=== PATIENT | male | born 1940 | race Caucasian/White ===

== ENCOUNTER 2024-08-13 15:20 | Inpatient (IN) | payer OTHER, SELFPAY ==
[2024-08-13] VITALS (9 sets, daily range): BP systolic 111–153; BP diastolic 58–104; BMI 20.7
--- NOTE | 2024-08-13 13:11 | ED.GENMED ---
History of Present Illness
General
Chief Complaint: Breathing Problem
Source: patient and ambulance crew
Exam Limitations: none
Time Seen by Provider: 08/13/24 13:04
Nursing documentation reviewed up to this point in time: agreed with
History of Present Illness
History of Present Illness:
Patient is a 84-year-old male with history of stroke, COPD sent from primary care office for difficulty breathing.
Patient is a limited historian but does complain of right-sided chest pain difficulty breathing. He complains of right-sided rib pain. He denies any recent fever or chills. I did speak with his provider who saw him today in the office : Mili
Oumar who reports patient went to the office this morning very short of breath and does have known COPD however was recently off his regimen because he was visiting his in the intermediate. He was given a DuoNeb in the office and placed on
oxygen.
Past History
Past History
ED Past Medical History: COPD, HTN and Other (Iron deficiency anemia, peripheral vascular disease, gout, pneumonia)
Social History
Tobacco: Former smoker
Personal:
Living: with family
Employment: Retired
Phy Exam
General Physical Exam
General Presentation: no apparent distress
General age: appears stated age
General Skin: warm and dry
General Habitus: elderly
General Mental: alert
General Hydration: dry mucous membranes
Cardiovascular Exam
Cardiovascular Exam: regular rate/rhythm, no murmur and normal peripheral pulses
Pulmonary Exam
Pulmonary Exam: other (Wheezing throughout)
Neurological Exam
Neurological Exam: alert and oriented x3
Musculoskeletal Exam
Musculoskeletal Exam: full ROM
Skin Exam
Skin Exam: normal color and warm/dry
Psychiatric Exam
Psychiatric Exam: normal mood/affect
Scores
Heart Failure Risk
Heart Failure Risk Score: Not Applicable
Sepsis
Sepsis Screening
Sepsis Assessment: Sepsis Ruled Out
Sepsis Screen
Sepsis Screen: Sepsis Ruled Out
Date: 08/16/24
Time: 19:31
Course
Orders/Labs/Results
Orders:
Orders
08/13/24 00:00
Dexamethasone Sod Phosphate [Decadron] 4 mg IV Q8
08/13/24 Breakfast
Cholesterol Lowering
At Your Request: Limited Participation
Cholesterol Lowering: Sodium, 2 Gram
08/13/24 13:08
Electrocardiogram (*1) Urgent
Reason for Study: Chest Pain
IV Insert/Care/Rem.- Treatment PRN
08/13/24 13:09
EKG- Treatment ONCE
CR Chest - 2 Views Urgent
Comment:
Reason For Exam: SOB wheezing
08/13/24 13:20
COVID-19 Antigen Urgent
Source: Nasal Swab
08/13/24 13:21
Complete Blood Count/With Diff Urgent
Comprehensive Metabolic Panel Urgent
Manual Differential Urgent
NT-proBNP Urgent
Troponin I Urgent
Influenza A+B Rapid Molecular Urgent
NICCI Source: Nasal Swab
Specimen Description:
08/13/24 13:23
Albuterol Sulfate [Ventolin Nebules] 7.5 mg INH R NOW STA
Ipratropium Nebs [Atrovent Nebules] 1 mg INH R NOW STA
08/13/24 14:08
Electrocardiogram (*1) Stat
Reason for Study: Other
Other Reason for Exam: chest pain
EKG- Treatment ONCE
08/13/24 14:11
Dexamethasone Sod Phosphate [Decadron] 10 mg IV NOW STA
08/13/24 14:16
Acetaminophen [Tylenol] 650 mg PO NOW STA
08/13/24 14:53
Admit/Transfer Patient As Directed
Co-Sign Provider:
Level of Care: Inpatient admission
Assign to:: Telemetry
Physician / Group: [email or web address]
Diagnosis: COPD
Reason for Telemetry: Arrhythmia
Date to Stop Telemetry: 08/16/24
Time to Stop Telemetry: 11:00
Reason for Hospitalization: COPD
Expected length of stay greater than two midnights?: Yes
ELOS- Estimated Length of Stay in days: 3
I certify the patient meets the requirements for IP care: Yes
PRN Pain Medication Management As Directed
May give lesser potent ordered pain med per pt: Yes
preference::
Protocol:: Medication orders for pain may be administered in a
manner that supports deferring to patient preference
when the pt is:
- Requesting an ordered lesser potent pain medication.
Least to most potent pain medications are defined
as: acetaminophen < NSAID < tramadol < opioids
(morphine, oxycodone, hydromorphone).
- Requesting a lesser dose of the same medication IF
ORDERED.
- Requesting a less intrusive route of administration
if both routes are prescribed by the provider (PO <
IV).
08/13/24 14:55
Code Status As Directed
Resuscitation Status: Full Code
08/13/24 15:02
Furosemide [Lasix] 40 mg IV NOW STA
08/13/24 15:06
Echo 2D MMode Color/Doppler Routine
Reason for Study: pulmonary edema
08/13/24 16:00
Ipratropium/Albuterol Sulfate [Duoneb] 3 ml INH R QID
08/13/24 16:37
Acetaminophen [Tylenol] 650 mg PO Q4HPRN PRN
Ipratropium/Albuterol Sulfate [Duoneb] 3 ml INH R Q4HPRN PRN
08/13/24 16:37
CARDIOLOGY CONSULT Routine
Consulting Provider: Alden Cueva
Was physician already notified: Yes
PULMONARY CONSULT Routine
Consulting Provider: De La Cruz,Jon
Was physician already notified: Yes
Activity As Directed
Activity Level: As Tolerated
Intake/ Output As Directed
Frequency: Per unit guidelines
Vital Signs As Directed
Frequency: Per unit guidelines
Weight As Directed
Frequency: Daily
Copd Education [RESP] Routine
DX Deep Vein Thrombosis Video Routine
08/13/24 18:00
Atorvastatin [Lipitor] 40 mg PO QPM
08/13/24 19:48
Potassium Urgent
Troponin I Q6H
08/13/24 20:00
Allopurinol [Zyloprim] 50 mg PO BID
Heparin 5,000 units SC Q12
Ticagrelor [Brilinta] 90 mg PO BID
08/13/24 22:00
Lorazepam [Ativan] 1 mg PO HS
08/14/24 01:50
Troponin I Q6H
08/14/24 06:59
Basic Metabolic Panel IN AM
Complete Blood Count/With Diff IN AM
Troponin I Q6H
08/14/24 08:00
Amlodipine [Norvasc] 10 mg PO DAILY
Aspirin Chewable [Low Strength Aspirin] 81 mg PO DAILY
Atenolol [Tenormin] 50 mg PO DAILY
08/15/24 06:10
Basic Metabolic Panel IN AM
Complete Blood Count/With Diff IN AM
08/16/24 07:14
Basic Metabolic Panel IN AM
Complete Blood Count/With Diff IN AM
08/16/24 11:00
DC Protocol for Telemetry ONCE
08/17/24 06:00
Basic Metabolic Panel IN AM
Complete Blood Count/With Diff IN AM
08/18/24 06:00
Basic Metabolic Panel IN AM
Complete Blood Count/With Diff IN AM
Abnormal Lab Results
08/13/24
13:21
WBC 15.9 H 10^3/uL
(4.8-10.8)
RBC 2.99 L 10^6/uL
(4.70-6.10)
Hgb 9.5 L g/dL
(13.0-18.0)
Hct 29.9 L %
(39.0-52.0)
MCV 100.0 H fL
(80.0-94.0)
MCH 31.8 H pg
(27.0-31.0)
MCHC 31.8 L g/dL
(33.0-37.0)
RDW 15.3 H %
(11.5-14.5)
MPV 11.0 H fL
(7.4-10.4)
Abs Neuts (Manual) 15.1 H 10^3/uL
(1.4-6.5)
Segmented Neutrophils 79 H %
(42-75)
Band Neutrophils 16 H %
(0-3)
Lymphocytes (Manual) 1 L %
(20-51)
Potassium 5.8 H mmol/L
(3.5-5.1)
Chloride 108 H mmol/L
(98-107)
BUN 48 H mg/dl
(9-20)
Creatinine 2.2 H mg/dL
(0.7-1.3)
Glucose 143 H mg/dl
(70-99)
Troponin I 0.139 H* ng/ml
08/13/24 13:21
08/13/24 13:21
Vital Signs
Initial and Last Documented VS:
Initial Vital Signs
Temp Pulse Resp BP Pulse Ox
98.1 F 83 30 143/66 84
08/13/24 12:54 08/13/24 12:54 08/13/24 12:54 08/13/24 12:54 08/13/24 12:54
Last Documented Vital Signs
Temp Pulse Resp BP Pulse Ox
98.1 F 78 27 135/56 95
08/16/24 15:45 08/16/24 19:00 08/16/24 19:00 08/16/24 18:22 08/16/24 19:00
School Photographer consulted with Physician
School Photographer consulted with physician?: Yes
Name of Physician Consulted: Hoda
MDM/Problems Addressed
MDM/Problems Addressed:
Patient presented from primary care office with shortness of breath, wheezing patient received neb while in the office. Patient has a history of COPD. Patient complains of right sided rib /chest pain. He is very short of breath wheezing on exam.
Case discussed with primary care physician trust administrative assistant who saw him in the office. He was given a neb in the office and given an hour-long neb here with IV Decadron. No acute findings on EKG however troponin minimally elevated at 0.139 which is new
for patient is possible this is demand ischemia. He does complain of some right-sided rib discomfort denies any injury unable to get CT PE study due to his renal function. He does have a history of renal disease, and his creatinine is 2.2 which is
baseline for patient. Patient's potassium is minimally elevated at 5.8 no acute EKG changes
Chronic conditions affecting care:
copd /cva o plavix
*Radiology
Radiology exam reviewed: radiology read reviewed
*Pulse Oximetry
Patient hypoxic: yes
*EKG
Interpreted by ED Provider?: Yes
Interpretation: abnormal
Heart Rate: 85
Rate: normal
Rhythm: sinus
Ischemia: no ischemia
*Critical Care Note
Total Time (30-74mins, 75-104mins- exclusive of procedures): Not Applicable
ED Attending Note
-
Portions of this chart may have been created with voice recognition software.� Occasional wrong word or��sound alike� substitutions may have occurred due to the inherent limitations of voice recognition software.
Discharge Plan
Departure
Patient Disposition: Admit
Date of Disposition: 08/13/24
Time of Disposition: 14:26
Admit to: Telemetry
Admit to doctor: hospitalist
Presentation/result/management discussed w/ accepting MD/DO: Hospitalist
Patient with high blood pressure during this ER visit?: No
Condition: Fair
Covid-19: Not Applicable
Discharge Problem:
copd exacerbation , Elevated troponin
Interventions
Interventions:
*Risk Screen - Suicide Last Done: 08/13/24 12:56
*General Assessment Last Done: 08/13/24 13:05
*Neglect/Abuse Screening Last Done: 08/13/24 12:56
ED- Fall Risk Assessment Last Done: 08/13/24 12:56
*ED COVID-19 Vaccine History Last Done: 08/13/24 13:05
*Nursing Disposition Last Done: 08/13/24 16:35
ED- Cardiac Assessment Last Done: 08/13/24 13:33
ED- Pulmonary Assessment Last Done: 08/13/24 13:36
Discharge Date and Time
Discharge Date/Time: 08/13/24 16:36
[2024-08-13 13:47] LABS: ALT (SGPT) 15 U/L (0-50); AST (SGOT) 23 U/L (17-59); Alkaline Phosphatase 104 U/L (38-126); Blood Urea Nitrogen 48 mg/dl (9-20); Calcium 9.9 mg/dl (8.4-10.2); Carbon Dioxide 22 mmol/L (22-30); Chloride 108 mmol/L (98-107); Estimated Creatinine Clearance 21 ml/min; Glucose 143 mg/dl (70-99); Potassium 5.8 mmol/L (3.5-5.1); Sodium 144 mmol/L (135-145); Total Bilirubin 0.7 mg/dl (0.2-1.3); Total Protein 6.9 g/dl (6.3-8.2); eGFR 28.63
[2024-08-13 13:49] LABS: Hematocrit 29.9 % (39.0-52.0); Hemoglobin 9.5 g/dL (13.0-18.0); Mean Corp Hgb Conc. 31.8 g/dL (33.0-37.0); Mean Corpuscular Hgb 31.8 pg (27.0-31.0); Platelet Count 161 10^3/uL (130-400); Red Blood Cell Count 2.99 10^6/uL (4.70-6.10); Red Cell Dist. Width 15.3 % (11.5-14.5); White Blood Cell Count 15.9 10^3/uL (4.8-10.8)
[2024-08-13] MEDS: VENTOLIN NEBULES 7.5 MG INH (13:49)
[2024-08-13 13:50] LABS: COVID-19 Antigen Negative (Negative)
[2024-08-13] MEDS: ATROVENT NEBULES 1 MG INH (13:50)
[2024-08-13 14:01] LABS: NT-proBNP 14700 pg/ml; Troponin I 0.139 ng/ml
[2024-08-13 14:35] LABS: Absolute Neutrophils -Man Diff 15.1 10^3/uL (1.4-6.5); Anisocytosis Slight; Band Neutrophils 16 % (0-3); Lymphocytes 1 % (20-51); Monocytes 4 % (2-9); Normal RBC Morphology No; Platelets Checked Yes; Segmented Neutrophils 79 % (42-75)
[2024-08-13 14:36] LABS: Ovalocytes Slight; Total Cells Counted 100
[2024-08-13] MEDS: TYLENOL 650 MG PO (14:52)
[2024-08-13] MEDS: DECADRON 10 MG IV (14:54)
--- NOTE | 2024-08-13 14:54 | HPS.HSE ---
Addendum entered and electronically signed by Сергей Sweet MD 08/13/24 15:12:
Correction:
Acute mild bronchospasm DDX: Asthmatic bronchitis flare of COPD , possible cardiac asthma
Acute hypoxic RI need low flow O2 support: Not on Home O2
CXR: NOS b/l diffusely increased interstitial opacities likely reflective of chronic lung disease with component of acute interstitial edema not entirely excluded.
- NEG Covid. NEH Flu A & B
- <del>Adequately</del> <del>oxygenating</del> <del>on</del> <del>RA</del>
- empiric IV Decadron 4mg q8
- DuoNebs qid and PRN
- No indication for ABX
- Pul consulted
Original Note:
Family Physician
-
Family Physician: Mili Oseguera
Chief Complaint
-
SoB
History of Present Illness
- associated with wheezing
- s/p an hour long Neb plus IV Decadron
- Rt sided CP
- Mildly elevated trop
- Cannot have CTC PE study due to CKD
Medical History
Past Medical History
Past Medical History: Reports Other
Additional Past Medical History:
Essential hypertension
Chronic obstructive pulmonary disease
Gout
Bladder cancer
Past Surgical History: Reports Other
Additional Past Surgical History:
Bladder cancer surgery
Social History
Tobacco: Non-smoker
Alcohol: None
Drug: None
Personal:
Living: With Family
Family History
Family History: Not pertinent
Allergies / Home Medications
Allergies reflects when Allergies were last updated in [employer].
Home Medications with original date entered in [employer]
Allergy/Medication List:
Nurse tells me that the patient does not know his medications.
I did review some of the medications with him. He is unsure of doses.
The meds he tells me he takes are....
Allopurinol
Cilostazol
Iron
Fish oil
Hydrocortisone
DuoNebs
Lorazepam
Atenolol
Naproxen
If medication reconciliation has not been performed, why?: Medication List N/A
Review of Systems
-
History Source: Patient
A 12 point ROS was completed and negative except as noted: Yes
Constitutional: Reports No Symptoms
EENT: Reports No Symptoms
Respiratory: Reports Trouble Breathing and Other (wheeze)
Cardiac: Reports Chest Pain (Rt sided )
Abdomen/GI: Reports Diarrhea
: Reports No Symptoms
Musculoskeletal: Reports Edema
Skin: Reports No Symptoms
Neurological: Reports Dizzy and Other (Slurred speech)
Endocrine: Reports No Symptoms
Hematologic/Lymphatic: Reports No Symptoms
Psych: Reports No Symptoms
Physical Exam
Vital Signs
Vital Signs
Temp Pulse Resp BP Pulse Ox
98.1 F 80 19 111/71 93
08/13/24 12:57 08/13/24 14:45 08/13/24 14:45 08/13/24 14:00 08/13/24 14:45
Physical Exam
General: Well Developed, Well Nourished and No Apparent Distress (Does appear short of breath)
HEENT: NormoCephalic and Atraumatic; No Oxygen
Respiratory: Wheezes, Rales (diffusely vs upper resp secretions ) and Decreased Breath Sounds
Cardiac: S1/S2 and Regular Rhythm; No Murmur
GI: Soft, Non Tender, Normal Bowel Sounds and Distended
Musculoskeletal: No Clubbing, No Cyanosis and No Edema
Skin: Warm
Neuro: Awake, Alert, No Motor Deficits and Slurred Speech
Psych: Calm
Laboratory Results
-
08/13/24 13:21
08/13/24 13:21
Laboratory Results
Total Bilirubin 0.7 mg/dl (0.2-1.3) 08/13/24 13:21
AST 23 U/L (17-59) 08/13/24 13:21
ALT 15 U/L (0-50) 08/13/24 13:21
Alkaline Phosphatase 104 U/L (38-126) 08/13/24 13:21
Troponin I 0.139 ng/ml H* 08/13/24 13:21
Data Reviewed
-
Diagnostic Radiology: Report Reviewed by me
Medical Tests (Nuc Med, Echo, EKG etc): Report Reviewed by me
Lab Data: Labs Reviewed by me
Old Records: Reviewed
Impression/Plan
-
Data
Laboratory Tests
03/24/23 08/13/24 08/13/24
06:44 13:20 13:21
WBC 15.9 H
Hgb 11.3 L 9.5 L
Potassium 5.8 H
Chloride 108 H
BUN 48 H
Creatinine 2.3 H 2.2 H
eGFR 28.63
Troponin I 0.139 H*
Tuf-S-Ttdxbzfxdwa Pept 39322
SARS-CoV-2 Antigen Negative
NEG Covid
NEG flu A and B
CXR
- Nonspecific diffusely increased interstitial opacities bilaterally, likely reflective of chronic lung disease with component of acute interstitial edema not entirely excluded.
- No pleural effusions.
- No focal airspace disease with chronic pleural thickening within the right apex.
EKG report
- NORMAL SINUS RHYTHM
- RIGHT BUNDLE BRANCH BLOCK
- ABNORMAL ECG WHEN COMPARED WITH ECG OF 21-MAR-2023 17:28,
- PREMATURE ATRIAL COMPLEXES ARE NO LONGER PRESENT
Confirmed by MD SANDRA, ALISSA Monson ([id number]) on 08/13/2024 1:23:07 PM
03/24/23 TTE
Normal left ventricular systolic function.
Left ventricular ejection fraction is 60-65%.
Mild mitral regurgitation.
Thickened aortic valve with mild aortic stenosis as noted.
Compared to the previous echo 11/19/19 there is increased thickeneing of the aortic leaflets paricularly the noncoronary cusp leaflet. and mild aortic stenosis is now suspected.
ASSESSMENT & PLAN
Acute mild bronchospasm DDX: Asthmatic bronchitis flare of COPD , possible cardiac asthma
Acute hypoxic RI need low flow O2 support: Not on Home O2
CXR: NOS b/l diffusely increased interstitial opacities likely reflective of chronic lung disease with component of acute interstitial edema not entirely excluded.
- NEG Covid. NEH Flu A & B
- Adequately oxygenating on RA
- empiric IV Decadron 4mg q8
- DuoNebs qid and PRN
- No indication for ABX
- Pul consulted
R sided CP - atypical for cardiac origin
Elevated TPNI and Elevated proBNP with eGFR of low 20s
CXR : questionable acute interstitial edema
DDX: NIMI
- Empiric IV Lasix 40 x 1 and observe
- c/w DISTANCE LEARNING COORDINATOR ASA , Atenolol
- Trend TPNI
- ECHO
- CBC card consulted
HLD
- cont. Statin
Hyperkalemia with normal HCO3
CKD4 - stable at baseline eGFR2 in low 20
- s/p IV Lasix 40 and repeat K at 7 pm
Insomnia
- c/w Lorazepam HS
Lives alone at Home
DVT Px: SQH
Full code
IP TLM
--- NOTE | 2024-08-13 15:01 | EDRN ---
Dr. Sweet in room w/pt at this time. Micki Law informed that pt had informed me on arrival that he has been unable to do as much getting up and around for last week or so and progressivley less and less able to get around.
--- NOTE | 2024-08-13 15:06 | EDRN ---
Pt continues w/ labored moist breathing w/ audible crackles/bubbling breath sounds noted at this time. Pt using accessory muscles to breathe and orthopnic. Pt is SOB and tacypneic at rest.
--- NOTE | 2024-08-13 15:23 | CON.CAR ---
Addendum entered and electronically signed by Alden Cueva MD 08/13/24 18:38:
84 yo male with PMH of CVA, mild , RBBB, COPD, CKD4 is admitted with acute on chronic SOB and right sided chest pain. Elevated WBC is also noted. Exam with RRR, II/ systolic murmur at RUSB, trace LE edema. +rhonchi on lung exam. Cr 2.2.
Echo 08/13: EF 55-60%, mild .
I suspect etiology of SOB, right sided chest pain is multifactorial with acute HFPEF and COPD exacerbation.
Continue lasix 40mg IV bid with close monitoring of labs and tele. Troponin elevation is likely acute non-ischemic myocardial injury in setting of HF, COPD, CKD4.
Treatment of COPD per hospitalist/pulmonology.
Original Note:
Consultation
Consultation Request
Date/Time Consultation Requested: 08/13/24 1500
Date/Time Consultation Performed: 08/13/24 1530
Requesting Provider: Shanti Machuca
Performing Provider: Hanh CASSIDY for Dr. Cueva
Reason for Consultation: SOB, elevated BNP, elevated troponin
Medical History
-
Chief Complaint: right sided chest pain and SOB
History of Present Illness:
84 y/o male with history of CVA (March 2023), mild , CKD IV, RBBB, and COPD who woke up yesterday and noted right-sided CP and has been having SOB as well. He saw his PCP today, who sent him to the ER for further evaluation. He is not an excellent
historian at this time. To assessment, he is in no acute distress, but does have mildly increased WOB. He is on O2 by MI. He has JVD, mild BLE edema. He has rhonchi throughout lung davis. He has had chills and an elevated WBC, but no fever. He is
being admitted and treated for COPD exacerbation with IV steroids and duonebs. He is also noted to have abnormal troponin in the setting of acute illness. He has constant right-sided CP. EKG is stable with RBBB. Hyperkalemia is noted and he is
getting lasix and repeat potassium is in for later today. He has anemia and denies any blood in urine or stool.
Past Medical History
Past Medical History: COPD, CVA, Valvular Disease and Other (as above)
Social History
Tobacco: Former Smoker
Family History
Family History: Reviewed & Not Pertinent
Allergies / Home Medications
Allergy/AdvReac Type Severity Reaction Status Date / Time
environmental allergies Allergy Unknown Uncoded 08/13/24 12:57
�Medication �Instructions �Recorded �Confirmed �Type
allopurinol 100 mg tablet 50 mg PO BID Gout 10/28/18 08/13/24 History
atenolol 50 mg tablet 50 mg PO BID Blood Pressure 10/28/18 08/13/24 History
ipratropium 0.5 mg-albuterol 3 mg 3 ml inhalation R Q8HPRN PRN sob 10/28/18 08/13/24 History
(2.5 mg base)/3 mL nebulization
soln
acetaminophen 325 mg tablet 650 mg (2 x 325 mg) PO Q4HPRN PRN 10/29/18 08/13/24 Rx
mild pain/CHRISTIANSON/temp> 100.4F
lorazepam 1 mg tablet 1 mg PO HS ##1 10/29/18 08/13/24 Rx
aspirin 81 mg chewable tablet 81 mg PO DAILY #0 tabs 03/24/23 08/13/24 Rx
atorvastatin 20 mg tablet 40 mg (2 x 20 mg) PO QPM #0 tabs 03/24/23 08/13/24 Rx
amlodipine 10 mg tablet 10 mg PO DAILY 08/13/24 08/13/24 History
clemastine 1.34 mg tablet 1.34 mg PO BIDPRN PRN allergy 08/13/24 08/13/24 History
symptoms
omega 8-mgf-gyy-fish oil 1,200 mg 1 cap PO DAILY 08/13/24 08/13/24 History
(144 mg-216 mg) capsule (Fish Oil)
ticagrelor 90 mg tablet (Brilinta) 90 mg PO BID 08/13/24 08/13/24 History
Review of Systems
-
History Source: Patient and Other (and chart)
Constitutional: Chills
Respiratory: Cough (per nursing) and Trouble Breathing
Cardiac: Chest Pain (right sided)
Musculoskeletal: Edema
Physical Exam
Vital Signs
Temp Pulse Resp BP Pulse Ox
98.1 F 80 19 111/71 93
08/13/24 12:57 08/13/24 14:45 08/13/24 14:45 08/13/24 14:00 08/13/24 14:45
Lab Results
08/13/24 13:21
Troponin I 0.139 ng/ml H* 08/13/24 13:21
Bgp-T-Smfonarnovc Pept 27808 pg/ml 08/13/24 13:21
Physical Exam
General: Well Developed, Well Nourished and No Apparent Distress
HEENT: Normocephalic and Anicteric
Respiratory: Rhonchi and Other (on O2 by NC)
Cardiac: Regular Rhythm, Peripheral Edema (mild BLE edema) and JVD
Musculoskeletal: Edema
Skin: Warm and Dry
Neuro: Awake, Alert and Other (lethargic)
Psych: Calm
Impression / Plan
-
Acute, hypoxic respiratory failure:
-on O2 by NC
-likely multifactorial with COPD, acute CHF. Respiratory infection also possibility with WBC, rhonchi, chills- defer to primary team. Pulm consulted.
Acute HFpEF:
-appears volume overloaded to my assessment
-update echo now to ensure still preserved EF, assess aortic valve (previously mild stenosis)
-IV diuresis, which requires intensive monitoring
Abnormal troponin:
-acute non-ischemic myocardial injury in setting of hypoxia
-trend to peak
-check echo
Chest pain, right sided:
-suspect non-cardiac
-monitor with treatment of COPD, CHF, etc.
CKDIV:
-monitor with IV diuresis
HTN:
-monitor with diuresis
-continue meds
RBBB: chronic and stable
Anemia:
-denies blood in urine or stool
-per primary team
Hx CVA:
-patient on ASA and Brilinta- he follows with a neurologist- not clear how long he is supposed to be on DAPT- follow-up with neuro
Data Reviewed
-
EKG: Tracing Personally Visualized and interpreted (SR with RBBB)
Radiology: Report Reviewed by me (CXR;Nonspecific diffusely increased interstitial opacities bilaterally, likely reflective of chronic lung disease with component of acute interstitial edema not entirely excluded. )
Medical Tests (Nuc Med, Echo etc): Report Reviewed by me (echo 03/24/23: Normal left ventricular systolic function. Left ventricular ejection fraction is 60-65%. Mild mitral regurgitation. Thickened aortic valve with mild aortic stenosis as noted.
)
Labs: Labs Reviewed by me
[2024-08-13] MEDS: LASIX 40 MG IV (15:28)
--- NOTE | 2024-08-13 15:30 | EDRN ---
Addendum entered by Nell Ruelas RN 08/13/24 15:30:
(cardiology consult).
Original Note:
Demetris CASSIDY in room w/ pt (cardi
--- NOTE | 2024-08-13 15:34 | EDRN ---
Echocardiogram being done at stretcher side at this time.
[2024-08-13] MEDS: DECADRON IV ×2 (17:00)
[2024-08-13] MEDS: DECADRON 4 MG IV (17:20)
[2024-08-13] MEDS: LIPITOR 40 MG PO (17:20)
--- NOTE | 2024-08-13 17:28 | CON.PUL ---
Consultation
Consultation Request
Date/Time Consultation Requested: 08/13/2024 - 163
Date/Time Consultation Performed: 08/13/2024 - 1704
Requesting Provider: ANGE Van
Performing Provider: Jon De La Cruz MD
Reason for Consultation: SOB
Medical History
-
Chief Complaint: SOB/Wheezing
History of Present Illness:
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 Patient was at his PCP today with BAILEY Fong, due to cough,
shortness of breath and mild congestion. COVID swab + flu swab both negative. He became hypoxic down to 84%. Normally he takes DuoNebs TID but has not been taking it lately. His cough and congestion started about 2 days ago. No known sick
contacts but he [place] [facility] [place] where his is located ([place]). He was placed onto oxygen (2L/min) with sats rising to 90s, and given a DuoNeb treatment x 2 in the office - this improved his Sx. He was thought to
have a COPD exacerbation and then was transferred to [place] [facility] for further care. In the ER he was audibly wheezing and saturating 84% on room air, and saturations improved to 98% on 2 L/min. He was breathing at 24-30 breaths/min with BP
143/66, pulse rate 83 and he was afebrile to 98.1 �F. Labs showed leukocytosis to 15.9, anemia to 9.5, bandemia with 16% bands, creatinine 2.2, potassium 5.8, troponin 0.139, proBNP 14,700 and COVID antigen negative. Flu A/B swab also negative.
CXR shows diffusely increased interstitial opacities with no focal airspace disease. He was given acetaminophen, albuterol, ipratropium + Decadron 10 mg, and admitted to telemetry under the hospitalist. Pulmonary service now consulted for
additional management/recommendations.
When I saw the patient he was resting in bed, on 2 L/min, breathing comfortably. He does have shortness of breath but he says that is close to his baseline. He uses DuoNebs at home TID. He still has chest pain, located at the right rib cage which
is not radiating, described as sharp and hurts all the time no matter what position he is in. He currently denies CHRISTIANSON, abdominal pain, nausea, diarrhea, fevers or chills.
PMHx: CKD, gout, anemia, hypertension, chronic back pain, emphysema, AAA without rupture, history of bladder cancer s/p resection, former tobacco use, anemia, history of alcohol dependence now in remission, KELLEY, insomnia, reported history of COPD,
PVD, sebaceous cyst, hypercholesterolemia, history of CVA due to ICH (2022) with residual right-sided symptoms, history of lung nodule
PSHx: Bladder resection (2008)
Past Medical History
Past Medical History: Other (Above as per HPI)
Past Surgical History: Other (Above as per HPI)
Social History
Tobacco: Former Smoker (Quit 2001, previously smoked 1 PPD x 48 years)
Alcohol: Former
Drug: None
Personal:
Living: With Family
Family History
Family History: CAD (Mother) and Other (Father: Cirrhosis)
Allergies / Home Medications
Allergies
Allergy/AdvReac Type Severity Reaction Status Date / Time
environmental allergies Allergy Unknown Uncoded 08/13/24 12:57
Home Medications
�Medication �Instructions �Recorded �Confirmed �Last Taken �Type
allopurinol 100 mg tablet 50 mg PO BID Gout 10/28/18 08/13/24 08/13/24 History
atenolol 50 mg tablet 50 mg PO BID Blood Pressure 10/28/18 08/13/24 08/13/24 History
ipratropium 0.5 mg-albuterol 3 mg 3 ml inhalation R Q8HPRN PRN sob 10/28/18 08/13/24 08/13/24 History
(2.5 mg base)/3 mL nebulization
soln
acetaminophen 325 mg tablet 650 mg (2 x 325 mg) PO Q4HPRN PRN 10/29/18 08/13/24 Unknown Rx
mild pain/CHRISTIANSON/temp> 100.4F
lorazepam 1 mg tablet 1 mg PO HS ##1 10/29/18 08/13/24 08/12/24 Rx
aspirin 81 mg chewable tablet 81 mg PO DAILY #0 tabs 03/24/23 08/13/24 08/13/24 Rx
atorvastatin 20 mg tablet 40 mg (2 x 20 mg) PO QPM #0 tabs 03/24/23 08/13/24 08/12/24 Rx
amlodipine 10 mg tablet 10 mg PO DAILY Blood Pressure 08/13/24 08/13/24 08/13/24 History
clemastine 1.34 mg tablet 1.34 mg PO BIDPRN PRN allergy 08/13/24 08/13/24 Unknown History
symptoms
omega 7-rcv-[id number]-fish oil 1,200 mg 1 cap PO DAILY Supplement 08/13/24 08/13/24 08/13/24 History
(144 mg-216 mg) capsule (Fish Oil)
ticagrelor 90 mg tablet (Brilinta) 90 mg PO BID Blood Clot 08/13/24 08/13/24 08/13/24 History
Prevention/Tx
Review of Systems
-
History Source: Patient
All other systems: Negative unless noted
Vitals / Labs / Diagnostic Testing
Vital Signs
Temp Pulse Resp BP Pulse Ox
97.7 F 87 16 143/73 2
08/13/24 16:45 08/13/24 16:45 08/13/24 16:45 08/13/24 16:45 08/13/24 16:46
Lab Data
08/13/24 13:21
Microbiology
08/13/24 13:21 Nasal Swab Influenza Types A & B (LOC) - Final
Negative for Influenza A & B, NAAT
Negative results must be combined with clinical observations
and patient history.
Nucleic Acid Amplification test (NAAT)performed on the
[employer] platform.
Diagnostic Testing:
Physical Exam
-
HEENT: Normocephalic and Anicteric
Cardiovascular: S1/S2, Murmur (MONY heard across precodium) and Peripheral Edema (Trace LE edema bilaterally)
Respiratory: Wheeze ([place] upon expiration bilaterally), Rales (Anterior lung davis bilaterally), Rhonchi (negative), Accessory Resp Muscle Use (mild during conversation) and Other (Diminished breath sounds bilaterally)
GI: Soft, Non Distended, Non Tender and Normal Bowel Sounds
Neurology: Awake and Alert
Skin: Warm and Dry
General: Respiratory Distress (negative), Comfortable, Chills (negative) and Sweats (negative)
Assessment
-
Assessment: 84-year-old male former tobacco smoker (quit 2001) with a past medical history of AAA without rupture, bladder cancer s/p resection, chronic lower back pain, hypertension, hypercholesterolemia, KELLEY, insomnia, reported history of COPD,
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 Patient was at his PCP today with BAILEY Fong, due
to cough, shortness of breath and mild congestion. COVID swab + flu swab both negative. He became hypoxic down to 84%. Normally he takes DuoNebs TID but has not been taking it lately. His cough and congestion started about 2 days ago. No known
sick contacts but he [place] where his is located ([place]). He was placed onto oxygen (2L/min) with sats rising to 90s, and given a DuoNeb treatment x 2 in the office - this improved his Sx. He was
thought to have a COPD exacerbation and then was transferred to [place] ER for further care. In the ER he was audibly wheezing and saturating 84% on room air, and saturations improved to 98% on 2 L/min. He was breathing at 24-30 breaths/min
with BP 143/66, pulse rate 83 and he was afebrile to 98.1 �F. Labs showed leukocytosis to 15.9, anemia to 9.5, bandemia with 16% bands, creatinine 2.2, potassium 5.8, troponin 0.139, proBNP 14,700 and COVID antigen negative. Flu A/B swab also
negative. CXR shows diffusely increased interstitial opacities with no focal airspace disease. He was given acetaminophen, albuterol, ipratropium + Decadron 10 mg, and admitted to telemetry under the hospitalist. Pulmonary service now consulted
for additional management/recommendations.
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
Impression:
#Acute respiratory failure with hypoxia likely due to combination of acute bronchospasm/acute COPD exacerbation with acute interstitial edema
#Acute interstitial edema suspicious for acute decompensated heart failure
#Acute HFpEF exacerbation
#Chest pain
#Leukocytosis with bandemia (16%)
#Acute on chronic anemia (baseline Hb: 10.5�12g/dL)
#Elevated proBNP (14,700 on 08/13/2024)
#Elevated troponin
#CKD (baseline creatinine approximately 2.2)
#Chronic lower back pain
#AAA without rupture
#History of bladder cancer s/p resection
#Former tobacco smoker (quit 2001)
Plan:
- Admission CXR does show prominent interstitial markings. Prior CXR from 03/21/2023 showed mildly prominent interstitial markings with hyperinflation at that time
- Diuresis tolerated - currently on lasix 40mg IV BID
- Maintain net negative as tolerated
- Trend BNP, sCr, I/O and OP; keep K>4, Mg>2
- Transthoracic echo shows normal biventricular size and systolic function without regional WMA, with LVEF 55 to 60% and mild ; normal RA size
- Cardiology consulted - recs appreciated
- Continue with systemic steroids and wean as tolerated - currently on Decadron 4 mg IV q8hr
- Maintain SpO2 88-95% with supplemental O2 and titrate down as tolerated
- Maintain euglycemia with goal BG >100 and <180 while on high dose steroids
- Incentive spirometer encouraged (as tolerated)
- Continue DuoNebs QID with prn doses in between for breakthrough symptoms
- Pain control
- If chest pain worsens then check stat EKG and notify primary hospitalist and cardiology
- Recheck potassium level given it was 5.8 on admission
- Continue trending troponin level until peaks
- Monitor H/H and transfuse if needed to keep Hb>7g/dL
- DVT ppx: HSQ --> change to q8hr
Pulmonary service will continue to follow along. Outpatient follow-up will be arranged
Data:
CXR 08/13/2024:
Nonspecific diffusely increased interstitial opacities bilaterally, likely reflective of chronic lung disease with component of acute interstitial edema not entirely excluded. No pleural effusions. No focal airspace disease with chronic pleural
thickening within the right apex.
TTE 08/13/2024:
Normal biventricular size and systolic function without regional wall motion
abnormality. Estimated LVEF 55-60%.
Mild aortic stenosis.
Compared to 03/24/23: no significant change.
Total time spent today was 77 minutes for this encounter. Time includes reviewing laboratory test/imaging results, reviewing pertinent medical records, obtaining and reviewing medical history, performing an appropriate exam, ordering medications,
tests and procedures. Time also includes documentation of this encounter, coordinating patient care and communicating with other healthcare professionals. Total time does not include separately billed tests performed on this date of service.
[2024-08-13] MEDS: DUONEB INH (18:01)
[2024-08-13 18:07] LABS: Glucose - Point of Care 140 mg/dl (70-99)
[2024-08-13] MEDS: DUONEB 3 ML INH (19:38)
--- NOTE | 2024-08-13 20:02 | PTCARENOTE ---
Pt pulling off oxygen and gown multiples times. Pt yelling out 'help!' and was very SOB when this RN went into the room. Pt placed back on 2L. Pt aaox3 and reoriented to room and call darden. Paco placed for safety. Plan of care ongoing.
[2024-08-13] MEDS: ZYLOPRIM 50 MG PO (20:26)
[2024-08-13] MEDS: BRILINTA 90 MG PO (20:28)
[2024-08-13] MEDS: HEPARIN 5000 UNITS SC (20:28)
[2024-08-13 20:37] LABS: Potassium 5.1 mmol/L (3.5-5.1)
[2024-08-13 20:53] LABS: Troponin I 0.227 ng/ml
[2024-08-13 21:13] LABS: Glucose - Point of Care 219 mg/dl (70-99)
[2024-08-13] MEDS: ATIVAN 1 MG PO (21:44)
[2024-08-14] MEDS: DECADRON 4 MG IV ×3 (00:08→20:34)
[2024-08-14 03:00] VITALS: BP 149/58
[2024-08-14 03:06] LABS: Troponin I 0.387 ng/ml
[2024-08-14] MEDS: DUONEB 3 ML INH ×5 (04:58→19:49)
[2024-08-14 06:00] VITALS: BMI 20.3
[2024-08-14 07:00] VITALS: BP 128/61
--- NOTE | 2024-08-14 07:06 | PTCARENOTE ---
at 0313, SHIP'S ENGINEER notified about trop of 0.387. No c/o CP or increased SOB. VSS. Plan of care ongoing.
[2024-08-14 07:31] LABS: Hemoglobin 8.7 g/dL (13.0-18.0); Mean Corp Hgb Conc. 31.1 g/dL (33.0-37.0); Mean Corpuscular Hgb 31.4 pg (27.0-31.0); Mean Corpuscular Volume 101.1 fL (80.0-94.0); Mean Platelet Volume 10.8 fL (7.4-10.4); Platelet Count 151 10^3/uL (130-400); Red Blood Cell Count 2.77 10^6/uL (4.70-6.10)
[2024-08-14 07:38] LABS: Troponin I 0.465 ng/ml
[2024-08-14 07:39] LABS: Blood Urea Nitrogen 55 mg/dl (9-20); Calcium 9.5 mg/dl (8.4-10.2); Carbon Dioxide 21 mmol/L (22-30); Chloride 108 mmol/L (98-107); Estimated Creatinine Clearance 19 ml/min; Glucose 168 mg/dl (70-99); Potassium 4.7 mmol/L (3.5-5.1); Sodium 142 mmol/L (135-145)
[2024-08-14 08:18] LABS: Glucose - Point of Care 168 mg/dl (70-99)
[2024-08-14] MEDS: HEPARIN 5000 UNITS SC ×2 (08:38→17:08)
[2024-08-14] MEDS: LASIX 40 MG IV ×2 (08:38→17:08)
[2024-08-14] MEDS: NORVASC 10 MG PO (08:39)
[2024-08-14] MEDS: ZYLOPRIM 50 MG PO ×2 (08:39→20:34)
[2024-08-14] MEDS: BRILINTA 90 MG PO ×2 (08:39→20:33)
[2024-08-14] MEDS: TENORMIN 50 MG PO (08:39)
[2024-08-14] MEDS: LOW STRENGTH ASPIRIN 81 MG PO (08:39)
[2024-08-14 08:40] LABS: Absolute Neutrophils -Man Diff 11.5 10^3/uL (1.4-6.5); Band Neutrophils 37 % (0-3); Lymphocytes 1 % (20-51); Monocytes 3 % (2-9); Normal RBC Morphology No; Platelets Checked Yes; Segmented Neutrophils 59 % (42-75)
[2024-08-14 08:41] LABS: Anisocytosis 1+; Hypochromasia 1+; Ovalocytes 1+; Polychromasia 1+; Total Cells Counted 100
[2024-08-14 11:00] VITALS: BP 135/62
--- NOTE | 2024-08-14 12:29 | W.PN.CD ---
Today's Communication / Plan
-
EKG in AM
Trop in AM
IV Lasix today and likely move to PO after AM dose 08/15/2024
Impression / Plan
-
84 yo male with prior CVA, mild , RBBB, COPD, CKD4 admitted with acute on chronic SOB and right sided chest pain. Elevated WBC is also noted.
Suspect SOB, right sided chest pain is multifactorial with acute HFPEF and COPD exacerbation.
Acute HFpEF:
-Seems to be responding to pulmonary treatment and diuresis
Abnormal troponin from acute non-ischemic myocardial injury in setting of hypoxia
- Trend to peak
- EKG tomorrow (08/15/2024)
Chest pain, right sided: None today 08/14/2024
COPD exacerbation
- Per pulm and hospitalist
CKD IV
HTN
RBBB
Anemia
Hx CVA: patient on ASA and Brilinta- he follows with a neurologist- not clear how long he is supposed to be on DAPT- follow-up with neuro
Mental status: not fully assessed. Not sure baseline memory/cognition
Subjective:
He feels better. Eager for home
Data:
Echo 08/13/2024: Echo 08/13/2024: EF 55-60%, mild .
Physical Exam
Vital Signs/Labs
Vital Signs
Temp Pulse Resp BP Pulse Ox
97.9 F 77 16 135/62 94
08/14/24 11:00 08/14/24 11:50 08/14/24 11:50 08/14/24 11:00 08/14/24 11:50
08/13/24 08/14/24 08/15/24
06:59 06:59 06:59
Actual Weight 60.464 kg
08/14/24 06:59
08/14/24 06:59
08/13/24
13:21
Qie-V-Heyznaccsib Pept [id number]
LAB Results
08/13/24 08/13/24 08/14/24
13:21 19:48 01:50
Troponin I 0.139 H* 0.227 H* D 0.387 H* D
08/14/24
06:59
Troponin I 0.465 H*
Physical Exam
Constitutional: No acute distress
EENT: Anicteric
Cardiovascular: Rhythm & rate is regular and Pedal edema is absent
Respiratory: Respiratory effort normal, Wheeze Absent and Crackles Absent
GI: Soft and Distention absent
Neuro/Psych: Alert
Data Reviewed
-
Date of Service: August 14, 2024
[2024-08-14 12:31] LABS: Glucose - Point of Care 209 mg/dl (70-99)
--- NOTE | 2024-08-14 14:44 | W.PN.HOSP.TC ---
Today's Communication/Plan
-
Reduce dexamethasone to 4 mg every 12 hours
Continue with diuresis
Wean O2 as tolerated
Assessment / Plan
Assessment / Plan
Physical Exam
General: Well Developed, Well Nourished and No Apparent Distress
HEENT: Normocephalic and Anicteric
Respiratory: CTAB (on O2 by NC)
Cardiac: Regular Rhythm, Peripheral Edema (mild BLE edema) and JVD
Musculoskeletal: Edema
Skin: Warm and Dry
Neuro: Awake, Alert and Other (lethargic)
Psych: Calm
Acute, hypoxic respiratory failure:
-on O2 by NC
-likely multifactorial with COPD, acute CHF.
�Continue IV diuresis, steroids
Acute HFpEF:
-Echo�EF 55 to 60%, mild aortic stenosis
� Continue IV diuresis
� Anticipate transition to p.o. regimen tomorrow
�follow BMP
Acute COPD�patient
� Mostly triggered by acute interstitial edema
� Continue IV Lasix
� Continue systemic steroids�wean dexamethasone 4 mg every 8 hours to every 12 hours
Continue DuoNebs standing and as needed
Abnormal troponin:
-acute non-ischemic myocardial injury in setting of hypoxia
-trend to peak
-No wall motion abnormality on echo
� Troponin in the morning
� No chest pain today
Chest pain, right sided:
-suspect non-cardiac, atypical pain
� Chest tenderness upon right side
None today
-monitor with treatment of COPD, CHF, etc.
Leukocytosis
� Most likely reactive secondary steroid
Monitor fever curve, white count
CKDIV:
-monitor with IV diuresis
HTN:
-monitor with diuresis
-continue meds
RBBB: chronic and stable
Anemia:
-denies blood in urine or stool
-per primary team
Hx CVA:
-patient on ASA and Brilinta- he follows with a neurologist- not clear how long he is supposed to be on DAPT- follow-up with neuro
#DVT prophylaxis
� HSQ
Anticipated Discharge: 24 - 48 hours
Subjective/Interval History
-
Date of Service: August 14, 2024
Feels better
Objective Data
-
Labs:
Laboratory Results
08/14/24
06:59
WBC 12.0 H
Hgb 8.7 L
Hct 28.0 L
Plt Count 151
Sodium 142
Potassium 4.7
Chloride 108 H
Carbon Dioxide 21 L
BUN 55 H
Creatinine 2.4 H
Glucose 168 H
Calcium 9.5
Vital Signs:
Vital Signs
Temp Pulse Resp BP Pulse Ox
97.9 F 77 16 135/62 94
08/14/24 11:00 08/14/24 11:50 08/14/24 11:50 08/14/24 11:00 08/14/24 11:50
I&O
08/13/24 08/14/24 08/15/24
06:59 06:59 06:59
Intake Total 840 / 840
Output Total 1350 / 1350
Balance -510 / -510
Review of Systems
-
History Source: Patient
All other systems: Not reviewed unless documented
Data Reviewed
-
CT Scan: Image personally visualized and interpreted and Report Reviewed by me
Labs: Labs Reviewed by me
[2024-08-14 15:00] VITALS: BP 148/66
[2024-08-14 15:04] VITALS: BMI 20.3
--- NOTE | 2024-08-14 15:40 | CM ---
CM spoke to dgtr as patient is not best historian. Dgtr reports patient lives in subsidized housing, [place] on his own. in LTC Dementia unit at [facility]. Patient home is one level. He uses walker. He has nebulizer, tub seat and tub rails
at home.
He makes own meals. He gets some food from [employer] in [place].
He goes to see his regularly at [facility]. He drives.
Dgtr concerned he may not be taking his medications regularly. SHe tried to get him to use pill box but he preferred his own way.
He was in [place] rehab after a stroke in 2022. He did have home care after d.c from [facility] but she does not remember name.
CM discussed snf versus home care with dgtr. CM to watch for PT eval to see if patient needs SNF rehab.
PCP Dr. Zarco
Pharmacy: [facility]
PLAN : snf vs home with home care.
--- NOTE | 2024-08-14 15:43 | W.PN.PUL3 ---
Today's Communication / Plan
-
Continue nebulizer therapy
Decrease IV corticosteroids-hopefully transition to prednisone in the next 24 hours
Monitor blood sugars
IV diuretics
Wean down FiO2
Increase activity as able
Assessment
-
Assessment: 84-year-old male former tobacco smoker (quit 2001) with a past medical history of AAA without rupture, bladder cancer s/p resection, chronic lower back pain, hypertension, hypercholesterolemia, KELLEY, insomnia, reported history of COPD,
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 Patient was at his PCP today with BAILEY Fong, due
to cough, shortness of breath and mild congestion. COVID swab + flu swab both negative. He became hypoxic down to 84%. Normally he takes DuoNebs TID but has not been taking it lately. His cough and congestion started about 2 days ago. No known
sick contacts but he does visit a senior living frequently where his is located ([place]). He was placed onto oxygen (2L/min) with sats rising to 90s, and given a DuoNeb treatment x 2 in the office - this improved his Sx. He was
thought to have a COPD exacerbation and then was transferred to [place] ER for further care. In the ER he was audibly wheezing and saturating 84% on room air, and saturations improved to 98% on 2 L/min. He was breathing at 24-30 breaths/min
with BP 143/66, pulse rate 83 and he was afebrile to 98.1 �F. Labs showed leukocytosis to 15.9, anemia to 9.5, bandemia with 16% bands, creatinine 2.2, potassium 5.8, troponin 0.139, proBNP 14,700 and COVID antigen negative. Flu A/B swab also
negative. CXR shows diffusely increased interstitial opacities with no focal airspace disease. He was given acetaminophen, albuterol, ipratropium + Decadron 10 mg, and admitted to telemetry under the hospitalist. Pulmonary service now consulted
for additional management/recommendations.
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
Impression:
#Acute respiratory failure with hypoxia likely due to combination of acute bronchospasm/acute COPD exacerbation with acute interstitial edema
#Acute interstitial edema suspicious for acute decompensated heart failure
#Acute HFpEF exacerbation
#Chest pain
#Leukocytosis with bandemia (16%)
#Acute on chronic anemia (baseline Hb: 10.5�12g/dL)
#Elevated proBNP (14,700 on 08/13/2024)
#Elevated troponin
#CKD (baseline creatinine approximately 2.2)
#Chronic lower back pain
#AAA without rupture
#History of bladder cancer s/p resection
#Former tobacco smoker (quit 2001)
Plan:
- Admission CXR does show prominent interstitial markings. Prior CXR from 03/21/2023 showed mildly prominent interstitial markings with hyperinflation at that time
-Continue IV diuresis per cardiology
- Maintain net negative as tolerated
- Transthoracic echo shows normal biventricular size and systolic function without regional WMA, with LVEF 55 to 60% and mild ; normal RA size
- Continue with systemic steroids and wean as tolerated -agree with reducing steroids, transition to prednisone in 24 hours if improved.
- Maintain SpO2 88-95% with supplemental O2 and titrate down as tolerated
- Maintain euglycemia with goal BG >100 and <180 while on high dose steroids
- Incentive spirometer encouraged (as tolerated)
- Continue DuoNebs QID with prn doses in between for breakthrough symptoms(has a nebulizer at home may continue upon discharge)
- DVT ppx: HSQ
Pulmonary service will continue to follow along. Outpatient follow-up will be arranged
Data:
CXR 08/13/2024:
Nonspecific diffusely increased interstitial opacities bilaterally, likely reflective of chronic lung disease with component of acute interstitial edema not entirely excluded. No pleural effusions. No focal airspace disease with chronic pleural
thickening within the right apex.
TTE 08/13/2024:
Normal biventricular size and systolic function without regional wall motion
abnormality. Estimated LVEF 55-60%.
Mild aortic stenosis.
Compared to 03/24/23: no significant change.
Subjective Data
-
Date of Service:
Date of Service: August 14, 2024
Chief Complaint: Pulmonary Follow Up (Acute COPD exacerbation)
Subjective:
Clinically improved
Denies significant phlegm production or hemoptysis
Less short of breath
Review of Systems
General: Fever (n)
Cardiopulmonary: Dyspnea (improved)
GI: Abdominal Pain (n) and Nausea (n)
Neuro: Headache (n)
Objective Data
Data Reviewed
Vital Signs / I&O / Oxygen:
Vital Signs
Temp Pulse Resp BP Pulse Ox
97.9 F 77 16 135/62 91
08/14/24 11:00 08/14/24 15:39 08/14/24 15:39 08/14/24 11:00 08/14/24 15:39
Intake and Output
08/13/24 08/14/24 08/15/24
06:59 06:59 06:59
Intake Total 840 / 840
Output Total 1350 / 1350
Balance -510 / -510
SaO2 91
Nasal Cannula flow liters per 2
minute
Physical Exam
General: Comfortable
HEENT: Normocephalic
Cardiovascular: S1-S2
Respiratory: Wheeze (Improved)
GI: Soft and Non Distended
Neurology: Awake, Alert and No Motor Deficits
Skin: Warm
Labs/Micro/Reports
Lab Data
08/14/24 06:59
08/14/24 06:59
Microbiology
08/13/24 13:21 Nasal Swab Influenza Types A & B (LOC) - Final
Negative for Influenza A & B, NAAT
Negative results must be combined with clinical observations
and patient history.
Nucleic Acid Amplification test (NAAT)performed on the
[employer] platform.
[2024-08-14 16:59] LABS: Glucose - Point of Care 179 mg/dl (70-99)
[2024-08-14] MEDS: LIPITOR 40 MG PO (17:08)
[2024-08-14 19:00] VITALS: BP 143/69
[2024-08-14 21:30] LABS: Glucose - Point of Care 176 mg/dl (70-99)
[2024-08-14] MEDS: ATIVAN 1 MG PO (21:42)
[2024-08-14 23:00] VITALS: BP 151/64
[2024-08-15] VITALS (8 sets, daily range): BP systolic 117–150; BP diastolic 48–73; PULSE 77–79; O2SAT 95; BMI 19.7
[2024-08-15] MEDS: HEPARIN SC ×3 (00:50→23:49)
[2024-08-15 06:35] LABS: Hematocrit 30.5 % (39.0-52.0); Hemoglobin 9.8 g/dL (13.0-18.0); Mean Corp Hgb Conc. 32.1 g/dL (33.0-37.0); Mean Corpuscular Hgb 32.2 pg (27.0-31.0); Mean Corpuscular Volume 100.3 fL (80.0-94.0); Mean Platelet Volume 11.2 fL (7.4-10.4); Platelet Count 181 10^3/uL (130-400); Red Blood Cell Count 3.04 10^6/uL (4.70-6.10); Red Cell Dist. Width 14.9 % (11.5-14.5)
[2024-08-15 06:52] LABS: Troponin I 0.338 ng/ml
[2024-08-15 07:06] LABS: Calcium 9.7 mg/dl (8.4-10.2); Glucose 136 mg/dl (70-99); Potassium 4.7 mmol/L (3.5-5.1)
[2024-08-15 07:16] LABS: Blood Urea Nitrogen 68 mg/dl (9-20); Carbon Dioxide 27 mmol/L (22-30); Chloride 101 mmol/L (98-107); Estimated Creatinine Clearance 17 ml/min; Sodium 143 mmol/L (135-145)
[2024-08-15] MEDS: DUONEB 3 ML INH ×4 (07:30→17:56)
[2024-08-15 07:49] LABS: Absolute Neutrophils -Man Diff 11.2 10^3/uL (1.4-6.5); Band Neutrophils 23 % (0-3); Lymphocytes 4 % (20-51); Metamyelocytes 1 % (-); Monocytes 1 % (2-9); Segmented Neutrophils 71 % (42-75)
[2024-08-15 07:50] LABS: Anisocytosis 1+; Hypochromasia 1+; Normal RBC Morphology No; Platelets Checked Yes; Polychromasia 1+
[2024-08-15 07:51] LABS: Ovalocytes 1+; Total Cells Counted 100
[2024-08-15 08:00] LABS: Glucose - Point of Care 134 mg/dl (70-99)
[2024-08-15] MEDS: LOW STRENGTH ASPIRIN 81 MG PO (08:02)
[2024-08-15] MEDS: ZYLOPRIM 50 MG PO ×2 (08:02→21:06)
[2024-08-15] MEDS: BRILINTA 90 MG PO ×2 (08:03→21:06)
[2024-08-15] MEDS: HEPARIN 5000 UNITS SC (08:03)
[2024-08-15] MEDS: TENORMIN 50 MG PO (08:04)
[2024-08-15] MEDS: NORVASC 10 MG PO (08:04)
[2024-08-15] MEDS: DECADRON 4 MG IV (08:04)
[2024-08-15] MEDS: LASIX 40 MG IV (08:05)
--- NOTE | 2024-08-15 12:34 | W.PN.HOSP.TC ---
Today's Communication/Plan
-
wean o2
cont steroids
switch to po lasix - monitor Scr
Assessment / Plan
Assessment / Plan
Physical Exam
General: Well Developed, Well Nourished and No Apparent Distress
HEENT: Normocephalic and Anicteric
Respiratory: CTAB (on O2 by NC)
Cardiac: Regular Rhythm, Peripheral Edema (mild BLE edema) and JVD
Musculoskeletal: Edema
Skin: Warm and Dry
Neuro: Awake, Alert and Other (lethargic)
Psych: Calm
Acute, hypoxic respiratory failure:
-on O2 by NC
-likely multifactorial with COPD, acute CHF.
�Continue diuresis, steroids
Acute HFpEF:
-Echo�EF 55 to 60%, mild aortic stenosis
� Switch to p.o. Lasix 40mg daily and monitor Scr
� Anticipate transition to p.o. regimen tomorrow
�follow BMP
Acute COPD�patient
� Mostly triggered by acute interstitial edema
� Switch to p.o. Lasix
� Continue systemic steroids�dexamethasone 4 mg every 12 hours
Continue DuoNebs standing and as needed
Abnormal troponin:
-acute non-ischemic myocardial injury in setting of hypoxia
-trend to peak
-No wall motion abnormality on echo
� Troponin in the morning
� No chest pain today
Chest pain, right sided:
-suspect non-cardiac, atypical pain
� Chest tenderness upon right side
None today
-monitor with treatment of COPD, CHF, etc.
Leukocytosis
� Most likely reactive secondary steroid
Monitor fever curve, white count
CKDIV:
-monitor with diuresis
-started on po lasix starting jeanmarie
HTN:
-monitor with diuresis
-continue meds
RBBB: chronic and stable
Anemia:
-denies blood in urine or stool
-per primary team
Hx CVA:
-patient on ASA and Brilinta- he follows with a neurologist- not clear how long he is supposed to be on DAPT- follow-up with neuro
#DVT prophylaxis
� HSQ
Anticipated Discharge: 24 - 48 hours
Subjective/Interval History
-
Date of Service: August 15, 2024
Wheezing worse, requiring higher level of oxygen overnight
Objective Data
-
Labs:
Laboratory Results
08/15/24
06:10
WBC 12.0 H
Hgb 9.8 L
Hct 30.5 L
Plt Count 181
Sodium 143
Potassium 4.7
Chloride 101
Carbon Dioxide 27
BUN 68 H
Creatinine 2.7 H
Glucose 136 H
Calcium 9.7
Vital Signs:
Vital Signs
Temp Pulse Resp BP Pulse Ox
97.6 F 76 18 146/65 98
08/15/24 11:25 08/15/24 11:25 08/15/24 11:25 08/15/24 11:25 08/15/24 11:25
I&O
08/14/24 08/15/24 08/16/24
06:59 06:59 06:59
Intake Total 840 / 840 480 / 480 120 / 120
Output Total 1350 / 1350 550 / 550 1400 / 1400
Balance -510 / -510 -70 / -70 -1280 / -1280
Review of Systems
-
History Source: Patient
All other systems: Not reviewed unless documented
Data Reviewed
-
CT Scan: Image personally visualized and interpreted and Report Reviewed by me
Labs: Labs Reviewed by me
[2024-08-15 12:58] LABS: Glucose - Point of Care 105 mg/dl (70-99)
--- NOTE | 2024-08-15 15:13 | W.PN.PUL3 ---
Today's Communication / Plan
-
Transition to prednisone 08/15/2024
Continue nebulizer therapy
Continue diuretics
Hopefully discharge planning soon
Assessment
-
Assessment: 84-year-old male former tobacco smoker (quit 2001) with a past medical history of AAA without rupture, bladder cancer s/p resection, chronic lower back pain, hypertension, hypercholesterolemia, KELLEY, insomnia, reported history of COPD,
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 Patient was at his PCP today with BAILEY Fong, due
to cough, shortness of breath and mild congestion. COVID swab + flu swab both negative. He became hypoxic down to 84%. Normally he takes DuoNebs TID but has not been taking it lately. His cough and congestion started about 2 days ago. No known
sick contacts but he does visit a [facility] frequently where his is located ([place]). He was placed onto oxygen (2L/min) with sats rising to 90s, and given a DuoNeb treatment x 2 in the office - this improved his Sx. He was
thought to have a COPD exacerbation and then was transferred to [place] ER for further care. In the ER he was audibly wheezing and saturating 84% on room air, and saturations improved to 98% on 2 L/min. He was breathing at 24-30 breaths/min
with BP 143/66, pulse rate 83 and he was afebrile to 98.1 �F. Labs showed leukocytosis to 15.9, anemia to 9.5, bandemia with 16% bands, creatinine 2.2, potassium 5.8, troponin 0.139, proBNP 14,700 and COVID antigen negative. Flu A/B swab also
negative. CXR shows diffusely increased interstitial opacities with no focal airspace disease. He was given acetaminophen, albuterol, ipratropium + Decadron 10 mg, and admitted to telemetry under the hospitalist. Pulmonary service now consulted
for additional management/recommendations.
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
Impression:
#Acute respiratory failure with hypoxia likely due to combination of acute bronchospasm/acute COPD exacerbation with acute interstitial edema
#Acute interstitial edema suspicious for acute decompensated heart failure
#Acute HFpEF exacerbation
#Chest pain
#Leukocytosis with bandemia (16%)
#Acute on chronic anemia (baseline Hb: 10.5�12g/dL)
#Elevated proBNP (14,700 on 08/13/2024)
#Elevated troponin
#CKD (baseline creatinine approximately 2.2)
#Chronic lower back pain
#AAA without rupture
#History of bladder cancer s/p resection
#Former tobacco smoker (quit 2001)
Plan:
- Admission CXR does show prominent interstitial markings. Prior CXR from 03/21/2023 showed mildly prominent interstitial markings with hyperinflation at that time
-Continue IV diuresis per cardiology
- Maintain net negative as tolerated
- Transthoracic echo shows normal biventricular size and systolic function without regional WMA, with LVEF 55 to 60% and mild ; normal RA size
Bronchospasm improved 08/15/2024.
- Continue with systemic steroids transition to oral prednisone 08/15/2024 and reduce by 10 mg every 48 hours to off.
- Maintain SpO2 88-95% with supplemental O2 and titrate down as tolerated
- Maintain euglycemia with goal BG >100 and <180 while on high dose steroids
- Incentive spirometer encouraged (as tolerated)
- Continue DuoNebs QID with prn doses in between for breakthrough symptoms(has a nebulizer at home may continue upon discharge)
- DVT ppx: HSQ
Pulmonary service will continue to follow along. Outpatient follow-up will be arranged
Data:
CXR 08/13/2024:
Nonspecific diffusely increased interstitial opacities bilaterally, likely reflective of chronic lung disease with component of acute interstitial edema not entirely excluded. No pleural effusions. No focal airspace disease with chronic pleural
thickening within the right apex.
TTE 08/13/2024:
Normal biventricular size and systolic function without regional wall motion
abnormality. Estimated LVEF 55-60%.
Mild aortic stenosis.
Compared to 03/24/23: no significant change.
Subjective Data
-
Date of Service:
Date of Service: August 15, 2024
Chief Complaint: Pulmonary Follow Up (Acute COPD exacerbation)
Subjective:
Patient reports he feels better
Less short of breath
Denies significant purulent sputum production
Review of Systems
Cardiopulmonary: Dyspnea (improved)
GI: Abdominal Pain (n) and Nausea (n)
Neuro: Headache (n)
Objective Data
Data Reviewed
Vital Signs / I&O / Oxygen:
Vital Signs
Temp Pulse Resp BP Pulse Ox
97.6 F 76 18 146/65 98
08/15/24 11:25 08/15/24 11:25 08/15/24 11:25 08/15/24 11:25 08/15/24 11:25
Intake and Output
08/14/24 08/15/24 08/16/24
06:59 06:59 06:59
Intake Total 840 / 840 480 / 480 120 / 120
Output Total 1350 / 1350 550 / 550 1400 / 1400
Balance -510 / -510 -70 / -70 -1280 / -1280
SaO2 98
Nasal Cannula flow liters per 4
minute
Physical Exam
General: Comfortable
HEENT: Normocephalic
Cardiovascular: S1-S2
Respiratory: Wheeze (Improved)
GI: Soft and Non Distended
Neurology: Awake, Alert and No Motor Deficits
Skin: Warm
Labs/Micro/Reports
Lab Data
08/15/24 06:10
08/15/24 06:10
Microbiology
08/13/24 13:21 Nasal Swab Influenza Types A & B (LOC) - Final
Negative for Influenza A & B, NAAT
Negative results must be combined with clinical observations
and patient history.
Nucleic Acid Amplification test (NAAT)performed on the
[employer] ID NOW platform.
[2024-08-15] MEDS: SEROQUEL 25 MG PO (15:41)
[2024-08-15 16:58] LABS: Glucose - Point of Care 110 mg/dl (70-99)
[2024-08-15] MEDS: LIPITOR 40 MG PO (17:04)
--- NOTE | 2024-08-15 20:22 | W.PN.CD ---
Today's Communication / Plan
-
Agree with moving to PO Lasix
Will need to see if decreasing Lasix to daily holds weight or if he will need BID (or bigger PO dose)
Impression / Plan
-
84 yo male with prior CVA, mild , RBBB, COPD, CKD4 admitted with acute on chronic SOB and right sided chest pain. Elevated WBC is also noted.
Suspect SOB, right sided chest pain is multifactorial with acute HFpEF and COPD exacerbation.
Acute HFpEF:
- Seems to be responding to pulmonary treatment and diuresis
- Admit weight 61.8 kg and now 58.8 kg
- As outpt can consider SGLT2-I. but adding MRA challenging with his CKD4
Abnormal troponin from acute non-ischemic myocardial injury in setting of hypoxia
- Peak 0.465
- EKG no significant evolutionary changes
Chest pain, right sided: None last 2 days 08/14/2024 and 08/15/2024
COPD exacerbation
- Per pulm and hospitalist
- Steroids decreased
CKD IV
- Cr a bit worse with diuresis
HTN
RBBB
Anemia
Hx CVA: patient on ASA and Brilinta- he follows with a neurologist- not clear how long he is supposed to be on DAPT- follow-up with neuro
Mental status: not fully assessed. Not sure baseline memory/cognition
Subjective:
No cp or dyspnea
Data:
Echo 08/13/2024: Echo 08/13/2024: EF 55-60%, mild .
Physical Exam
Vital Signs/Labs
Vital Signs
Temp Pulse Resp BP Pulse Ox
97 F 72 18 135/65 97
08/15/24 15:00 08/15/24 17:58 08/15/24 17:58 08/15/24 15:00 08/15/24 17:58
08/14/24 08/15/24 08/16/24
06:59 06:59 06:59
Actual Weight 60.464 kg 58.831 kg
08/15/24 06:10
08/15/24 06:10
08/13/24
13:21
[id number] Pept [id number]
LAB Results
08/13/24 08/13/24 08/14/24
13:21 19:48 01:50
Troponin I 0.139 H* 0.227 H* D 0.387 H* D
08/14/24 08/15/24
06:59 06:10
Troponin I 0.465 H* 0.338 H*
Physical Exam
Constitutional: No acute distress
EENT: Anicteric
Cardiovascular: Rhythm & rate is regular, Systolic murmur absent and S1S2 is normal
Respiratory: Respiratory effort normal and Lungs clear to auscul.
GI: Soft and Distention absent
Neuro/Psych: Alert
Data Reviewed
-
Date of Service: August 15, 2024
[2024-08-15] MEDS: ATIVAN 1 MG PO (21:06)
[2024-08-15 21:49] LABS: Glucose - Point of Care 100 mg/dl (70-99)
[2024-08-16] VITALS (15 sets, daily range): BP systolic 97–158; BP diastolic 52–112; PULSE 3–87; BMI 18.7; BMI 18.8
[2024-08-16] MEDS: HALDOL 1 MG IV (00:39)
--- NOTE | 2024-08-16 01:00 | PTCARENOTE ---
Patient continually removing nasal cannula, patient becomes significantly tachypneic and labored without O2. Patient continues to try and get OOB, becomes agitated and combative with staff. Patient given scheduled PO Ativan and PRN Haldol IV with no
effect. ANGE Villanueva notified, order entered to place B/L soft wrist restraints. Will continue to monitor.
--- NOTE | 2024-08-16 01:03 | W.PN.UPDATE ---
Update Note
Progress Note Update
Nursing reports patient pulling off oxygen and climbing oob. He has already received dose of Ativan and Haldol with no relief. Will add bilateral wrist restraints and 4 rails for safety. Am concerned more medication would over sedate him.
[2024-08-16 07:23] LABS: Glucose - Point of Care 113 mg/dl (70-99)
[2024-08-16 07:48] LABS: Hematocrit 31.1 % (39.0-52.0); Hemoglobin 9.7 g/dL (13.0-18.0); Mean Corp Hgb Conc. 31.2 g/dL (33.0-37.0); Mean Corpuscular Hgb 31.3 pg (27.0-31.0); Mean Corpuscular Volume 100.3 fL (80.0-94.0); Mean Platelet Volume 11.2 fL (7.4-10.4); Platelet Count 196 10^3/uL (130-400); Red Cell Dist. Width 14.4 % (11.5-14.5); White Blood Cell Count 12.8 10^3/uL (4.8-10.8)
[2024-08-16] MEDS: DUONEB 3 ML INH ×4 (08:15→19:51)
[2024-08-16 08:21] LABS: Absolute Neutrophils -Man Diff 11.1 10^3/uL (1.4-6.5); Band Neutrophils 16 % (0-3); Lymphocytes 4 % (20-51); Metamyelocytes 2 % (-); Monocytes 3 % (2-9); Myelocytes 4 % (-); Platelets Checked Yes; Segmented Neutrophils 71 % (42-75)
[2024-08-16 08:22] LABS: Normal RBC Morphology Yes; Total Cells Counted 100; Vacuolated Segs 1+
[2024-08-16 08:27] LABS: Blood Urea Nitrogen 93 mg/dl (9-20); Calcium 9.4 mg/dl (8.4-10.2); Carbon Dioxide 26 mmol/L (22-30); Chloride 99 mmol/L (98-107); Estimated Creatinine Clearance 14 ml/min; Glucose 111 mg/dl (70-99); Potassium 4.9 mmol/L (3.5-5.1); Sodium 142 mmol/L (135-145); eGFR 19.74
[2024-08-16] MEDS: ZYLOPRIM PO ×3 (09:04→19:41)
[2024-08-16] MEDS: NORVASC PO ×2 (09:04→12:12)
[2024-08-16] MEDS: BRILINTA PO ×3 (09:04→19:40)
[2024-08-16] MEDS: HEPARIN 5000 UNITS SC ×3 (09:06→23:30)
[2024-08-16] MEDS: LOW STRENGTH ASPIRIN PO ×2 (09:06→12:12)
[2024-08-16] MEDS: TENORMIN PO ×2 (09:06→12:12)
--- NOTE | 2024-08-16 09:09 | CM ---
Chart reviewed.
PT rec SNF
spoke with daughter Rina - discussed options
Patient resides at [facility] dementia unit & prefers [facility] - referral sent [facility].
Discussed patient needs to be off restraints 24hr prior to SNF
PLAN: SNF, pending bed availability, CM will need to obtain insurance auth
--- NOTE | 2024-08-16 09:13 | W.PN.PUL.V3 ---
Today's Communication / Plan
-
Check ABG
Consider chest x-ray
BiPAP if needed
Nebulizers
Oxygen
Prednisone
Assessment
-
Assessment: 84-year-old male former tobacco smoker (quit 2001) with a past medical history of AAA without rupture, bladder cancer s/p resection, chronic lower back pain, hypertension, hypercholesterolemia, KELLEY, insomnia, reported history of COPD,
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 Patient was at his PCP today with BAILEY Fong, due
to cough, shortness of breath and mild congestion. COVID swab + flu swab both negative. He became hypoxic down to 84%. Normally he takes DuoNebs TID but has not been taking it lately. His cough and congestion started about 2 days ago. No known
sick contacts but he does visit a long term frequently where his is located ([place]). He was placed onto oxygen (2L/min) with sats rising to 90s, and given a DuoNeb treatment x 2 in the office - this improved his Sx. He was
thought to have a COPD exacerbation and then was transferred to [place] ER for further care. In the ER he was audibly wheezing and saturating 84% on room air, and saturations improved to 98% on 2 L/min. He was breathing at 24-30 breaths/min
with BP 143/66, pulse rate 83 and he was afebrile to 98.1 �F. Labs showed leukocytosis to 15.9, anemia to 9.5, bandemia with 16% bands, creatinine 2.2, potassium 5.8, troponin 0.139, proBNP 14,700 and COVID antigen negative. Flu A/B swab also
negative. CXR shows diffusely increased interstitial opacities with no focal airspace disease. He was given acetaminophen, albuterol, ipratropium + Decadron 10 mg, and admitted to telemetry under the hospitalist. Pulmonary service now consulted
for additional management/recommendations.
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
Impression:
#Acute respiratory failure with hypoxia likely due to combination of acute bronchospasm/acute COPD exacerbation with acute interstitial edema
#Acute interstitial edema suspicious for acute decompensated heart failure
Toxic metabolic encephalopathy
#Acute HFpEF exacerbation
#Chest pain
#Leukocytosis with bandemia (16%)
#Acute on chronic anemia (baseline Hb: 10.5�12g/dL)
#Elevated proBNP (14,700 on 08/13/2024)
#Elevated troponin
#CKD (baseline creatinine approximately 2.2)
#Chronic lower back pain
#AAA without rupture
#History of bladder cancer s/p resection
#Former tobacco smoker (quit 2001)
Plan:
Mental status significantly declined-agitated, some mild respiratory distress
Supplemental oxygen
Aspiration precaution
Nebulizers
Steroids-on prednisone 40 mg daily
Check ABG
BiPAP if needed
Consider chest x-ray
Diuresis per primary service and cardiology
Transition to oral Lasix
Monitor blood sugar
Insulin supplementation as needed
DVT prophylaxis-on heparin
Nutrition with aspiration precautions
Early mobilization
Outpatient follow-up will be arranged
Data:
CXR 08/13/2024:
Nonspecific diffusely increased interstitial opacities bilaterally, likely reflective of chronic lung disease with component of acute interstitial edema not entirely excluded. No pleural effusions. No focal airspace disease with chronic pleural
thickening within the right apex.
TTE 08/13/2024:
Normal biventricular size and systolic function without regional wall motion
abnormality. Estimated LVEF 55-60%.
Mild aortic stenosis.
Compared to 03/24/23: no significant change.
Subjective Data
-
Date of Service:
Date of Service: August 16, 2024
Chief Complaint: Pulmonary Follow Up (Acute COPD exacerbation) and Dyspnea Follow Up
Subjective:
Agitated, confused, unable to obtain review of systems, mild respiratory distress
Review of Systems
General: Other (Per HPI)
Objective Data
Data Reviewed
Vital Signs / I&O:
Vital Signs
Temp Pulse Resp BP Pulse Ox
97.8 F 87 22 142/63 96
08/16/24 07:13 08/16/24 08:19 08/16/24 08:19 08/16/24 07:13 08/16/24 08:19
Intake and Output
08/15/24 08/16/24 08/17/24
06:59 06:59 06:59
Intake Total 480 / 480 1080 / 1080
Output Total 550 / 550 2100 / 2100
Balance -70 / -70 -1020 / -1020
SaO2: 96
Nasal Cannula flow liters per minute: 3
Physical Exam
General: Respiratory Distress (n) and Comfortable
HEENT: Normocephalic and Anicteric
Cardiovascular: Regular Rhythm
Respiratory: Wheeze (Improved), Crackles, Rhonchi and Accessory Resp Muscle Use (Mild)
GI: Soft and Non Distended
Neurology: Lethargic
Skin: Warm, Good Color, Cyanosis (n), Jaundice (n) and Rash
Labs/Micro/Reports
Lab Data
08/16/24 07:14
08/16/24 07:14
Microbiology
08/13/24 13:21 Nasal Swab Influenza Types A & B (LOC) - Final
Negative for Influenza A & B, NAAT
Negative results must be combined with clinical observations
and patient history.
Nucleic Acid Amplification test (NAAT)performed on the
[employer] ID NOW platform.
[2024-08-16 10:44] LABS: B.E. 0.2 mmol/L; HCO3 27.4 mmol/L (21-28); O2 Saturation % 96.4 % (94-98); PCO2 57 mmHg (35-48); PO2 72 mmHg (83-108); pH 7.29 (7.35-7.45)
--- NOTE | 2024-08-16 10:58 | RESPNOTE ---
Addendum entered by Sabina Tomlin, RT 08/16/24 11:41:
pt placed on bipap 16/02 with 3L, pt pulling at mask. pt to be transferred to IMU.
Original Note:
pt in resp distress, RR 22-25, belly breathing, ABG done on 3L, pt NT suction for small amount of thick yellow secretions.
--- NOTE | 2024-08-16 11:21 | W.PN.HOSP.TC ---
Today's Communication/Plan
-
Chest x-ray
BiPAP
Transferred to IMU
Assessment / Plan
Assessment / Plan
84-year-old man admitted with acute hypoxic respiratory failure. Patient has been confused and pulling off oxygen climbing out of bed. Received a dose of Ativan and Haldol at nighttime. Restraints added by overnight practitioner.
Patient was drowsy not arousable wakes up briefly but goes back to sleep
Cardiovascular system no stenosis appreciated
Chest bilateral wheezing noted
Bone soft nontender
No pedal edema
# Acute hypoxic and hypercarbic respiratory failure
Multifactorial CHF and COPD
ABG noted. CO2 retention
BiPAP initiated
Transfer patient to stepdown
Since patient did not get any p.o. steroids give a dose of IV steroids now.
Follow clinical response
Use restraints as needed
Continue diuresis and steroids
Hold HS Ativan
# TME-likely multifactorial including CO2, hypoxia, steroids
# Acute HFpEF
Weight on admission was 61.8 kg no 55.65 kg
Lasix has been changed to p.o. daily-May need IV if patient cannot take p.o.
Follow BMP
# COPD exacerbation
Steroids changed to p.o. 1 dose of IV given today
DuoNebs
# Elevated troponin-acute nonischemic myocardial injury in the setting of hypoxia
# Right-sided chest pain-atypical with tenderness on the right side
# Leukocytosis likely secondary to steroids
# CKD stage IV-watch with diuresis
# Hypertension-continue amlodipine, atenolol
# History of CVA-on aspirin and Brilinta. Outpatient neurology evaluation to see if he still needs both
# Hyperlipidemia-continue statin
# Chronic RBBB
# Anemia-check iron studies
# History of gout-continue allopurinol
# Ex-smoker
# DVT prophylaxis-subcutaneous heparin
# Full code
Discussed with nursing at bedside
Discussed with case management
Discussed with patient's daughter on the phone and updated. Patient's is at [facility] now.
Daughter is aware of patient's condition and transfer. I also discussed about CODE STATUS and to see if patient would want to be a full code. She will address this.
Total time spent today over 55 minutes.
Anticipated Discharge: > 48 hours
Subjective/Interval History
-
Date of Service: August 16, 2024
Objective Data
-
Labs:
Laboratory Results
08/16/24 08/16/24
07:14 10:34
WBC 12.8 H
Hgb 9.7 L
Hct 31.1 L
Plt Count 196
HCO3 27.4
Sodium 142
Potassium 4.9
Chloride 99
Carbon Dioxide 26
BUN 93 H
Creatinine 3.0 H
Glucose 111 H
Calcium 9.4
Vital Signs:
Vital Signs
Temp Pulse Resp BP Pulse Ox
97.7 F 72 18 158/74 94
08/16/24 10:56 08/16/24 10:56 08/16/24 10:56 08/16/24 10:56 08/16/24 10:56
I&O
08/15/24 08/16/24 08/17/24
06:59 06:59 06:59
Intake Total 480 / 480 1080 / 1080
Output Total 550 / 550 2100 / 2100
Balance -70 / -70 -1020 / -1020
[2024-08-16 11:25] LABS: Glucose - Point of Care 114 mg/dl (70-99)
[2024-08-16] MEDS: DUONEB INH (11:28)
--- NOTE | 2024-08-16 12:01 | PTCARENOTE ---
pt received as transfer from [facility]. pt on bipap, drowsy, arouses to voice. able to follow some commands. unable to answer questions. generalized weakness throughout. bipap 14/5 with 3L oxygen, 96%. tachypnic, RR low 30s. intermittently grabbing at
bipap, pt able to be redirected. lung sounds coarse, diminished throughout. weak moist nonproductive cough. SR on telemetry heart rate 70s, pulses palpable no edema. hypoactive bowel sounds, unable to tolerate PO at this time. incontinent of urine.
see worklist for full nursing assessment and interventions.
[2024-08-16] MEDS: DECADRON 2 MG IV (12:31)
--- NOTE | 2024-08-16 14:50 | CM ---
CM consult completed.
Advance directives - spoke with daughter Rina - MELISSA to leave her information in room
--- NOTE | 2024-08-16 16:07 | PTCARENOTE ---
Pt with increased agitation, attempting to take off bipap and hit staff with mitts, provider notified, order received for bilateral wrist restraints, one to one at bedside with patient
[2024-08-16] MEDS: LIPITOR PO (17:30)
[2024-08-16 17:41] LABS: Glucose - Point of Care 80 mg/dl (70-99)
--- NOTE | 2024-08-16 17:44 | W.PN.CD ---
Today's Communication / Plan
-
Pt seen on telemetry floor prior to transfer to [facility]/IMU
Agree with moving to IMU, may need ICU
Given the good diuresis I suspect his decline is primarily of pulmonary etiology
Impression / Plan
-
84 yo male with prior CVA, mild , RBBB, COPD, CKD4 admitted with acute on chronic SOB and right sided chest pain. Elevated WBC is also noted.
Suspect SOB, right sided chest pain is multifactorial with acute HFpEF and COPD exacerbation.
Acute respiratory decline
- Pulm invovled.
Acute HFpEF:
- Seems to be responding to pulmonary treatment and diuresis
- Admit weight 61.8 kg => 56.2kg. Suspect volume overload portion of respiratory status has been well treated
- As outpt can consider SGLT2-I. but adding MRA challenging with his CKD4
Abnormal troponin from acute non-ischemic myocardial injury in setting of hypoxia
- Peak 0.465
- EKG no significant evolutionary changes
Chest pain, right sided: None last 2 days 08/14/2024 and 08/15/2024
COPD exacerbation
- Per pulm and hospitalist
- Steroids decreased
CKD IV
- Cr a bit worse with diuresis
HTN
RBBB
Anemia
Hx CVA: patient on ASA and Brilinta- he follows with a neurologist- not clear how long he is supposed to be on DAPT- follow-up with neuro
Mental status: not fully assessed. Not sure baseline memory/cognition
Subjective:
Uncomfortable appearing.
Data:
Echo 08/13/2024: Echo 08/13/2024: EF 55-60%, mild .
Physical Exam
Vital Signs/Labs
Vital Signs
Temp Pulse Resp BP Pulse Ox
98.1 F 74 25 135/55 96
08/16/24 15:45 08/16/24 17:00 08/16/24 17:00 08/16/24 16:00 08/16/24 17:00
08/15/24 08/16/24 08/17/24
06:59 06:59 06:59
Actual Weight 58.831 kg 55.656 kg 56.2 kg
08/16/24 07:14
08/16/24 07:14
08/13/24
13:21
[id number] Pept [id number]
LAB Results
08/13/24 08/14/24 08/14/24
19:48 01:50 06:59
Troponin I 0.227 H* D 0.387 H* D 0.465 H*
08/15/24
06:10
Troponin I 0.338 H*
Physical Exam
Constitutional: Distress
Cardiovascular: Rhythm & rate is regular and Pedal edema is absent
Respiratory: Respiratory effort normal, Crackles Absent and Labored respirations
GI: Soft and Distention absent
Data Reviewed
-
Date of Service: August 16, 2024
[2024-08-17] VITALS (20 sets, daily range): BP systolic 132–153; BP diastolic 49–82; PULSE 3–92; O2SAT 90–92; BMI 18.1
[2024-08-17 00:06] LABS: Glucose - Point of Care 114 mg/dl (70-99)
[2024-08-17 04:54] LABS: Blood Urea Nitrogen 112 mg/dl (9-20); Calcium 9.4 mg/dl (8.4-10.2); Carbon Dioxide 25 mmol/L (22-30); Chloride 103 mmol/L (98-107); Estimated Creatinine Clearance 14 ml/min; Glucose 122 mg/dl (70-99); Sodium 148 mmol/L (135-145); eGFR 19.74
[2024-08-17 05:03] LABS: % Basophils 0.9 % (0-2); % Eosinophils 0.2 % (0-6); % Immature Granulocytes 1.4 % (0-0.5); % Lymphocytes 2.5 % (20.5-51.1); Absolute Basophils 0.2 10^3/uL (0-0.2); Absolute Immature Granulocytes 0.2 10^3/uL (0-0.05); Absolute Lymphocytes 0.4 10^3/uL (1.2-3.4); Absolute Neutrophils 14.8 10^3/uL (1.4-6.5); Hematocrit 30.1 % (39.0-52.0); Hemoglobin 9.9 g/dL (13.0-18.0); Mean Corp Hgb Conc. 32.9 g/dL (33.0-37.0); Mean Corpuscular Hgb 31.6 pg (27.0-31.0); Mean Corpuscular Volume 96.2 fL (80.0-94.0); Mean Platelet Volume 11.2 fL (7.4-10.4); Nucleated Red Blood Cells % 0.1 % (-); Platelet Count 204 10^3/uL (130-400); Red Blood Cell Count 3.13 10^6/uL (4.70-6.10); Red Cell Dist. Width 14.4 % (11.5-14.5); White Blood Cell Count 16.6 10^3/uL (4.8-10.8)
--- NOTE | 2024-08-17 05:59 | PTCARENOTE ---
Patient on continuous BIPAP. Remains a 1:[address] Lethargic and agitated and times.
[2024-08-17] MEDS: DUONEB 3 ML INH ×4 (07:03→20:02)
[2024-08-17 08:22] LABS: B.E. 0.2 mmol/L; HCO3 26.9 mmol/L (21-28); O2 Saturation % 94.3 % (94-98); PCO2 51 mmHg (35-48); PO2 68 mmHg (83-108); pH 7.33 (7.35-7.45)
[2024-08-17 08:25] LABS: O2 Therapy bipap
[2024-08-17] MEDS: BRILINTA PO (08:39)
[2024-08-17] MEDS: NORVASC PO (08:41)
[2024-08-17] MEDS: LOW STRENGTH ASPIRIN PO (08:41)
[2024-08-17] MEDS: ZYLOPRIM PO (08:42)
[2024-08-17] MEDS: TENORMIN PO (08:42)
--- NOTE | 2024-08-17 08:48 | RESPNOTE ---
Respiratory: attempted to give patient a break from bilevel. Slight desaturation on 87% on 4 LPM nasal cannula with accessory muscle use. Returned patient back to bilevel 14/5 cmH2O and 4 LPM.
--- NOTE | 2024-08-17 09:22 | PTOTSP ---
ST Attempt/Hold
Chart reviewed. Pt currently requiring BiPAP support. RT attempted to wean pt to nasal cannula about an hour ago but pt desaturated to 87% and was thus placed back on BiPAP. Pt with known hx of mild oropharyngeal dysphagia (VFSS completed 03/2023).
Would recommend STRICT NPO (including meds) with utmost aspiration precautions at this time (HOB upright as often as possible; oral care QID with suctioning PRN) until respiratory status improves. Will try to f/u again later today to see if pt has
been successfully weaned from BiPAP.
--- NOTE | 2024-08-17 09:30 | W.PN.PUL.V3 ---
Today's Communication / Plan
-
Diuresis as tolerated
Begin to liberate from BiPAP-adjust settings
Follow ABG
Slow prednisone taper
Antibiotics
Assessment
-
Assessment: 84-year-old male former tobacco smoker (quit 2001) with a past medical history of AAA without rupture, bladder cancer s/p resection, chronic lower back pain, hypertension, hypercholesterolemia, KELLEY, insomnia, reported history of COPD,
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 Patient was at his PCP today with BAILEY Fong, due
to cough, shortness of breath and mild congestion. COVID swab + flu swab both negative. He became hypoxic down to 84%. Normally he takes DuoNebs TID but has not been taking it lately. His cough and congestion started about 2 days ago. No known
sick contacts but he does visit a mcc frequently where his is located ([place]). He was placed onto oxygen (2L/min) with sats rising to 90s, and given a DuoNeb treatment x 2 in the office - this improved his Sx. He was
thought to have a COPD exacerbation and then was transferred to [place] ER for further care. In the ER he was audibly wheezing and saturating 84% on room air, and saturations improved to 98% on 2 L/min. He was breathing at 24-30 breaths/min
with BP 143/66, pulse rate 83 and he was afebrile to 98.1 �F. Labs showed leukocytosis to 15.9, anemia to 9.5, bandemia with 16% bands, creatinine 2.2, potassium 5.8, troponin 0.139, proBNP 14,700 and COVID antigen negative. Flu A/B swab also
negative. CXR shows diffusely increased interstitial opacities with no focal airspace disease. He was given acetaminophen, albuterol, ipratropium + Decadron 10 mg, and admitted to telemetry under the hospitalist. Pulmonary service now consulted
for additional management/recommendations.
Chronic conditions ORIENTOR: CKD, gout, anemia, hypertension, chronic back pain, emphysema, AAA without rupture, history of bladder cancer s/p resection, former tobacco use, anemia, history of alcohol dependence now in remission, KELLEY, insomnia, reported
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
Impression:
#Acute respiratory failure with hypoxia likely due to combination of acute bronchospasm/acute COPD exacerbation with acute interstitial edema
#Acute interstitial edema suspicious for acute decompensated heart failure
Toxic metabolic encephalopathy
#Acute HFpEF exacerbation
#Chest pain
#Leukocytosis with bandemia (16%)
#Acute on chronic anemia (baseline Hb: 10.5�12g/dL)
#Elevated proBNP (14,700 on 08/13/2024)
#Elevated troponin
#CKD (baseline creatinine approximately 2.2)
#Chronic lower back pain
#AAA without rupture
#History of bladder cancer s/p resection
#Former tobacco smoker (quit 2001)
Plan:
Persistent agitation-now in restraints to prevent self-harm
Supplemental oxygen-attempt to wean
Aspiration precaution per protocol
Nebulizers
Steroids-on prednisone 40 mg daily
ABG 08/17/2024--51/68/7.33-pCO2 the day prior 57
BiPAP continues as needed-attempt to liberate-will increase BiPAP and minimally EPAP
Chest x-ray 08/16/2024-prominent interstitial markings, no significant change
Diuresis per primary service and cardiology
Transition to oral Lasix
Monitor leukocytosis-increased
Monitor hemoglobin
Transfuse as needed
Increase free water
Follow serum sodium
Monitor blood sugar
Insulin supplementation as needed
DVT prophylaxis-on heparin
Nutrition with aspiration precautions
Early mobilization
Outpatient follow-up will be arranged
Data:
CXR 08/13/2024:
Nonspecific diffusely increased interstitial opacities bilaterally, likely reflective of chronic lung disease with component of acute interstitial edema not entirely excluded. No pleural effusions. No focal airspace disease with chronic pleural
thickening within the right apex.
TTE 08/13/2024:
Normal biventricular size and systolic function without regional wall motion
abnormality. Estimated LVEF 55-60%.
Mild aortic stenosis.
Compared to 03/24/23: no significant change.
Subjective Data
-
Date of Service:
Date of Service: August 17, 2024
Chief Complaint: Pulmonary Follow Up (Acute COPD exacerbation) and Dyspnea Follow Up
Subjective:
Alert, restrained, no shortness of breath, on BiPAP,
Review of Systems
General: Other ( per HPI)
Objective Data
Data Reviewed
Vital Signs / I&O:
Vital Signs
Temp Pulse Resp BP Pulse Ox
98.9 F 92 34 142/58 92
08/17/24 07:24 08/17/24 07:04 08/17/24 07:04 08/17/24 06:00 08/17/24 07:04
Intake and Output
08/16/24 08/17/24 08/18/24
06:59 06:59 06:59
Intake Total 1080 / 1080
Output Total 2100 / 2100 225 / 225
Balance -1020 / -1020 -225 / -225
SaO2: 92
Nasal Cannula flow liters per minute: 3
Physical Exam
General: Respiratory Distress (n) and Comfortable
HEENT: Normocephalic and Anicteric
Cardiovascular: Regular Rhythm
Respiratory: Wheeze (Improved), Crackles, Rhonchi and Accessory Resp Muscle Use (Mild)
GI: Soft and Non Distended
Neurology: Lethargic
Skin: Warm, Good Color, Cyanosis (n), Jaundice (n) and Rash
Labs/Micro/Reports
Lab Data
08/17/24 04:01
08/17/24 04:01
Laboratory Results
08/16/24 08/17/24
10:34 07:54
pH 7.29 L 7.33 L
pCO2 57 H 51 H
pO2 72 L 68 L
HCO3 27.4 26.9
O2 Delivery Level bipap
--- NOTE | 2024-08-17 10:43 | PTCARENOTE ---
Assumed care for patient during the day, received report via dayshift RN. Pt remains on BiPAP, RT bedside to trial without BiPAP see notes. Pt unable to tolerate at this time. 94% O2 on BiPAP. Repeat ABG drawn to evaluate need for continuous BiPAP.
Remains 1:1 due to continued use of BiPAP, pt is currently calm but sleeping. Pt lethargic but arousable to verbal. Speech therapy consulted. Pt remains NPO. Oral medications due in AM, unable to give due to strict NPO status, Dr. Jane notified
via TT.
--- NOTE | 2024-08-17 10:45 | PN.CDI ---
Addendum entered and electronically signed by Nadja Jane MD 08/17/24 17:44:
Documentation is complete at this time.
Original Note:
CDI
- -
CDI:
Physician Documentation Request
Admit Date: 08/13/24 15:20
Dear Doctor Lucinda,
Patient admitted for COPD and CHF.
Please review the following and provide your response in the progress notes.
Clinical Indicators:
Height: 5' 8'
Weight: 119 lbs
BMI: 18.1
If possible, please provide an associated diagnosis related to the abnormal BMI, such as:
Cachectic
Underweight
BMI is not significant
Other
BMI < or = to 19.9
Underweight
Weight Loss
Cachectic
Anorexia
Use of terms such as suspected, likely, concern for, or probable (associated with a specific diagnosis that is being evaluated, monitored, or treated as if it exists) are acceptable and can be coded in the inpatient setting, when documented at the
time of discharge.
Thank you,
Denisa Grady RN, BSN
CDI Specialist
Available via [place] text
Please use your independent medical judgment in providing your response.
[2024-08-17] MEDS: HEPARIN 5000 UNITS SC ×3 (11:04→23:07)
[2024-08-17] MEDS: UNASYN IV (11:04)
--- NOTE | 2024-08-17 11:05 | W.PN.HOSP.TC ---
Addendum entered and electronically signed by Nadja Jane MD 08/17/24 11:33:
Spoke to daughter and updated . All questions answered.
Original Note:
Today's Communication/Plan
-
Hold Lasix as BUN and creatinine are trending up.
Patient is wheezing therefore I have changed his p.o. steroids to IV since he cannot take p.o.
All p.o. meds held today because patient's n.p.o. status.
BiPAP breaks to see if he can tolerate.
Follow ABG
Assessment / Plan
Assessment / Plan
84-year-old man admitted with acute hypoxic respiratory failure. Patient has been confused and pulling off oxygen climbing out of bed. Received a dose of Ativan and Haldol at nighttime. Restraints added by overnight practitioner.
Patient was arousable , but confused.
Cardiovascular system no stenosis appreciated
Chest bilateral wheezing noted
Bone soft nontender
No pedal edema
# Acute hypoxic and hypercarbic respiratory failure
Multifactorial CHF and COPD
ABG noted. CO2 retention and PH better, continue BIPAP with small breaks .
Since patient did not get any p.o. steroids give a dose of IV steroids now.
Follow clinical response
Use restraints as needed
Hold lasix as creat and BUN trending up
Hold HS Ativan
# TME-likely multifactorial including CO2, hypoxia, steroids
# Acute HFpEF
Weight on admission was 61.8 kg no 54.1 kg
Lasix has been changed to p.o. daily-Hold
Follow BMP
# COPD exacerbation
Steroids as above
DuoNebs
# Elevated troponin-acute nonischemic myocardial injury in the setting of hypoxia
# Right-sided chest pain-atypical with tenderness on the right side
# Leukocytosis likely secondary to steroids
# CKD stage IV-JOSE ANGEL noted from diuresis
# Hypertension-Hold amlodipine, atenolol
# History of CVA-on aspirin and Brilinta. Outpatient neurology evaluation to see if he still needs both( Brilinta on hold as NPO)
# Hyperlipidemia-Hold statin as NPO
# Chronic RBBB
# Anemia-check iron studies
# History of gout-Hold allopurinol
# Ex-smoker
# DVT prophylaxis-subcutaneous heparin
# Per D/W Daughter CODE status changed to DNR
Discussed with nursing at bedside
Called daughter and left message
Total time spent today over 52 minutes.
Anticipated Discharge: > 48 hours
Subjective/Interval History
-
Date of Service: August 17, 2024
Objective Data
-
Labs:
Laboratory Results
08/17/24 08/17/24
04:01 07:54
WBC 16.6 H
Hgb 9.9 L
Hct 30.1 L
Plt Count 204
HCO3 26.9
Sodium 148 H
Potassium 5.0
Chloride 103
Carbon Dioxide 25
BUN 112 H*
Creatinine 3.0 H
Glucose 122 H
Calcium 9.4
Vital Signs:
Vital Signs
Temp Pulse Resp BP Pulse Ox
98.9 F 92 34 142/58 92
08/17/24 07:24 08/17/24 07:04 08/17/24 07:04 08/17/24 06:00 08/17/24 09:30
I&O
08/16/24 08/17/24 08/18/24
06:59 06:59 06:59
Intake Total 1080 / 1080
Output Total 2099 225 / 225
Balance -1020 / -1020 -225 / -225
--- NOTE | 2024-08-17 11:34 | W.PN.CD ---
Today's Communication / Plan
-
Consider hydration
Impression / Plan
-
84 yo male with prior CVA, mild , RBBB, COPD, CKD4 admitted with acute on chronic SOB and right sided chest pain. Elevated WBC is also noted.
Admitted for SOB, right sided chest pain that was felt to be multifactorial with acute HFpEF and COPD exacerbation.
Acute respiratory decline on 08/16/2024 felt by me to be predominantly Pulm in etiology and not heart failure related
- Pt on BIPAP and moved to IMU on 08/16/2024
- Pulm invovled.
Acute HFpEF:
- Seems to be responding to pulmonary treatment and diuresis
- Suspect volume overload portion of respiratory status has been well treated.
- Admit weight 61.8 kg => 56.2kg. Today (new scale) 54.1 kg
- LASIX on hold
- As outpt can consider SGLT2-I but adding MRA challenging with his CKD4
Abnormal troponin from acute non-ischemic myocardial injury in setting of hypoxia
- Peak 0.465
- EKG no significant evolutionary changes
Chest pain, right sided: None last 2 days 08/14/2024 and 08/15/2024
COPD exacerbation
- Per pulm and hospitalist
- Steroids decreased
CKD IV
- Cr a bit worse with diuresis
HTN
RBBB
Anemia
Hx CVA: patient on ASA and Brilinta- he follows with a neurologist- not clear how long he is supposed to be on DAPT- follow-up with neuro
Mental status: not fully assessed. Not sure baseline memory/cognition
Subjective:
comfortable appearing on Bipap
Data:
Echo 08/13/2024: Echo 08/13/2024: EF 55-60%, mild .
Physical Exam
Vital Signs/Labs
Vital Signs
Temp Pulse Resp BP Pulse Ox
98.9 F 74 26 142/58 93
08/17/24 07:24 08/17/24 11:27 08/17/24 11:27 08/17/24 06:00 08/17/24 11:27
08/16/24 08/17/24 08/18/24
06:59 06:59 06:59
Actual Weight 55.656 kg 54.1 kg
08/17/24 04:01
08/17/24 04:01
08/13/24
13:21
Qah-D-Jzyfuoxboyj Pept [id number]
LAB Results
08/15/24
06:10
Troponin I 0.338 H*
Physical Exam
Cardiovascular: Rhythm & rate is regular and Pedal edema is absent
Respiratory: Crackles Absent
GI: Soft
Data Reviewed
-
Date of Service: August 17, 2024
[2024-08-17 12:13] LABS: Iron 26 ug/dl (49-181)
[2024-08-17 12:28] LABS: Percent Saturation 15 % (20-50); Total Iron Binding Capacity 170 ug/dl (261-462)
[2024-08-17] MEDS: ASPIRIN 300 MG RECTAL (12:38)
[2024-08-17] MEDS: DECADRON 2 MG IV ×2 (12:38→23:06)
[2024-08-17 12:54] LABS: Glucose - Point of Care 117 mg/dl (70-99)
--- NOTE | 2024-08-17 13:37 | PTOTSP ---
ST Acute Care Evaluation
Pt currently presents with clinical signs of suspected moderately-severe oropharyngeal dysphagia characterized by reduced oral awareness, reduced oral manipulation, delayed swallow initiations, inadequate airway protection with PO intake, and weak
reflexive cough.
Recommendations:
- STRICT NPO, including meds; no ARHP - not appropriate at this time.
- Aspiration precautions: HOB upright as often as possible; oral care QID with suctioning as needed.
- Consider deep suctioning, if pt will tolerate.
- AUTOMOTIVE [employer]IVABILITY TECHNICIAN to f/u to re-assess pt's candidacy for PO diet initiation.
[2024-08-17 15:20] LABS: Vitamin B12 887 pg/ml (239-931)
--- NOTE | 2024-08-17 17:15 | CM ---
O2 3L, BiPAP. ST Eval today - NPO. Receiving IV Abx, IV Decadron. Per nursing; confused, drowsy, 1:1 observation, soft limb restraints. PT/OT; assist of 2 recommend skilled rehab.
CM continuing to follow; O2/BiPAP needs, diet orders, mentation/behavior, participation with PT/OT.
Plan contact [facility] when less medically acute.
[2024-08-17] MEDS: D5W 1000 IV (18:40)
[2024-08-17 18:50] LABS: Glucose - Point of Care 139 mg/dl (70-99)
[2024-08-17 20:43] LABS: Glucose - Point of Care 163 mg/dl (70-99)
[2024-08-18] VITALS (13 sets, daily range): BP systolic 133–154; BP diastolic 43–64; PULSE 3–69; BMI 18.7
[2024-08-18 04:03] LABS: Hematocrit 30.3 % (39.0-52.0); Hemoglobin 9.9 g/dL (13.0-18.0); Mean Corp Hgb Conc. 32.7 g/dL (33.0-37.0); Mean Corpuscular Hgb 31.6 pg (27.0-31.0); Mean Corpuscular Volume 96.8 fL (80.0-94.0); Mean Platelet Volume 10.9 fL (7.4-10.4); Platelet Count 178 10^3/uL (130-400); Red Blood Cell Count 3.13 10^6/uL (4.70-6.10); Red Cell Dist. Width 14.3 % (11.5-14.5); White Blood Cell Count 17.5 10^3/uL (4.8-10.8)
[2024-08-18 04:11] LABS: Calcium 9.1 mg/dl (8.4-10.2); Carbon Dioxide 27 mmol/L (22-30); Chloride 108 mmol/L (98-107); Estimated Creatinine Clearance 13 ml/min; Glucose 203 mg/dl (70-99); Potassium 4.6 mmol/L (3.5-5.1); Sodium 150 mmol/L (135-145); eGFR 18.97
[2024-08-18 04:25] LABS: Blood Urea Nitrogen 125 mg/dl (9-20)
--- NOTE | 2024-08-18 06:28 | PTCARENOTE ---
Patient remained on the BIPAP overnight. 1:[address] and b/l wrist restraints. Patient confused with agitation. Patient attempted to hit staff when restraint was removed during repositioning.
[2024-08-18] MEDS: DUONEB 3 ML INH ×4 (07:23→19:55)
--- NOTE | 2024-08-18 08:33 | W.PN.HOSP.TC ---
Today's Communication/Plan
-
IV Steroids
Hold Lasix
D5W
Renal consult
Assessment / Plan
Assessment / Plan
84-year-old man admitted with acute hypoxic respiratory failure. Patient has been confused and pulling off oxygen climbing out of bed. Received a dose of Ativan and Haldol at nighttime. Restraints added by overnight practitioner.
# Acute hypoxic and hypercarbic respiratory failure
Though multifactorial 2/2 CHF and COPD
s/p BiPAP with improvement in ABG, now on NC
Lasix held for JOSE ANGEL
Hold HS Ativan
# TME-likely multifactorial including CO2, hypoxia, steroids
# Acute HFpEF
Weight on admission was 61.8 kg now 54.1 kg
Lasix held with rising BUN/Creatinine
JOSE ANGEL
Hypernatremia
patient on D5W - will need to adjust rate
consult Nephrology
Lasix on hold
# COPD exacerbation
Steroids as above
DuoNebs
# Elevated troponin-acute nonischemic myocardial injury in the setting of hypoxia
# Right-sided chest pain-atypical with tenderness on the right side
# Leukocytosis likely secondary to steroids
# CKD stage IV-JOSE ANGEL noted from diuresis
# Hypertension-Hold amlodipine, atenolol
# History of CVA-on aspirin and Brilinta. Outpatient neurology evaluation to see if he still needs both( Brilinta on hold as NPO)
# Hyperlipidemia-Hold statin as NPO
# Chronic RBBB
# Anemia-check iron studies
# History of gout-Hold allopurinol
# Ex-smoker
# DVT prophylaxis-subcutaneous heparin
# Per D/W Daughter CODE status changed to DNR
Discussed with nursing at bedside
Total time spent today over 52 minutes.
Anticipated Discharge: > 48 hours
Subjective/Interval History
-
Date of Service: August 18, 2024
states he is thirsty
Objective Data
-
Labs:
Laboratory Results
08/18/24
03:32
WBC 17.5 H
Hgb 9.9 L
Hct 30.3 L
Plt Count 178
Sodium 150 H
Potassium 4.6
Chloride 108 H
Carbon Dioxide 27
BUN 125 H*
Creatinine 3.1 H
Glucose 203 H
Calcium 9.1
Vital Signs:
Vital Signs
Temp Pulse Resp BP Pulse Ox
98.0 F 74 20 147/51 100
08/18/24 07:54 08/18/24 07:23 08/18/24 07:23 08/18/24 06:00 08/18/24 07:23
I&O
08/17/24 08/18/24 08/19/24
06:59 06:59 06:59
Intake Total 100 / 100
Output Total 225 / 225 650 / 650
Balance -225 / -225 -550 / -550
Review of Systems
-
History Source: Patient
All other systems: Reviewed and negative
Physical Exam
-
General: Appears Chronically Ill and Other (disheveled appearing)
HEENT: PERRLA
Respiratory: Negative Wheezes
Cardiac: Regular Rhythm and S1/S2
GI: Soft and Nontender
Musculoskeletal: No Edema
Skin: Warm and Dry; Negative Rash
Neuro: Awake and Alert
Psych: Apparent Dementia
Data Reviewed
-
Diagnostic Radiology: Report Reviewed by me
Labs: Labs Reviewed by me
--- NOTE | 2024-08-18 08:56 | W.CON.NEPH ---
Consultation
-
Date/Time Consultation Requested: 08/18/2024 8:45 AM
Date/Time Consultation Performed: 08/18/2024 9:00 AM
Requesting Provider: Dr. Gómez
Performing Provider: Dr. Llamas
Reason for Consultation: Acute kidney injury/hypernatremia
Medical History
-
Chief Complaint: JOSE ANGEL/CKD 4/Hypernatremia
History of Present Illness:
84-year-old male former tobacco smoker (quit 2001) with a past medical history of AAA without rupture, bladder cancer s/p resection, chronic lower back pain, hypertension (maintained on amlodipine and atenolol), hypercholesterolemia, KELLEY, insomnia,
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
Patient was at his PCP due to cough, shortness of breath and mild congestion. COVID swab + flu swab both negative. He became hypoxic down to 84%. Normally he takes DuoNebs TID but has not been taking it lately. His cough and congestion started
about 2 days ago. No known sick contacts but he does visit a m[facility] frequently where his is located ([place]). He was placed onto oxygen (2L/min) with sats rising to 90s, and given a DuoNeb treatment x 2 in the office - this
improved his Sx. He was thought to have a COPD exacerbation and then was transferred to [place] ER for further care. In the ER he was audibly wheezing and saturating 84% on room air, and saturations improved to 98% on 2 L/min. He was breathing
at 24-30 breaths/min with BP 143/66, pulse rate 83 and he was afebrile to 98.1 �F. Labs showed leukocytosis to 15.9, anemia to 9.5, bandemia with 16% bands, creatinine 2.2, potassium 5.8, troponin 0.139, proBNP 14,700 and COVID antigen negative.
Flu A/B swab also negative. CXR shows diffusely increased interstitial opacities with no focal airspace disease. He was given acetaminophen, albuterol, ipratropium + Decadron 10 mg, and admitted to telemetry under the hospitalist. Over the course
of his admission he was given IV diuresis for suspected acute congestive heart failure. He was diuresed for approximately 4 kg weight loss. On presentation to the hospital on 08/13/2024 his sodium was 144 with a BUN of 48 and creatinine of 2.2
which was well within his baseline in the setting of his chronic kidney disease. As of today his serum sodium level has escalated to 150 with a BUN of 125 and a creatinine of 3.1 and nephrology was asked to see the patient for acute on chronic
renal failure and hypernatremia.
Past Medical History
CKD 3b (2.2), gout, anemia, hypertension, chronic back pain, emphysema, AAA without rupture, history of bladder cancer s/p resection, former tobacco use, anemia, history of alcohol dependence now in remission, KELLEY, insomnia, reported history of
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
Social History
Tobacco: Former Smoker
Alcohol: Chronic Alcoholic
Family History
no CKD
Allergies / Home Medications
Allergy/AdvReac Type Severity Reaction Status Date / Time
environmental allergies Allergy Unknown Uncoded 08/13/24 12:57
�Medication �Instructions �Recorded �Confirmed �Type
allopurinol 100 mg tablet 50 mg PO BID Gout 10/28/18 08/13/24 History
atenolol 50 mg tablet 50 mg PO BID Blood Pressure 10/28/18 08/13/24 History
ipratropium 0.5 mg-albuterol 3 mg 3 ml inhalation R Q8HPRN PRN sob 10/28/18 08/13/24 History
(2.5 mg base)/3 mL nebulization
soln
acetaminophen 325 mg tablet 650 mg (2 x 325 mg) PO Q4HPRN PRN 10/29/18 08/13/24 Rx
mild pain/CHRISTIANSON/temp> 100.4F
lorazepam 1 mg tablet 1 mg PO HS ##1 10/29/18 08/13/24 Rx
aspirin 81 mg chewable tablet 81 mg PO DAILY #0 tabs 03/24/23 08/13/24 Rx
atorvastatin 20 mg tablet 40 mg (2 x 20 mg) PO QPM #0 tabs 03/24/23 08/13/24 Rx
amlodipine 10 mg tablet 10 mg PO DAILY Blood Pressure 08/13/24 08/13/24 History
clemastine 1.34 mg tablet 1.34 mg PO BIDPRN PRN allergy 08/13/24 08/13/24 History
symptoms
omega 5-ana-lti-fish oil 1,200 mg 1 cap PO DAILY Supplement 08/13/24 08/13/24 History
(144 mg-216 mg) capsule (Fish Oil)
ticagrelor 90 mg tablet (Brilinta) 90 mg PO BID Blood Clot 08/13/24 08/13/24 History
Prevention/Tx
Review of Systems
-
Unable to obtain full review of systems at this time due to: Acuity
History Source: Patient
All other systems: Negative unless noted
Constitutional: Other (N.p.o.)
EENT: No Symptoms
Respiratory: Trouble Breathing
Cardiac: No Symptoms
Abdomen/GI: No Symptoms
: Other (Condom catheter subjectively nonoliguric)
Neurological: Other (Withdrawn and altered)
Physical Exam
Vital Signs
Vital Signs
Temp Pulse Resp BP Pulse Ox
98.0 F 74 20 147/51 100
08/18/24 07:54 08/18/24 07:23 08/18/24 07:23 08/18/24 06:00 08/18/24 07:23
Lab Results
08/18/24 03:32
08/18/24 03:32
WBC 17.5 10^3/uL (4.8-10.8) H 08/18/24 03:32
RBC 3.13 10^6/uL (4.70-6.10) L 08/18/24 03:32
Hgb 9.9 g/dL (13.0-18.0) L 08/18/24 03:32
Hct 30.3 % (39.0-52.0) L 08/18/24 03:32
Plt Count 178 10^3/uL (130-400) 08/18/24 03:32
Sodium 150 mmol/L (135-145) H 08/18/24 03:32
Potassium 4.6 mmol/L (3.5-5.1) 08/18/24 03:32
Chloride 108 mmol/L (98-107) H 08/18/24 03:32
Carbon Dioxide 27 mmol/L (22-30) 08/18/24 03:32
BUN 125 mg/dl (9-20) H* 08/18/24 03:32
Creatinine 3.1 mg/dL (0.7-1.3) H 08/18/24 03:32
eGFR 18.97 08/18/24 03:32
Glucose 203 mg/dl (70-99) H 08/18/24 03:32
Calcium 9.1 mg/dl (8.4-10.2) 08/18/24 03:32
Tyf-E-Sqamlvwblak Pept 85330 pg/ml 08/13/24 13:21
Albumin 4.0 g/dl (3.5-5.0) 08/13/24 13:21
Physical Exam
General: Awake but lethargic attempts to weakly answer questions, oriented to place and self ,cachectic
HEENT: PERRL, EOMI, Anicteric, Conjunctivae Clear, Ear/Nose Intact, Hearing Normal, Oropharynx Clear/dry, Dentition Intact, Facial Symmetry, Neck Supple, Neck: Trachea Midline, No JVD and No Thyromegaly, no Bruits
Respiratory: Coarse to auscultation bilaterally with normal lung excursion
Cardiac: S1/S2 and Regular Rate/Rhythm
Breast: Deferred by me
Abdomen: Soft, Nontender, Nondistended, decreased bowel Sounds and No Hepatosplenomegaly
Rectal: Deferred by Provider
Genito-urinary: No Costovertebral Tenderness, condom catheter
Extremities: No Clubbing, No Cyanosis and No Edema
Skin: No Rash or open lesions
Neuro: Difficult to ascertain given TMA appears to move all 4 limbs independently
Hematologic/Lymphatic: No Cervical Lymphadenopathy, No Submandibular Lymphadenopathy and No Supraclavicular Lymphadenopathy
Psych: Mood/afflect flat, Insight/judgement poor
Vascular: plus 2 pedal and radial pulses
Data Reviewed
-
Radiology: Image Personally Visualized and interpreted (Chest x-ray reviewed from the admission personally: Hyperinflated lung field with chronic interstitial findings)
Labs: Labs Reviewed by me (BMP CBC )
Old Records: Reviewed (Lab work reviewed from 03/24/2023 BUN 41 creatinine 2.3)
Assessment/Plan
-
Impression:
JOSE ANGEL
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
Azotemia
Hypernatremia
Acute congestive heart failure
COPD exacerbation
TME
Right-sided chest pain/elevated troponin acute nonischemic myocardial injury
History of CVA
Anemia
History of gout
Plan:
JOSE ANGEL/Hypernatremia:
-Mental status worsening likely a function of possible uremia, hypercapnia, steroid psychosis
-holding diuretics, patient has also been with decrease po intake for several days, now NPO
-Azotemia likely precipitated by IV Decadron and diuresis
-diuretics held
-Volume status:appears dry
-check UA,kidney and bladder u/s
-Free water deficit calculated to 2 liters
-Adjust D5W to 80 cc/hr
[2024-08-18] MEDS: ASPIRIN 300 MG RECTAL (09:12)
[2024-08-18] MEDS: HEPARIN 5000 UNITS SC ×2 (09:12→17:52)
--- NOTE | 2024-08-18 09:20 | W.PN.PUL.V3 ---
Today's Communication / Plan
-
Nephrology evaluation
Increase free water
Antibiotics
Prednisone without change
BiPAP as tolerated
Assessment
-
Assessment: 84-year-old male former tobacco smoker (quit 2001) with a past medical history of AAA without rupture, bladder cancer s/p resection, chronic lower back pain, hypertension, hypercholesterolemia, KELLEY, insomnia, reported history of COPD,
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 Patient was at his PCP today with BAILEY Fong, due
to cough, shortness of breath and mild congestion. COVID swab + flu swab both negative. He became hypoxic down to 84%. Normally he takes DuoNebs TID but has not been taking it lately. His cough and congestion started about 2 days ago. No known
sick contacts but he does visit a fdc frequently where his is located ([place]). He was placed onto oxygen (2L/min) with sats rising to 90s, and given a DuoNeb treatment x 2 in the office - this improved his Sx. He was
thought to have a COPD exacerbation and then was transferred to [place] [facility] for further care. In the ER he was audibly wheezing and saturating 84% on room air, and saturations improved to 98% on 2 L/min. He was breathing at 24-30 breaths/min
with BP 143/66, pulse rate 83 and he was afebrile to 98.1 �F. Labs showed leukocytosis to 15.9, anemia to 9.5, bandemia with 16% bands, creatinine 2.2, potassium 5.8, troponin 0.139, proBNP 14,700 and COVID antigen negative. Flu A/B swab also
negative. CXR shows diffusely increased interstitial opacities with no focal airspace disease. He was given acetaminophen, albuterol, ipratropium + Decadron 10 mg, and admitted to telemetry under the hospitalist. Pulmonary service now consulted
for additional management/recommendations.
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
Impression:
#Acute respiratory failure with hypoxia likely due to combination of acute bronchospasm/acute COPD exacerbation with acute interstitial edema
#Acute interstitial edema suspicious for acute decompensated heart failure
Toxic metabolic encephalopathy
#Acute HFpEF exacerbation
#Chest pain
#Leukocytosis with bandemia (16%)
#Acute on chronic anemia (baseline Hb: 10.5�12g/dL)
#Elevated proBNP (14,700 on 08/13/2024)
#Elevated troponin
#CKD (baseline creatinine approximately 2.2)
#Chronic lower back pain
#AAA without rupture
#History of bladder cancer s/p resection
#Former tobacco smoker (quit 2001)
Hyponatremia
JOSE ANGEL
DNR
Plan:
Respiratory status still somewhat tenuous-persistent wheezing-saturating well however
Supplemental oxygen-attempt to wean
Aspiration precaution per protocol
Nebulizers continue
Prednisone 40 mg-eventual slow taper
ABG 08/17/2024--51/68/7.33-pCO2 the day prior 57
BiPAP continues as needed-attempt to liberate-will increase BiPAP and minimally EPAP
Chest x-ray 08/16/2024-prominent interstitial markings, no significant change
Diuresis per primary service and cardiology
Transition to oral Lasix
Monitor renal function, electrolytes, intake/output, lower extremity edema and weight
Replace electrolytes as needed
Nephrology evaluation pending
Monitor tkocwxgnbadu-ulxyhuwbk-max have steroid effect
Monitor hemoglobin
Transfuse as needed
Increase free water
Follow serum sodium
Monitor blood sugar
Insulin supplementation as needed
DVT prophylaxis-on heparin
Nutrition with aspiration precautions
Early mobilization
Reviewed with nursing
Outpatient follow-up will be arranged
Data:
CXR 08/13/2024:
Nonspecific diffusely increased interstitial opacities bilaterally, likely reflective of chronic lung disease with component of acute interstitial edema not entirely excluded. No pleural effusions. No focal airspace disease with chronic pleural
thickening within the right apex.
TTE 08/13/2024:
Normal biventricular size and systolic function without regional wall motion
abnormality. Estimated LVEF 55-60%.
Mild aortic stenosis.
Compared to 03/24/23: no significant change.
Subjective Data
-
Date of Service:
Date of Service: August 18, 2024
Chief Complaint: Pulmonary Follow Up (Acute COPD exacerbation) and Dyspnea Follow Up
Subjective:
More alert, knows that he is endorsed, however does not know the year or the date, continues with some wheezing, no complaints of chest pain or abdominal pain, still agitated and restrained to prevent self-harm
Review of Systems
General: Other (Per HPI)
Objective Data
Data Reviewed
Vital Signs / I&O:
Vital Signs
Temp Pulse Resp BP Pulse Ox
98.0 F 62 17 140/43 100
08/18/24 07:54 08/18/24 08:00 08/18/24 08:00 08/18/24 08:00 08/18/24 08:00
Intake and Output
08/17/24 08/18/24 08/19/24
06:59 06:59 06:59
Intake Total 100 / 100
Output Total 225 / 225 650 / 650
Balance -225 / -225 -550 / -550
SaO2: 100
Nasal Cannula flow liters per minute: 5
Physical Exam
General: Respiratory Distress (n) and Comfortable
HEENT: Normocephalic and Anicteric
Cardiovascular: Regular Rhythm
Respiratory: Wheeze (Improved), Crackles, Rhonchi and Accessory Resp Muscle Use (Mild)
GI: Soft and Non Distended
Neurology: Lethargic
Skin: Warm, Good Color, Cyanosis (n), Jaundice (n) and Rash
Labs/Micro/Reports
Lab Data
08/18/24 03:32
08/18/24 03:32
[2024-08-18 09:24] LABS: % Basophils 0.5 % (0-2); % Eosinophils 0.1 % (0-6); % Immature Granulocytes 2.9 % (0-0.5); % Lymphocytes 2.3 % (20.5-51.1); % Monocytes 3.7 % (1.7-9.3); % Neutrophils 90.5 % (42.2-75.2); Absolute Basophils 0.1 10^3/uL (0-0.2); Absolute Immature Granulocytes 0.5 10^3/uL (0-0.05); Absolute Lymphocytes 0.4 10^3/uL (1.2-3.4); Absolute Monocytes 0.7 10^3/uL (0.1-0.6); Absolute Neutrophils 15.9 10^3/uL (1.4-6.5); Nucleated Red Blood Cells % 0 % (-)
--- NOTE | 2024-08-18 09:40 | PTOTSP ---
Speech Language Pathology
Pt seen for dysphagia tx. Awake in bed upon arrival. Confused conversation noted with pt stating he was 'Tarik' and at his house. When stated his name on armband, pt stated 'no.' Xerostomia noted with dried secretions on teeth/tongue and
significant dried bloody secretions on posterior hard palate and soft palate. Aggressive oral care completed with large amount removed. Notified team that pt will continue to require aggressive oral care.
P.O. trials of ice chips provided. Oral manipulation noted. With first ice chip, absent swallow noted. Swallow initiated with subsequent 2 ice chips. Attempted liquid via straw, but no attempts made to take sip from straw. Provided 2ccs of thin
water via pipetted straw with absent swallow. Further P.O. trials deferred.
Recommend:
(1) NPO
(2) Oral care 4x/day with suctioning as needed
(3) Allow ice chips sparingly post oral care given supervision per Aspiration Risk Hydration Protocol --only when ALERT
(4) Non-oral meds
(5) WATER COMMISSIONER to continue to follow
[2024-08-18] MEDS: UNASYN IV (11:15)
[2024-08-18] MEDS: THIAMINE INJECTION 200 MG IV (11:18)
[2024-08-18] MEDS: DECADRON 2 MG IV (11:18)
[2024-08-18 12:05] LABS: Glucose - Point of Care 201 mg/dl (70-99)
--- NOTE | 2024-08-18 13:13 | PTCARENOTE ---
Pt presents as assessed. Aox2, not time. Continues to be agitated with care at times. B/L soft wrist restraints remain in place. Tolerating 3L NC O2 with sats in the high 90's. Condom cath draining yellow urine. Daughter updated via phone. Mouth
care provided. Safe environment maintained.
[2024-08-18] MEDS: NOVOLOG FLEXPEN-LOW RESISTANCE 2 UNITS SC ×2 (13:26→17:53)
[2024-08-18 14:31] LABS: Glycohemoglobin (HgbA1c) 5.6 % (4.0-5.6)
[2024-08-18] MEDS: D5W 1000 IV (15:33)
--- NOTE | 2024-08-18 16:53 | CM ---
O2 3L, BiPAP. ST for dysphagia - Remains NPO. Receiving IV Abx, IV Decadron. Per nursing; A/O x2, agitated at times, B/L soft wrist restraints. PT/OT; requires assist of 2 recommend skilled rehab.
Message from Diane Zamora inquiring about patient's status; left return message patient remains confused/in restraints and not ready for SNF to review for acceptance. Will reach out when patient's mentation/behavior is hopefully
improved.
CM continuing to follow; O2/BiPAP needs, diet orders, mentation/behavior, participation with PT/OT.
Plan contact [facility] once diet/feeding is established and mentation/behaviors are improved.
[2024-08-18 17:39] LABS: Glucose - Point of Care 248 mg/dl (70-99)
[2024-08-18 18:18] LABS: Urine Albumin Trace (Neg - Trace); Urine Bilirubin Negative (Negative); Urine Character Clear (Clear); Urine Color Yellow; Urine Glucose Negative (Negative); Urine Ketone Negative (Negative); Urine Leukocyte Negative (Negative); Urine Nitrite Negative (Negative); Urine Occult Blood Negative (Negative); Urine Specific Gravity 1.015 (<1.030); Urine Urobilinogen Negative (Neg - 1+)
[2024-08-18 18:19] LABS: Urine Sodium 28 mmol/L (30-90)
[2024-08-19] VITALS (15 sets, daily range): BP systolic 111–160; BP diastolic 46–107; PULSE 68–70; O2SAT 97–100; BMI 18.7
[2024-08-19 00:01] LABS: Glucose - Point of Care 190 mg/dl (70-99)
[2024-08-19] MEDS: NOVOLOG FLEXPEN-LOW RESISTANCE 1 UNITS SC ×5 (00:13→23:54)
[2024-08-19] MEDS: HEPARIN 5000 UNITS SC ×4 (00:14→23:54)
[2024-08-19] MEDS: DECADRON 2 MG IV (00:16)
--- NOTE | 2024-08-19 01:00 | PTCARENOTE ---
Pt received from previous RN. Pt confused, can be agitated at times, aggressive with staff at time using offensive slurs. Pt can state name but confused to place and time. Aspiration precautions and NPO maintained. pt getting d5w @80/hr. B/L soft
wrist restraints maintained. Pt on 2L 02, sat 97%. Pt using CC for urinary incontinence. Assessment as documented.
[2024-08-19] MEDS: D5W 1000 IV ×2 (04:16→16:15)
[2024-08-19 05:44] LABS: Calcium 9.2 mg/dl (8.4-10.2); Carbon Dioxide 28 mmol/L (22-30); Chloride 107 mmol/L (98-107); Estimated Creatinine Clearance 16 ml/min; Glucose 183 mg/dl (70-99); Potassium 4.3 mmol/L (3.5-5.1); Sodium 148 mmol/L (135-145)
[2024-08-19 05:57] LABS: Blood Urea Nitrogen 126 mg/dl (9-20)
[2024-08-19 06:25] LABS: Glucose - Point of Care 171 mg/dl (70-99)
[2024-08-19] MEDS: DUONEB 3 ML INH ×3 (07:20→19:20)
--- NOTE | 2024-08-19 07:44 | W.PN.HOSP.TC ---
Addendum entered and electronically signed by Sheryl Gómez MD 08/19/24 08:16:
will stop steroids, hopefully helps confusion - discussed with Pulm
Original Note:
Today's Communication/Plan
-
hydration
discussing with Pulm stopping steroids
daily ST, hopefully can pass speech soon
evening haldol PRN
PT/OT
Assessment / Plan
Assessment / Plan
Mr. 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 He was sent from PCP office with low O2. Hospital course
complicated by delirium evening of 08/16 s/p ativan and Haldol. He was noted to have CO2 retention and was placed on BiPAP following morning.
HEAD CT 08/17/24
IMPRESSION:
1. No CT evidence for acute intracranial hemorrhage or transcortical infarct.
2. 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
3. SMALL CHRONIC LACUNAR INFARCTS in the right putamen, anterior limb of the right internal capsule, periventricular white matter of the left frontal lobe, and right thalamus.
4. Severe intracranial calcific atherosclerotic disease.
5. Mild diffuse cerebral and cerebellar volume loss.
# Acute hypoxic and hypercarbic respiratory failure
Though multifactorial 2/2 CHF and COPD
s/p BiPAP with improvement in ABG, now on NC
Lasix held for JOSE ANGEL
# TME-likely multifactorial including CO2, hypoxia, steroids
# Acute HFpEF
Weight on admission was 61.8 kg now 54.1 kg
Lasix held with rising BUN/Creatinine
JOSE ANGEL
Hypernatremia
-appreciate renal consult
-continue D5W @ 80
-some improvement this AM
# COPD exacerbation
Steroids as above
DuoNebs
# Elevated troponin-acute nonischemic myocardial injury in the setting of hypoxia
# Right-sided chest pain-atypical with tenderness on the right side
# Leukocytosis likely secondary to steroids
# CKD stage IV-JOSE ANGEL noted from diuresis
-IVF as above
# Hypertension-Hold amlodipine, atenolol
# History of CVA-on aspirin and Brilinta. Outpatient neurology evaluation to see if he still needs both( Brilinta on hold as NPO) - will stop at discharge
# Hyperlipidemia-Hold statin as NPO
# Chronic RBBB
# Anemia-check iron studies
# History of gout-Hold allopurinol
# Ex-smoker
# DVT prophylaxis-subcutaneous heparin
# Per D/W Daughter CODE status changed to DNR
Discussed with nursing at bedside
Total time spent today over 52 minutes.
Anticipated Discharge: > 48 hours
Subjective/Interval History
-
Date of Service: August 19, 2024
was resting earlier
no complaints
feels thirsty
Objective Data
-
Labs:
Laboratory Results
08/19/24
04:51
Sodium 148 H
Potassium 4.3
Chloride 107
Carbon Dioxide 28
BUN 126 H*
Creatinine 2.7 H
Glucose 183 H
Calcium 9.2
Vital Signs:
Vital Signs
Temp Pulse Resp BP Pulse Ox
97.8 F 63 18 150/52 97
08/19/24 07:34 08/19/24 07:23 08/19/24 07:23 08/19/24 06:00 08/19/24 07:23
I&O
08/18/24 08/19/24 08/20/24
06:59 06:59 06:59
Intake Total 100 / 100
Output Total 650 / 650 300 / 300
Balance -550 / -550 -300 / -300
Review of Systems
-
History Source: Patient
All other systems: Reviewed and negative
Physical Exam
-
General: Appears Chronically Ill and Other (disheveled appearing)
HEENT: PERRLA
Respiratory: Negative Wheezes
Cardiac: Regular Rhythm and S1/S2
GI: Soft and Nontender
Musculoskeletal: No Edema
Skin: Warm and Dry; Negative Rash
Neuro: Awake and Alert
Psych: Apparent Dementia
Data Reviewed
-
Diagnostic Radiology: Report Reviewed by me
Labs: Labs Reviewed by me
--- NOTE | 2024-08-19 07:57 | W.PN.CD ---
Today's Communication / Plan
-
continue gentle IV hydration
Impression / Plan
-
84 yo male with prior CVA, mild , RBBB, COPD, CKD4 admitted with acute on chronic SOB and right sided chest pain. Elevated WBC is also noted.
Admitted for SOB, right sided chest pain that was felt to be multifactorial with acute HFpEF and COPD exacerbation. LVEF normal and pattern of mild trop elevation NOT suggestive of acute ischemic event
Acute respiratory decline on 08/16/2024 felt by me to be predominantly Pulm in etiology and not heart failure related
- Pt on BIPAP and moved to IMU on 08/16/2024
Acute HFpEF:
- prior notes suggested a component of acute HFpEF but it appears at this port overload portion of respiratory status has been well treated.
- He looks like Mike Wei in that [place] with [place] ball that becomes his best friend- BONE DRY
- DIURETICS on hold and now getting gentle IV hydration. BUN is now 123
- Wt was 136 on admit, now 123
- SGLT2-I but adding MRA challenging with his CKD4
Abnormal troponin from acute non-ischemic myocardial injury in setting of hypoxia
- Peak 0.465
- EKG no significant evolutionary changes
Chest pain, right sided:
-Resolved
COPD exacerbation
- Per pulm and hospitalist
- Steroids decreased
CKD IV
- Cr 2.1 and BUM >120
- Elevated sodium being treated with IVF
-nephrology called
HTN
RBBB
Anemia
Hx CVA: patient on ASA and Brilinta 90 bid. Unless he had a coronary stent in past 6 mo (which is not the case) there is no indication for brilinta. We are playing with fire with DAPT in this pt with very high bleeding risk. Will stop brilinta
Mental status:Able to respond appropriately when asked ' how are you feeling?' Answer 'thirsty'. BUN 123 could be contributing to his confusion
Subjective:
Getting IV hydration
Data:
Echo 08/13/2024: Echo 08/13/2024: EF 55-60%, mild .
Physical Exam
Vital Signs/Labs
Vital Signs
Temp Pulse Resp BP Pulse Ox
97.8 F 63 18 150/52 97
08/19/24 07:34 08/19/24 07:23 08/19/24 07:23 08/19/24 06:00 08/19/24 07:23
08/18/24 08/19/24 08/20/24
06:59 06:59 06:59
Actual Weight 123 lb 3 oz
08/18/24 03:32
08/19/24 04:51
08/13/24
13:21
Pnn-Z-Tmidizpoxvg Pept [id number]
Physical Exam
Constitutional: Other (BONE DRY)
EENT: Anicteric
Cardiovascular: Rhythm & rate is regular, Systolic murmur present (1-2/6 aortic stenosis murmur not heard in neck) and S1S2 is normal
Respiratory: Wheeze Present (mild expiratory wheezes heard)
GI: Non tender
Neuro/Psych: AO x 3
Data Reviewed
-
Date of Service: August 19, 2024
--- NOTE | 2024-08-19 08:50 | PTOTSP ---
Speech Language Pathology
Pt seen for dysphagia tx. More appropriate this date. P.O. trials of puree, ice chips, and thin liquids provided. Prolonged weak coughing episode with 1/3 trials of thin liquids. Question aspiration vs loosening of secretions, as after coughing
episode, large amount of secretions coughed up and suctioned from oral cavity.
Recommend:
(1) NPO
(2) VSE
(3) Oral care 4x/day with suctioning as needed
(4) Non-oral meds
(5) Continue ice chips post oral care given supervision per Aspiration Risk Hydration Protocol (ARHP)
(6) SALESMAN/OWNER to continue to follow
--- NOTE | 2024-08-19 09:10 | W.PN.NEPH.PH ---
Today's Communication / Plan
-
Increase D5-2 90 cc per
Follow BMP
Steroids titrating down
Diuretics held
Assessment/Plan
-
Impression:
JOSE ANGEL
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
Azotemia
Hypernatremia
Acute congestive heart failure
COPD exacerbation
TME
Right-sided chest pain/elevated troponin acute nonischemic myocardial injury
History of CVA
Anemia
History of gout
Plan:
JOSE ANGEL/Hypernatremia:
-Mental status worsening likely a function of possible uremia, hypercapnia, steroid psychosis
-Primary team titrating back steroids
-Creatinine improving to 2.7 but BUN up to 126
-holding diuretics, patient has also been with decrease po intake for several days, now NPO
-Azotemia likely precipitated by IV Decadron and diuresis
-Serum sodium down to 140
-Volume status:appears dry
-checked UA,kidney and bladder u/s: UA trace albumin, renal u/s: No hydronephrosis nonobstructing bilateral nephrolithiasis no other abnormalities left kidney 8.6 cm right kidney 10.1 cm
-Free water deficit was calculated to 2 liters
-Adjust D5W to 90 cc/hr
-
-
Date of Service: August 19, 2024
CC / HPI / ROS
-
Chief Complaint:
Acute kidney injury
Hypernatremia
History of Present Illness:
Creatinine down to 2.7 but BUN at 126
Hemodynamically stable
Serum sodium down to 148 with D5W
Review of Systems:
Weight stable
Urine output 300
No fevers
Labs
-
Labs:
WBC 17.5 10^3/uL (4.8-10.8) H 08/18/24 03:32
RBC 3.13 10^6/uL (4.70-6.10) L 08/18/24 03:32
Hgb 9.9 g/dL (13.0-18.0) L 08/18/24 03:32
Hct 30.3 % (39.0-52.0) L 08/18/24 03:32
Plt Count 178 10^3/uL (130-400) 08/18/24 03:32
Sodium 148 mmol/L (135-145) H 08/19/24 04:51
Potassium 4.3 mmol/L (3.5-5.1) 08/19/24 04:51
Chloride 107 mmol/L (98-107) 08/19/24 04:51
Carbon Dioxide 28 mmol/L (22-30) 08/19/24 04:51
BUN 126 mg/dl (9-20) H* 08/19/24 04:51
Creatinine 2.7 mg/dL (0.7-1.3) H 08/19/24 04:51
eGFR 22.40 08/19/24 04:51
Glucose 183 mg/dl (70-99) H 08/19/24 04:51
Calcium 9.2 mg/dl (8.4-10.2) 08/19/24 04:51
Glv-T-Umkcqrerskz Pept 71415 pg/ml 08/13/24 13:21
Albumin 4.0 g/dl (3.5-5.0) 08/13/24 13:21
Physical Exam
-
Vital Signs:
Vital Signs
Temp Pulse Resp BP Pulse Ox
97.8 F 79 23 138/54 97
08/19/24 07:34 08/19/24 08:00 08/19/24 08:00 08/19/24 08:00 08/19/24 07:23
Cardiovascular:: Regular rate and rhythm
Respiratory:: Bilateral: Coarse
Lung Excursion:: Normal
Abdomen:: Nontender and Soft
Bowel Sounds:: Normal
Extremity Edema:: None: Bilateral:
Montes Catheter: No
[2024-08-19] MEDS: ASPIRIN 300 MG RECTAL (09:23)
[2024-08-19] MEDS: THIAMINE INJECTION 200 MG IV (09:23)
[2024-08-19] MEDS: UNASYN IV (10:02)
--- NOTE | 2024-08-19 10:43 | W.PN.PUL.V3 ---
Today's Communication / Plan
-
Wean oxygen
Continue BiPAP as needed
Discontinue steroids
Add budesonide nebulizers
Hold diuresis
Monitor renal function
Assessment
-
Assessment: 84-year-old male former tobacco smoker (quit 2001) with a past medical history of AAA without rupture, bladder cancer s/p resection, chronic lower back pain, hypertension, hypercholesterolemia, KELLEY, insomnia, reported history of COPD,
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 Patient was at his PCP today with BAILEY Fong, due
to cough, shortness of breath and mild congestion. COVID swab + flu swab both negative. He became hypoxic down to 84%. Normally he takes DuoNebs TID but has not been taking it lately. His cough and congestion started about 2 days ago. No known
sick contacts but he does visit a correction frequently where his is located ([place]). He was placed onto oxygen (2L/min) with sats rising to 90s, and given a DuoNeb treatment x 2 in the office - this improved his Sx. He was
thought to have a COPD exacerbation and then was transferred to [place] [facility] for further care. In the ER he was audibly wheezing and saturating 84% on room air, and saturations improved to 98% on 2 L/min. He was breathing at 24-30 breaths/min
with BP 143/66, pulse rate 83 and he was afebrile to 98.1 �F. Labs showed leukocytosis to 15.9, anemia to 9.5, bandemia with 16% bands, creatinine 2.2, potassium 5.8, troponin 0.139, proBNP 14,700 and COVID antigen negative. Flu A/B swab also
negative. CXR shows diffusely increased interstitial opacities with no focal airspace disease. He was given acetaminophen, albuterol, ipratropium + Decadron 10 mg, and admitted to telemetry under the hospitalist. Pulmonary service now consulted
for additional management/recommendations.
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
Impression:
#Acute respiratory failure with hypoxia likely due to combination of acute bronchospasm/acute COPD exacerbation with acute interstitial edema
#Acute interstitial edema suspicious for acute decompensated heart failure
Toxic metabolic encephalopathy
#Acute HFpEF exacerbation
#Chest pain
#Leukocytosis with bandemia (16%)
#Acute on chronic anemia (baseline Hb: 10.5�12g/dL)
#Elevated proBNP (14,700 on 08/13/2024)
#Elevated troponin
#CKD (baseline creatinine approximately 2.2)
#Chronic lower back pain
#AAA without rupture
#History of bladder cancer s/p resection
#Former tobacco smoker (quit 2001)
Hyponatremia
JOSE ANGEL
DNR
Plan:
Respiratory status still somewhat tenuous-persistent wheezing-saturating adequate however
Supplemental oxygen-attempt to wean
Aspiration precaution per protocol
Nebulizers continue
Prednisone 40 mg--discontinue with ongoing delirium
Budesonide nebulizers added 08/19/2024
ABG 08/17/2024--51/68/7.33-pCO2 the day prior 57
BiPAP continues as needed-attempt to liberate-will increase BiPAP and minimally EPAP
Chest x-ray 08/16/2024-prominent interstitial markings, no significant change
Diuresis per primary service and cardiology-on hold-gentle hydration
Transitioned to oral Lasix
Monitor renal function, electrolytes, intake/output, lower extremity edema and weight
Replace electrolytes as needed
Nephrology evaluation ongoing-correspondence reviewed-diuresis held
Monitor seqvquneltdt-shfyaujod-lyx have steroid effect
Monitor hemoglobin
Transfuse as needed
Increase free water
Follow serum sodium
Monitor blood sugar
Insulin supplementation as needed
DVT prophylaxis-on heparin
Nutrition with aspiration precautions
Early mobilization
Reviewed with nursing
Outpatient follow-up will be arranged
Data:
CXR 08/13/2024:
Nonspecific diffusely increased interstitial opacities bilaterally, likely reflective of chronic lung disease with component of acute interstitial edema not entirely excluded. No pleural effusions. No focal airspace disease with chronic pleural
thickening within the right apex.
TTE 08/13/2024:
Normal biventricular size and systolic function without regional wall motion
abnormality. Estimated LVEF 55-60%.
Mild aortic stenosis.
Compared to 03/24/23: no significant change.
Subjective Data
-
Date of Service:
Date of Service: August 19, 2024
Chief Complaint: Pulmonary Follow Up (Acute COPD exacerbation) and Dyspnea Follow Up
Subjective:
Still somewhat confused, complains of wheezing, some shortness of breath, nonproductive cough, no abdominal pain
Review of Systems
General: Other (Per HPI)
Objective Data
Data Reviewed
Vital Signs / I&O:
Vital Signs
Temp Pulse Resp BP Pulse Ox
97.8 F 67 18 148/55 95
08/19/24 07:34 08/19/24 10:00 08/19/24 10:00 08/19/24 10:00 08/19/24 10:00
Intake and Output
08/18/24 08/19/24 08/20/24
06:59 06:59 06:59
Intake Total 100 / 100
Output Total 650 / 650 300 / 300
Balance -550 / -550 -300 / -300
SaO2: 95
Nasal Cannula flow liters per minute: 2
Physical Exam
General: Respiratory Distress (n) and Comfortable
HEENT: Normocephalic and Anicteric
Cardiovascular: Regular Rhythm
Respiratory: Wheeze (Bilateral wheezing), Crackles, Rhonchi and Accessory Resp Muscle Use (Mild)
GI: Soft and Non Distended
Neurology: Lethargic
Skin: Warm, Good Color, Cyanosis (n), Jaundice (n) and Rash
Labs/Micro/Reports
Lab Data
08/18/24 03:32
08/19/24 04:51
[2024-08-19] MEDS: DUONEB INH (11:14)
--- NOTE | 2024-08-19 11:15 | PTOTSP ---
Speech Language Pathology
VIDEOFLUOROSCOPIC SWALLOWING EXAMINATION (VSE) completed. Overall, silent aspiration noted at times prior to swallow initiation. Otherwise, intermittent penetration, at times to level of the vocal folds. Significant pharyngeal residue noted.
Worsened swallow function noted compared to VSE completed in March 2023. Question if swallow function has slowly worsened since that time or if acute illness currently exacerbated mild dysphagia noted in 2022.
Recommend:
(1) NPO
(2) Oral care 4x/day with suctioning as needed
(3) Allow unlimited ice chips post oral care per Aspiration Risk Hydration Protocol (ARHP)--only when alert
(4) Meds crushed in puree as needed
(5) RESIDENT IN DIAGNOSTIC RADIOLOGY to continue to follow
--- NOTE | 2024-08-19 12:24 | PTCARENOTE ---
Received report from night RN. Pt oriented to only self, aggressive at times. 95% on 2L, dyspnea when sitting forward. Expiratory wheeze auscultated. Occasional productive cough. Pt down for a video swallow study, pt remains NPO. d5w increased to
@90ml/hr. Steroids on hold for now. B/L soft wrist restraints maintained. Skin intact. CC #[id number] remains. VSS assessment documented. Pt has call darden within reach.
[2024-08-19 12:37] LABS: Glucose - Point of Care 171 mg/dl (70-99)
[2024-08-19] MEDS: HYDROPHOR 1 APPLIC TOPICAL ×2 (14:09→21:01)
--- NOTE | 2024-08-19 16:41 | CM ---
O2 4L, BiPAP. VSE today - NPO/IVF. Receiving IV Abx. PT/OT; requires assist of 2 recommend skilled rehab. Per nursing; agitated last night at times.
Spoke with nurse Rondon; B/L soft wrist restraints maintained, Medsitter in place for safety.
CM continuing to follow; O2/BiPAP needs, diet orders, mentation/behavior, participation with PT/OT.
Plan contact [place] once diet/feeding is established and mentation/behaviors are improved.
[2024-08-19 18:13] LABS: Glucose - Point of Care 158 mg/dl (70-99)
[2024-08-19] MEDS: PULMICORT 0.5 MG INH (19:21)
--- NOTE | 2024-08-19 20:50 | PTCARENOTE ---
Pt received from previous RN. Pt oriented to self. Calm at this time. Did state 'eagles', this RN put the game on and the Pt said 'thank you'. Minimal conversation besides that thus far. Pt no longer in restraints, tolerating being out of them,
medsitter now in use. Pt npo. Pt getting d5w @ 90ml/hr. Assessment as documented. Call light in reach.
[2024-08-19] MEDS: ATIVAN 1 MG PO (21:01)
[2024-08-19 23:40] LABS: Glucose - Point of Care 163 mg/dl (70-99)
[2024-08-20] VITALS (13 sets, daily range): BP systolic 137–164; BP diastolic 47–90; BMI 18.2
[2024-08-20] MEDS: D5W 1000 IV ×3 (03:58→21:27)
[2024-08-20 05:13] LABS: Hematocrit 32.8 % (39.0-52.0); Hemoglobin 10.5 g/dL (13.0-18.0); Mean Corpuscular Hgb 31.9 pg (27.0-31.0); Mean Corpuscular Volume 99.7 fL (80.0-94.0); Mean Platelet Volume 11.6 fL (7.4-10.4); Platelet Count 161 10^3/uL (130-400); Red Blood Cell Count 3.29 10^6/uL (4.70-6.10); White Blood Cell Count 24.7 10^3/uL (4.8-10.8)
[2024-08-20 05:34] LABS: Blood Urea Nitrogen 102 mg/dl (9-20); Calcium 8.9 mg/dl (8.4-10.2); Carbon Dioxide 28 mmol/L (22-30); Chloride 105 mmol/L (98-107); Estimated Creatinine Clearance 17 ml/min; Glucose 139 mg/dl (70-99); Potassium 4.9 mmol/L (3.5-5.1); Sodium 144 mmol/L (135-145)
[2024-08-20 06:06] LABS: Glucose - Point of Care 107 mg/dl (70-99)
[2024-08-20] MEDS: PULMICORT 0.5 MG INH ×2 (07:18→19:43)
[2024-08-20] MEDS: DUONEB 3 ML INH ×4 (07:18→19:43)
[2024-08-20] MEDS: NOVOLOG FLEXPEN-LOW RESISTANCE SC ×3 (07:22→17:24)
--- NOTE | 2024-08-20 07:57 | W.PN.CD ---
Today's Communication / Plan
-
cont. gentle IV hydration and monitor for renal improvement
cardiology will sign off; please call with further questions.
Impression / Plan
-
84 yo male with prior CVA, mild , RBBB, COPD, CKD4 admitted with acute on chronic SOB and right sided chest pain. Elevated WBC is also noted.
Admitted for SOB, right sided chest pain that was felt to be multifactorial with acute HFpEF and COPD exacerbation. LVEF normal and pattern of mild trop elevation NOT suggestive of acute ischemic event
Acute respiratory decline on 08/16/2024 felt by me to be predominantly Pulm in etiology and not heart failure related
- Pt on BIPAP and moved to IMU on 08/16/2024
Acute HFpEF:
- prior notes suggested a component of acute HFpEF but it appears at this point overload portion of respiratory status has been well treated.
- dry on exam
- DIURETICS on hold and now getting gentle IV hydration. BUN/Cr now improving
- Wt was 136 on admit, now 123
- SGLT2-I but adding MRA challenging with his CKD4
Abnormal troponin from acute non-ischemic myocardial injury in setting of hypoxia
- Peak 0.465
- EKG no significant evolutionary changes
Chest pain, right sided:
-Resolved
COPD exacerbation
- Per pulm and hospitalist
- Steroids decreased
CKD IV
- Cr 2.1 and BUM >120
- Elevated sodium being treated with IVF
- nephrology called
HTN
RBBB
Anemia
Hx CVA: patient on ASA and Brilinta 90 bid. Unless he had a coronary stent in past 6 mo (which is not the case) there is no indication for brilinta. We are playing with fire with DAPT in this pt with very high bleeding risk. Will stop brilinta
Mental status: Somnolent but able to respond appropriately to questions
Subjective:
No complaints
Data:
Echo 08/13/2024: Echo 08/13/2024: EF 55-60%, mild .
Physical Exam
Vital Signs/Labs
Vital Signs
Temp Pulse Resp BP Pulse Ox
36.4 C 78 24 155/55 99
08/20/24 07:30 08/20/24 07:00 08/20/24 07:00 08/20/24 04:56 08/20/24 07:00
08/19/24 08/20/24 08/21/24
06:59 06:59 06:59
Actual Weight 55.8 kg 54.3 kg
08/20/24 04:52
08/20/24 04:52
08/13/24
13:21
Gfe-Q-Vtfqdwwxhcl Pept [id number]
Physical Exam
Constitutional: No acute distress
Cardiovascular: Rhythm & rate is regular, Pedal edema is absent, JVD pressure is normal, Systolic murmur absent and Diastolic murmur absent
Respiratory: Respiratory effort normal
Data Reviewed
-
Date of Service: August 20, 2024
Medical Decision Making: Reviewed Test Results
Labs: Labs Reviewed by me
--- NOTE | 2024-08-20 08:08 | W.PN.HOSP.TC ---
Today's Communication/Plan
-
covid, flu and CXR
continue to hold steroids
hold lasix, continue D5W
appreciate consultants
will consult psychiatry to help with persistent TME/Delirium
Daughter updated daily
Assessment / Plan
Assessment / Plan
Mr. 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 He was sent from PCP office with low O2. Hospital course
complicated by delirium evening of 08/16 s/p ativan and Haldol. He was noted to have CO2 retention and was placed on BiPAP following morning.
HEAD CT 08/17/24
IMPRESSION:
1. No CT evidence for acute intracranial hemorrhage or transcortical infarct.
2. 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
3. SMALL CHRONIC LACUNAR INFARCTS in the right putamen, anterior limb of the right internal capsule, periventricular white matter of the left frontal lobe, and right thalamus.
4. Severe intracranial calcific atherosclerotic disease.
5. Mild diffuse cerebral and cerebellar volume loss.
TTE 08/13/24
CONCLUSIONS
Normal biventricular size and systolic function without regional wall motion
abnormality. Estimated LVEF 55-60%.
Mild aortic stenosis.
Compared to 03/24/23: no significant change.
# Acute hypoxic and hypercarbic respiratory failure
-Though multifactorial 2/2 CHF and COPD
-s/p BiPAP with improvement in ABG, now on NC
-Lasix held for JOSE ANGEL
-steroids now off 2/2 TME
-with elevated WBC and cough this morning - will obtain covid swab and repeat CXR
# TME-likely multifactorial including CO2, hypoxia, steroids
-remains agitated, confused
-steroids have been stopped on 08/19
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
-IV Haldol PRN
-will consult Psychiatry
# Acute HFpEF
Weight on admission was 61.8 kg now 54.1 kg
Lasix held with rising BUN/Creatinine
he was not on Lasix prior to admission
JOSE ANGEL
Hypernatremia
-appreciate renal consult
-continue D5W
-improving
# COPD exacerbation
steroids stopped 2/2 confusion
DuoNebs
# Elevated troponin-acute nonischemic myocardial injury in the setting of hypoxia
# Right-sided chest pain-atypical with tenderness on the right side
# Leukocytosis likely secondary to steroids
# CKD stage IV-JOSE ANGEL noted from diuresis
-IVF as above
# Hypertension-Hold amlodipine, atenolol
# History of CVA-on aspirin and Brilinta. will stop Brillinta at discharge
# Hyperlipidemia- hold statin
# Chronic RBBB
# Anemia-check iron studies
# History of gout-Hold allopurinol
# Ex-smoker
# DVT prophylaxis-subcutaneous heparin
# Per D/W Daughter CODE status changed to DNR
Discussed with nursing at bedside
Total time spent today over 52 minutes.
Anticipated Discharge: > 48 hours
Subjective/Interval History
-
Date of Service: August 20, 2024
agitated with nursing this morning
Objective Data
-
Labs:
Laboratory Results
08/20/24
04:52
WBC 24.7 H
Hgb 10.5 L
Hct 32.8 L
Plt Count 161
Sodium 144
Potassium 4.9
Chloride 105
Carbon Dioxide 28
BUN 102 H*
Creatinine 2.4 H
Glucose 139 H
Calcium 8.9
Vital Signs:
Vital Signs
Temp Pulse Resp BP Pulse Ox
97.6 F 78 24 155/55 99
08/20/24 07:30 08/20/24 07:00 08/20/24 07:00 08/20/24 04:56 08/20/24 07:00
I&O
08/19/24 08/20/24 08/21/24
06:59 06:59 06:59
Intake Total 1040 / 1040
Output Total 300 / 300 900 / 900
Balance -300 / -300 140 / 140
Review of Systems
-
Unable to obtain full review of systems at this time due to: Dementia
History Source: Patient
Physical Exam
-
General: Appears Chronically Ill and Other (disheveled appearing)
HEENT: PERRLA
Respiratory: Negative Wheezes
Cardiac: Regular Rhythm and S1/S2
GI: Soft and Nontender
Musculoskeletal: No Edema
Skin: Warm and Dry; Negative Rash
Neuro: Awake and Alert
Psych: Agitated and Apparent Dementia
Data Reviewed
-
Diagnostic Radiology: Report Reviewed by me
--- NOTE | 2024-08-20 08:30 | PTCARENOTE ---
Patient received from shift supervisor. Patient resting comfortably in bed. No complaints of pain at this time. Patient did get a little restless and combative around 0600 this AM. Currently on 4L N/C due to a little desaturation after patient took
off O2, will wean as tolerated. COVID and FLU swabs ordered to R/O with relation to trending elevated WBC. Chest xray ordered as well. Continue antibiotics. Remains off restraints despite the AM aggression. Medsitter in place. Call darden in
reach.
--- NOTE | 2024-08-20 08:59 | W.PN.NEPH.PH ---
Today's Communication / Plan
-
IVF
Assessment/Plan
-
Impression:
JOSE ANGEL
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
Azotemia
Hypernatremia
Acute congestive heart failure
COPD exacerbation
TME
Right-sided chest pain/elevated troponin acute nonischemic myocardial injury
History of CVA
Anemia
History of gout
Plan:
follow BMP
continue D5W today, reduce rate
daily swallow assessment
no diuretics for now
-
-
Date of Service: August 20, 2024
CC / HPI / ROS
-
Chief Complaint:
Acute kidney injury
Hypernatremia
History of Present Illness:
Creatinine down to 2.4
Na down to 144
failed swallow study
Hemodynamically stable
Review of Systems:
Weight stable
nonoliguric
No fevers
Labs
-
Labs:
WBC 24.7 10^3/uL (4.8-10.8) H 08/20/24 04:52
RBC 3.29 10^6/uL (4.70-6.10) L 08/20/24 04:52
Hgb 10.5 g/dL (13.0-18.0) L 08/20/24 04:52
Hct 32.8 % (39.0-52.0) L 08/20/24 04:52
Plt Count 161 10^3/uL (130-400) 08/20/24 04:52
Sodium 144 mmol/L (135-145) 08/20/24 04:52
Potassium 4.9 mmol/L (3.5-5.1) 08/20/24 04:52
Chloride 105 mmol/L (98-107) 08/20/24 04:52
Carbon Dioxide 28 mmol/L (22-30) 08/20/24 04:52
BUN 102 mg/dl (9-20) H* 08/20/24 04:52
Creatinine 2.4 mg/dL (0.7-1.3) H 08/20/24 04:52
eGFR 25.80 08/20/24 04:52
Glucose 139 mg/dl (70-99) H 08/20/24 04:52
Calcium 8.9 mg/dl (8.4-10.2) 08/20/24 04:52
For-G-Ebkeqmheecm Pept 37979 pg/ml 08/13/24 13:21
Albumin 4.0 g/dl (3.5-5.0) 08/13/24 13:21
Physical Exam
-
Vital Signs:
Vital Signs
Temp Pulse Resp BP Pulse Ox
97.6 F 70 28 155/55 98
08/20/24 07:30 08/20/24 08:12 08/20/24 08:12 08/20/24 04:56 08/20/24 08:12
Cardiovascular:: Regular rate and rhythm
Respiratory:: Bilateral: Coarse
Lung Excursion:: Normal
Abdomen:: Nontender and Soft
Bowel Sounds:: Normal
Extremity Edema:: None: Bilateral:
[2024-08-20] MEDS: ASPIRIN 300 MG RECTAL (09:02)
[2024-08-20] MEDS: HEPARIN 5000 UNITS SC ×2 (09:02→17:25)
[2024-08-20] MEDS: UNASYN IV (09:03)
[2024-08-20] MEDS: HYDROPHOR 1 APPLIC TOPICAL ×2 (09:03→21:28)
[2024-08-20] MEDS: THIAMINE INJECTION 200 MG IV (09:03)
[2024-08-20 09:34] LABS: COVID-19 Antigen Negative (Negative)
--- NOTE | 2024-08-20 10:10 | W.PN.PUL.V3 ---
Today's Communication / Plan
-
Antibiotics
Monitor leukocytosis
Now off prednisone
BiPAP as needed
Psychiatry evaluation pending
Assessment
-
Assessment: 84-year-old male former tobacco smoker (quit 2001) with a past medical history of AAA without rupture, bladder cancer s/p resection, chronic lower back pain, hypertension, hypercholesterolemia, KELLEY, insomnia, reported history of COPD,
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 Patient was at his PCP today with BAILEY Fong, due
to cough, shortness of breath and mild congestion. COVID swab + flu swab both negative. He became hypoxic down to 84%. Normally he takes DuoNebs TID but has not been taking it lately. His cough and congestion started about 2 days ago. No known
sick contacts but he does visit a correction frequently where his is located ([place]). He was placed onto oxygen (2L/min) with sats rising to 90s, and given a DuoNeb treatment x 2 in the office - this improved his Sx. He was
thought to have a COPD exacerbation and then was transferred to [place] ER for further care. In the ER he was audibly wheezing and saturating 84% on room air, and saturations improved to 98% on 2 L/min. He was breathing at 24-30 breaths/min
with BP 143/66, pulse rate 83 and he was afebrile to 98.1 �F. Labs showed leukocytosis to 15.9, anemia to 9.5, bandemia with 16% bands, creatinine 2.2, potassium 5.8, troponin 0.139, proBNP 14,700 and COVID antigen negative. Flu A/B swab also
negative. CXR shows diffusely increased interstitial opacities with no focal airspace disease. He was given acetaminophen, albuterol, ipratropium + Decadron 10 mg, and admitted to telemetry under the hospitalist. Pulmonary service now consulted
for additional management/recommendations.
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
Impression:
#Acute respiratory failure with hypoxia likely due to combination of acute bronchospasm/acute COPD exacerbation with acute interstitial edema
#Acute interstitial edema suspicious for acute decompensated heart failure
Toxic metabolic encephalopathy
#Acute HFpEF exacerbation
#Chest pain
#Leukocytosis with bandemia (16%)
#Acute on chronic anemia (baseline Hb: 10.5�12g/dL)
#Elevated proBNP (14,700 on 08/13/2024)
#Elevated troponin
#CKD (baseline creatinine approximately 2.2)
#Chronic lower back pain
#AAA without rupture
#History of bladder cancer s/p resection
#Former tobacco smoker (quit 2001)
Hyponatremia
JOSE ANGEL
DNR
Plan:
Respiratory status still somewhat tenuous-persistent wheezing-saturating adequate however
Supplemental oxygen-attempt to wean
Aspiration precaution per protocol
Nebulizers continue
Prednisone 40 mg--discontinued 08/19/2024 with ongoing delirium
Budesonide nebulizers added 08/19/2024
ABG 08/17/2024--51/68/7.33-pCO2 the day prior 57
BiPAP continues as needed-attempt to liberate-will increase BiPAP and minimally EPAP
Chest x-ray 08/16/2024-prominent interstitial markings, no significant change
Chest x-ray 08/20/2024-pending
Diuresis per primary service and cardiology-on hold-gentle hydration
Transitioned to oral Lasix
Monitor renal function, electrolytes, intake/output, lower extremity edema and weight
Replace electrolytes as needed
Nephrology evaluation ongoing-correspondence reviewed-diuresis held
Cardiology following-correspondence reviewed-hold Lasix, gentle hydration-signed off 08/20/2024
Monitor dyvmyupkcmev-dmtdwqdpe-sbg have steroid effect
Cultures reviewed
Repeat COVID test 08/20/2024 pending
Influenza serology-pending
Continue antibiotics-ampicillin/sulbactam
Monitor encephalopathy
Psychiatry consultation pending
Steroids discontinued
Monitor hemoglobin
Transfuse as needed
Increase free water
Follow serum sodium
Monitor blood sugar
Insulin supplementation as needed
DVT prophylaxis-on heparin
Nutrition with aspiration precautions
Early mobilization
Reviewed with nursing
Outpatient follow-up will be arranged
Data:
CXR 08/13/2024:
Nonspecific diffusely increased interstitial opacities bilaterally, likely reflective of chronic lung disease with component of acute interstitial edema not entirely excluded. No pleural effusions. No focal airspace disease with chronic pleural
thickening within the right apex.
TTE 08/13/2024:
Normal biventricular size and systolic function without regional wall motion
abnormality. Estimated LVEF 55-60%.
Mild aortic stenosis.
Compared to 03/24/23: no significant change.
Subjective Data
-
Date of Service:
Date of Service: August 20, 2024
Chief Complaint: Pulmonary Follow Up (Acute COPD exacerbation) and Dyspnea Follow Up
Subjective:
Occasionally agitated, more alert, no complaints of shortness of breath, persistent wheezing, not using BiPAP
Review of Systems
General: Other (Per HPI)
Objective Data
Data Reviewed
Vital Signs / I&O:
Vital Signs
Temp Pulse Resp BP Pulse Ox
97.6 F 70 28 155/55 98
08/20/24 07:30 08/20/24 08:12 08/20/24 08:12 08/20/24 04:56 08/20/24 08:12
Intake and Output
08/19/24 08/20/24 08/21/24
06:59 06:59 06:59
Intake Total 1040 / 1040
Output Total 300 / 300 900 / 900
Balance -300 / -300 140 / 140
SaO2: 98
Nasal Cannula flow liters per minute: 4
Physical Exam
General: Respiratory Distress (n) and Comfortable
HEENT: Normocephalic and Anicteric
Cardiovascular: Regular Rhythm
Respiratory: Wheeze (Bilateral wheezing), Crackles, Rhonchi and Accessory Resp Muscle Use (Mild)
GI: Soft and Non Distended
Neurology: Lethargic
Skin: Warm, Good Color, Cyanosis (n), Jaundice (n) and Rash
Labs/Micro/Reports
Lab Data
08/20/24 04:52
08/20/24 04:52
Microbiology
08/20/24 09:12 Nasal Swab Influenza Types A & B (LOC) - Final
Negative for Influenza A & B, NAAT
Negative results must be combined with clinical observations
and patient history.
Nucleic Acid Amplification test (NAAT)performed on the
[employer] platform.
[2024-08-20 12:02] LABS: Glucose - Point of Care 90 mg/dl (70-99)
[2024-08-20 17:39] LABS: Glucose - Point of Care 90 mg/dl (70-99)
--- NOTE | 2024-08-20 19:24 | CON.MD ---
Consultation - Medical
-
84 yr old M w/ PMH of CVA due to ICH (2022) with residual right-sided symptoms, COPD, bladder CA s/p resection, chronic RBBB, HLD, CKD IV who presented with acute on chronic shortness of breath, found to have acute hypoxic and hypercarbic
respiratory failure & acute HFpEF. Found to have elevated troponin & acute nonischemic myocardial injury in the setting of hypoxia. CT head on 08/17/24 showed the following:
IMPRESSION:
1. No CT evidence for acute intracranial hemorrhage or transcortical infarct.
2. 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
3. SMALL CHRONIC LACUNAR INFARCTS in the right putamen, anterior limb of the right internal capsule, periventricular white matter of the left frontal lobe, and right thalamus.
4. Severe intracranial calcific atherosclerotic disease.
5. Mild diffuse cerebral and cerebellar volume loss.
Psychiatry consulted due to agitation in context of delirium/TME. Pt seen at bedside, was sleeping and not disrupted as he would benefit much more from rest than my questions re:orientation, as he has been consistently confused and is very unlikely
to suddenly become lucid. Has been intermittently agitated, difficult to redirect and can impede care. Per chart review is confused and likely disoriented.
Delirium w/ intermitent agitation
MSE: male, in hospital bed, sleeping, disheveled. Unable to assess mood, thought process/content, memory, orientation however as per chart review & staff pt can become quite confused & agitated. Insight/judgement likely poor given circumstances.
1. Started risperidone 0.5mg dissolvable TIDPRN acute agitation, pt has been here for some time and prolonged hospitalization can contribute to delirium in this population, on top of acute medical issues.
2. Decreased ativan to 0.5mg HS, will likely discontinue tomorrow - benzodiazepenes in this population can disinhibit and worsen delirium & has not had HS ativan since 08/11 so would not need to taper off more gradually at this point
2. Psychiatry will follow and reassess
[2024-08-20] MEDS: ATIVAN 0.5 MG PO (21:28)
[2024-08-21] VITALS (12 sets, daily range): BP systolic 130–162; BP diastolic 47–80
[2024-08-21] MEDS: NOVOLOG FLEXPEN-LOW RESISTANCE SC ×3 (00:37→12:51)
[2024-08-21] MEDS: HEPARIN 5000 UNITS SC ×4 (00:37→23:22)
[2024-08-21 00:47] LABS: Glucose - Point of Care 124 mg/dl (70-99)
--- NOTE | 2024-08-21 02:57 | PTCARENOTE ---
Pt continues to remove 02, satting 86% without it, punches at staff and using derogatory language when staff attempts to replace 02. CANE SPLICER made aware. order received for B/L soft wrist restraints. intervention implemented.
[2024-08-21] MEDS: DEXTROSE 50% SYRINGE 12.5 GRAMS IV ×2 (05:57→12:07)
[2024-08-21 06:01] LABS: Glucose - Point of Care 50 mg/dl (70-99)
[2024-08-21 06:26] LABS: Blood Urea Nitrogen 83 mg/dl (9-20); Calcium 9.2 mg/dl (8.4-10.2); Carbon Dioxide 28 mmol/L (22-30); Chloride 104 mmol/L (98-107); Estimated Creatinine Clearance 19 ml/min; Glucose 98 mg/dl (70-99); Potassium 4.3 mmol/L (3.5-5.1); Sodium 145 mmol/L (135-145); eGFR 28.63
[2024-08-21 06:30] LABS: Absolute Neutrophils -Man Diff 22.5 10^3/uL (1.4-6.5); Band Neutrophils 4 % (0-3); Eosinophils 1 % (0-6); Hematocrit 35.1 % (39.0-52.0); Hemoglobin 11.1 g/dL (13.0-18.0); Mean Corp Hgb Conc. 31.6 g/dL (33.0-37.0); Mean Corpuscular Hgb 31.3 pg (27.0-31.0); Mean Corpuscular Volume 98.9 fL (80.0-94.0); Mean Platelet Volume 11.6 fL (7.4-10.4); Metamyelocytes 3 % (-); Monocytes 1 % (2-9); Platelet Count 160 10^3/uL (130-400); Red Blood Cell Count 3.55 10^6/uL (4.70-6.10); Segmented Neutrophils 91 % (42-75); White Blood Cell Count 23.7 10^3/uL (4.8-10.8)
[2024-08-21 06:30] LABS: Glucose - Point of Care 17 mg/dl (70-99)
[2024-08-21 06:31] LABS: Anisocytosis 1+; Hypochromasia 2+; Macrocytosis 2+; Platelets Checked Yes
[2024-08-21 06:32] LABS: Normal RBC Morphology No; Total Cells Counted 100
[2024-08-21] MEDS: PULMICORT 0.5 MG INH ×2 (07:26→19:30)
[2024-08-21] MEDS: DUONEB 3 ML INH ×4 (07:26→19:30)
[2024-08-21 07:50] LABS: Glucose - Point of Care 90 mg/dl (70-99)
--- NOTE | 2024-08-21 07:57 | PTCARENOTE ---
Am POC glucose reading 50. Pt getting d5w@70/hr, Iv site presenting to be leaking and IV pump not infusing. Pt arousable to verbal stimuli and agitated. Pt given IV push 12.5 g of dextros 50% per hypoglycemia protocol. Pt with new IV site and
reconnected to D5W @70/ml/hr. 15 min recheck coming up as 17. immediately rechecking the glucose the glucometer indicated a glucose of 95. upon checking the Cycle this reading of 95 did not save and only the reading of 17 saved. PCT rechecked
the glucose, reading 90. Pt remains arousable and at baseline LOC. hypoglycemia protocol followed.
--- NOTE | 2024-08-21 08:29 | W.PN.HOSP.TC ---
Today's Communication/Plan
-
GOC discussions had with daughter. Given difficulty in volume status in setting of CKD IV and heart failure; as well as prolonged delirium hospital stay without PO intake (patient would not tolerate TF, daughter agrees) - daughter would like to
hear more about hospice and consult is placed. Continuing medical treatment until decision made.
Assessment / Plan
Assessment / Plan
Mr. 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 He was sent from PCP office with low O2. Hospital course
complicated by delirium evening of 08/16 s/p ativan and Haldol. He was noted to have CO2 retention and was placed on BiPAP following morning.
HEAD CT 08/17/24
IMPRESSION:
1. No CT evidence for acute intracranial hemorrhage or transcortical infarct.
2. 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
3. SMALL CHRONIC LACUNAR INFARCTS in the right putamen, anterior limb of the right internal capsule, periventricular white matter of the left frontal lobe, and right thalamus.
4. Severe intracranial calcific atherosclerotic disease.
5. Mild diffuse cerebral and cerebellar volume loss.
TTE 08/13/24
CONCLUSIONS
Normal biventricular size and systolic function without regional wall motion
abnormality. Estimated LVEF 55-60%.
Mild aortic stenosis.
Compared to 03/24/23: no significant change.
# Acute hypoxic and hypercarbic respiratory failure
-Though multifactorial 2/2 CHF and COPD
-s/p BiPAP with improvement in ABG, now on NC
-steroids now off 2/2 TME
-covid and flu negative
-Lasix held for JOSE ANGEL- although now repeat CXR shows progression CHF --> GOC discussions had with daughter. Given difficulty in volume status in setting of CKD IV and heart failure; as well as prolonged delirium hospital stay without PO intake
(patient would not tolerate TF, daughter agrees) - daughter would like to hear more about hospice and consult is placed. Continuing medical treatment until decision made.
# TME-likely multifactorial including CO2, hypoxia, steroids
-remains agitated, confused
-steroids have been stopped on 08/19
-RIB SAWYER Ativan resumed without helping agitation overnight --> dose lowered per psychiatry
-Risperidol PRN
-appreciate Psychiatry consulty
# Acute HFpEF
Weight on admission was 61.8 kg now 54.1 kg
Lasix held with rising BUN/Creatinine
he was not on Lasix prior to admission
-repeat CXR 08/20 with e/o mild fluid overload
JOSE ANGEL
Hypernatremia
-appreciate renal consult
-continue D5W
-improving but now some concern for volume overload
# COPD exacerbation
steroids stopped 2/2 confusion
DuoNebs
# Elevated troponin-acute nonischemic myocardial injury in the setting of hypoxia
# Right-sided chest pain-atypical with tenderness on the right side
# Leukocytosis likely secondary to steroids
# CKD stage IV-JOSE ANGEL noted from diuresis
-IVF as above
# Hypertension-Hold amlodipine, atenolol
# History of CVA-on aspirin and Brilinta. Brillinta stopped
# Hyperlipidemia- hold statin
# Chronic RBBB
# Anemia-check iron studies
# History of gout-Hold allopurinol
# Ex-smoker
# DVT prophylaxis-subcutaneous heparin
# Per D/W Daughter CODE status changed to DNR
Discussed with nursing at bedside
Total time spent today over 52 minutes.
Anticipated Discharge: > 48 hours
Subjective/Interval History
-
Date of Service: August 21, 2024
patient confused, per notes he was combative overnight
Objective Data
-
Labs:
Laboratory Results
08/21/24
05:34
WBC 23.7 H
Hgb 11.1 L
Hct 35.1 L
Plt Count 160
Sodium 145
Potassium 4.3
Chloride 104
Carbon Dioxide 28
BUN 83 H
Creatinine 2.2 H
Glucose 98
Calcium 9.2
Vital Signs:
Vital Signs
Temp Pulse Resp BP Pulse Ox
97.9 F 84 25 161/70 93
08/21/24 03:09 08/21/24 08:00 08/21/24 08:00 08/21/24 08:00 08/21/24 08:00
I&O
08/20/24 08/21/24 08/22/24
06:59 06:59 06:59
Intake Total 1040 / 1040
Output Total 900 / 900
Balance 140 / 140
Review of Systems
-
Unable to obtain full review of systems at this time due to: Dementia
History Source: Patient
Physical Exam
-
General: Appears Chronically Ill and Other (disheveled appearing)
HEENT: PERRLA
Respiratory: Negative Wheezes
Cardiac: Regular Rhythm and S1/S2
GI: Soft and Nontender
Musculoskeletal: No Edema
Skin: Warm and Dry; Negative Rash
Neuro: Awake and Alert
Psych: Agitated and Apparent Dementia
Data Reviewed
-
Diagnostic Radiology: Report Reviewed by me
Labs: Labs Reviewed by me
--- NOTE | 2024-08-21 09:28 | W.PN.PUL3 ---
Today's Communication / Plan
-
Antibiotics
Monitor leukocytosis
Now off prednisone
BiPAP as needed
Psychiatry recs appreciated
Family discussing hospice
Assessment
-
Assessment: 84-year-old male former tobacco smoker (quit 2001) with a past medical history of AAA without rupture, bladder cancer s/p resection, chronic lower back pain, hypertension, hypercholesterolemia, KELLEY, insomnia, reported history of COPD,
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 Patient was at his PCP today with BAILEY Fong, due
to cough, shortness of breath and mild congestion. COVID swab + flu swab both negative. He became hypoxic down to 84%. Normally he takes DuoNebs TID but has not been taking it lately. His cough and congestion started about 2 days ago. No known
sick contacts but he does visit a [place] [facility] facility frequently where his is located ([place]). He was placed onto oxygen (2L/min) with sats rising to 90s, and given a DuoNeb treatment x 2 in the office - this improved his Sx. He was
thought to have a COPD exacerbation and then was transferred to [place] [facility] for further care. In the ER he was audibly wheezing and saturating 84% on room air, and saturations improved to 98% on 2 L/min. He was breathing at 24-30 breaths/min
with BP 143/66, pulse rate 83 and he was afebrile to 98.1 �F. Labs showed leukocytosis to 15.9, anemia to 9.5, bandemia with 16% bands, creatinine 2.2, potassium 5.8, troponin 0.139, proBNP 14,700 and COVID antigen negative. Flu A/B swab also
negative. CXR shows diffusely increased interstitial opacities with no focal airspace disease. He was given acetaminophen, albuterol, ipratropium + Decadron 10 mg, and admitted to telemetry under the hospitalist. Pulmonary service now consulted
for additional management/recommendations.
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
Impression:
#Acute respiratory failure with hypoxia likely due to combination of acute bronchospasm/acute COPD exacerbation with acute interstitial edema
#Acute interstitial edema suspicious for acute decompensated heart failure
#Toxic metabolic encephalopathy
#Acute HFpEF exacerbation
#Chest pain
#Leukocytosis with bandemia (16%)
#Acute on chronic anemia (baseline Hb: 10.5�12g/dL)
#Elevated proBNP (14,700 on 08/13/2024)
#Elevated troponin
#CKD (baseline creatinine approximately 2.2)
#Chronic lower back pain
#AAA without rupture
#History of bladder cancer s/p resection
#Former tobacco smoker (quit 2001)
#Hyponatremia - resolved
#JOSE ANGEL - improving
DNR
Plan:
Respiratory status still somewhat tenuous- wheezing resolved
Supplemental oxygen-attempt to wean while keeping SpO2 >90-94%
Aspiration precaution per protocol
Nebulizers continue
Prednisone 40 mg--discontinued 08/19/2024 with ongoing delirium
Budesonide nebulizers added 08/19/2024
Last use BiPAP on 08/17/2024; given his lethargic state, hold off on placing back onto BiPAP for now
Chest x-ray 08/16/2024-prominent interstitial markings, no significant change
Diuresis per primary service and cardiology-on hold-gentle hydration, currently on D5W
Monitor renal function, electrolytes, intake/output, lower extremity edema and weight
Replace electrolytes as needed
Nephrology evaluation ongoing-correspondence reviewed-diuresis held
Cardiology following-correspondence reviewed-hold Lasix, gentle hydration-signed off 08/20/2024
Monitor whekrwunfejw-nnbtetrxk-ico have steroid effect
Repeat COVID test 08/20/2024 negative
Influenza swab 08/13/2024 + 08/20/2024 - both negative
Continue antibiotics-ampicillin/sulbactam
Monitor encephalopathy
Psychiatry consulted - recs appreciated
Steroids discontinued
Monitor hemoglobin
Transfuse as needed to keep >7
Trend sNa --> it is now normal; can DC D5W --> defer to nephrology
Monitor blood sugar with goal >100 and <180mg/dL
Insulin supplementation as needed
DVT prophylaxis-on heparin
Nutrition with aspiration precautions
Early mobilization
Reviewed with nursing
Outpatient follow-up will be arranged; there is discussion about the patient being transitioned to hospice. If he is transition then obviously no outpatient follow-up will be arranged.
Pulmonary service will continue to follow along while goals of care are further discussed.
Data:
CXR 08/13/2024:
Nonspecific diffusely increased interstitial opacities bilaterally, likely reflective of chronic lung disease with component of acute interstitial edema not entirely excluded. No pleural effusions. No focal airspace disease with chronic pleural
thickening within the right apex.
TTE 08/13/2024:
Normal biventricular size and systolic function without regional wall motion
abnormality. Estimated LVEF 55-60%.
Mild aortic stenosis.
Compared to 03/24/23: no significant change.
Total time spent today was 38 minutes for this encounter. Time includes reviewing laboratory test/imaging results, reviewing pertinent medical records, obtaining and reviewing medical history, performing an appropriate exam, ordering medications,
tests and procedures. Time also includes documentation of this encounter, coordinating patient care and communicating with other healthcare professionals. Total time does not include separately billed tests performed on this date of service.
Subjective Data
-
Date of Service:
Date of Service: August 21, 2024
Chief Complaint: Pulmonary Follow Up (Acute COPD exacerbation) and Dyspnea Follow Up
Subjective:
Patient seen and evaluated today at bedside. Resting in bed in no acute distress. Heart rate 81, saturating 96% on 1.5 L/min, and BP 141/71.
Review of Systems
General: Other (Unable to obtain as patient is lethargic)
Objective Data
Data Reviewed
Vital Signs / I&O / Oxygen:
Vital Signs
Temp Pulse Resp BP Pulse Ox
97.9 F 72 18 161/70 97
08/21/24 11:04 08/21/24 15:16 08/21/24 15:16 08/21/24 08:00 08/21/24 15:16
Intake and Output
08/20/24 08/21/24 08/22/24
06:59 06:59 06:59
Intake Total 1040 / 1040
Output Total 900 / 900 1200 / 1200
Balance 140 / 140 -1200 / -1200
SaO2 97
Nasal Cannula flow liters per 2
minute
Physical Exam
General: Respiratory Distress (n) and Comfortable
HEENT: Normocephalic and Anicteric
Cardiovascular: S1-S2 and Peripheral Edema (negative)
Respiratory: Wheeze (negative), Crackles (bibasilar), Rhonchi (negative) and Non-Labored Respirations
GI: Soft, Non Distended, Non Tender and Normal Bowel Sounds
Neurology: Lethargic
Skin: Warm, Dry, Cyanosis (n) and Jaundice (n)
Labs/Micro/Reports
Lab Data
08/21/24 05:34
08/21/24 05:34
Microbiology
08/20/24 09:12 Nasal Swab Influenza Types A & B (LOC) - Final
Negative for Influenza A & B, NAAT
Negative results must be combined with clinical observations
and patient history.
Nucleic Acid Amplification test (NAAT)performed on the
[employer] platform.
[2024-08-21] MEDS: LOW STRENGTH ASPIRIN PO (10:05)
[2024-08-21] MEDS: ASPIRIN RECTAL (10:05)
[2024-08-21] MEDS: HYDROPHOR 1 APPLIC TOPICAL ×2 (10:35→19:40)
[2024-08-21] MEDS: UNASYN IV (10:35)
[2024-08-21] MEDS: THIAMINE INJECTION 200 MG IV (10:35)
[2024-08-21 10:51] LABS: Glucose - Point of Care 116 mg/dl (70-99)
--- NOTE | 2024-08-21 11:01 | W.PN.NEPH.PH ---
Today's Communication / Plan
-
D5W
Assessment/Plan
-
Impression:
JOSE ANGEL
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
Azotemia
Hypernatremia
Acute congestive heart failure
COPD exacerbation
TME
Right-sided chest pain/elevated troponin acute nonischemic myocardial injury
History of CVA
Anemia
History of gout
Plan:
follow BMP
continue D5W
daily swallow assessment
no diuretics for now
hospice is appropriate
-
-
Date of Service: August 21, 2024
CC / HPI / ROS
-
Chief Complaint:
Acute kidney injury
Hypernatremia
History of Present Illness:
Creatinine down to 2.2
Na stable 145
failed swallow study
WBC still elevated
Hemodynamically stable
Review of Systems:
Weight stable
nonoliguric
No fevers
Labs
-
Labs:
WBC 23.7 10^3/uL (4.8-10.8) H 08/21/24 05:34
RBC 3.55 10^6/uL (4.70-6.10) L 08/21/24 05:34
Hgb 11.1 g/dL (13.0-18.0) L 08/21/24 05:34
Hct 35.1 % (39.0-52.0) L 08/21/24 05:34
Plt Count 160 10^3/uL (130-400) 08/21/24 05:34
Sodium 145 mmol/L (135-145) 08/21/24 05:34
Potassium 4.3 mmol/L (3.5-5.1) 08/21/24 05:34
Chloride 104 mmol/L (98-107) 08/21/24 05:34
Carbon Dioxide 28 mmol/L (22-30) 08/21/24 05:34
BUN 83 mg/dl (9-20) H 08/21/24 05:34
Creatinine 2.2 mg/dL (0.7-1.3) H 08/21/24 05:34
eGFR 28.63 08/21/24 05:34
Glucose 98 mg/dl (70-99) 08/21/24 05:34
Calcium 9.2 mg/dl (8.4-10.2) 08/21/24 05:34
Nnh-N-Gmnjamlrxzv Pept 26577 pg/ml 08/13/24 13:21
Albumin 4.0 g/dl (3.5-5.0) 08/13/24 13:21
Physical Exam
-
Vital Signs:
Vital Signs
Temp Pulse Resp BP Pulse Ox
97.4 F 84 25 161/70 93
08/21/24 07:06 08/21/24 08:00 08/21/24 08:00 08/21/24 08:00 08/21/24 08:00
Cardiovascular:: Regular rate and rhythm
Respiratory:: Bilateral: Coarse
Lung Excursion:: Normal
Abdomen:: Nontender and Soft
Bowel Sounds:: Normal
Extremity Edema:: None: Bilateral:
--- NOTE | 2024-08-21 11:28 | CM ---
Addendum entered by Fatou Chandler 08/21/24 12:37:
Meeting with [facility] today with family between 2:30-3pm.
Original Note:
manager coding reviewed patient's chart and spoke with nursing, case planner received an order for hospice evaluation, case planner spoke with patient's daughter and she has selected [facility], referral sent to [facility].
Plan; Referral sent to [facility]
[2024-08-21 12:11] LABS: Glucose - Point of Care 44 mg/dl (70-99)
--- NOTE | 2024-08-21 12:31 | PTCARENOTE ---
Pt presents as assessed. Aox1, self only. Drowsy. Combative at times, agitated with care. Restraints remain in place, see intervention. NSR on tele monitor. Sating mid 90s on 2L NC. #[address] draining yellow urine. IVF infusing as ordered. Pt
hypoglycemic on 1200 accucheck, D50 administered per protocol, recheck with result of 130. Medsitter remains in place for safety.
[2024-08-21 12:38] LABS: Glucose - Point of Care 130 mg/dl (70-99)
[2024-08-21 14:55] LABS: Glucose - Point of Care 88 mg/dl (70-99)
[2024-08-21] MEDS: D5W 1000 IV (14:55)
--- NOTE | 2024-08-21 15:38 | HOSPNOTE ---
Meet with daughter Rina to discuss hospice and its benefits.Patient is confused as is his that were both present but not included in discussion. is in the dementia unit at [facility]. Daughter is in contact with [facility]
and wishes to get her father there. Explained our services that we would provide at [facility] and what medicare covers. Discussed the challenges with his swallowing difficulties and she wants to respect her dads wishes and not place feeding tube etc to
prolong life. Rina asked what care would look like at [facility] without hospice. Explained our role of comfort care and not returning to the hospital etc.
Patient sister is coming tomorrow and Rina wants to think about hospice. She is aware that patient needs to be restraint free for 24 hours before coming to [facility]. Also explained if she chooses comfort care he could move out of ICU and have comfort
care on a hospital floor while a bed is secured at [facility].
She has hospice contact information and will reach out to us when a final decision is made or has any other questions
--- NOTE | 2024-08-21 16:13 | PTCARENOTE ---
Pt calm and cooperative at this time. Family at bedside. Restraints removed.
[2024-08-21 18:47] LABS: Glucose - Point of Care 128 mg/dl (70-99)
[2024-08-21] MEDS: RISPERDAL M-TAB (ORALLY DISINTEGRATING) 0.25 MG PO (21:30)
[2024-08-21 23:35] LABS: Glucose - Point of Care 105 mg/dl (70-99)
[2024-08-22] VITALS (12 sets, daily range): BP systolic 117–164; BP diastolic 45–111; BMI 18.2
[2024-08-22 03:30] LABS: Glucose - Point of Care 95 mg/dl (70-99)
[2024-08-22] MEDS: D5W 1000 IV (04:50)
[2024-08-22 04:52] LABS: Hematocrit 30.8 % (39.0-52.0); Hemoglobin 9.9 g/dL (13.0-18.0); Mean Corp Hgb Conc. 32.1 g/dL (33.0-37.0); Mean Corpuscular Hgb 31.3 pg (27.0-31.0); Mean Corpuscular Volume 97.5 fL (80.0-94.0); Mean Platelet Volume 12.1 fL (7.4-10.4); Platelet Count 129 10^3/uL (130-400); Red Blood Cell Count 3.16 10^6/uL (4.70-6.10); Red Cell Dist. Width 13.9 % (11.5-14.5); White Blood Cell Count 17.3 10^3/uL (4.8-10.8)
--- NOTE | 2024-08-22 05:08 | PTCARENOTE ---
Assume care from AM RN. AAOx1 confused, forgetful and anxious at times. pt hasnt been combative at all. Cooperative. Flat affect. NSR w/ BBB. Wk pulses. Lung sounds are coarse with a moist nonproductive cough. SaO2 92% 2L. shallow breathing. # [address] Abd round. NPO. Q2 turn. Call darden within reach and will continue w/ tx plan.
[2024-08-22 05:19] LABS: Blood Urea Nitrogen 67 mg/dl (9-20); Calcium 8.1 mg/dl (8.4-10.2); Carbon Dioxide 27 mmol/L (22-30); Chloride 104 mmol/L (98-107); Estimated Creatinine Clearance 21 ml/min; Glucose 116 mg/dl (70-99); Potassium 4.1 mmol/L (3.5-5.1); Sodium 140 mmol/L (135-145)
[2024-08-22 07:18] LABS: Glucose - Point of Care 88 mg/dl (70-99)
[2024-08-22] MEDS: PULMICORT 0.5 MG INH ×2 (07:32→19:32)
[2024-08-22] MEDS: DUONEB 3 ML INH (07:32)
--- NOTE | 2024-08-22 08:03 | W.PN.HOSP.TC ---
Addendum entered and electronically signed by Sheryl Gómez MD 08/22/24 15:29:
Updated daughter. Per daughter, patient is more clear headed today and doing better. She is agreeable to hospice. I will repeat VSE tomorrow to hopefully start a diet safely. If able to take PO intake would still clarify for hospice given CKD IV
and heart failure diagnoses with inability do safely diurese.
Original Note:
Today's Communication/Plan
-
GOC discussions on-going
Assessment / Plan
Assessment / Plan
Mr. 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 He was sent from PCP office with low O2. Hospital course
complicated by delirium evening of 08/16 s/p ativan and Haldol. He was noted to have CO2 retention and was placed on BiPAP following morning.
HEAD CT 08/17/24
IMPRESSION:
1. No CT evidence for acute intracranial hemorrhage or transcortical infarct.
2. 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
3. SMALL CHRONIC LACUNAR INFARCTS in the right putamen, anterior limb of the right internal capsule, periventricular white matter of the left frontal lobe, and right thalamus.
4. Severe intracranial calcific atherosclerotic disease.
5. Mild diffuse cerebral and cerebellar volume loss.
TTE 08/13/24
CONCLUSIONS
Normal biventricular size and systolic function without regional wall motion
abnormality. Estimated LVEF 55-60%.
Mild aortic stenosis.
Compared to 03/24/23: no significant change.
# Acute hypoxic and hypercarbic respiratory failure
-Though multifactorial 2/2 CHF and COPD
-s/p BiPAP with improvement in ABG, now on NC
-steroids now off 2/2 TME
-covid and flu negative
-Lasix held for JOSE ANGEL- although now repeat CXR shows progression CHF --> GOC discussions had with daughter. Given difficulty in volume status in setting of CKD IV and heart failure; as well as prolonged delirium hospital stay without PO intake
(patient would not tolerate TF, daughter agrees) - daughter would like to hear more about hospice and consult is placed. Continuing medical treatment until decision made.
# TME-likely multifactorial including CO2, hypoxia, steroids
-remains agitated, confused
-steroids have been stopped on 08/19
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
-Risperidol PRN
-appreciate Psychiatry consult
# Acute HFpEF
Weight on admission was 61.8 kg now 54.1 kg
Lasix held with rising BUN/Creatinine
he was not on Lasix prior to admission
-repeat CXR 08/20 with e/o mild fluid overload - difficult balance between heart and kidneys as above
JOSE ANGEL
Hypernatremia
-appreciate renal consult
-continue D5W
-improving but now some concern for volume overload
# COPD exacerbation
steroids stopped 2/2 confusion
DuoNebs
# Elevated troponin-acute nonischemic myocardial injury in the setting of hypoxia
# Right-sided chest pain-atypical with tenderness on the right side
# Leukocytosis likely secondary to steroids
# CKD stage IV-JOSE ANGEL noted from diuresis
-IVF as above
# Hypertension-Hold amlodipine, atenolol
# History of CVA-on aspirin and Brilinta. Brillinta stopped
# Hyperlipidemia- hold statin
# Chronic RBBB
# Anemia-check iron studies
# History of gout-Hold allopurinol
# Ex-smoker
# DVT prophylaxis-subcutaneous heparin
# Per D/W Daughter CODE status changed to DNR
Discussed with nursing at bedside
Total time spent today over 52 minutes.
Anticipated Discharge: 24 - 48 hours
Subjective/Interval History
-
Date of Service: August 22, 2024
more calm this morning
states he doesn't remember discussions from yesterday
denies pain
Objective Data
-
Labs:
Laboratory Results
08/22/24
04:20
WBC 17.3 H
Hgb 9.9 L
Hct 30.8 L
Plt Count 129 L
Sodium 140
Potassium 4.1
Chloride 104
Carbon Dioxide 27
BUN 67 H
Creatinine 2.0 H
Glucose 116 H
Calcium 8.1 L
Vital Signs:
Vital Signs
Temp Pulse Resp BP Pulse Ox
97.8 F 65 18 140/111 97
08/22/24 03:22 08/22/24 07:35 08/22/24 07:35 08/22/24 04:04 08/22/24 07:35
I&O
08/21/24 08/22/24 08/23/24
06:59 06:59 06:59
Intake Total 840 / 840
Output Total 1850 / 1850
Balance -1010 / -1010
Review of Systems
-
History Source: Patient
All other systems: Reviewed and negative
Physical Exam
-
General: Appears Chronically Ill and Other (disheveled appearing)
HEENT: PERRLA
Respiratory: Negative Wheezes
Cardiac: Regular Rhythm and S1/S2
GI: Soft and Nontender
Musculoskeletal: No Edema
Skin: Warm and Dry; Negative Rash
Neuro: Awake and Alert
Psych: Agitated and Apparent Dementia
Data Reviewed
-
Diagnostic Radiology: Report Reviewed by me
Labs: Labs Reviewed by me
[2024-08-22] MEDS: HEPARIN 5000 UNITS SC ×2 (08:14→16:00)
[2024-08-22] MEDS: LOW STRENGTH ASPIRIN PO (08:14)
[2024-08-22] MEDS: THIAMINE INJECTION 200 MG IV (08:14)
[2024-08-22] MEDS: HYDROPHOR 1 APPLIC TOPICAL ×2 (08:24→21:10)
--- NOTE | 2024-08-22 09:52 | W.PN.PUL3 ---
Today's Communication / Plan
-
Antibiotics
Monitor leukocytosis
Now off prednisone
BiPAP as needed
DC duonebs and continue prn
Psychiatry recs appreciated
Family discussing hospice
Assessment
-
Assessment: 84-year-old male former tobacco smoker (quit 2001) with a past medical history of AAA without rupture, bladder cancer s/p resection, chronic lower back pain, hypertension, hypercholesterolemia, KELLEY, insomnia, reported history of COPD,
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 Patient was at his PCP today with BAILEY Fong, due
to cough, shortness of breath and mild congestion. COVID swab + flu swab both negative. He became hypoxic down to 84%. Normally he takes DuoNebs TID but has not been taking it lately. His cough and congestion started about 2 days ago. No known
sick contacts but he does visit a halfway frequently where his is located ([place]). He was placed onto oxygen (2L/min) with sats rising to 90s, and given a DuoNeb treatment x 2 in the office - this improved his Sx. He was
thought to have a COPD exacerbation and then was transferred to [place] [facility] for further care. In the ER he was audibly wheezing and saturating 84% on room air, and saturations improved to 98% on 2 L/min. He was breathing at 24-30 breaths/min
with BP 143/66, pulse rate 83 and he was afebrile to 98.1 �F. Labs showed leukocytosis to 15.9, anemia to 9.5, bandemia with 16% bands, creatinine 2.2, potassium 5.8, troponin 0.139, proBNP 14,700 and COVID antigen negative. Flu A/B swab also
negative. CXR shows diffusely increased interstitial opacities with no focal airspace disease. He was given acetaminophen, albuterol, ipratropium + Decadron 10 mg, and admitted to telemetry under the hospitalist. Pulmonary service now consulted
for additional management/recommendations.
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
Impression:
#Acute respiratory failure with hypoxia likely due to combination of acute bronchospasm/acute COPD exacerbation with acute interstitial edema
#Acute interstitial edema suspicious for acute decompensated heart failure
#Toxic metabolic encephalopathy
#Acute HFpEF exacerbation
#Chest pain
#Leukocytosis with bandemia (16%)
#Acute on chronic anemia (baseline Hb: 10.5�12g/dL)
#Elevated proBNP (14,700 on 08/13/2024)
#Elevated troponin (peaked at 0.465 on 08/14/2024)
#CKD (baseline creatinine approximately 2.2)
#Chronic lower back pain
#AAA without rupture
#History of bladder cancer s/p resection
#Former tobacco smoker (quit 2001)
#Hyponatremia - resolved
#JOSE ANGEL - improving
DNR
Plan:
Respiratory status improved- wheezing resolved
Supplemental oxygen-attempt to wean while keeping SpO2 >90-94%
Aspiration precaution per protocol
Prednisone 40 mg--discontinued 08/19/2024 with ongoing delirium
He does not seem to be benefiting from scheduled DuoNebs - discontinue scheduled DuoNebs and keep prn
Budesonide nebulizers added 08/19/2024
Last use BiPAP on 08/17/2024; given his lethargic state, hold off on placing back onto BiPAP for now
Chest x-ray 08/16/2024-prominent interstitial markings, no significant change
Diuresis per primary service and cardiology-on hold-gentle hydration, currently on D5W
Monitor renal function, electrolytes, intake/output, lower extremity edema and weight
Replace electrolytes as needed
Nephrology evaluation ongoing-correspondence reviewed-diuresis held
Cardiology following-correspondence reviewed-hold Lasix, gentle hydration-signed off 08/20/2024
Monitor leukocytosis
Repeat COVID test 08/20/2024 negative
Influenza swab 08/13/2024 + 08/20/2024 - both negative
Continue antibiotics-ampicillin/sulbactam
Monitor encephalopathy
Psychiatry consulted - recs appreciated
Steroids discontinued
Monitor hemoglobin
Transfuse as needed to keep >7
Trend sNa --> it is now normal; can DC D5W --> defer to nephrology
Monitor blood sugar with goal >100 and <180mg/dL
Insulin supplementation as needed
DVT prophylaxis-on heparin
Nutrition with aspiration precautions
Early mobilization
Reviewed with nursing
Outpatient follow-up will be arranged; there is discussion about the patient being transitioned to hospice. If he is transitioned then obviously no outpatient follow-up will be arranged.
Pulmonary service will continue to follow along while goals of care are further discussed.
Data:
CXR 08/13/2024:
Nonspecific diffusely increased interstitial opacities bilaterally, likely reflective of chronic lung disease with component of acute interstitial edema not entirely excluded. No pleural effusions. No focal airspace disease with chronic pleural
thickening within the right apex.
TTE 08/13/2024:
Normal biventricular size and systolic function without regional wall motion
abnormality. Estimated LVEF 55-60%.
Mild aortic stenosis.
Compared to 03/24/23: no significant change.
Total time spent today was 36 minutes for this encounter. Time includes reviewing laboratory test/imaging results, reviewing pertinent medical records, obtaining and reviewing medical history, performing an appropriate exam, ordering medications,
tests and procedures. Time also includes documentation of this encounter, coordinating patient care and communicating with other healthcare professionals. Total time does not include separately billed tests performed on this date of service.
Subjective Data
-
Date of Service:
Date of Service: August 22, 2024
Chief Complaint: Pulmonary Follow Up (Acute COPD exacerbation) and Dyspnea Follow Up
Subjective:
Patient seen and evaluated today at bedside. He is resting in bed in no acute distress. He has no particular complaints. Heart rate 74, saturating 93% on 1 L/min and BP 150/45. He denies chest pain, CHRISTIANSON, fevers or chills.
Review of Systems
General: Other (Negative unless mentioned above)
Objective Data
Data Reviewed
Vital Signs / I&O / Oxygen:
Vital Signs
Temp Pulse Resp BP Pulse Ox
97.6 F 65 18 140/111 97
08/22/24 07:15 08/22/24 07:35 08/22/24 07:35 08/22/24 04:04 08/22/24 07:35
Intake and Output
08/21/24 08/22/24 08/23/24
06:59 06:59 06:59
Intake Total 840 / 840
Output Total 1850 / 1850
Balance -1010 / -1010
SaO2 97
Nasal Cannula flow liters per 1
minute
Physical Exam
General: Respiratory Distress (n) and Comfortable
HEENT: Normocephalic and Anicteric
Cardiovascular: S1-S2 and Peripheral Edema (negative)
Respiratory: Wheeze (negative), Crackles (Bibasilar (L >R)), Rhonchi (negative) and Non-Labored Respirations
GI: Soft, Non Distended, Non Tender and Normal Bowel Sounds
Neurology: Awake and Alert
Skin: Warm, Dry, Cyanosis (n) and Jaundice (n)
Labs/Micro/Reports
Lab Data
08/22/24 04:20
08/22/24 04:20
Microbiology
08/20/24 09:12 Nasal Swab Influenza Types A & B (LOC) - Final
Negative for Influenza A & B, NAAT
Negative results must be combined with clinical observations
and patient history.
Nucleic Acid Amplification test (NAAT)performed on the
[employer] platform.
--- NOTE | 2024-08-22 10:40 | W.PN.NEPH.PH ---
Today's Communication / Plan
-
cap IV fluids after bag completes
Assessment/Plan
-
Impression:
JOSE ANGEL
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
Azotemia
Hypernatremia
Acute congestive heart failure
COPD exacerbation
TME
Right-sided chest pain/elevated troponin acute nonischemic myocardial injury
History of CVA
Anemia
History of gout
Plan:
follow BMP
continue D5W until bag completes today then will cap
daily swallow assessment
no diuretics for now
hospice is appropriate
-
-
Date of Service: August 22, 2024
CC / HPI / ROS
-
Chief Complaint:
Acute kidney injury
Hypernatremia
History of Present Illness:
Creatinine down to 2.0
Na stable 140
failed swallow study
WBC still elevated but improving, 17,000
Hemodynamically stable
Review of Systems:
Weight stable
nonoliguric
No fevers
Labs
-
Labs:
WBC 17.3 10^3/uL (4.8-10.8) H 08/22/24 04:20
RBC 3.16 10^6/uL (4.70-6.10) L 08/22/24 04:20
Hgb 9.9 g/dL (13.0-18.0) L 08/22/24 04:20
Hct 30.8 % (39.0-52.0) L 08/22/24 04:20
Plt Count 129 10^3/uL (130-400) L 08/22/24 04:20
Sodium 140 mmol/L (135-145) 08/22/24 04:20
Potassium 4.1 mmol/L (3.5-5.1) 08/22/24 04:20
Chloride 104 mmol/L (98-107) 08/22/24 04:20
Carbon Dioxide 27 mmol/L (22-30) 08/22/24 04:20
BUN 67 mg/dl (9-20) H 08/22/24 04:20
Creatinine 2.0 mg/dL (0.7-1.3) H 08/22/24 04:20
eGFR 32.10 08/22/24 04:20
Glucose 116 mg/dl (70-99) H 08/22/24 04:20
Calcium 8.1 mg/dl (8.4-10.2) L 08/22/24 04:20
Lxe-C-Qppiohywyvv Pept 86456 pg/ml 08/13/24 13:21
Albumin 4.0 g/dl (3.5-5.0) 08/13/24 13:21
Physical Exam
-
Vital Signs:
Vital Signs
Temp Pulse Resp BP Pulse Ox
97.6 F 65 18 140/111 97
08/22/24 07:15 08/22/24 07:35 08/22/24 07:35 08/22/24 04:04 08/22/24 07:35
Cardiovascular:: Regular rate and rhythm
Respiratory:: Bilateral: Coarse
Lung Excursion:: Normal
Abdomen:: Nontender and Soft
Bowel Sounds:: Normal
Extremity Edema:: None: Bilateral:
[2024-08-22] MEDS: UNASYN IV (11:02)
[2024-08-22] MEDS: DUONEB INH (11:21)
[2024-08-22 13:34] LABS: Glucose - Point of Care 75 mg/dl (70-99)
[2024-08-22 18:33] LABS: Glucose - Point of Care 76 mg/dl (70-99)
[2024-08-22] MEDS: RISPERDAL M-TAB (ORALLY DISINTEGRATING) 0.25 MG PO (21:10)
[2024-08-22 23:55] LABS: Glucose - Point of Care 72 mg/dl (70-99)
[2024-08-23] VITALS (13 sets, daily range): BP systolic 94–168; BP diastolic 45–81; BMI 18.0
[2024-08-23] MEDS: HEPARIN 5000 UNITS SC ×4 (00:38→23:06)
[2024-08-23] MEDS: D5W 1000 IV ×2 (00:39→22:39)
--- NOTE | 2024-08-23 01:16 | PTCARENOTE ---
Pt presenting to be in a pleasant mood. Pt continues to be NPO, mouth care done aspiration risk hydration protocol followed per order. Pt IVF d/c scheduled AccuCheck resulting at 72. Nigh CERTIFIED NURSING ASSISTANT INSTRUCTOR made aware, new order for D5W started (see MAR).
[2024-08-23 05:38] LABS: Glucose - Point of Care 84 mg/dl (70-99)
[2024-08-23 05:45] LABS: Hematocrit 30.5 % (39.0-52.0); Hemoglobin 9.7 g/dL (13.0-18.0); Mean Corp Hgb Conc. 31.8 g/dL (33.0-37.0); Mean Corpuscular Hgb 31.5 pg (27.0-31.0); Mean Platelet Volume 12.1 fL (7.4-10.4); Platelet Count 149 10^3/uL (130-400); Red Blood Cell Count 3.08 10^6/uL (4.70-6.10); Red Cell Dist. Width 14.1 % (11.5-14.5); White Blood Cell Count 12.1 10^3/uL (4.8-10.8)
[2024-08-23 06:27] LABS: Blood Urea Nitrogen 55 mg/dl (9-20); Calcium 8.1 mg/dl (8.4-10.2); Carbon Dioxide 28 mmol/L (22-30); Chloride 102 mmol/L (98-107); Estimated Creatinine Clearance 21 ml/min; Glucose 99 mg/dl (70-99); Potassium 4.8 mmol/L (3.5-5.1); Sodium 138 mmol/L (135-145)
[2024-08-23] MEDS: PULMICORT 0.5 MG INH ×2 (07:23→20:20)
[2024-08-23] MEDS: LOW STRENGTH ASPIRIN PO (08:32)
--- NOTE | 2024-08-23 09:15 | W.PN.PUL3 ---
Today's Communication / Plan
-
No new events, remains on supportive care
MS seems improved
GOC discussions reviewed,patient is enrolling into hospice
VSE planning for PO access
Discharge planning per team post eval
We will sign off at this time, please call with questions
Assessment
-
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 Patient was at his PCP today with Mili Oseguera PA�C, due to cough,
shortness of breath and mild congestion. COVID swab + flu swab both negative. He became hypoxic down to 84%. Normally he takes DuoNebs TID but has not been taking it lately. His cough and congestion started about 2 days ago. No known sick
contacts but he does visit a residential frequently where his is located ([place]). He was placed onto oxygen (2L/min) with sats rising to 90s, and given a DuoNeb treatment x 2 in the office - this improved his Sx. He was thought to
have a COPD exacerbation and then was transferred to [place] ER for further care. In the ER he was audibly wheezing and saturating 84% on room air, and saturations improved to 98% on 2 L/min. He was breathing at 24-30 breaths/min with BP
143/66, pulse rate 83 and he was afebrile to 98.1 �F. Labs showed leukocytosis to 15.9, anemia to 9.5, bandemia with 16% bands, creatinine 2.2, potassium 5.8, troponin 0.139, proBNP 14,700 and COVID antigen negative. Flu A/B swab also negative.
CXR shows diffusely increased interstitial opacities with no focal airspace disease. He was given acetaminophen, albuterol, ipratropium + Decadron 10 mg, and admitted to telemetry under the hospitalist. Pulmonary service now consulted for
additional management/recommendations.
Chronic conditions [employer]: CKD, gout, anemia, hypertension, chronic back pain, emphysema, AAA without rupture, history of bladder cancer s/p resection, former tobacco use, anemia, history of alcohol dependence now in remission, KELLEY, insomnia, reported
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
Impression:
#Acute respiratory failure with hypoxia likely due to combination of acute bronchospasm/acute COPD exacerbation with acute interstitial edema
#Acute interstitial edema suspicious for acute decompensated heart failure
#Toxic metabolic encephalopathy
#Acute HFpEF exacerbation
#Chest pain
#Leukocytosis with bandemia (16%)
#Acute on chronic anemia (baseline Hb: 10.5�12g/dL)
#Elevated proBNP (14,700 on 08/13/2024)
#Elevated troponin (peaked at 0.465 on 08/14/2024)
#CKD (baseline creatinine approximately 2.2)
#Chronic lower back pain
#AAA without rupture
#History of bladder cancer s/p resection
#Former tobacco smoker (quit 2001)
#Hyponatremia - resolved
#JOSE ANGEL - improving
DNR
Plan:
Respiratory status improved- wheezing resolved
Supplemental oxygen-attempt to wean while keeping SpO2 >90-94%
Aspiration precaution per protocol
VSE planning today for PO access
Prednisone 40 mg--discontinued 08/19/2024 with ongoing delirium
He does not seem to be benefiting from scheduled DuoNebs - discontinue scheduled DuoNebs and keep prn
Budesonide nebulizers added 08/19/2024
Last use BiPAP on 08/17/2024; given his lethargic state, hold off on placing back onto BiPAP for now
Chest x-ray 08/16/2024-prominent interstitial markings, no significant change
Diuresis per primary service and cardiology-on hold-gentle hydration, currently on D5W
Monitor renal function, electrolytes, intake/output, lower extremity edema and weight
Replace electrolytes as needed
Nephrology evaluation ongoing-correspondence reviewed-diuresis held
Cardiology following-correspondence reviewed-hold Lasix, gentle hydration-signed off 08/20/2024
Monitor leukocytosis
Repeat COVID test 08/20/2024 negative
Influenza swab 08/13/2024 + 08/20/2024 - both negative
Continue antibiotics-ampicillin/sulbactam
Monitor encephalopathy
Psychiatry consulted - recs appreciated
Steroids discontinued
Monitor hemoglobin
Transfuse as needed to keep >7
Trend Na --> it is now normal; can DC D5W
Defer to nephrology
Monitor blood sugar with goal >100 and <180mg/dL
Insulin supplementation as needed
DVT prophylaxis-on heparin
Nutrition with aspiration precautions
Early mobilization
Reviewed with nursing
GOC discussion reviewed, CM following
Family and patient will be entering into Hospice
Discharge planning following speech evaluation
Data
CXR 08/13/2024: Nonspecific diffusely increased interstitial opacities bilaterally, likely reflective of chronic lung disease with component of acute interstitial edema not entirely excluded. No pleural effusions. No focal airspace disease with
chronic pleural thickening within the right apex.
TTE 08/13/2024: Normal biventricular size and systolic function without regional wall motion abnormality. Estimated LVEF 55-60%. Mild aortic stenosis. Compared to 03/24/23: no significant change.
-----
Total time spent today was 45 minutes for this encounter. Time includes reviewing laboratory test/imaging results, reviewing pertinent medical records, obtaining and reviewing medical history, performing an appropriate exam, ordering medications,
tests and procedures. Time also includes documentation of this encounter, coordinating patient care and communicating with other healthcare professionals. Total time does not include separately billed tests performed on this date of service.
Subjective Data
-
Date of Service:
Date of Service: August 23, 2024
Chief Complaint: Pulmonary Follow Up (Acute COPD exacerbation) and Dyspnea Follow Up
Subjective:
No acute events ON, remains on supplemental o2
VSE today
Feels 'terrible'
Objective Data
Data Reviewed
Vital Signs / I&O / Oxygen:
Vital Signs
Temp Pulse Resp BP Pulse Ox
98.1 F 71 22 157/54 100
08/23/24 07:48 08/23/24 07:23 08/23/24 07:23 08/23/24 00:00 08/23/24 07:23
Intake and Output
08/22/24 08/23/24 08/24/24
06:59 06:59 06:59
Intake Total 840 / 840
Output Total 1850 / 1850 1075 / 1075
Balance -1010 / -1010 -1075 / -1075
SaO2 100
Nasal Cannula flow liters per 1
minute
Physical Exam
General: Respiratory Distress (n) and Comfortable
HEENT: Normocephalic and Anicteric
Cardiovascular: S1-S2 and Peripheral Edema (trace, discoloration of LEs)
Respiratory: Wheeze (negative), Crackles (Bibasilar (L >R)), Rhonchi (negative) and Non-Labored Respirations
GI: Soft, Non Distended, Non Tender and Normal Bowel Sounds
Neurology: Awake, Alert, Oriented, No Motor Deficits and Lethargic
Skin: Warm, Dry, Cyanosis (n) and Jaundice (n)
Labs/Micro/Reports
Lab Data
08/23/24 05:31
08/23/24 05:31
Microbiology
08/20/24 09:12 Nasal Swab Influenza Types A & B (LOC) - Final
Negative for Influenza A & B, NAAT
Negative results must be combined with clinical observations
and patient history.
Nucleic Acid Amplification test (NAAT)performed on the
[employer] platform.
--- NOTE | 2024-08-23 09:35 | HOSPNOTE ---
Spoke with daughter about hospice and the philosophy. The daughter is in agreement with hospice. The plan is to try to find a bed at [facility] since the patient's spouse is there. CM updated with plan. Once a bed is found patient will be admitted onto
hospice services. [facility] DNR will be needed on chart for transport. Will continue to follow.
[2024-08-23] MEDS: UNASYN IV (10:14)
[2024-08-23] MEDS: HYDROPHOR 1 APPLIC TOPICAL ×2 (10:14→20:37)
[2024-08-23] MEDS: THIAMINE INJECTION 200 MG IV (10:14)
--- NOTE | 2024-08-23 11:43 | W.PN.NEPH.PH ---
Today's Communication / Plan
-
d/c IVF once BG stabilizes after starting diet
Assessment/Plan
-
Impression:
JOSE ANGEL
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
Azotemia
Hypernatremia
Acute congestive heart failure
COPD exacerbation
TME
Right-sided chest pain/elevated troponin acute nonischemic myocardial injury
History of CVA
Anemia
History of gout
Plan:
cr seem at baseline
sodium improving to 138
remains on D5w for BGs, d/c when BG stabilizes after eating today
no diuretics for now
considering hospice
d/w nursing
-
-
Date of Service: August 23, 2024
CC / HPI / ROS
-
Chief Complaint:
Acute kidney injury
Hypernatremia
History of Present Illness:
Creatinine stable at 2.0
Na better at 138
started dysphagia diet
WBC still elevated but improving, 12,000
Hemodynamically stable
Review of Systems:
Weight decreasing
nonoliguric
No fevers
Labs
-
Labs:
WBC 12.1 10^3/uL (4.8-10.8) H 08/23/24 05:31
RBC 3.08 10^6/uL (4.70-6.10) L 08/23/24 05:31
Hgb 9.7 g/dL (13.0-18.0) L 08/23/24 05:31
Hct 30.5 % (39.0-52.0) L 08/23/24 05:31
Plt Count 149 10^3/uL (130-400) 08/23/24 05:31
Sodium 138 mmol/L (135-145) 08/23/24 05:31
Potassium 4.8 mmol/L (3.5-5.1) 08/23/24 05:31
Chloride 102 mmol/L (98-107) 08/23/24 05:31
Carbon Dioxide 28 mmol/L (22-30) 08/23/24 05:31
BUN 55 mg/dl (9-20) H 08/23/24 05:31
Creatinine 2.0 mg/dL (0.7-1.3) H 08/23/24 05:31
eGFR 32.10 08/23/24 05:31
Glucose 99 mg/dl (70-99) 08/23/24 05:31
Calcium 8.1 mg/dl (8.4-10.2) L 08/23/24 05:31
Yih-L-Whrgsbneoxq Pept 75818 pg/ml 08/13/24 13:21
Albumin 4.0 g/dl (3.5-5.0) 08/13/24 13:21
Physical Exam
-
Vital Signs:
Vital Signs
Temp Pulse Resp BP Pulse Ox
98.1 F 71 22 157/54 100
08/23/24 07:48 08/23/24 07:23 08/23/24 07:23 08/23/24 00:00 08/23/24 07:23
Cardiovascular:: Regular rate and rhythm
Respiratory:: Bilateral: CTA (anteriorly)
Lung Excursion:: Normal
Abdomen:: Nontender
Extremity Edema:: None: Bilateral:
Montes Catheter: No
--- NOTE | 2024-08-23 11:53 | PTOTSP ---
Speech Therapy VSE:
Pt with mild oropharyngeal dysphagia as characterized by decreased oral containment with premature posterior spillage of thin liquids into the vallecula and trace-mild vallecular and base of tongue residue with all consistencies, however more
prominent with thin liquids. A cued dry swallow was helpful at clearing thin liquid residue. No penetration or aspiration occurred during the study. No volitional compensatory strategies utilized, however pt's neck was in natural chin tuck position
throughout the study.
Recommend:
1. Initiate IDDSI Level 6 (soft and bite sized) solids and thin liquids
2. Medications crushed versus whole in puree
3. Aspiration precautions: close supervision with meals, small bites/sips, slow rate, ensure SpO2 >90%, remain upright 30 minutes following meals
4. Continued ST at acute care level
[2024-08-23 12:26] LABS: Glucose - Point of Care 52 mg/dl (70-99)
--- NOTE | 2024-08-23 12:50 | PTCARENOTE ---
Patient's blood sugar low at lunch. Blood sugar of 31 was an error. Repeat blood sugar was 102 but did not transfer from accucheck machine.
--- NOTE | 2024-08-23 12:58 | PTCARENOTE ---
Assumed care of patient this morning. He is oriented x2. Pt able to communicate he was incontinent of bowel. Pt given bed bath. Pt asking for food as soon as he came back from VSE. Pt does have a cough with intake. Pt put on aspiration precautions.
Pt's blood sugar low at lunch but improved with juice, see flowsheet. Assessment, care and VS as charted.
[2024-08-23 13:04] LABS: Glucose - Point of Care 31 mg/dl (70-99)
[2024-08-23] MEDS: DUONEB 3 ML INH (13:19)
--- NOTE | 2024-08-23 13:20 | W.PN.HOSP.TC ---
Addendum entered and electronically signed by Fernando Ledesma MD 08/23/24 15:06:
update daughter over the phone in details. explained the poor prognosis with CKD/Heart failure/mentation/dysphagia/
Original Note:
Today's Communication/Plan
-
Awaiting placement [facility] on hospice.
Assessment / Plan
Assessment / Plan
Mr. 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 He was sent from PCP office with low O2. Hospital course
complicated by delirium evening of 08/16 s/p ativan and Haldol. He was noted to have CO2 retention and was placed on BiPAP following morning.
HEAD CT 08/17/24
IMPRESSION:
1. No CT evidence for acute intracranial hemorrhage or transcortical infarct.
2. 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
3. SMALL CHRONIC LACUNAR INFARCTS in the right putamen, anterior limb of the right internal capsule, periventricular white matter of the left frontal lobe, and right thalamus.
4. Severe intracranial calcific atherosclerotic disease.
5. Mild diffuse cerebral and cerebellar volume loss.
TTE 08/13/24
CONCLUSIONS
Normal biventricular size and systolic function without regional wall motion
abnormality. Estimated LVEF 55-60%.
Mild aortic stenosis.
Compared to 03/24/23: no significant change.
# Acute hypoxic and hypercarbic respiratory failure
-Though multifactorial 2/2 CHF and COPD
-s/p BiPAP with improvement in ABG, now on NC
-steroids now off 2/2 TME
-covid and flu negative
-Lasix held for JOSE ANGEL- although now repeat CXR shows progression CHF -->Dr Gómez had GOC discussions had with daughter. Given difficulty in volume status in setting of CKD IV and heart failure; as well as prolonged delirium hospital stay without PO
intake (patient would not tolerate TF, daughter agrees) - daughter would like to hear more about hospice and consult is placed. Continuing medical treatment until decision made.
-Hospice discussion with family noted. Daughter agreed for hospice. Awaiting for transfer to [facility].
# TME-likely multifactorial including CO2, hypoxia, steroids
-remains confused
-steroids have been stopped on 08/19
-ADMIN PROG COORD Ativan resumed without helping agitation overnight --> dose lowered per psychiatry and will be weaned to off
-Risperidol PRN
-appreciate Psychiatry consult
Dysphagia
Hypoglycemia likely secondary to decreased p.o. intake
Status post VSE
Started on modified diet
Can DC fluids once POC stabilizes
# Acute HFpEF
Weight on admission was 61.8 kg now 53.8
Lasix held with rising BUN/Creatinine
he was not on Lasix prior to admission
-repeat CXR 08/20 with e/o mild fluid overload - difficult balance between heart and kidneys as above
#JOSE ANGEL
#Hypernatremia
-appreciate renal consult
-continue D5W
-improving
# COPD exacerbation
steroids stopped 2/2 confusion
DuoNebs
# Elevated troponin-acute nonischemic myocardial injury in the setting of hypoxia
# Right-sided chest pain-atypical with tenderness on the right side
# Leukocytosis likely secondary to steroids
# CKD stage IV-JOSE ANGEL noted from diuresis
-IVF as above
# Hypertension-Hold amlodipine, atenolol
# History of CVA-on aspirin and Brilinta. Brillinta stopped
# Hyperlipidemia- hold statin
# Chronic RBBB
# Anemia-check iron studies
# History of gout-Hold allopurinol
# Ex-smoker
# DVT prophylaxis-subcutaneous heparin
# CODE status changed to DNR
Can transfer out of IMU once POC stabilizes.
Discussed with case management. Awaiting placement [facility] to hospice.
Anticipated Discharge: Within 24 hours
Subjective/Interval History
-
Date of Service: August 23, 2024
Underwent VSE earlier today
passed for modified diet
had a bm earlier
Objective Data
-
Labs:
Laboratory Results
08/23/24
05:31
WBC 12.1 H
Hgb 9.7 L
Hct 30.5 L
Plt Count 149
Sodium 138
Potassium 4.8
Chloride 102
Carbon Dioxide 28
BUN 55 H
Creatinine 2.0 H
Glucose 99
Calcium 8.1 L
Vital Signs:
Vital Signs
Temp Pulse Resp BP Pulse Ox
98.2 F 75 23 113/69 93
08/23/24 11:40 08/23/24 12:30 08/23/24 12:30 08/23/24 12:30 08/23/24 12:58
I&O
08/22/24 08/23/24 08/24/24
06:59 06:59 06:59
Intake Total 840 / 840
Output Total 1850 / 1850 1075 / 1075
Balance -1010 / -1010 -1075 / -1075
Physical Exam
-
General: Appears Chronically Ill and Other (disheveled appearing)
HEENT: Normocephalic, Atraumatic and Nose Appears Normal
Respiratory: Clear to Auscultation (anteriorly ); Negative Wheezes
Cardiac: Regular Rhythm and S1/S2
GI: Soft, Nontender and Nondistended
Musculoskeletal: No Edema
Skin: Warm and Dry; Negative Rash
Neuro: Awake
Psych: Apparent Dementia
Data Reviewed
-
Total Time Spent with Patient (in minutes): 55
--- NOTE | 2024-08-23 14:52 | PTCARENOTE ---
I spoke with patient's daughter, Rina, on the phone and updated her per RN ability.
--- NOTE | 2024-08-23 14:57 | CM ---
O2 1L. Receiving IVF. Dysphagia diet. Seen by Hospice.
Spoke with Jess, [facility]; they have no available male beds this week.
Spoke with patient's daughter Rina;
she spoke with Jess at [facility] who advised her that they have no available beds this week.
Extensive conversation with daughter, relaying support that she was hoping to get her father into [facility] where her mother is already there for LTC.
Discussed local SNFs between [facility], [place] & [place] and provided [facility] ratings.
Daughter chose several facilities.
She would like her father to go to SNF with hospice utilizing Medicaid for daily bed cost.
SNF referrals placed.
Plan follow up SNF referrals tomorrow and speak with daughter.
Plan SNF with hospice.
[2024-08-23 17:45] LABS: Glucose - Point of Care 157 mg/dl (70-99)
[2024-08-23 21:24] LABS: Glucose - Point of Care 95 mg/dl (70-99)
[2024-08-23] MEDS: RISPERDAL M-TAB (ORALLY DISINTEGRATING) 0.25 MG PO (22:39)
[2024-08-24] VITALS (14 sets, daily range): BP systolic 118–163; BP diastolic 51–93; BMI 18.6; BMI 18.3
--- NOTE | 2024-08-24 01:19 | PTCARENOTE ---
Assumed care of Pt this evening. Pt appearing to be in good spirits, family at bedside. Pt has no complaints at this time. Pt allowing most of Q2 turns. Pt remains on RA SPO2 94%. Bed alarm on. Call darden within reach. Assessment care and vitals as
charted.
[2024-08-24] MEDS: DUONEB 3 ML INH ×3 (04:02→19:25)
[2024-08-24] MEDS: PULMICORT 0.5 MG INH ×2 (07:23→19:25)
[2024-08-24 08:09] LABS: Glucose - Point of Care 107 mg/dl (70-99)
[2024-08-24] MEDS: THIAMINE INJECTION 200 MG IV (08:32)
[2024-08-24] MEDS: LOW STRENGTH ASPIRIN 81 MG PO (08:32)
[2024-08-24] MEDS: HEPARIN 5000 UNITS SC ×2 (08:32→17:42)
[2024-08-24] MEDS: HYDROPHOR 1 APPLIC TOPICAL ×2 (08:32→22:11)
[2024-08-24 09:02] LABS: Glucose - Point of Care 104 mg/dl (70-99)
--- NOTE | 2024-08-24 11:20 | PTOTSP ---
Speech Language Pathology
Pt seen for dysphagia tx. Per RN, tolerating diet well. Pt denied any difficulty chewing or swallowing. Reviewed results/recommendations from VSE completed 08/23. Seen with regular solids and thin liquids. While chewing first bite of solid,
cough noted, but do not suspect this was related to P.O. intake. Adequate mastication, bolus formation, and A-P transit noted. No overt signs of aspiration. No increased WOB noted with P.O. this date as was noted during VSE 08/23, and was one of
the reasons for starting with modified solids. Plan is for discharge to facility on hospice.
Recommend:
(1) Upgrade to regular solids/thin liquids
(2) General aspiration precautions
(3) Meds as tolerated
(4) PAVING BLOCK CUTTER to sign off as pt now on regular solids/thin liquids and plan is for discharge on hospice. Please reconsult as indicated
--- NOTE | 2024-08-24 12:18 | W.PN.NEPH.PH ---
Today's Communication / Plan
-
hospice
Assessment/Plan
-
Impression:
JOSE ANGEL
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
Azotemia
Hypernatremia
Acute congestive heart failure
COPD exacerbation
TME
Right-sided chest pain/elevated troponin acute nonischemic myocardial injury
History of CVA
Anemia
History of gout
Plan:
cr seem at baseline
sodium improving to 138, no labs today
remains on D5w for BGs
no diuretics for now
for d/c on hospice today
will s/o, call with ?s
d/w nursing
-
-
Date of Service: August 24, 2024
CC / HPI / ROS
-
Chief Complaint:
Acute kidney injury
Hypernatremia
History of Present Illness:
Creatinine stable at 2.0, no labs today
Na better at 138
started dysphagia diet
WBC still elevated but improving, 12,000
Hemodynamically stable, no fever
Review of Systems:
Weight stable
nonoliguric
no complaints, eating dysphagia diet
Labs
-
Labs:
WBC 12.1 10^3/uL (4.8-10.8) H 08/23/24 05:31
RBC 3.08 10^6/uL (4.70-6.10) L 08/23/24 05:31
Hgb 9.7 g/dL (13.0-18.0) L 08/23/24 05:31
Hct 30.5 % (39.0-52.0) L 08/23/24 05:31
Plt Count 149 10^3/uL (130-400) 08/23/24 05:31
Sodium Cancelled 08/24/24 08:05
Potassium Cancelled 08/24/24 08:05
Chloride Cancelled 08/24/24 08:05
Carbon Dioxide Cancelled 08/24/24 08:05
BUN Cancelled 08/24/24 08:05
Creatinine Cancelled 08/24/24 08:05
eGFR Cancelled 08/24/24 08:05
Glucose Cancelled 08/24/24 08:05
Calcium Cancelled 08/24/24 08:05
Fev-O-Yhlmyqdzpdv Pept 16237 pg/ml 08/13/24 13:21
Albumin 4.0 g/dl (3.5-5.0) 08/13/24 13:21
Physical Exam
-
Vital Signs:
Vital Signs
Temp Pulse Resp BP Pulse Ox
97.7 F 85 20 134/54 94
08/24/24 07:40 08/24/24 10:00 08/24/24 10:00 08/24/24 10:00 08/24/24 11:54
Cardiovascular:: Regular rate and rhythm
Respiratory:: Bilateral: CTA (decreased)
Lung Excursion:: Normal
Abdomen:: Nontender and Soft
Extremity Edema:: None: Bilateral:
Montes Catheter: No
--- NOTE | 2024-08-24 12:29 | W.PN.HOSP.TC ---
Today's Communication/Plan
-
Awaiting placement to SNF on hospice
Assessment / Plan
Assessment / Plan
Mr. 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 He was sent from PCP office with low O2. Hospital course
complicated by delirium evening of 08/16 s/p ativan and Haldol. He was noted to have CO2 retention and was placed on BiPAP following morning.
HEAD CT 08/17/24
IMPRESSION:
1. No CT evidence for acute intracranial hemorrhage or transcortical infarct.
2. 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
3. SMALL CHRONIC LACUNAR INFARCTS in the right putamen, anterior limb of the right internal capsule, periventricular white matter of the left frontal lobe, and right thalamus.
4. Severe intracranial calcific atherosclerotic disease.
5. Mild diffuse cerebral and cerebellar volume loss.
TTE 08/13/24
CONCLUSIONS
Normal biventricular size and systolic function without regional wall motion
abnormality. Estimated LVEF 55-60%.
Mild aortic stenosis.
Compared to 03/24/23: no significant change.
# Acute hypoxic and hypercarbic respiratory failure
-Though multifactorial 2/2 CHF and COPD
-s/p BiPAP with improvement in ABG, now on NC
-steroids now off 2/2 TME
-covid and flu negative
-Lasix held for JOSE ANGEL- although now repeat CXR shows progression CHF -->Dr Gómez had GOC discussions had with daughter. Given difficulty in volume status in setting of CKD IV and heart failure; as well as prolonged delirium hospital stay without PO
intake (patient would not tolerate TF, daughter agrees) - daughter would like to hear more about hospice and consult is placed. Continuing medical treatment until decision made.
-Hospice discussion with family noted. Daughter agreed for hospice. Awaiting for transfer to SNF.
# TME-likely multifactorial including CO2, hypoxia, steroids
-remains confused
-steroids have been stopped on 08/19
-REPLACER Ativan resumed without helping agitation overnight --> dose lowered per psychiatry and will be weaned to off
-Risperidol PRN
-appreciate Psychiatry consult
Dysphagia
Hypoglycemia likely secondary to decreased p.o. intake
Status post VSE
IV fluid discontinued
Diet advanced to regular food consistency.
# Acute HFpEF
Weight on admission was 61.8 kg now 53.8
Lasix held with rising BUN/Creatinine
he was not on Lasix prior to admission
-repeat CXR 08/20 with e/o mild fluid overload - difficult balance between heart and kidneys as above
#JOSE ANGEL
#Hypernatremia
-appreciate renal consult
- IV fluids stopped. This patient will be transition to hospice will DC further blood work and nephrology agreed
# COPD exacerbation
steroids stopped 2/ confusion
DuoNebs
# Elevated troponin-acute nonischemic myocardial injury in the setting of hypoxia
# Right-sided chest pain-atypical with tenderness on the right side
# Leukocytosis likely secondary to steroids
# CKD stage IV-JOSE ANGLE noted from diuresis
-IVF as above
# Hypertension-Hold amlodipine, atenolol
# History of CVA-on aspirin and Brilinta. Brillinta stopped
# Hyperlipidemia- hold statin
# Chronic RBBB
# Anemia-check iron studies
# History of gout-Hold allopurinol
# Ex-smoker
# DVT prophylaxis-subcutaneous heparin
# CODE status changed to DNR
Also discussed with patient about his prognosis. Congestive heart failure and CKD. Patient understand that he will be transition to hospice.
d/w wtih daughter on 08/23 in details.
Awaiting placement to SNF on hospice
Anticipated Discharge: Today
Subjective/Interval History
-
Date of Service: August 24, 2024
Tx to M/S
IVF stopped
watching tv
denies cp or sob
Objective Data
-
Labs:
Laboratory Results
08/24/24
08:05
Sodium Cancelled
Potassium Cancelled
Chloride Cancelled
Carbon Dioxide Cancelled
BUN Cancelled
Creatinine Cancelled
Glucose Cancelled
Calcium Cancelled
Vital Signs:
Vital Signs
Temp Pulse Resp BP Pulse Ox
97.7 F 85 20 134/54 94
08/24/24 07:40 08/24/24 10:00 08/24/24 10:00 08/24/24 10:00 08/24/24 11:54
I&O
08/23/24 08/24/24 08/25/24
06:59 06:59 06:59
Intake Total 1690 / 1690
Output Total 1075 / 1075 900 / 900
Balance -1075 / -1075 790 / 790
[2024-08-24 12:48] LABS: Glucose - Point of Care 80 mg/dl (70-99)
--- NOTE | 2024-08-24 15:22 | CM ---
CM reviewed chart and pt medically ready for dc pending SNF bed with hospice
Multiples calls throughout day with dtr/Rina
She remains hopeful for [facility]- call with admissions, still no LTC beds available
She next choice is [facility] and then [facility]
Call with [facility]/admissions- no LTC beds available at either facility
No other accepting beds at this time- many other SNF referrals remain pending
Dtr now question plan for hospice as noting she thinks pt will improvements- will consider GOC overnight
Discharge Disposition- SNF with hospice, will need [place] bed
[2024-08-24 18:35] LABS: Glucose - Point of Care 134 mg/dl (70-99)
[2024-08-24 21:39] LABS: Glucose - Point of Care 113 mg/dl (70-99)
--- NOTE | 2024-08-24 22:00 | PTCARENOTE ---
Pt received from previous RN. Pt alert AA0x2, engaging in conversation with staff, confused at times. Calm and agreeable to care. VSS. RA 93%. CC321 in place. Voiding light yellow urine. HS BG 113. Assessment as documented. Call light in reach.
[2024-08-24] MEDS: RISPERDAL M-TAB (ORALLY DISINTEGRATING) 0.25 MG PO (22:11)
[2024-08-25] VITALS (7 sets, daily range): BP systolic 136–161; BP diastolic 45–68; BMI 18.2
[2024-08-25] MEDS: HEPARIN 5000 UNITS SC ×4 (00:13→23:10)
[2024-08-25] MEDS: PULMICORT 0.5 MG INH ×2 (07:25→19:24)
[2024-08-25] MEDS: DUONEB 3 ML INH ×3 (07:25→19:24)
[2024-08-25 08:08] LABS: Glucose - Point of Care 56 mg/dl (70-99)
[2024-08-25] MEDS: THIAMINE INJECTION 200 MG IV (08:19)
[2024-08-25] MEDS: LOW STRENGTH ASPIRIN 81 MG PO (08:20)
[2024-08-25] MEDS: HYDROPHOR 1 APPLIC TOPICAL ×2 (08:20→21:43)
[2024-08-25 08:28] LABS: Glucose - Point of Care 112 mg/dl (70-99)
--- NOTE | 2024-08-25 10:28 | PTCARENOTE ---
OT at bedside to work with pt. Alerted this RN to small skin tear noted on pt's elbow. OT reports she went to take BP and noticed some blood on elbow. Very small tear noted on pt's R elbow. Wound cleaned and foam dressing placed.
[2024-08-25 10:31] LABS: Glucose - Point of Care 102 mg/dl (70-99)
--- NOTE | 2024-08-25 10:40 | W.PN.HOSP.TC ---
Today's Communication/Plan
-
PT/OT re-eval for SNF placement
Speech re-eval-d/w with speech already
CM to d/w with family for SNF.
Check labs
Assessment / Plan
Assessment / Plan
Mr. 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 He was sent from PCP office with low O2. Hospital course
complicated by delirium evening of 08/16 s/p ativan and Haldol. He was noted to have CO2 retention and was placed on BiPAP following morning.
HEAD CT 08/17/24
IMPRESSION:
1. No CT evidence for acute intracranial hemorrhage or transcortical infarct.
2. 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
3. SMALL CHRONIC LACUNAR INFARCTS in the right putamen, anterior limb of the right internal capsule, periventricular white matter of the left frontal lobe, and right thalamus.
4. Severe intracranial calcific atherosclerotic disease.
5. Mild diffuse cerebral and cerebellar volume loss.
TTE 08/13/24
CONCLUSIONS
Normal biventricular size and systolic function without regional wall motion
abnormality. Estimated LVEF 55-60%.
Mild aortic stenosis.
Compared to 03/24/23: no significant change.
# Acute hypoxic and hypercarbic respiratory failure
-Though multifactorial 2/2 CHF and COPD
-s/p BiPAP with improvement in ABG, now on NC
-steroids now off 2/2 TME
-covid and flu negative
-Lasix held for JOSE ANGEL- although now repeat CXR shows progression CHF -->Dr Gómez had GOC discussions had with daughter. Given difficulty in volume status in setting of CKD IV and heart failure; as well as prolonged delirium hospital stay without PO
intake (patient would not tolerate TF, daughter agrees) - daughter would like to hear more about hospice and consult is placed. Continuing medical treatment until decision made.
-Hospice discussion with family noted. Daughter agreed for hospice but now on 08/25/2024 daughter does not want hospice.
# TME-likely multifactorial including CO2, hypoxia, steroids
-remains confused
-steroids have been stopped on 08/19
-LINER ROLL CHANGER Ativan resumed without helping agitation overnight --> dose lowered per psychiatry and will be weaned to off
-Risperidol PRN
-appreciate Psychiatry consult
Dysphagia
Hypoglycemia likely secondary to decreased p.o. intake
Status post VSE
IV fluid discontinued
Diet switched to NPO as with cough/aspiration episode.
# Acute HFpEF
Weight on admission was 61.8 kg now 53.8
Lasix held with rising BUN/Creatinine
he was not on Lasix prior to admission
-repeat CXR 08/20 with e/o mild fluid overload - difficult balance between heart and kidneys as above
Per cards, pt is extremely dry. No need for diuretics
#JOSE ANGEL
#Hypernatremia
-appreciate renal consult
- IV fluids stopped. Check labs as not going to hospice.
# COPD exacerbation
steroids stopped 2/2 confusion
DuoNebs
# Elevated troponin-acute nonischemic myocardial injury in the setting of hypoxia
# Right-sided chest pain-atypical with tenderness on the right side
# Leukocytosis likely secondary to steroids
# CKD stage IV-JOSE ANGEL noted from diuresis
-Cr improved.
# Hypertension-May need to restart if BP remains perpsistently elevated.
# History of CVA-on aspirin and Brilinta. Brillinta stopped
# Hyperlipidemia- hold statin
# Chronic RBBB
# Anemia-check iron studies
# History of gout-can restart based on CrCl dose
# Ex-smoker
# DVT prophylaxis-subcutaneous heparin
# CODE status changed to DNR\\
Discussed with daughter over the phone in detail. Daughter does not want patient to go on hospice.
Anticipated Discharge: Within 24 hours
Subjective/Interval History
-
Date of Service: August 25, 2024
Pt with episode of choking on regular food
talking in complete sentences
having nausea/vomiting
no drooling
no stridor
Objective Data
-
Labs:
Laboratory Results
08/25/24
06:00
Sodium Cancelled
Potassium Cancelled
Chloride Cancelled
Carbon Dioxide Cancelled
BUN Cancelled
Creatinine Cancelled
Glucose Cancelled
Calcium Cancelled
Vital Signs:
Vital Signs
Temp Pulse Resp BP Pulse Ox
98.4 F 83 18 154/64 95
08/25/24 07:00 08/25/24 07:28 08/25/24 07:28 08/24/24 23:43 08/25/24 08:26
I&O
08/24/24 08/25/24 08/26/24
06:59 06:59 06:59
Intake Total 1690 / 1690
Output Total 900 / 900 1050 / 1050
Balance 790 / 790 -1050 / -1050
Data Reviewed
-
Total Time Spent with Patient (in minutes): 55
--- NOTE | 2024-08-25 10:46 | PTCARENOTE ---
Pt coughing when eating breakfast. This RN to bedside. Pt c/o being unable to swallow/clear throat. Gagging and spitting up. Dr. Ledesma notified and to bedside. Advised to make pt NPO until seen by speech. Tray removed. Sats stable on RA. Speech at
bedside, report they will try again later as pt is still uncomfortable.
[2024-08-25 13:08] LABS: Glucose - Point of Care 104 mg/dl (70-99)
--- NOTE | 2024-08-25 16:28 | PTOTSP ---
Dysphagia Therapy
Reinitiate dysphagia diet with use of swallowing strategies below. Full supervision warranted. Monitor for worsened signs/symptoms of dysphagia/aspiration and D/C oral diet if noted. Consider GI consult to r/o esophageal dysphagia.
Recommend:
1. IDDSI Level 6 Soft and Bite Sized, Thin Liquids
2. Full supervision, assist as needed
3. Strategies: upright to 90 degrees, chew well, small single sips/bites, slow rate, double swallows, remain upright for 30 minutes after PO intake as a reflux precaution
4. Consider GI consult
5. Oral care 2-3x daily
6. Dysphagia therapy follow up at the acute level
--- NOTE | 2024-08-25 16:40 | PTCARENOTE ---
Pt reupgraded to tele. Placed back on tele monitor. For transfer to . Report called to receiving RN. Belongings collected from room. Transferred to 2133 via stretcher. Family at bedside.
--- NOTE | 2024-08-25 16:43 | CM ---
Patient with Hx residual symptoms related to CVA. Room air. PT/OT Re-evals ordered today. PT 08/19 recommends skilled rehab. OT 08/[address] re-eval today; minced/moist diet.
Met with patient, daughter Rina and his sister Meli, here visiting from [place];
patient A/O and participated in the conversation and initially saying he wants to go home alone at d/c.
Explained to patient the need for safe d/c plans and that he would benefit from short term SNF for rehab.
His sister was very helpful talking to him about going to rehab before going home, and he agreed.
Informed patient and family that [facility] can offer a bed tomorrow once insurance approves and they agreed. [facility] rating provided.
Plan SNF auth tomorrow once updated PT notes are available.
Plan [facility] SNF tomorrow once insurance auth is obtained.
[2024-08-25 16:44] LABS: Glucose - Point of Care 141 mg/dl (70-99)
[2024-08-25] MEDS: TYLENOL 650 MG PO (21:43)
[2024-08-25] MEDS: RISPERDAL M-TAB (ORALLY DISINTEGRATING) 0.25 MG PO (21:44)
[2024-08-25 21:55] LABS: Glucose - Point of Care 165 mg/dl (70-99)
[2024-08-26 03:13] VITALS: BP 141/60
[2024-08-26 06:00] VITALS: BMI 18.6
[2024-08-26 07:40] VITALS: BP 149/58
[2024-08-26] MEDS: DUONEB 3 ML INH ×2 (07:46→11:15)
[2024-08-26] MEDS: PULMICORT 0.5 MG INH (07:47)
[2024-08-26 07:52] LABS: Blood Urea Nitrogen 42 mg/dl (9-20); Calcium 8.1 mg/dl (8.4-10.2); Carbon Dioxide 28 mmol/L (22-30); Chloride 102 mmol/L (98-107); Estimated Creatinine Clearance 19 ml/min; Glucose 87 mg/dl (70-99); Potassium 5.2 mmol/L (3.5-5.1); Sodium 137 mmol/L (135-145); eGFR 28.63
[2024-08-26 08:04] LABS: Glucose - Point of Care 82 mg/dl (70-99)
[2024-08-26] MEDS: HEPARIN 5000 UNITS SC (08:54)
[2024-08-26] MEDS: THIAMINE INJECTION 200 MG IV (08:54)
[2024-08-26] MEDS: LOKELMA 10 GRAM PO (08:56)
[2024-08-26] MEDS: HYDROPHOR 1 APPLIC TOPICAL (09:00)
[2024-08-26] MEDS: LOW STRENGTH ASPIRIN 81 MG PO (10:45)
[2024-08-26] MEDS: NORVASC 5 MG PO (10:45)
[2024-08-26] MEDS: TYLENOL 650 MG PO ×2 (10:45→14:46)
[2024-08-26 11:00] VITALS: BP 149/53
--- NOTE | 2024-08-26 11:16 | W.PN.HOSP.TC ---
Today's Communication/Plan
-
PT/OT
pain control
oob
check labs
restart bp and statin
Assessment / Plan
Assessment / Plan
Mr. 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 He was sent from PCP office with low O2. Hospital course
complicated by delirium evening of 08/16 s/p ativan and Haldol. He was noted to have CO2 retention and was placed on BiPAP following morning.
HEAD CT 08/17/24
IMPRESSION:
1. No CT evidence for acute intracranial hemorrhage or transcortical infarct.
2. 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
3. SMALL CHRONIC LACUNAR INFARCTS in the right putamen, anterior limb of the right internal capsule, periventricular white matter of the left frontal lobe, and right thalamus.
4. Severe intracranial calcific atherosclerotic disease.
5. Mild diffuse cerebral and cerebellar volume loss.
TTE 08/13/24
CONCLUSIONS
Normal biventricular size and systolic function without regional wall motion
abnormality. Estimated LVEF 55-60%.
Mild aortic stenosis.
Compared to 03/24/23: no significant change.
# Acute hypoxic and hypercarbic respiratory failure
-Though multifactorial 2/2 CHF and COPD
-s/p BiPAP with improvement in ABG, now on NC and stable on darlene eder
-steroids now off 2/2 TME
-covid and flu negative
-Lasix held for JOSE ANGEL- although now repeat CXR shows progression CHF -->Dr Gómez had C discussions had with daughter. Given difficulty in volume status in setting of CKD IV and heart failure; as well as prolonged delirium hospital stay without PO
intake (patient would not tolerate TF, daughter agrees) - daughter would like to hear more about hospice and consult is placed. Continuing medical treatment until decision made.
-Hospice discussion with family noted. Daughter agreed for hospice but now on 08/25/2024 daughter does not want hospice.
-no wheezing and can hold off on further steroids. Cont with Duoneb prn and budenoside
# TME-likely multifactorial including CO2, hypoxia, steroids
-remains confused
-steroids have been stopped on 08/19
-KITCHEN ASSISTANT Ativan resumed without helping agitation overnight --> dose lowered per psychiatry and will be weaned to off
-Risperidol PRN
-appreciate Psychiatry consult
Dysphagia
Hypoglycemia likely secondary to decreased p.o. intake
Status post VSE
IV fluid discontinued
cont wtih IDDS5 and seems to be toleratoing it
# Acute HFpEF
Weight on admission was 61.8 kg now 53.8
Lasix held with rising BUN/Creatinine
he was not on Lasix prior to admission
-repeat CXR 08/20 with e/o mild fluid overload - difficult balance between heart and kidneys as above
Per cards, pt is extremely dry. No need for diuretics
#JOSE ANGEL on CKD 3b
#Hypernatremia
-appreciate renal consult-signed off
- IV fluids stopped. Cr at 2.2
#Hyperkalemia
-lokelma
# COPD exacerbation
steroids stopped 2/2 confusion
DuoNebs prn and budenoside
# Elevated troponin-acute nonischemic myocardial injury in the setting of hypoxia
# Right-sided chest pain-atypical with tenderness on the right side
# Leukocytosis likely secondary to steroids
# CKD stage IV-JOSE ANGEL noted from diuresis
-Cr improved.
# Hypertension-May need to restart if BP remains perpsistently elevated. Restarted on norvasc 5mg
# History of CVA-on aspirin and Brilinta. Brillinta stopped
# Hyperlipidemia- restart statin
# Chronic RBBB
# Anemia-cbc in am
# History of gout-can restart based on CrCl dose
# Ex-smoker
# DVT prophylaxis-subcutaneous heparin
# CODE status changed to DNR\\
Discussed with daughter over the phone in detail on 08/25. Daughter does not want patient to go on hospice.
PT/OT-SNF. Await placement
Anticipated Discharge: Today
Subjective/Interval History
-
Date of Service: August 26, 2024
states he wants to go play basketball
on room air
denies chest pain or sob
Objective Data
-
Labs:
Laboratory Results
08/26/24
06:38
Sodium 137
Potassium 5.2 H
Chloride 102
Carbon Dioxide 28
BUN 42 H
Creatinine 2.2 H
Glucose 87
Calcium 8.1 L
Vital Signs:
Vital Signs
Temp Pulse Resp BP Pulse Ox
98.7 F 79 16 149/58 96
08/26/24 07:40 08/26/24 10:45 08/26/24 07:49 08/26/24 10:45 08/26/24 07:49
I&O
08/25/24 08/26/24 08/27/24
06:59 06:59 06:59
Intake Total 480 / 480
Output Total 1050 / 1050 350 / 350
Balance -1050 / -1050 130 / 130
Data Reviewed
-
Total Time Spent with Patient (in minutes): 52
[2024-08-26] MEDS: ULTRAM 25 MG PO (11:32)
--- NOTE | 2024-08-26 12:41 | CM ---
Addendum entered by Marzena Rivers RN 08/26/24 13:14:
Auth received for [facility]; 5 days (08/26-08/31); NRD 08/30 (call: [phone]); Auth # [id number]
Plan: Discharge to [facility]
Call report to: [phone]
Fax report to: [phone]
Medical and transport forms on chart.
Original Note:
Reviewed the chart notes and spoke with the patient at the bedside and daughter via telephone. IMM reviewed, signed and placed on chart.
[2024-08-26 12:52] LABS: Glucose - Point of Care 79 mg/dl (70-99)
--- NOTE | 2024-08-26 14:40 | W.DCSUMMARY ---
Discharge Summary
Discharge Data
Date of Admission: 08/13/24
Date of Discharge: 08/26/24
-
Pending Results: No
Hospital Course
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 Patient was found to be in acute hypoxic and
hypercarbic respiratory failure. Patient initially with concern for acute heart failure and was started on IV diuretics. Patient with bump in creatinine. Patient was found to be hypovolemic and IV Lasix were discontinued. Patient with
hypernatremia which resolved with D5 water. Patient was also started on steroids. Patient was eval by cardiology, pulmonary, nephrology and psychiatry. Patient was also found to have a severe toxic metabolic encephalopathy which was deemed
multifactorial. Steroids were discontinued as it was deemed that it was affecting patient mental status. Patient creatinine and BUN up trended. Diuretics were discontinued. After discontinuation of diuretics and steroids patient BUN and
creatinine down trended. Patient was started on Risperdal per psych. Patient daughter did not want patient to go on hospice. Patient with slow improvement in mental status and seemed to back to baseline. Patient was able to pass speech and
swallow evaluation. Due to poor dentition after discussion with speech was recommended to continue with soft and minced diet. Patient was eval by physical and Occupational Therapy and plan will be for discharge to SNF. Patient with CKD stage IIIb
and with congestive heart failure and long-term prognosis guarded.
Discharge Plan
-
Patient Disposition: [facility]NF
Discharge Diagnosis/Procedures: Acute hypoxic and hypercarbic respiratory failure secondary to acute HFpEF and COPD exacerbation
Toxic metabolic encephalopathy
Dysphagia
Acute kidney injury
Hypernatremia
Nonischemic myocardial injury
Leukocytosis
Condition: Fair
Diet: Other diet
Additional Diets: Recommend:
1. Initiate IDDSI Level 5 minced and moist solids and thin liquids
2. Medications crushed versus whole in puree
3. Aspiration precautions: close supervision with meals, small bites/sips, slow rate, ensure SpO2 >90%, remain upright 30 minutes following meals
Activity: As tolerated
Driving Restrictions: No driving
Blood Work: BMP in 2-3 days via primary doctor.
Referrals:
Rafi Llamas DO [Active] - in three to four weeks (Call to make appointment for chronic kidney disease. )
Jon De La Cruz MD [Active] - in three to four weeks (full PFTs on day of office visit)
Mili Oseguera PA-C [Family Provider] - in less than 1 week
Prescriptions:
New
amlodipine 5 mg Tablet
5 mg PO DAILY 30 Days Qty: 30 0RF
budesonide 0.5 mg/2 mL Suspension For Nebulization
0.5 mg inhalation R BID 30 Days Qty: 120 0RF
risperidone 0.5 mg Tablet,Disintegrating
0.25 mg PO HS 30 Days Qty: 15 0RF
Continued
ipratropium-albuterol 3 ML solution for nebulization
3 ml inhalation R Q8HPRN PRN (Reason: sob)
acetaminophen 325 MG tablet
650 mg PO Q4HPRN PRN (Reason: mild pain/CHRISTIANSON/temp> 100.4F) 0RF
atorvastatin 20 mg Tablet
40 mg PO QPM Qty: 0 0RF
aspirin 81 mg Tablet,Chewable
81 mg PO DAILY Qty: 0 0RF
omega [id number]-fish oil [Fish Oil] 1,200 (144-216) mg Capsule
1 cap PO DAILY
Changed
allopurinol 100 MG tablet
50 mg PO Q48H Qty: 0 0RF
Discontinued
atenolol 50 MG tablet
50 mg PO BID
lorazepam 1 MG tablet
1 mg PO HS Qty: 1 0RF
Antihistamine 12hr 1.34 mg Tablet
1.34 mg PO BIDPRN PRN (Reason: allergy symptoms)
amlodipine 10 mg Tablet
10 mg PO DAILY
Brilinta 90 mg Tablet
90 mg PO BID
Discharge Orders:
Discharge Patient (As Directed); Ordered 08/26/24
Ordered By: Fernando Ledesma
Discharge Date and Time
Print Language: SERBIAN
[2024-08-26 15:22] LABS: Glucose - Point of Care 130 mg/dl (70-99)
[2024-08-26 15:25] VITALS: BP 103/61
--- NOTE | 2024-08-26 16:21 | PTCARENOTE ---
Addendum entered by Leonor Sullivan RN 08/26/24 16:34:
Patient refusing ordered flu vaccine; states he is unsure if he already got it this year.
Original Note:
Patient discharged to [facility], transported by [facility]. IV removed by this RN, tele pack and condom catheter removed by [facility] RN, brief placed on patient. Belongings in room gathered by [facility] RN. Vitals and blood sugar taken prior to
transport, patient ate meal prior to discharge. Report given to Iris at facility by this RN. Family in room updated on plan of care, daughter Rina notified by this RN of transport time.
== END 2024-08-26 16:39 | DRG 291 ==
LOC: 2 NORTH 15:20
PROVIDERS: Hospitalist; Internal Medicine Cardiovascular Disease; Internal Medicine Critical Care Medicine; Nurse Practitioner; Registered Nurse; Specialist; Student in an Organized Health Care Education/Training Program; ADMITTING PHYSICIAN Internal Medicine; ATTENDING PHYSICIAN Hospitalist; CONSULT PHYSICIAN Internal Medicine; CONSULT PHYSICIAN Internal Medicine Critical Care Medicine; CONSULT PHYSICIAN Psychiatry & Neurology Psychiatry; CONSULT PHYSICIAN Specialist; EMERGENCY PHYSICIAN Student in an Organized Health Care Education/Training Program; FAMILY PHYSICIAN Physician Assistant Medical
PROC: 5A09357 Assistance with Respiratory Ventilation, Less than 24 Consecutive Hours, Continuous Positive Airway Pressure (ICD-10-PCS; 2024-08-16)
DX: I13.0 Hypertensive heart and chronic kidney disease with heart failure and stage 1 through stage 4 chronic kidney disease, or unspecified chronic kidney disease (principal); G92.8 Other toxic encephalopathy; I50.33 Acute on chronic diastolic (congestive) heart failure; J96.01 Acute respiratory failure with hypoxia; J96.02 Acute respiratory failure with hypercapnia; J44.1 Chronic obstructive pulmonary disease with (acute) exacerbation; N18.4 Chronic kidney disease, stage 4 (severe); J44.0 Chronic obstructive pulmonary disease with (acute) lower respiratory infection; E87.0 Hyperosmolality and hypernatremia; N17.9 Acute kidney failure, unspecified; F05 Delirium due to known physiological condition; I5A Non-ischemic myocardial injury (non-traumatic); D50.8 Other iron deficiency anemias; I08.0 Rheumatic disorders of both mitral and aortic valves; I73.9 Peripheral vascular disease, unspecified; M10.9 Gout, unspecified; E78.5 Hyperlipidemia, unspecified; E87.5 Hyperkalemia; G47.00 Insomnia, unspecified; R91.1 Solitary pulmonary nodule; D72.829 Elevated white blood cell count, unspecified; M54.50 Low back pain, unspecified; G89.29 Other chronic pain; F10.21 Alcohol dependence, in remission; R13.10 Dysphagia, unspecified; E16.1 Other hypoglycemia; F41.1 Generalized anxiety disorder; I45.10 Unspecified right bundle-branch block; Z60.2 Problems related to living alone; Z66 Do not resuscitate; Z79.82 Long term (current) use of aspirin; Z86.73 Personal history of transient ischemic attack (TIA), and cerebral infarction without residual deficits; Z87.891 Personal history of nicotine dependence; Z85.51 Personal history of malignant neoplasm of bladder; Z86.79 Personal history of other diseases of the circulatory system; Z82.49 Family history of ischemic heart disease and other diseases of the circulatory system; Z11.52 Encounter for screening for COVID-19
CPT/HCPCS: 36600; 70450; 71045; 71046; 74230; 76770; 80048; 80053; 81003; 82570; 82607; 82728; 82805; 82962; 83036; 83540; 83550; 83880; 84132; 84300; 84484; 85025; 85027; 87502; 87811; 90662; 92526; 92610; 92611; 93005; 93306; 94640; 94644; 94660; 96374; 96376; 97116; 97163; 97166; 97530; 97535; 99285; G0008

== ENCOUNTER 2025-01-04 21:05 | Inpatient (IN) | payer OTHER, SELFPAY ==
[2025-01-04 16:49] VITALS: BP 180/90
--- NOTE | 2025-01-04 18:21 | ED.GENMED ---
History of Present Illness
General
Chief Complaint: Musculo-Skeletal Complaint
Source: patient and family
Exam Limitations: none
Time Seen by Provider: 01/04/25 18:14
Nursing documentation reviewed up to this point in time: agreed with
History of Present Illness
History of Present Illness:
Patient is an 84-year-old male who complains of right hip pain. Patient reports he fell at least 5 days ago and since then has had pain in his right hip. He is having difficulty getting around. He did hit his head and have a headache. He has not
blood thinners. No other injuries. Patient does live by himself.
Past History
Past History
ED Past Medical History: COPD, HTN and Other (Iron deficiency anemia, peripheral vascular disease, gout, pneumonia)
Social History
Tobacco: Former smoker
Personal:
Living: with family
Employment: Retired
Review of Systems
Review of Systems
Allergies reviewed?: Yes
Other source history: family
All Other Systems: ROS reviewed and negative except as documented in HPI and ROS
Constitutional: Reports no symptoms
Respiratory: Reports no symptoms
Cardiac: Reports no symptoms
ABD/GI: Reports no symptoms
Musculoskeletal: Reports other (Right hip pain)
Skin: Reports no symptoms
Neurological: Reports headache (had mild headache after fall )
Psychiatric: Reports no symptoms
Phy Exam
General Physical Exam
General Presentation: no apparent distress
General age: appears stated age
General Skin: warm and dry
General Habitus: normal
General Mental: alert
General Hydration: appears well hydrated
Cardiovascular Exam
Cardiovascular Exam: regular rate/rhythm, no murmur and normal peripheral pulses
Pulmonary Exam
Pulmonary Exam: lungs clear and no respiratory distress
Neurological Exam
Neurological Exam: alert and oriented x3
Musculoskeletal Exam
Musculoskeletal Exam: other (Very small hematoma to posterior occiput. Strong pulse to bilateral extremities mild swelling to bilateral extremities, pain with any range of motion to right leg)
Skin Exam
Skin Exam: normal color and warm/dry
Psychiatric Exam
Psychiatric Exam: normal mood/affect
Course
Orders/Labs/Results
Orders:
Orders
01/04/25 16:56
Hip, Right 2-3 Views [CR Hip - RT w/wo Pel 2-3 Vw*] Urgent
Comment:
Reason For Exam: fall
Include a pelvis x-ray?: Yes
01/04/25 18:21
CT Head W/o Iv Contrast Urgent
Comment:
Reason For Exam: trauma
01/04/25 18:22
Electrocardiogram (*1) Stat
Reason for Study: Abdominal Pain
CT Cervical Spine W/o Iv Contr Urgent
Comment:
Reason For Exam: trauma
EKG- Treatment ONCE
IV Insert/Care/Rem.- Treatment PRN
Morphine Sulfate 4 mg IV NOW STA
01/04/25 18:28
Complete Blood Count/With Diff Urgent
Comprehensive Metabolic Panel Urgent
Ferritin Urgent
Comment: ADD ON
Folate Urgent
Comment: ADD ON
Iron Urgent
Total Iron Binding Urgent
Vitamin B12 Urgent
Comment: ADD ON
01/04/25 19:34
Morphine Sulfate 4 mg IV NOW STA
01/04/25 19:35
Morphine Sulfate 4 mg .ROUTE .STK-MED ONE
01/04/25 19:46
Add On- LAB Routine
Tests Added?: iron, ferritin, tibc, folate, vit b12
01/04/25 20:07
HYDROmorphone [Dilaudid] 0.25 mg IV NOW STA
01/04/25 20:31
Admit/Transfer Patient As Directed
Co-Sign Provider:
Level of Care: Inpatient admission
Assign to:: Medical/Surgical
Physician / Group: Adebamiro
Diagnosis: Hip Fracture
Reason for Hospitalization: Hip Fracture
Expected length of stay greater than two midnights?: Yes
ELOS- Estimated Length of Stay in days: 3
I certify the patient meets the requirements for IP care: Yes
PRN Pain Medication Management As Directed
May give lesser potent ordered pain med per pt: Yes
preference::
Protocol:: Medication orders for pain may be administered in a
manner that supports deferring to patient preference
when the pt is:
- Requesting an ordered lesser potent pain medication.
Least to most potent pain medications are defined
as: acetaminophen < NSAID < tramadol < opioids
(morphine, oxycodone, hydromorphone).
- Requesting a lesser dose of the same medication IF
ORDERED.
- Requesting a less intrusive route of administration
if both routes are prescribed by the provider (PO <
IV).
01/04/25 20:32
Code Status As Directed
Resuscitation Status: Do not resuscitate
Reached after discussion with pt or family/Healthcare POA: Yes
DNR Bracelet Application ONCE
01/04/25 22:05
Acetaminophen [Tylenol] 650 mg PO Q4HPRN PRN
HYDROmorphone [Dilaudid] 0.25 mg IV Q3HPRN PRN
Trazodone [Desyrel] 50 mg PO HS
01/04/25 22:05
ORTHOPEDIC CONSULT Routine
Consulting Provider: Yaya Lopez
Was physician already notified: Yes
Bladder Scan As Directed
Follow Bladder Retention/Intermittent Cath Algorithm?: Yes
PRN if no void in __ hours: 6
Frequency: Per Retention Algorithm
If Bladder Scan Result >: 400
then:: Straight cath
Pneumatic Compression Sleeves As Directed
Type: Knee high
Straight Cath As Directed
Frequency: Per Retention Algorithm
Additional Instructions: straight cath as needed per acute urinary retention algorithm for 24 hrs
Additional Instructions: for bladder scan greater than 400 mL
Vital Signs As Directed
Frequency: Per unit guidelines
Weight As Directed
Frequency: Daily
DX Deep Vein Thrombosis Video Routine
01/04/25 22:15
Melatonin 10 mg PO HS
01/05/25 Breakfast
NPO
Allow oral meds: Yes
Allow clear liquids: 4hrs prior to procedure
NPO with Ice Chips: Yes
Comment: may have unrestricted clear liquid up to 4 hrs prior to scheduled procedure
Basic Metabolic Panel IN AM
Complete Blood Count/No Diff IN AM
01/05/25 08:00
Amlodipine [Norvasc] 5 mg PO DAILY
Docusate W/Senna [Senokot-S] 1 tablet PO BID
Ipratropium/Albuterol Sulfate [Duoneb] 3 ml INH R TID
01/06/25 08:00
Aspirin Chewable [Low Strength Aspirin] 81 mg PO DAILY
Ot Eval And Treat Routine
Pt Eval And Treat Routine
Activity Level: Out of Bed-Early Mobility
Abnormal Lab Results
01/04/25
18:28
RBC 2.89 L 10^6/uL
(4.70-6.10)
Hgb 8.1 L g/dL
(13.0-18.0)
Hct 25.0 L %
(39.0-52.0)
MCHC 32.4 L g/dL
(33.0-37.0)
Absolute Neuts (auto) 6.6 H 10^3/uL
(1.4-6.5)
Lymphocytes % 16.0 L %
(20.5-51.1)
BUN 60 H mg/dl
(9-20)
Creatinine 2.2 H mg/dL
(0.7-1.3)
Glucose 107 H mg/dl
(70-99)
Iron 30 L ug/dl
(49-181)
TIBC 228 L ug/dl
(261-462)
% Saturation 13 L %
(20-50)
Folate > 20.0 H ng/ml
(2.76-20)
01/04/25 18:28
01/04/25 18:28
Vital Signs
Initial and Last Documented VS:
Initial Vital Signs
Temp Pulse Resp BP Pulse Ox
97.8 F 88 22 180/90 99
01/04/25 16:49 01/04/25 16:49 01/04/25 16:49 01/04/25 16:49 01/04/25 16:49
Last Documented Vital Signs
Temp Pulse Resp BP Pulse Ox
97.8 F 78 16 148/79 95
01/04/25 16:49 01/04/25 20:00 01/04/25 20:00 01/04/25 20:00 01/04/25 20:00
MDM/Problems Addressed
Differential Diagnosis Includes:
Not limited to hip fracture
MDM/Problems Addressed:
Patient is an 84-year-old male who presented for right hip pain after fall several days ago. Patient has a minimally displaced fracture of the femoral neck of the right hip. Case discussed with orthopedics will admit to the hospital service. Labs
reviewed take patient does have chronic anemia and his hemoglobin is 8.1 which is lower than previous lab; nml wbc ; CKD bun 60 creat is 2.2 (creatinine baseline)
*Radiology
Radiology exam reviewed: radiology read reviewed
*Pulse Oximetry
Patient hypoxic: no
*Critical Care Note
Total Time (30-74mins, 75-104mins- exclusive of procedures): Not Applicable
Patient Management
Discussion with other providers: Lithographer Apprentice (ortho :Dr Lopez )
ED Attending Note
-
Portions of this chart may have been created with voice recognition software.� Occasional wrong word or��sound alike� substitutions may have occurred due to the inherent limitations of voice recognition software.
Discharge Plan
Departure
Patient Disposition: Admit
Date of Disposition: 01/04/25
Time of Disposition: 19:40
Admit to: Med/Surg
Admit to doctor: hospitalist
Presentation/result/management discussed w/ accepting MD/DO: Hospitalist
Patient with high blood pressure during this ER visit?: Yes
Condition: Fair
Covid-19: Not Applicable
Discharge Problem:
right femoral neck fracture
Interventions
Interventions:
*Risk Screen - Suicide Last Done: 01/04/25 16:49
*General Assessment Last Done: 01/04/25 19:05
*Neglect/Abuse Screening Last Done: 01/04/25 19:05
*ED- Fall Risk Assessment Last Done: 01/04/25 19:05
*ED COVID-19 Vaccine History Last Done: 01/04/25 19:05
*Nursing Disposition Last Done: 01/04/25 21:44
ED-Musculoskeletal Assessment Last Done: 01/04/25 19:05
Discharge Date and Time
Discharge Date/Time: 01/04/25 21:44
[2025-01-04] MEDS: MORPHINE SULFATE 4 MG IV (18:41)
[2025-01-04 18:54] LABS: % Basophils 0.7 % (0-2); % Eosinophils 2.7 % (0-6); % Immature Granulocytes 0.4 % (0-0.5); % Monocytes 6.7 % (1.7-9.3); % Neutrophils 73.5 % (42.2-75.2); Absolute Basophils 0.1 10^3/uL (0-0.2); Absolute Eosinophils 0.2 10^3/uL (0-0.7); Absolute Lymphocytes 1.4 10^3/uL (1.2-3.4); Absolute Monocytes 0.6 10^3/uL (0.1-0.6); Absolute Neutrophils 6.6 10^3/uL (1.4-6.5); Hemoglobin 8.1 g/dL (13.0-18.0); Mean Corp Hgb Conc. 32.4 g/dL (33.0-37.0); Mean Corpuscular Volume 86.5 fL (80.0-94.0); Mean Platelet Volume 9.4 fL (7.4-10.4); Nucleated Red Blood Cells % 0 % (-); Platelet Count 262 10^3/uL (130-400); Red Blood Cell Count 2.89 10^6/uL (4.70-6.10); Red Cell Dist. Width 14.4 % (11.5-14.5)
[2025-01-04 19:04] LABS: ALT (SGPT) 15 U/L (0-50); AST (SGOT) 18 U/L (17-59); Albumin 3.5 g/dl (3.5-5.0); Alkaline Phosphatase 121 U/L (38-126); Blood Urea Nitrogen 60 mg/dl (9-20); Carbon Dioxide 30 mmol/L (22-30); Chloride 101 mmol/L (98-107); Glucose 107 mg/dl (70-99); Potassium 4.2 mmol/L (3.5-5.1); Sodium 139 mmol/L (135-145); Total Bilirubin 0.5 mg/dl (0.2-1.3); Total Protein 6.5 g/dl (6.3-8.2); eGFR 28.63
--- NOTE | 2025-01-04 19:48 | HPS.HSE ---
Family Physician
-
Family Physician: Mili Oseguera
Chief Complaint
-
Right Hip Pain
History of Present Illness
Patient is an 84 y/o male past medical history of prior CVA, hypertension, hyperlipidemia, CKD IV, chronic anemia and insomnia who presents with right hip pain. Patient reports he fell in the bathroom several days ago. Patient reports he did hit
his head during the event, but denies any headaches at the present time. Patient reports he was able to ambulate with the walker after the event but his right hip pain has continued to worsen prompting him to come to the emergency department for
evaluation.
Medical History
Past Medical History
Past Medical History: Reports Other
Additional Past Medical History:
CVA with Residual Right-Sided Symptoms
Chronic HFpEF
Essential Hypertension
Hyperlipidemia
CKD Stage IV
Anemia of Chronic Disease
COPD
Insomnia
Gout
Bladder Cancer
Past Surgical History: Reports Other
Additional Past Surgical History:
Cholecystectomy
TURBT
Social History
Tobacco: Non-smoker
Living: Alone
Family History
Family History: Not pertinent
Allergies / Home Medications
Allergies reflects when Allergies were last updated in [employer].
Home Medications with original date entered in [employer]
Allergy/Medication List:
Allergies
Allergy/AdvReac Type Severity Reaction Status Date / Time
environmental allergies Allergy Unknown Uncoded 01/04/25 16:49
Home Medications
ipratropium 0.5 mg-albuterol 3 mg (2.5 mg base)/3 mL nebulization soln 3 ml inhalation R Q8HPRN PRN sob 10/28/18
aspirin 81 mg chewable tablet 81 mg PO DAILY #0 tabs 03/24/23
amlodipine 5 mg tablet 5 mg PO DAILY 30 days #30 tabs 08/26/24
furosemide 40 mg tablet 40 mg PO BID 01/04/25
melatonin 10 mg tablet 10 mg PO HS 01/04/25
trazodone 50 mg tablet 50 mg PO HS 01/04/25
Review of Systems
-
A 12 point ROS was completed and negative except as noted: Yes
Constitutional: Denies Fever or Chills
Respiratory: Denies Cough or Trouble Breathing
Cardiac: Denies Chest Pain or Palpitations
Abdomen/GI: Reports Constipated
Musculoskeletal: Reports See HPI
Physical Exam
Vital Signs
Vital Signs
Temp Pulse Resp BP Pulse Ox
97.8 F 88 22 180/90 99
01/04/25 16:49 01/04/25 16:49 01/04/25 16:49 01/04/25 16:49 01/04/25 16:49
Physical Exam
General: Comfortable and Conversant
HEENT: Moist mucous membranes
Respiratory: Clear and Non Labored Respirations
Cardiac: S1/S2 and Regular Rhythm
GI: Soft and Non Tender
Musculoskeletal: No Clubbing, No Cyanosis and Other (Trace lower extremity edema)
Skin: Warm and Dry
Neuro: Awake, Alert and Nonfocal/grossly intact
Psych: Calm
Laboratory Results
-
01/04/25 18:28
01/04/25 18:28
Laboratory Results
Total Bilirubin 0.5 mg/dl (0.2-1.3) 01/04/25 18:28
AST 18 U/L (17-59) 01/04/25 18:28
ALT 15 U/L (0-50) 01/04/25 18:28
Alkaline Phosphatase 121 U/L (38-126) 01/04/25 18:28
Hip X-Ray:
Minimally displaced transcervical femoral neck fracture.
Data Reviewed
-
Diagnostic Radiology: Report Reviewed by me
CT Scan: Report Reviewed by me
Lab Data: Labs Reviewed by me
Impression/Plan
-
Right Hip Fracture
-Consult Orthopedics
-NPO after midnight for possible OR tomorrow
-Continue Dilaudid prn pain control
Chronic HFpEF
-Hold Lasix pre-op
-Monitor Daily Weights
Essential Hypertension
-Continue amlodipine with hold parameters
CKD Stage IV
-Creatinine at baseline
Chronic Anemia
-Hgb slightly lower than baseline
-Check iron studies, vitamin b12 and folate
COPD. no acute exacerbation
-Continue DuoNeb TID
Insomnia
-Continue melatonin and trazodone
Hx CVA with Residual Right-Sided Symptoms
-Continue aspirin
Hx Bladder Cancer s/p TURBT
DVT proph: SCDs
COde Status: DNR
[2025-01-04 20:00] VITALS: BP 148/79
--- NOTE | 2025-01-04 20:02 | W.PN.UPDATE ---
Update Note
Progress Note Update
Patient seen in conjunction with LINE ASSIGNER. I agree with the plan physical. I concur with assessment and plan unless stated otherwise.
Briefly, this is a 84-year-old with past medical history significant for CVA due to intracranial hemorrhage 2022, COPD, CKD, hyperlipidemia gout and a history of bladder cancer status post resection who presents to the emergency department few days
after suffering a mechanical fall at home with right-sided hip pain. Initially was able to ambulate but the pain was slowly getting worse over the last few days and decided come to the emergency department today. He did strike his head and had a
moderate headache. Is not on any blood thinners. Denies any loss of consciousness.
The emergency department he was hypertensive to 180/90 with a pulse of 88 satting 99% on room air. ECG shows a sinus tachycardia at 101. He had a hip x-ray which shows a minimally displaced femoral neck fracture. CBC is slightly different from
prior with hemoglobin of 8.1, his BUN is 60 and creatinine 2.2. Creatinine is unchanged from prior.
ED spoke with orthopedic and patient is a candidate for surgical treatment which will be done in the AM.
Assessment and plan
84-year-old with multiple medical comorbidities was here following for minimally displaced femoral neck fracture on the right is found pending surgery in the a.m.
� Admit to MedSurg
� N.p.o. after midnight
� hold diuretics
� Pain control
� DVT prophylaxis
� Continue aspirin�statin
� Continue his BP medications
� Continue DuoNebs
� orthopedic consult
- pt consult and case management
Code status - DNR
[2025-01-04 20:20] LABS: Iron 30 ug/dl (49-181)
[2025-01-04 20:29] LABS: Percent Saturation 13 % (20-50); Total Iron Binding Capacity 228 ug/dl (261-462)
[2025-01-04] MEDS: DILAUDID 0.25 MG IV (20:55)
[2025-01-04 21:36] LABS: Folate > 20.0 ng/ml (2.76-20); Vitamin B12 328 pg/ml (239-931)
[2025-01-04 22:10] VITALS: BP 160/84; BMI 19.8
[2025-01-04] MEDS: MELATONIN 10 MG PO (22:36)
[2025-01-04] MEDS: DESYREL 50 MG PO (22:36)
--- NOTE | 2025-01-04 23:49 | PTCARENOTE ---
Pt transferred to [facility]. Pt pulled over from stretcher to bed. AAOx3 VSS no c/o at time of admission. Pt able to make needs known, call darden within reach.
[2025-01-04 23:51] VITALS: BP 131/71
[2025-01-05] VITALS (16 sets, daily range): BP systolic 110–144; BP diastolic 47–113
[2025-01-05] MEDS: DILAUDID 0.25 MG IV ×7 (01:34→14:09)
[2025-01-05] MEDS: DUONEB 3 ML INH ×2 (07:22→14:14)
[2025-01-05 07:28] LABS: Hematocrit 23.5 % (39.0-52.0); Mean Corpuscular Hgb 29.3 pg (27.0-31.0); Mean Corpuscular Volume 86.1 fL (80.0-94.0); Mean Platelet Volume 9.8 fL (7.4-10.4); Platelet Count 257 10^3/uL (130-400); Red Blood Cell Count 2.73 10^6/uL (4.70-6.10); Red Cell Dist. Width 14.3 % (11.5-14.5); White Blood Cell Count 7.4 10^3/uL (4.8-10.8)
[2025-01-05 07:47] LABS: Blood Urea Nitrogen 56 mg/dl (9-20); Calcium 9.1 mg/dl (8.4-10.2); Carbon Dioxide 27 mmol/L (22-30); Chloride 103 mmol/L (98-107); Estimated Creatinine Clearance 23 ml/min; Glucose 97 mg/dl (70-99); Sodium 141 mmol/L (135-145)
[2025-01-05] MEDS: NORVASC 5 MG PO (08:22)
[2025-01-05] MEDS: SENOKOT-S 1 TABLET PO ×2 (08:22→22:17)
--- NOTE | 2025-01-05 08:24 | W.PN.UPDATE ---
Update Note
Progress Note Update
Full orthopedic consult dictated:
Patient sustained displaced right femoral neck fracture and will require right hip hemiarthroplasty later today. Surgery consent signed and surgical location marked. Continue n.p.o. for now and antibiotics licensed nuclear control room operator to operating room.
--- NOTE | 2025-01-05 13:21 | W.PN.HOSP.TC ---
Today's Communication/Plan
-
N.p.o. and nonweightbearing for OR today
As needed analgesics
Trend CBC
Assessment / Plan
Assessment / Plan
#Right Hip Fracture
-Orthopedics on board
-NPO for OR today, NWB for now
-Continue Dilaudid prn pain control, increased dose to 0.5 mg PRN
-Trend CBC
#Chronic HFpEF
-Hold Lasix pre-op
-Monitor Daily Weights
-Trend BMP
#Essential Hypertension
-Continue amlodipine with hold parameters
#CKD Stage IV
-Creatinine at baseline, appears euvolemic
-Trend daily BMP
-avoid nephrotoxins
#Chronic Anemia
-Hgb slightly lower than baseline
-Iron studies consistent with chronic disease, likely from CKD
-Trend CBC here
#COPD
-no acute exacerbation
-Continue DuoNeb TID
#Insomnia
-Continue melatonin and trazodone
#Hx CVA with Residual Right-Sided Symptoms
-Continue aspirin; not on statin
#Hx Bladder Cancer s/p TURBT
DVT proph: SCDs
Diet: N.p.o. pending OR
Code Status: DNR
Anticipated Discharge: > 48 hours
Subjective/Interval History
-
Date of Service: January 05, 2025
Seen and examined at the bedside. No acute events reported overnight. AFVSS this morning
Patient scheduled for the OR later today for hip hemiarthroplasty. Pain well-controlled
Denies new complaints
Objective Data
-
Labs:
Laboratory Results
01/05/25
06:48
WBC 7.4
Hgb 8.0 L
Hct 23.5 L
Plt Count 257
Sodium 141
Potassium 4.0
Chloride 103
Carbon Dioxide 27
BUN 56 H
Creatinine 2.0 H
Glucose 97
Calcium 9.1
Vital Signs:
Vital Signs
Temp Pulse Resp BP Pulse Ox
97.8 F 96 13 129/59 99
01/05/25 10:28 01/05/25 13:00 01/05/25 13:00 01/05/25 13:00 01/05/25 13:00
I&O
01/04/25 01/05/25 01/06/25
06:59 06:59 06:59
Intake Total 480 / 480
Output Total 400 / 400
Balance 80 / 80
Review of Systems
-
History Source: Patient
All other systems: Reviewed and negative
Physical Exam
-
General: Well Developed, No Apparent Distress and Other (Thin and frail)
HEENT: Normocephalic, Atraumatic and Moist Mucous Membranes
Respiratory: Clear to Auscultation and Non Labored Respirations
Cardiac: Regular Rhythm and S1/S2; Negative Murmur, Rub or Gallop
GI: Soft, Nontender, Nondistended and Normal Bowel Sounds
Musculoskeletal: No Clubbing, No Cyanosis, No Edema and Other (Tenderness to right hip)
Skin: Warm, Dry and Normal Turgor; Negative Rash
Neuro: AO x 3 and Nonfocal/Grossly Intact
Data Reviewed
-
Labs: Labs Reviewed by me
[2025-01-05] MEDS: MORPHINE SULFATE 1 MG IV ×2 (13:31→13:43)
[2025-01-05] MEDS: TYLENOL 650 MG PO ×2 (14:40→22:17)
--- NOTE | 2025-01-05 15:09 | PTCARENOTE ---
Telephone report received from SENIOR DATA WAREHOUSE ARCHITECT Jess; patient arrived in bed @15:09 on 2L O2, primaseal dressing on (R) hip with small amount of old drainage; VSS.
[2025-01-05] MEDS: ANCEF 5 IV (16:26)
[2025-01-05] MEDS: ASPIRIN 325 MG PO (16:26)
[2025-01-05] MEDS: DILAUDID 0.5 MG IV ×2 (17:10→20:42)
[2025-01-05] MEDS: DUONEB INH (19:48)
[2025-01-05] MEDS: TORADOL 15 MG IV (19:55)
[2025-01-05] MEDS: ROXICODONE 10 MG PO (22:16)
[2025-01-05] MEDS: MELATONIN 10 MG PO (22:17)
[2025-01-05] MEDS: DESYREL 50 MG PO (22:17)
[2025-01-06] VITALS (7 sets, daily range): BP systolic 105–137; BP diastolic 52–76; PULSE 109–112; O2SAT 90–94; BMI 20.7
[2025-01-06] MEDS: ANCEF 5 IV
[2025-01-06] MEDS: TYLENOL 650 MG PO ×3 (03:03→21:51)
[2025-01-06] MEDS: ROXICODONE 10 MG PO (03:03)
[2025-01-06] MEDS: DILAUDID 0.5 MG IV ×4 (03:48→21:44)
--- NOTE | 2025-01-06 05:34 | PTCARENOTE ---
Dr. Lopez contacted around 1939 on 01/05/25 regarding pt's severe R hip pain s/p an earlier hemiarthroplasty. Pt. continues to c/o significant R hip pain throughout night despite consistent pain medication administration and intermittent ice usage.
Pt. consistently describes pain as an intermittent burning sensation in R lateral hip pointing where surgical dressing is adhered that can range from 3 to an '11'. Surgical dressing has small amounts of sanguinous shadowing unchanged from initial
assessment around 1929 on 01/05/25, good sensation to RLE, pedal pulses easily palpable, and capillary refill <3 seconds to R toes. Poor range of motion limited by pain and pt. frequently refusing assistance with position changed stating 'that would
make it worse.' Education provided regarding early movement/ambulation post op but pt. unwilling to attempt getting OOB and most major position changes. Dr. Lopez made aware of overnight events via TT.
[2025-01-06 07:24] LABS: % Basophils 0.1 % (0-2); % Immature Granulocytes 0.5 % (0-0.5); % Lymphocytes 5.8 % (20.5-51.1); % Monocytes 6.2 % (1.7-9.3); % Neutrophils 87.4 % (42.2-75.2); Absolute Immature Granulocytes 0.1 10^3/uL (0-0.05); Absolute Lymphocytes 0.8 10^3/uL (1.2-3.4); Absolute Monocytes 0.9 10^3/uL (0.1-0.6); Absolute Neutrophils 12.1 10^3/uL (1.4-6.5); Hematocrit 24.4 % (39.0-52.0); Hemoglobin 8.2 g/dL (13.0-18.0); Mean Corp Hgb Conc. 33.6 g/dL (33.0-37.0); Mean Corpuscular Hgb 29.1 pg (27.0-31.0); Mean Corpuscular Volume 86.5 fL (80.0-94.0); Mean Platelet Volume 9.6 fL (7.4-10.4); Nucleated Red Blood Cells % 0 % (-); Platelet Count 242 10^3/uL (130-400); Red Blood Cell Count 2.82 10^6/uL (4.70-6.10); Red Cell Dist. Width 14.4 % (11.5-14.5); White Blood Cell Count 13.8 10^3/uL (4.8-10.8)
[2025-01-06] MEDS: DUONEB INH ×2 (07:28→13:58)
--- NOTE | 2025-01-06 07:41 | W.PN.UPDATE ---
Update Note
Progress Note Update
Assessed patient at request of nurse for severe pain. Reports pain is in both legs, with feet being particularly bad. On exam leg lengths are equal and both feet appear perfused. On palpation of the forefoot bilaterally he screams in pain. On
addl history he reports being on 'albuterol tablets' for two weeks for the foot pain. I asked him if he possibly means allopurinol and he says 'yea that's right'
I think he might be in the midst of a gout attack which would explain the pain. His nurse will check w. medicine recs for treatment due to CRI level 4.
[2025-01-06 07:45] LABS: Blood Urea Nitrogen 62 mg/dl (9-20); Calcium 9.2 mg/dl (8.4-10.2); Carbon Dioxide 27 mmol/L (22-30); Chloride 100 mmol/L (98-107); Estimated Creatinine Clearance 21 ml/min; Glucose 124 mg/dl (70-99); Potassium 4.7 mmol/L (3.5-5.1); Sodium 140 mmol/L (135-145); eGFR 27.15
--- NOTE | 2025-01-06 08:14 | W.PN.ORTHO ---
Today's Communication / Plan
-
PT/OT
Weightbearing as tolerated
Hip precautions
Aspirin for DVT prophylactics
[facility] once [facility]
Follow-up with orthopedics 2 weeks postop
Assessment
.
Distal Motor Intact: Yes
Dressing:
Clean, dry and intact.
Plan
.
Surgery / Date: R hip nikhil 01/05 [facility]
DVT Prophylaxis: Aspirin
Activity:
Out of bed.
PT/OT
Discharge Plan: SNF
Subjective
.
.:
Patient resting comfortably.
Vital Signs and Labs
.
Vital Signs and Labs:
Lab Results
01/06/25 06:30
01/06/25 06:29
Temp Pulse Resp BP Pulse Ox
97.8 F 94 18 109/71 93
01/06/25 03:07 01/06/25 03:07 01/06/25 03:07 01/06/25 03:07 01/06/25 03:07
[2025-01-06] MEDS: NORVASC 5 MG PO (08:37)
[2025-01-06] MEDS: ASPIRIN 325 MG PO (08:37)
[2025-01-06] MEDS: SENOKOT-S 1 TABLET PO ×2 (08:37→21:44)
--- NOTE | 2025-01-06 10:13 | CON.CAR ---
Consultation
Consultation Request
Date/Time Consultation Requested: 01/06/2025
Date/Time Consultation Performed: 01/06/2025
Performing Provider: Dr. Eng
Reason for Consultation: History of aortic stenosis edema and hypertension.
Medical History
-
History of Present Illness:
I normally see patient as an outpatient. And was contacted by family after patient's admission.
84-year-old male with history of CVA 2022, hypertension, hypercholesterolemia, edema of extremities mild aortic stenosis CKD. Patient is known to me from outpatient visits. His grandson Donn works in our office. As an outpatient he has had issues
with lower extremity edema. He is also followed by his oil dipper at 1 point management was challenging because if there was some confusion regarding administration of medication. Patient has not had any complaints of increased shortness of
breath or increased lower extremity edema. He tripped on a rug at home and fell sustaining hip fracture. Denies syncope or LOC. On 01/05/2025 patient underwent right hip hemiarthroplasty by Dr. Lopez. Patient with no complaints of chest pain or
shortness of breath. Main complaint is ankle and foot pain. He stated he had some of this pain preceding his hospitalization. Patient was evaluated by Dr. Lopez this morning concern for gout was raised. Evaluation in process
Past medical history
CVA 2022
COPD
hfPef
Mild aortic stenosis
CKD
Lower extremity edema
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
Echocardiogram 08/2024 normal left ventricular function, mild aortic stenosis mean gradient 8 mmHg
Past Medical History
Past Medical History: Other (Above)
Allergies / Home Medications
Allergy/AdvReac Type Severity Reaction Status Date / Time
environmental allergies Allergy Unknown Uncoded 01/04/25 16:49
�Medication �Instructions �Recorded �Confirmed �Type
ipratropium 0.5 mg-albuterol 3 mg 3 ml inhalation R TID 10/28/18 01/04/25 History
(2.5 mg base)/3 mL nebulization Lung/Breathing Issues
soln
aspirin 81 mg chewable tablet 81 mg PO DAILY #0 tabs 03/24/23 01/04/25 Rx
amlodipine 5 mg tablet 5 mg PO DAILY 30 days #30 tabs 08/26/24 01/04/25 Rx
furosemide 40 mg tablet 40 mg PO BID Fluid 01/04/25 01/04/25 History
Retention/Swelling
melatonin 10 mg tablet 10 mg PO HS Supplement 01/04/25 01/04/25 History
trazodone 50 mg tablet 50 mg PO HS Sleep 01/04/25 01/04/25 History
Review of Systems
-
All other systems: Negative unless noted
Physical Exam
Vital Signs
Temp Pulse Resp BP Pulse Ox
97.6 F 107 16 135/76 91
01/06/25 07:25 01/06/25 07:25 01/06/25 07:25 01/06/25 08:37 01/06/25 07:25
Lab Results
01/06/25 06:30
01/06/25 06:29
Physical Exam
General: Well Developed, Well Nourished and No Apparent Distress
HEENT: Normocephalic and Moist Mucous Membranes
Respiratory: Other (No wheezes rales or rhonchi)
Cardiac: Regular Rhythm
GI: Distended and Other (Nontender no mass)
Musculoskeletal: Other (No edema. Postop hip hemiarthroplasty. Patient has complaints of right foot pain deferred examination due to recent examination by Ortho and patient with significant pain)
Neuro: Awake and Alert
Impression / Plan
-
History of heart failure with preserved ejection fraction
-Most recent echo with normal left ventricular function and mild aortic stenosis with a mean gradient of 8 mmHg.
-Patient has significant CKD and creatinine is 2.6.
-Respiratory status stable and euvolemic.
-Continue to monitor volume status.
-Appears outpatient diuretic currently being held. Continue to assess timing of restart. If labs are stable, blood pressure stable and adequate oral intake could consider restarting tomorrow.
.
hip fracture/postop hemiarthroplasty
-Management per Ortho
.
Right ankle and foot pain
-Possible gout
-Management being directed by Ortho CREDIT ANALYSIS MANAGER primary team. Treatment options may be limited due to CKD
.
CKD. Creatinine 2.0-2.3 continue to monitor
.
Postoperative anemia. Appears patient has some chronic anemia and has further reduction postoperatively hemoglobin 8.2 continue to monitor closely
Data Reviewed
-
EKG: Report Reviewed by me
Radiology: Report Reviewed by me
Medical Tests (Nuc Med, Echo etc): Report Reviewed by me
Labs: Labs Reviewed by me
[2025-01-06] MEDS: LIDOCAINE 4% PATCH 1 PATCH TOPICAL (11:26)
--- NOTE | 2025-01-06 11:58 | W.PN.HOSP.TC ---
Today's Communication/Plan
-
Resume Lasix on 01/07
Weightbearing as tolerated
Full dose aspirin for DVT prophylaxis
Trend CBC and BMP
Topical lidocaine for venous ulcer pain
PT/OT/placement
Assessment / Plan
Assessment / Plan
#Right Hip Fracture
-Orthopedics on board
-Status post right hip hemiarthroplasty on 01/05
-Currently weightbearing as tolerated, started on aspirin DVT prophylaxis
-Continue Dilaudid prn pain control, increased dose to 0.5 mg PRN
-Will need outpatient follow-up with orthopedist in 2 weeks
-Trend CBC
#Chronic HFpEF
-Hold Lasix pre-op, will resume AM 01/07
-Monitor Daily Weights
-Trend BMP
#Venous insufficiency ulcers
-Has ulcers on lower extremities related to chronic edema from HFpEF and CVI
-Has significant pain in ulcers to LLE, no signs of superimposed infection
-Will resume Lasix 40 mg twice daily on 01/07
-Ordered topical lidocaine
#Essential Hypertension
-Continue amlodipine with hold parameters
#CKD Stage IV
-Creatinine at baseline, appears euvolemic
-Trend daily BMP
-avoid nephrotoxins
#Chronic Anemia
-Hgb slightly lower than baseline, stable near 8.0 here
-Iron studies consistent with chronic disease, likely from CKD
-Trend CBC here
#COPD
-no acute exacerbation
-Continue DuoNeb TID
#Insomnia
-Continue melatonin and trazodone
#Hx CVA with Residual Right-Sided Symptoms
-Continue aspirin; not on statin
#Hx Bladder Cancer s/p TURBT
DVT proph: SCDs, full dose aspirin
Diet: Regular
Code Status: DNR
Anticipated Discharge: 24 - 48 hours
Subjective/Interval History
-
Date of Service: January 06, 2025
Seen and examined at the bedside. No acute events reported overnight. AFVSS this morning
Hemoglobin stable at 8.0-8.2 after his procedure, WBC 13.8 but no fevers. Creatinine 2.3 stable and baseline
Patient states his right hip pain is improved, does have significant pain at venous insufficiency ulcers, worse in the left lower extremity
Objective Data
-
Labs:
Laboratory Results
01/06/25 01/06/25
06:29 06:30
WBC 13.8 H
Hgb 8.2 L
Hct 24.4 L
Plt Count 242
Sodium 140
Potassium 4.7
Chloride 100
Carbon Dioxide 27
BUN 62 H
Creatinine 2.3 H
Glucose 124 H
Calcium 9.2
Vital Signs:
Vital Signs
Temp Pulse Resp BP Pulse Ox
97.8 F 107 16 105/52 90
01/06/25 11:30 01/06/25 11:30 01/06/25 11:30 01/06/25 11:30 01/06/25 11:30
I&O
01/05/25 01/06/25 01/07/25
06:59 06:59 06:59
Intake Total 480 / 480 680 / 680
Output Total 400 / 400 1000 / 1000
Balance 80 / 80 -320 / -320
Review of Systems
-
History Source: Patient
All other systems: Reviewed and negative
Physical Exam
-
General: Well Developed, Well Nourished, Pain and Other (Frail-appearing)
HEENT: Normocephalic, Atraumatic, Moist Mucous Membranes and Anicteric
Respiratory: Clear to Auscultation and Non Labored Respirations
Cardiac: Regular Rhythm, S1/S2 and Murmur; Negative Rub, JVD or Gallop
GI: Soft, Nontender, Nondistended and Normal Bowel Sounds
Musculoskeletal: No Clubbing, No Cyanosis and No Edema
Skin: Warm, Dry, Ulcers (LLE, serosanguineous drainage, no purulence or erythema) and Normal Turgor; Negative Rash
Neuro: AO x 3 and Nonfocal/Grossly Intact
Psych: Calm
Data Reviewed
-
Labs: Labs Reviewed by me and Discussed with Patient
[2025-01-06] MEDS: LMX 4 1 APPLIC TOPICAL (13:00)
--- NOTE | 2025-01-06 13:48 | CM ---
CM met with patient in room. Patient confirmed demographics. Patient lives independently alone in a first floor apartment. Patient has had a history of VN with [facility]. Patient reports being at [facility] and [facility]. Patient does not want to go
back to [facility]. Patient has a PCP with [facility]. Patient uses [facility] for medication services.
CM was updated by PT patient will need SNF placement.
--- NOTE | 2025-01-06 15:56 | CM ---
Spoke with pts daughter Rina regarding SNF at d/c
Requesting referrals to [facility] - [address] [place] [address], [facility] [place], Thuan Robertson
Referrals sent in Care port
Plan - SNF when medically ready; will need auth
[2025-01-06] MEDS: DUONEB 3 ML INH (19:55)
[2025-01-06] MEDS: BENADRYL 6.25 MG IV (20:50)
[2025-01-06] MEDS: DESYREL 50 MG PO (21:44)
[2025-01-06] MEDS: MELATONIN 10 MG PO (21:44)
[2025-01-07 00:57] VITALS: BP 132/71
[2025-01-07] MEDS: ROXICODONE 10 MG PO ×4 (01:01→21:01)
[2025-01-07 04:20] VITALS: BMI 20.3
[2025-01-07] MEDS: DILAUDID 0.5 MG IV (04:25)
[2025-01-07] MEDS: TYLENOL 650 MG PO (04:26)
[2025-01-07] MEDS: DUONEB 3 ML INH (07:08)
[2025-01-07 07:18] LABS: % Basophils 0.2 % (0-2); % Eosinophils 0.2 % (0-6); % Immature Granulocytes 0.6 % (0-0.5); % Lymphocytes 7.3 % (20.5-51.1); % Monocytes 4.4 % (1.7-9.3); % Neutrophils 87.3 % (42.2-75.2); Absolute Immature Granulocytes 0.1 10^3/uL (0-0.05); Absolute Lymphocytes 0.9 10^3/uL (1.2-3.4); Absolute Monocytes 0.5 10^3/uL (0.1-0.6); Absolute Neutrophils 10.6 10^3/uL (1.4-6.5); Hematocrit 22.4 % (39.0-52.0); Hemoglobin 7.3 g/dL (13.0-18.0); Mean Corp Hgb Conc. 32.6 g/dL (33.0-37.0); Mean Corpuscular Hgb 28.5 pg (27.0-31.0); Mean Corpuscular Volume 87.5 fL (80.0-94.0); Nucleated Red Blood Cells % 0 % (-); Platelet Count 236 10^3/uL (130-400); Red Blood Cell Count 2.56 10^6/uL (4.70-6.10); Red Cell Dist. Width 14.6 % (11.5-14.5); White Blood Cell Count 12.1 10^3/uL (4.8-10.8)
--- NOTE | 2025-01-07 07:20 | W.PN.ORTHO ---
Today's Communication / Plan
-
PT/OT
Weightbearing as tolerated
posterior Hip precautions x6 weeks
Aspirin for DVT prophylactics
assisted facility once medically stable
Follow-up with orthopedics 2 weeks postop
Ortho will follow peripherally; please reengage with questions/concerns.
Assessment
.
Distal Motor Intact: Yes
Dressing:
Clean, dry and intact.
Plan
.
Surgery / Date: R hip nikhil 01/05 [facility]
Activity:
Out of bed.
PT/OT
Subjective
.
.:
Patient resting comfortably.
Vital Signs and Labs
.
Vital Signs and Labs:
Lab Results
01/07/25 06:07
Temp Pulse Resp BP Pulse Ox
98.6 F 104 102 132/71 95
01/06/25 23:05 01/06/25 23:05 01/07/25 07:09 01/06/25 23:05 01/06/25 23:05
[2025-01-07 07:25] VITALS: BP 135/78
[2025-01-07 07:43] LABS: Blood Urea Nitrogen 80 mg/dl (9-20); Calcium 8.7 mg/dl (8.4-10.2); Carbon Dioxide 24 mmol/L (22-30); Chloride 99 mmol/L (98-107); Estimated Creatinine Clearance 16 ml/min; Glucose 114 mg/dl (70-99); Potassium 4.7 mmol/L (3.5-5.1); Sodium 136 mmol/L (135-145); eGFR 20.55
[2025-01-07] MEDS: ASPIRIN 325 MG PO (08:44)
[2025-01-07] MEDS: SENOKOT-S 1 TABLET PO ×2 (08:44→21:01)
[2025-01-07] MEDS: LASIX 40 MG PO ×2 (08:44→16:26)
[2025-01-07] MEDS: NORVASC 5 MG PO (08:44)
[2025-01-07] MEDS: LIDOCAINE 4% PATCH 1 PATCH TOPICAL (08:45)
--- NOTE | 2025-01-07 09:25 | W.PN.CD ---
Today's Communication / Plan
-
-
Cardiology will sign off.
F/u in our office with Dr. Eng routinely.
Agree with daily Lasix, continue
-
Impression / Plan
-
Chronic HFpEF, no decompensation
- Back on daily Lasix
- Dr. Eng will consider advancing GDMT as an outpatient heart failure with preserved ejection fraction
S/p surgery for R hip fracture => hemiarthroplasty ([facility] on 01/05/2025)
CKD4, stable
Acute on chronic anemia, likely some related to CKD, some procedureal blood loss
- Baseline looks like 11 or so
Chronic RBBB
Mild aortic stenosis (echo 08/2024)
Subjective:
No CP or dyspnea. Some diffuse leg pain
Physical Exam
Vital Signs/Labs
Vital Signs
Temp Pulse Resp BP Pulse Ox
98.3 F 111 18 135/78 91
01/07/25 07:25 01/07/25 07:25 01/07/25 07:25 01/07/25 08:44 01/07/25 07:25
01/06/25 01/07/25 01/08/25
06:59 06:59 06:59
Actual Weight 61.779 kg 60.555 kg
01/07/25 06:07
01/07/25 06:07
Physical Exam
Constitutional: No acute distress
EENT: Anicteric
Cardiovascular: Rhythm & rate is regular and Systolic murmur present
Respiratory: Respiratory effort normal and Lungs clear to auscul.
GI: Soft
Neuro/Psych: AO x 3 and Motor deficits absent
Data Reviewed
-
Date of Service: January 07, 2025
[2025-01-07 09:39] LABS: Iron 29 ug/dl (49-181)
[2025-01-07 09:50] LABS: Percent Saturation 14 % (20-50); Total Iron Binding Capacity 196 ug/dl (261-462)
[2025-01-07 10:49] LABS: Vitamin B12 310 pg/ml (239-931)
[2025-01-07 12:14] LABS: Folate 15.9 ng/ml (2.76-20)
--- NOTE | 2025-01-07 12:35 | W.PN.HOSP.TC ---
Today's Communication/Plan
-
Resume home Lasix
CXR and AXR
Clear liquids for now
Escalate bowel regimen
Wean oxygen as able
Assessment / Plan
Assessment / Plan
#Acute hypoxemic respiratory failure
#Chronic HFpEF
-Following procedure has required up to 5 L oxygen; was on IV fluids and Lasix was held
-Question if he may be volume overloaded at this point; Home Lasix resumed morning of 01/07
-We will order chest x-ray to assess for pulmonary edema and decompensated CHF
-Wean oxygen for SpO2 goal >90%
-Monitor Daily Weights, I's and O's
-Trend BMP
#Abdominal distention
-Exam with significant distention today, patient also had some nausea but no vomiting
-Question if he is developing a postoperative ileus; states he has not had bowel movement recently
-Will order abdomen x-ray, start bisacodyl suppository and senna for bowel regimen
-If evidence of ileus on abdomen x-ray, will involve general surgery, consider NGT
-May consider CT abdomen, if x-ray unremarkable, to rule out mechanical obstruction
-Transition from regular diet to clear liquid diet for now, NPO if he develops worsening N/V
#Right Hip Fracture
-Orthopedics on board
-Status post right hip hemiarthroplasty on 01/05
-Currently weightbearing as tolerated, started on aspirin DVT prophylaxis
-Continue Dilaudid prn pain control, increased dose to 0.5 mg PRN
-Will need outpatient follow-up with orthopedist in 2 weeks
-Trend CBC
#Venous insufficiency ulcers
-Has ulcers on lower extremities related to chronic edema from HFpEF and CVI
-Has significant pain in ulcers to LLE, no signs of superimposed infection
-Will resume Lasix 40 mg twice daily on 01/07
-Ordered topical lidocaine
#Essential Hypertension
-Continue amlodipine with hold parameters
#CKD Stage IV
-Creatinine at baseline, appears euvolemic
-Trend daily BMP
-avoid nephrotoxins
#Chronic Anemia
-Hgb slightly lower than baseline, stable near 8.0 here
-Iron studies consistent with chronic disease, likely from CKD
-Trend CBC here
#COPD
-no acute exacerbation
-Continue DuoNeb TID
#Insomnia
-Continue melatonin and trazodone
#Hx CVA with Residual Right-Sided Symptoms
-Continue aspirin; not on statin
#Hx Bladder Cancer s/p TURBT
DVT proph: SCDs, full dose aspirin
Diet: Regular
Code Status: DNR
Anticipated Discharge: > 48 hours
Subjective/Interval History
-
Date of Service: January 07, 2025
Seen and examined at the bedside. No acute events overnight. Tachycardic this morning, on 5 L O2 with SpO2 mid 90s
Hemoglobin down to 7.3 today, creatinine at 2.9.
States he had some nausea this morning but no vomiting.
Objective Data
-
Labs:
Laboratory Results
01/07/25
06:07
WBC 12.1 H
Hgb 7.3 L
Hct 22.4 L
Plt Count 236
Sodium 136
Potassium 4.7
Chloride 99
Carbon Dioxide 24
BUN 80 H
Creatinine 2.9 H
Glucose 114 H
Calcium 8.7
Vital Signs:
Vital Signs
Temp Pulse Resp BP Pulse Ox
98.3 F 111 18 135/78 91
01/07/25 07:25 01/07/25 07:25 01/07/25 07:25 01/07/25 08:44 01/07/25 08:43
I&O
01/06/25 01/07/25 01/08/25
06:59 06:59 06:59
Intake Total 680 / 680 720 / 720
Output Total 1000 / 1000 500 / 500
Balance -320 / -320 220 / 220
Review of Systems
-
History Source: Patient
All other systems: Reviewed and negative
Physical Exam
-
General: Well Developed, No Apparent Distress and Other (Thin and frail)
HEENT: Normocephalic, Atraumatic and Moist Mucous Membranes
Respiratory: Rales and Non Labored Respirations; Negative Wheezes, Rhonchi or Accessory Resp Muscle Use
Cardiac: Regular Rhythm, S1/S2 and Tachycardic; Negative Murmur, Rub or Gallop
GI: Nontender, Distended and Other (Hypoactive bowel sounds, slightly firm due to distention)
Musculoskeletal: No Clubbing, No Cyanosis and No Edema
Skin: Warm, Dry and Normal Turgor; Negative Rash
Neuro: AO x 3 and Nonfocal/Grossly Intact
Psych: Calm
Data Reviewed
-
Labs: Labs Reviewed by me and Discussed with Patient
[2025-01-07] MEDS: DUONEB INH ×2 (13:30→20:13)
[2025-01-07] MEDS: SENNA SYRUP 8.8 MG PO (14:20)
[2025-01-07] MEDS: DULCOLAX 10 MG RECTAL (14:20)
--- NOTE | 2025-01-07 14:21 | CM ---
Chart reviewed
Spoke with Jess at [facility] - can accept on Friday
Will need auth
LM on VM of daughter Rina
Plan - [facility] when auth obtained and medically ready
[2025-01-07 15:15] VITALS: BP 121/68
[2025-01-07] MEDS: MELATONIN 10 MG PO (21:00)
[2025-01-07] MEDS: DESYREL 50 MG PO (21:01)
--- NOTE | 2025-01-07 21:42 | PTCARENOTE ---
Pt reports he has hx of gout and has been on allopurinol in the past but was taken off his home medication list. He is reporting the severe pain in his joints is due to gout onset and would like the MD to review with him if he can have a medication
for the pain he has in his joints. He reports he has told staff this for the past 5 days and that it has not been addressed.
[2025-01-07 23:00] VITALS: BP 108/77
[2025-01-08] MEDS: DILAUDID 0.25 MG IV (02:41)
[2025-01-08 06:00] VITALS: BMI 20.8
--- NOTE | 2025-01-08 06:43 | PTCARENOTE ---
Pt pain still not controlled reports 'joint pain' r/t to his gout. continues to screams out in pain with any touch of his extremities.
[2025-01-08 07:00] VITALS: BP 105/45
[2025-01-08] MEDS: DUONEB INH (07:37)
[2025-01-08 07:41] LABS: % Basophils 0.2 % (0-2); % Eosinophils 1.1 % (0-6); % Immature Granulocytes 0.5 % (0-0.5); % Lymphocytes 7.3 % (20.5-51.1); % Monocytes 4.6 % (1.7-9.3); % Neutrophils 86.3 % (42.2-75.2); Absolute Eosinophils 0.1 10^3/uL (0-0.7); Absolute Immature Granulocytes 0.1 10^3/uL (0-0.05); Absolute Lymphocytes 0.7 10^3/uL (1.2-3.4); Absolute Monocytes 0.5 10^3/uL (0.1-0.6); Absolute Neutrophils 8.5 10^3/uL (1.4-6.5); Hematocrit 22.3 % (39.0-52.0); Hemoglobin 7.3 g/dL (13.0-18.0); Mean Corp Hgb Conc. 32.7 g/dL (33.0-37.0); Mean Corpuscular Hgb 28.1 pg (27.0-31.0); Mean Corpuscular Volume 85.8 fL (80.0-94.0); Mean Platelet Volume 10.2 fL (7.4-10.4); Nucleated Red Blood Cells % 0 % (-); Platelet Count 230 10^3/uL (130-400); Red Cell Dist. Width 14.5 % (11.5-14.5); White Blood Cell Count 9.8 10^3/uL (4.8-10.8)
[2025-01-08 07:57] LABS: Blood Urea Nitrogen 89 mg/dl (9-20); Calcium 8.7 mg/dl (8.4-10.2); Carbon Dioxide 27 mmol/L (22-30); Chloride 100 mmol/L (98-107); Estimated Creatinine Clearance 14 ml/min; Glucose 91 mg/dl (70-99); Potassium 4.8 mmol/L (3.5-5.1); Sodium 137 mmol/L (135-145); eGFR 16.98
[2025-01-08] MEDS: NORVASC PO (08:49)
[2025-01-08] MEDS: SENOKOT-S 1 TABLET PO ×2 (08:49→21:05)
[2025-01-08] MEDS: LASIX 40 MG PO (08:49)
[2025-01-08] MEDS: ASPIRIN 325 MG PO (08:49)
[2025-01-08] MEDS: LIDOCAINE 4% PATCH 1 PATCH TOPICAL (08:50)
[2025-01-08] MEDS: DELTASONE 20 MG PO (10:20)
[2025-01-08] MEDS: ZYLOPRIM 100 MG PO (10:20)
[2025-01-08] MEDS: DILAUDID 0.5 MG IV (10:21)
[2025-01-08 11:09] LABS: Urine Sodium 28 mmol/L (30-90)
[2025-01-08 11:40] VITALS: BP 121/77; BP 128/66; PULSE 111; O2SAT 93
--- NOTE | 2025-01-08 12:28 | W.PN.HOSP.TC ---
Today's Communication/Plan
-
Renal bladder ultrasound
Continue with Lasix for now
Prednisone for gout flare
As needed Dilaudid
Trend BMP and urine output
Wean oxygen
Assessment / Plan
Assessment / Plan
#JOSE ANGEL on CKD stage IV
-Question prerenal state versus obstructive uropathy postsurgically
-Creatinine baseline near 2.2; creatinine up to 3.4 today; remains with good UOP though elevated PVR
-Currently on diuresis, attempted to order labs for FE urea however send out labs, no utility for now
-Will continue with home Lasix regimen and order renal ultrasound to assess for hydronephrosis
-Trend daily BMP + UOP, avoid nephrotoxins such as NSAIDs and IV iodinated contrast
-Nephrology consult
#Acute hypoxemic respiratory failure
#Chronic HFpEF
-Following procedure has required up to 5 L oxygen; was on IV fluids and Lasix was held
-Question if he may be volume overloaded at this point; Home Lasix resumed morning of 01/07
-Chest x-ray on 01/07 with signs of interstitial fibrosis but no edema or effusions
-Oxygen status is improving, down to 2 L as of
-Wean oxygen for SpO2 goal >90%
-Monitor Daily Weights, I's and O's
-Trend BMP
#Gout flare
-Presumed diagnosis with right great toe pain consistent with previous flares
-Due to his renal function cannot use NSAIDs or colchicine
-Started on prednisone 20 mg daily, continue with as needed Tylenol
-Monitor clinically, plan for 5-days of steroid for now
#Abdominal distention
-Exam with significant distention today, patient also had some nausea but no vomiting
-Question if he is developing a postoperative ileus; states he has not had bowel movement recently
-Abdomen x-ray with gaseous distention of the colon, some fecal matter present
-Has improved with suppository and stool softener
#Right Hip Fracture
-Orthopedics on board
-Status post right hip hemiarthroplasty on 01/05
-Currently weightbearing as tolerated, started on aspirin DVT prophylaxis
-Continue Dilaudid prn pain control, increased dose to 0.5 mg PRN
-Will need outpatient follow-up with orthopedist in 2 weeks
-Trend CBC
#Venous insufficiency ulcers
-Has ulcers on lower extremities related to chronic edema from HFpEF and CVI
-Has significant pain in ulcers to LLE, no signs of superimposed infection
-Will resume Lasix 40 mg twice daily on 01/07
-Ordered topical lidocaine
#Essential Hypertension
-Continue amlodipine with hold parameters
#Chronic Anemia
-Hgb slightly lower than baseline, stable near 8.0 here
-Iron studies consistent with chronic disease, likely from CKD
-Trend CBC here
#COPD
-no acute exacerbation
-Continue DuoNeb TID
#Insomnia
-Continue melatonin and trazodone
#Hx CVA with Residual Right-Sided Symptoms
-Continue aspirin; not on statin
#Hx Bladder Cancer s/p TURBT
DVT proph: SCDs, full dose aspirin
Diet: Regular
Code Status: DNR
Anticipated Discharge: > 48 hours
Subjective/Interval History
-
Date of Service: January 08, 2025
Seen and examined at the bedside. No acute events reported overnight. AFVSS on 2 L O2 today
Renal function continues to worsen, creatinine up to 3.4. Bladder scans with borderline PVR near 400.
Patient complains of severe right great toe pain consistent with previous gout flares
Objective Data
-
Labs:
Laboratory Results
01/08/25
06:58
WBC 9.8
Hgb 7.3 L
Hct 22.3 L
Plt Count 230
Sodium 137
Potassium 4.8
Chloride 100
Carbon Dioxide 27
BUN 89 H
Creatinine 3.4 H
Glucose 91
Calcium 8.7
Vital Signs:
Vital Signs
Temp Pulse Resp BP Pulse Ox
98.5 F 105 18 105/45 96
01/08/25 07:00 01/08/25 08:49 01/08/25 07:00 01/08/25 08:49 01/08/25 07:00
I&O
01/07/25 01/08/25 01/09/25
06:59 06:59 06:59
Intake Total 720 / 720 120 / 120
Output Total 500 / 500 250 / 250 100 / 100
Balance 220 / 220 -130 / -130 -100 / -100
Review of Systems
-
History Source: Patient
All other systems: Reviewed and negative
Physical Exam
-
General: Well Developed, Pain, Appears Chronically Ill and Other (Thin and frail)
HEENT: Normocephalic, Atraumatic, Moist Mucous Membranes and Anicteric
Respiratory: Clear to Auscultation and Non Labored Respirations
Cardiac: Regular Rhythm and S1/S2; Negative Murmur, Rub, JVD or Gallop
GI: Soft, Nontender, Nondistended and Normal Bowel Sounds
Musculoskeletal: No Clubbing, No Cyanosis, No Edema and Other (Mild redness and warmth to great toe of right foot; significant pain to light palpation)
Skin: Warm, Dry and Normal Turgor; Negative Rash
Neuro: AO x 3, Central Nerve's Intact and Other (Chronic right-sided deficits)
Psych: Other (In pain)
Data Reviewed
-
Labs: Labs Reviewed by me, Discussed with Physician (Nephrology) and Discussed with Patient
--- NOTE | 2025-01-08 13:32 | W.CON.NEPH ---
Consultation
-
Date/Time Consultation Requested: January 08, 2025 at 8 AM
Date/Time Consultation Performed: January 08, 2025 at 1 PM
Requesting Provider: Dr. Pardo
Performing Provider: Dr. Beltran
Reason for Consultation: Acute on chronic kidney disease
Medical History
-
Chief Complaint: Acute on chronic kidney disease
History of Present Illness:
84 y/o male past medical history of prior CVA, hypertension, hyperlipidemia, CKD IV, chronic anemia and insomnia who presents with right hip pain. Found to have a hip fracture status post repair on 01/05.
Baseline creatinine around 2. Renal consult was creatinine was up to 3.4. He follows with Dr. German in nephrology in [place].
He was given Lasix for increased oxygen requirements. He does have a history of emphysema.
Past Medical History
Medical history of prior CVA, hypertension, hyperlipidemia, CKD IV, chronic anemia and insomnia COPD
Social History
Tobacco: Former Smoker
Alcohol: None
Family History
Family History: Not Pertinent
Allergies / Home Medications
Allergy/AdvReac Type Severity Reaction Status Date / Time
environmental allergies Allergy Unknown Uncoded 01/04/25 16:49
�Medication �Instructions �Recorded �Confirmed �Type
ipratropium 0.5 mg-albuterol 3 mg 3 ml inhalation R TID 10/28/18 01/04/25 History
(2.5 mg base)/3 mL nebulization Lung/Breathing Issues
soln
aspirin 81 mg chewable tablet 81 mg PO DAILY #0 tabs 03/24/23 01/04/25 Rx
amlodipine 5 mg tablet 5 mg PO DAILY 30 days #30 tabs 08/26/24 01/04/25 Rx
furosemide 40 mg tablet 40 mg PO BID Fluid 01/04/25 01/04/25 History
Retention/Swelling
melatonin 10 mg tablet 10 mg PO HS Supplement 01/04/25 01/04/25 History
trazodone 50 mg tablet 50 mg PO HS Sleep 01/04/25 01/04/25 History
Review of Systems
-
Mild shortness of breath with wheezing no difficulty urinating
All other systems: Negative unless noted
Physical Exam
Vital Signs
Vital Signs
Temp Pulse Resp BP Pulse Ox
98.5 F 105 18 105/45 93
01/08/25 07:00 01/08/25 08:49 01/08/25 07:00 01/08/25 08:49 01/08/25 09:00
Lab Results
WBC 9.8 10^3/uL (4.8-10.8) 01/08/25 06:58
RBC 2.60 10^6/uL (4.70-6.10) L 01/08/25 06:58
Hgb 7.3 g/dL (13.0-18.0) L 01/08/25 06:58
Hct 22.3 % (39.0-52.0) L 01/08/25 06:58
Plt Count 230 10^3/uL (130-400) 01/08/25 06:58
Sodium 137 mmol/L (135-145) 01/08/25 06:58
Potassium 4.8 mmol/L (3.5-5.1) 01/08/25 06:58
Chloride 100 mmol/L (98-107) 01/08/25 06:58
Carbon Dioxide 27 mmol/L (22-30) 01/08/25 06:58
BUN 89 mg/dl (9-20) H 01/08/25 06:58
Creatinine 3.4 mg/dL (0.7-1.3) H 01/08/25 06:58
eGFR 16.98 01/08/25 06:58
Glucose 91 mg/dl (70-99) 01/08/25 06:58
Calcium 8.7 mg/dl (8.4-10.2) 01/08/25 06:58
Albumin 3.5 g/dl (3.5-5.0) 01/04/25 18:28
Physical Exam
General no acute distress
HEENT no cephalic atraumatic extraocular muscle intact no scleral icterus no JVD neck supple
lungs bilateral rhonchi and wheezes with crackles
heart regular S1-S2 positive
abdomen soft nontender positive bowel sounds
extremities no edema pulses present bilateral
Neurologically nonfocal alert and oriented x 3
Skin no lesions no abrasions no petechiae
Psych normal affect no bizarre behavior
Data Reviewed
-
Radiology: Image Personally Visualized and interpreted
Labs: Labs Reviewed by me, Discussed with Physician and Discussed with Patient
Assessment/Plan
-
84 y/o male past medical history of prior CVA, hypertension, hyperlipidemia, CKD IV, chronic anemia and insomnia who presents with right hip pain. Found to have a hip fracture
Impression:
JOSE ANGEL
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
Hip fracture s/p repair 01/05
Chronic congestive heart failure
COPD
History of CVA
Anemia
History of gout
Plan:
Creatinine has gone up to 3.4 from baseline around 2.3. No obvious source. No drop in blood pressure or significant blood loss or anemia.
Certainly could be from the diuretics.
He is on a nasal cannula. Exam sounds more like a COPD with wheezing.
Check BNP
I would hold diuretics for now
[2025-01-08] MEDS: DUONEB 3 ML INH ×2 (14:17→20:31)
[2025-01-08 15:00] VITALS: BP 118/51
[2025-01-08] MEDS: ROXICODONE 5 MG PO ×2 (16:20→21:04)
[2025-01-08] MEDS: MELATONIN 10 MG PO (21:04)
[2025-01-08] MEDS: DESYREL 50 MG PO (21:04)
[2025-01-08] MEDS: MIRALAX 17 GRAMS PO (21:05)
[2025-01-08 23:22] VITALS: BP 125/72
[2025-01-09] MEDS: DILAUDID 0.5 MG IV (00:50)
[2025-01-09 05:46] VITALS: BMI 19.8
[2025-01-09 07:03] VITALS: BP 110/63
[2025-01-09 07:47] LABS: % Basophils 0.1 % (0-2); % Eosinophils 0.1 % (0-6); % Immature Granulocytes 0.5 % (0-0.5); % Lymphocytes 8.3 % (20.5-51.1); Absolute Lymphocytes 0.7 10^3/uL (1.2-3.4); Absolute Monocytes 0.5 10^3/uL (0.1-0.6); Hematocrit 21.3 % (39.0-52.0); Hemoglobin 6.9 g/dL (13.0-18.0); Mean Corp Hgb Conc. 32.4 g/dL (33.0-37.0); Mean Corpuscular Hgb 28.4 pg (27.0-31.0); Mean Corpuscular Volume 87.7 fL (80.0-94.0); Mean Platelet Volume 9.9 fL (7.4-10.4); Nucleated Red Blood Cells % 0 % (-); Platelet Count 233 10^3/uL (130-400); Red Blood Cell Count 2.43 10^6/uL (4.70-6.10); Red Cell Dist. Width 14.4 % (11.5-14.5); White Blood Cell Count 8.2 10^3/uL (4.8-10.8)
[2025-01-09 07:53] LABS: Blood Urea Nitrogen 99 mg/dl (9-20); Calcium 8.9 mg/dl (8.4-10.2); Carbon Dioxide 26 mmol/L (22-30); Chloride 101 mmol/L (98-107); Estimated Creatinine Clearance 13 ml/min; Glucose 116 mg/dl (70-99); Potassium 4.4 mmol/L (3.5-5.1); Sodium 139 mmol/L (135-145); eGFR 16.98
[2025-01-09] MEDS: DUONEB INH (08:26)
[2025-01-09] MEDS: ZYLOPRIM 100 MG PO (09:03)
[2025-01-09] MEDS: ASPIRIN 325 MG PO (09:03)
[2025-01-09] MEDS: SENOKOT-S 1 TABLET PO ×2 (09:04→20:51)
[2025-01-09] MEDS: DELTASONE 20 MG PO (09:04)
[2025-01-09] MEDS: LIDOCAINE 4% PATCH 1 PATCH TOPICAL (09:04)
--- NOTE | 2025-01-09 11:34 | W.PN.HOSP.TC ---
Today's Communication/Plan
-
Transfuse 1 unit PRBC
Hold diuretics
Wean oxygen
5-day prednisone course for gout flare
Assessment / Plan
Assessment / Plan
#Acute on chronic Anemia
#Postoperative blood loss anemia
-Hemoglobin baseline in the range of 9-10 per previous labs; iron studies consistent with AOCD
-Following procedure hemoglobin down trended to 7.3 where it stabilized
-As of this morning hemoglobin 6.9; 1 unit PRBC ordered for transfusion
-Do not suspect he has any significant ongoing bleeding at this time
-Continue with full dose aspirin for now, consider stopping if blood counts continue to drop
-Monitor stools for signs of GI bleeding, monitor for other sources of bleeding
-Continue to trend CBC, hemoglobin goal >7
#JOSE ANGEL on CKD stage IV
-Question prerenal state versus obstructive uropathy postsurgically
-Creatinine baseline near 2.2; creatinine up to 3.4 today; remains with good UOP though elevated PVR
-Currently on diuresis, attempted to order labs for FE urea however send out labs, no utility for now
-Nephrology consulted on 01/08; held patient's Lasix as they believed he was intravascularly depleted
-Trend daily BMP + UOP, avoid nephrotoxins such as NSAIDs and IV iodinated contrast
-Give 1 unit PRBC as above which should help renal function as well
#Acute hypoxemic respiratory failure
#Chronic HFpEF
-Suspect his hypoxemia here is mostly related to deconditioning
-Following procedure has required up to 5 L oxygen; was on IV fluids and Lasix was held
-Has since been titrated down to 2 L of supplemental oxygen where he has been stable, SpO2 low to mid 90
-Chest x-ray on 01/07 with signs of interstitial fibrosis but no edema or effusions
-Wean oxygen for SpO2 goal >90%
-Monitor Daily Weights, I's and O's
-Trend BMP
#Gout flare
-Presumed diagnosis with right great toe pain consistent with previous flares
-Due to his renal function cannot use NSAIDs or colchicine
-Started on prednisone 20 mg daily, continue with as needed Tylenol
-Monitor clinically, plan for 5-days of steroid for now (last day 01/12)
#Abdominal distention
-Exam with significant distention today, patient also had some nausea but no vomiting
-Question if he is developing a postoperative ileus; states he has not had bowel movement recently
-Abdomen x-ray with gaseous distention of the colon, some fecal matter present
-Has improved with suppository and stool softener
#Right Hip Fracture
-Orthopedics on board
-Status post right hip hemiarthroplasty on 01/05
-Currently weightbearing as tolerated, started on aspirin DVT prophylaxis
-Continue Dilaudid prn pain control, increased dose to 0.5 mg PRN
-Will need outpatient follow-up with orthopedist in 2 weeks
-Trend CBC
#Venous insufficiency ulcers
-Has ulcers on lower extremities related to chronic edema from HFpEF and CVI
-Has significant pain in ulcers to LLE, no signs of superimposed infection
-Will resume Lasix 40 mg twice daily on 01/07
-Ordered topical lidocaine
#Essential Hypertension
-Continue amlodipine with hold parameters
#COPD
-no acute exacerbation
-Continue DuoNeb TID
#Insomnia
-Continue melatonin and trazodone
#Hx CVA with Residual Right-Sided Symptoms
-Continue aspirin; not on statin
#Hx Bladder Cancer s/p TURBT
DVT proph: SCDs, full dose aspirin
Diet: Regular
Code Status: DNR
Anticipated Discharge: 24 - 48 hours
Subjective/Interval History
-
Date of Service: January 09, 2025
Seen and examined at the bedside. No acute events reported overnight. AFVSS on 2 L oxygen
Hemoglobin slowly downtrending, at 6.9 this morning. 1 unit PRBC ordered
Patient states he feels better, gout pain is improved as of this morning. Denies shortness of breath or chest pain. Denies other new complaints
Objective Data
-
Labs:
Laboratory Results
01/09/25
06:17
WBC 8.2
Hgb 6.9 L*
Hct 21.3 L
Plt Count 233
Sodium 139
Potassium 4.4
Chloride 101
Carbon Dioxide 26
BUN 99 H
Creatinine 3.4 H
Glucose 116 H
Calcium 8.9
Vital Signs:
Vital Signs
Temp Pulse Resp BP Pulse Ox
97.9 F 98 17 110/63 92
01/09/25 07:03 01/09/25 07:03 01/09/25 07:03 01/09/25 07:03 01/09/25 09:00
I&O
01/08/25 01/09/25 01/10/25
06:59 06:59 06:59
Intake Total 120 / 120 500 / 500
Output Total 250 / 250 200 / 200
Balance -130 / -130 300 / 300
Review of Systems
-
History Source: Patient
All other systems: Reviewed and negative
Physical Exam
-
General: Well Developed, No Apparent Distress, Comfortable and Other (Frail)
HEENT: Normocephalic, Atraumatic, Moist Mucous Membranes, Anicteric and Oxygen
Respiratory: Crackles and Non Labored Respirations; Negative Accessory Resp Muscle Use
Cardiac: Regular Rhythm and S1/S2; Negative Murmur, Rub, JVD or Gallop
GI: Soft, Nontender, Nondistended and Normal Bowel Sounds
Musculoskeletal: No Clubbing, No Cyanosis and No Edema
Skin: Warm, Dry and Normal Turgor; Negative Rash
Neuro: AO x 3 and Nonfocal/Grossly Intact; Negative Tremors
Psych: Calm
Data Reviewed
-
Labs: Labs Reviewed by me and Discussed with Patient
--- NOTE | 2025-01-09 11:56 | W.PN.NEPH.PH ---
Today's Communication / Plan
-
Continue to hold diuretics
Assessment/Plan
-
84 y/o male past medical history of prior CVA, hypertension, hyperlipidemia, CKD IV, chronic anemia and insomnia who presents with right hip pain. Found to have a hip fracture
Impression:
JOSE ANGEL
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
Hip fracture s/p repair 01/05
Chronic congestive heart failure
COPD
History of CVA
Anemia
History of gout
Plan:
Creatinine has gone up to 3.4 from baseline around 2.3. No obvious source. No drop in blood pressure or significant blood loss or anemia.
Suspect prerenal from diuretics
He is on a nasal cannula. Exam sounds more like a COPD with wheezing.
Creatinine has plateaued remains at 3.4.
His weights are stable. Up about 2 pounds since admission status post hip repair
A.m. labs
He is oliguric only 250 recorded over 24 hours. Uncertain to the accuracy but we will continue to monitor will eventually need to restart the diuretics
-
-
Date of Service: January 09, 2025
CC / HPI / ROS
-
Chief Complaint:
Hip fracture
History of Present Illness:
Acute on chronic kidney disease with a creatinine baseline of 2.3 up to 3.4 postoperatively.
Review of Systems:.
No chest pain. Remains on nasal cannula. Oliguric. Weight stable over the last 48 hours
Labs
-
Labs:
WBC 8.2 10^3/uL (4.8-10.8) 01/09/25 06:17
RBC 2.43 10^6/uL (4.70-6.10) L 01/09/25 06:17
Hgb 6.9 g/dL (13.0-18.0) L* 01/09/25 06:17
Hct 21.3 % (39.0-52.0) L 01/09/25 06:17
Plt Count 233 10^3/uL (130-400) 01/09/25 06:17
Sodium 139 mmol/L (135-145) 01/09/25 06:17
Potassium 4.4 mmol/L (3.5-5.1) 01/09/25 06:17
Chloride 101 mmol/L (98-107) 01/09/25 06:17
Carbon Dioxide 26 mmol/L (22-30) 01/09/25 06:17
BUN 99 mg/dl (9-20) H 01/09/25 06:17
Creatinine 3.4 mg/dL (0.7-1.3) H 01/09/25 06:17
eGFR 16.98 01/09/25 06:17
Glucose 116 mg/dl (70-99) H 01/09/25 06:17
Calcium 8.9 mg/dl (8.4-10.2) 01/09/25 06:17
Albumin 3.5 g/dl (3.5-5.0) 01/04/25 18:28
Physical Exam
-
Vital Signs:
Vital Signs
Temp Pulse Resp BP Pulse Ox
97.9 F 98 17 110/63 92
01/09/25 07:03 01/09/25 07:03 01/09/25 07:03 01/09/25 07:03 01/09/25 09:00
Cardiovascular:: Regular rate and rhythm
Respiratory:: Bilateral: CTA (decreased)
Lung Excursion:: Normal
Abdomen:: Nontender and Soft
Extremity Edema:: None: Bilateral:
Montes Catheter: No
[2025-01-09 13:47] VITALS: BP 146/75
[2025-01-09] MEDS: DUONEB 3 ML INH ×2 (13:51→19:21)
[2025-01-09 13:53] VITALS: BP 146/75
[2025-01-09 14:15] VITALS: BP 136/66
[2025-01-09 16:39] VITALS: BP 147/77
[2025-01-09] MEDS: MELATONIN 10 MG PO (20:51)
[2025-01-09] MEDS: DESYREL 50 MG PO (20:51)
[2025-01-09] MEDS: TYLENOL 650 MG PO (20:51)
[2025-01-09 22:50] VITALS: BP 145/70
[2025-01-10 05:22] VITALS: BMI 20.1
[2025-01-10] MEDS: TYLENOL 650 MG PO (06:13)
[2025-01-10] MEDS: ZYLOPRIM 100 MG PO (06:28)
[2025-01-10 07:00] VITALS: BP 146/82
[2025-01-10] MEDS: DUONEB 3 ML INH ×3 (07:56→19:58)
[2025-01-10] MEDS: ASPIRIN 325 MG PO (08:03)
[2025-01-10] MEDS: LIDOCAINE 4% PATCH 1 PATCH TOPICAL (08:03)
[2025-01-10] MEDS: DELTASONE 20 MG PO ×2 (08:03→14:09)
[2025-01-10] MEDS: ROXICODONE 10 MG PO (08:03)
[2025-01-10] MEDS: SENOKOT-S 1 TABLET PO ×2 (08:04→22:30)
[2025-01-10 08:47] LABS: % Basophils 0.2 % (0-2); % Eosinophils 0.4 % (0-6); % Immature Granulocytes 0.4 % (0-0.5); % Lymphocytes 8.6 % (20.5-51.1); % Monocytes 5.8 % (1.7-9.3); % Neutrophils 84.6 % (42.2-75.2); Absolute Lymphocytes 0.7 10^3/uL (1.2-3.4); Absolute Monocytes 0.5 10^3/uL (0.1-0.6); Hematocrit 25.3 % (39.0-52.0); Hemoglobin 8.7 g/dL (13.0-18.0); Mean Corp Hgb Conc. 34.4 g/dL (33.0-37.0); Mean Corpuscular Hgb 29.4 pg (27.0-31.0); Mean Corpuscular Volume 85.5 fL (80.0-94.0); Mean Platelet Volume 10.3 fL (7.4-10.4); Nucleated Red Blood Cells % 0 % (-); Platelet Count 254 10^3/uL (130-400); Red Blood Cell Count 2.96 10^6/uL (4.70-6.10); Red Cell Dist. Width 14.4 % (11.5-14.5); White Blood Cell Count 8.3 10^3/uL (4.8-10.8)
[2025-01-10 08:54] LABS: Blood Urea Nitrogen 108 mg/dl (9-20); Calcium 9.3 mg/dl (8.4-10.2); Carbon Dioxide 26 mmol/L (22-30); Chloride 99 mmol/L (98-107); Estimated Creatinine Clearance 15 ml/min; Glucose 100 mg/dl (70-99); Potassium 4.6 mmol/L (3.5-5.1); Sodium 139 mmol/L (135-145); eGFR 18.97
[2025-01-10 09:49] LABS: Hematocrit 26.8 % (39.0-52.0); Hemoglobin 8.8 g/dL (13.0-18.0); Mean Corp Hgb Conc. 32.8 g/dL (33.0-37.0); Mean Corpuscular Hgb 28.9 pg (27.0-31.0); Mean Corpuscular Volume 87.9 fL (80.0-94.0); Mean Platelet Volume 9.9 fL (7.4-10.4); Platelet Count 268 10^3/uL (130-400); Red Blood Cell Count 3.05 10^6/uL (4.70-6.10); Red Cell Dist. Width 14.5 % (11.5-14.5)
[2025-01-10 09:50] VITALS: BP 138/70; PULSE 96; O2SAT 100
[2025-01-10 10:31] VITALS: BP 138/70; PULSE 96; O2SAT 100
--- NOTE | 2025-01-10 11:14 | WOUNDNOTE ---
[facility] RN NOTE: Reviewed chart and met with patient. Patient sitting in chair with air cushion. Consult received for stage 1 from behind ears from oxygen tubing. Oxygen has since been discontinued and patient now on room air. The proximal ears
bilaterally are slightly red, no open areas noted. Patient denies discomfort. Vaseline applied. Sacrum and heel intact. Patient transfers to [facility] with walker and is on a [employer] Accumax. He is on a clear liquid diet. He has what appears to be
an open blister to his left leg. Minimal drainage noted. A new silicone foam applied. RN Farideh given update. Will sign off.
--- NOTE | 2025-01-10 11:45 | W.PN.NEPH.PH ---
Today's Communication / Plan
-
follow BMP
Assessment/Plan
-
84 y/o male past medical history of prior CVA, hypertension, hyperlipidemia, CKD IV, chronic anemia and insomnia who presents with right hip pain. Found to have a hip fracture
Impression:
JOSE ANGEL
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
Hip fracture s/p repair 4/2
Chronic congestive heart failure
COPD
History of CVA
Anemia
History of gout
Plan:
follow BMP
hold lasix still
pain management
-
-
Date of Service: January 10, 2025
CC / HPI / ROS
-
Chief Complaint:
Hip fracture
History of Present Illness:
Acute on chronic kidney disease
Hgb 8.8
JOSE ANGEL/Cr stable 3.1
BUN rising
BP stable
Review of Systems:.
No chest pain. Remains on nasal cannula. Oliguric. Weight stable over the last 48 hours
Labs
-
Labs:
WBC 10.0 10^3/uL (4.8-10.8) 01/10/25 09:25
RBC 3.05 10^6/uL (4.70-6.10) L 01/10/25 09:25
Hgb 8.8 g/dL (13.0-18.0) L 01/10/25 09:25
Hct 26.8 % (39.0-52.0) L 01/10/25 09:25
Plt Count 268 10^3/uL (130-400) 01/10/25 09:25
Sodium 139 mmol/L (135-145) 01/10/25 06:30
Potassium 4.6 mmol/L (3.5-5.1) 01/10/25 06:30
Chloride 99 mmol/L (98-107) 01/10/25 06:30
Carbon Dioxide 26 mmol/L (22-30) 01/10/25 06:30
BUN 108 mg/dl (9-20) H* 01/10/25 06:30
Creatinine 3.1 mg/dL (0.7-1.3) H 01/10/25 06:30
eGFR 18.97 01/10/25 06:30
Glucose 100 mg/dl (70-99) H 01/10/25 06:30
Calcium 9.3 mg/dl (8.4-10.2) 01/10/25 06:30
Albumin 3.5 g/dl (3.5-5.0) 01/04/25 18:28
Physical Exam
-
Vital Signs:
Vital Signs
Temp Pulse Resp BP Pulse Ox
97.6 F 90 18 146/82 92
01/10/25 07:00 01/10/25 07:52 01/10/25 07:52 01/10/25 07:00 01/10/25 08:00
Cardiovascular:: Regular rate and rhythm
Respiratory:: Bilateral: Coarse
Lung Excursion:: Normal
Abdomen:: Nontender and Soft
Bowel Sounds:: Normal
Extremity Edema:: None: Bilateral:
--- NOTE | 2025-01-10 13:48 | W.PN.HOSP.TC ---
Today's Communication/Plan
-
hold lasix
miralax, kub
prednisone increase
monitor cbc
Assessment / Plan
Assessment / Plan
#Acute on chronic Anemia
#Postoperative blood loss anemia
-Received 1u withrobust response - suspect stabilization
-As of this morning hemoglobin 6.9; 1 unit PRBC ordered for transfusion
-Do not suspect he has any significant ongoing bleeding at this time
-Continue with full dose aspirin for now, consider stopping if blood counts continue to drop
-Monitor stools for signs of GI bleeding, monitor for other sources of bleeding
-Continue to trend CBC, hemoglobin goal >7
#JOSE ANGEL on CKD stage IV
-Question prerenal state versus obstructive uropathy postsurgically
-Creatinine baseline near 2.2;
-hold diuretics
-Monitor Scr
-avoid nephrotoxins such as NSAIDs and IV iodinated contrast
#Acute hypoxemic respiratory failure
#Chronic HFpEF
-Suspect his hypoxemia here is mostly related to deconditioning
-Following procedure has required up to 5 L oxygen; was on IV fluids and Lasix was held
-weaned off RA
-F/u possible chronic interstitial disease outpt
-Monitor Daily Weights, I's and O's
-Trend BMP
#Gout flare
-Presumed diagnosis with right great toe pain consistent with previous flares
-Due to his renal function cannot use NSAIDs or colchicine
-Started on prednisone 20 mg daily, continue with as needed Tylenol
-Monitor clinically, plan for 5-days of steroid for now (last day 01/12)
#Abdominal distention
-probable ileus
-suppository
-Miralax
-F/u Obstructive series
#Right Hip Fracture
-Orthopedics on board
-Status post right hip hemiarthroplasty on 01/05
-Currently weightbearing as tolerated, started on aspirin DVT prophylaxis
-Continue Dilaudid prn pain control, increased dose to 0.5 mg PRN
-Will need outpatient follow-up with orthopedist in 2 weeks
-Trend CBC
-posterior Hip precautions x6 weeks
#Venous insufficiency ulcers
-Has ulcers on lower extremities related to chronic edema from HFpEF and CVI
-Has significant pain in ulcers to LLE, no signs of superimposed infection
-Will resume Lasix 40 mg twice daily on 01/07
-Ordered topical lidocaine
-warm, pulses present
#Essential Hypertension
-Continue amlodipine with hold parameters
#Diffusely increased interstitial opacities with unchanged right apical pleural parenchymal thickening/scarring.
-f/u outpatient
#COPD
-no acute exacerbation
-Continue DuoNeb TID
#Insomnia
-Continue melatonin and trazodone
#Hx CVA with Residual Right-Sided Symptoms
-Continue aspirin; not on statin
#Hx Bladder Cancer s/p TURBT
-Mild diffuse thickening and trabeculation of the urinary bladder wall. Diagnostic possibilities are (1) chronic urinary bladder outlet obstruction or (2) cystitis.
-No urinary symptoms- favor obstruction in setting of TURBT; urinating well
DVT proph: SCDs, full dose aspirin
Diet: Regular
Code Status: DNR
Anticipated Discharge: Within 24 hours
Subjective/Interval History
-
Date of Service: January 10, 2025
foot tenderness, otherwise no acute events
Objective Data
-
Labs:
Laboratory Results
01/10/25 01/10/25
06:30 09:25
WBC 8.3 10.0
Hgb 8.7 L D 8.8 L
Hct 25.3 L 26.8 L
Plt Count 254 268
Sodium 139
Potassium 4.6
Chloride 99
Carbon Dioxide 26
BUN 108 H*
Creatinine 3.1 H
Glucose 100 H
Calcium 9.3
Vital Signs:
Vital Signs
Temp Pulse Resp BP Pulse Ox
97.6 F 90 18 146/82 92
01/10/25 07:00 01/10/25 07:52 01/10/25 07:52 01/10/25 07:00 01/10/25 08:00
I&O
01/09/25 01/10/25 01/11/25
06:59 06:59 06:59
Intake Total 500 / 500 790 / 790 240 / 240
Output Total 200 / 200 675 / 675 100 / 100
Balance 300 / 300 115 / 115 140 / 140
Review of Systems
-
History Source: Patient
All other systems: Not reviewed unless documented
Physical Exam
-
General: Well Developed, No Apparent Distress, Comfortable and Other (Frail)
HEENT: Normocephalic, Atraumatic, Moist Mucous Membranes, Anicteric and Oxygen
Respiratory: Crackles and Non Labored Respirations; Negative Accessory Resp Muscle Use
Cardiac: Regular Rhythm and S1/S2; Negative Murmur, Rub, JVD or Gallop
GI: Soft, Nontender, Nondistended and Normal Bowel Sounds
Musculoskeletal: No Clubbing, No Cyanosis and No Edema
Skin: Warm, Dry and Normal Turgor; Negative Rash
Neuro: AO x 3 and Nonfocal/Grossly Intact; Negative Tremors
Psych: Calm
Data Reviewed
-
Ultrasound: Report Reviewed by me
Labs: Labs Reviewed by me and Discussed with Patient
[2025-01-10] MEDS: MIRALAX 17 GRAMS PO (14:09)
--- NOTE | 2025-01-10 14:38 | CM ---
Chart reviewed
New JOSE ANGEL - Neph following
For SNF - accepted at [facility] - will require auth
Plan - anticipate SNF when auth obtained and medically stable
[2025-01-10 15:02] VITALS: BMI 20.1
[2025-01-10 15:30] VITALS: BP 112/80
[2025-01-10] MEDS: ROXICODONE PO (22:30)
[2025-01-10] MEDS: MELATONIN 10 MG PO (22:30)
[2025-01-10] MEDS: DESYREL 50 MG PO (22:30)
[2025-01-10] MEDS: TYLENOL PO (22:31)
[2025-01-10 23:50] VITALS: BP 160/78
[2025-01-11 04:46] VITALS: BP 148/82
--- NOTE | 2025-01-11 05:42 | PTCARENOTE ---
Pt. c/o feeling the urge to void frequently but occasionally being unable to void or getting the urge to void and the feeling will quickly go away. Pt. able to void 100ml and bladder scanned for 248ml after. Urinalysis ordered by overnight [facility] but
unable to get a clean catch specimen and pt. adverse to being straight cathed at this time.
[2025-01-11] MEDS: DUONEB 3 ML INH ×2 (07:18→19:14)
[2025-01-11 07:36] VITALS: BP 142/70
[2025-01-11 07:44] LABS: Hematocrit 25.9 % (39.0-52.0); Hemoglobin 8.9 g/dL (13.0-18.0); Mean Corp Hgb Conc. 34.4 g/dL (33.0-37.0); Mean Corpuscular Hgb 28.9 pg (27.0-31.0); Mean Corpuscular Volume 84.1 fL (80.0-94.0); Mean Platelet Volume 9.9 fL (7.4-10.4); Platelet Count 254 10^3/uL (130-400); Red Blood Cell Count 3.08 10^6/uL (4.70-6.10); Red Cell Dist. Width 14.6 % (11.5-14.5); White Blood Cell Count 7.2 10^3/uL (4.8-10.8)
[2025-01-11 08:04] LABS: Blood Urea Nitrogen 109 mg/dl (9-20); Calcium 9.4 mg/dl (8.4-10.2); Carbon Dioxide 26 mmol/L (22-30); Chloride 99 mmol/L (98-107); Estimated Creatinine Clearance 16 ml/min; Glucose 121 mg/dl (70-99); Potassium 4.8 mmol/L (3.5-5.1); Sodium 136 mmol/L (135-145); eGFR 21.44
[2025-01-11] MEDS: ASPIRIN 325 MG PO (08:32)
[2025-01-11] MEDS: MIRALAX 17 GRAMS PO (08:33)
[2025-01-11] MEDS: DELTASONE 40 MG PO (08:33)
[2025-01-11] MEDS: LIDOCAINE 4% PATCH 1 PATCH TOPICAL (08:33)
[2025-01-11] MEDS: SENOKOT-S 1 TABLET PO ×2 (08:33→21:43)
[2025-01-11] MEDS: ZYLOPRIM 100 MG PO (08:34)
[2025-01-11] MEDS: ROXICODONE 5 MG PO (08:38)
--- NOTE | 2025-01-11 09:58 | W.PN.NEPH.PH ---
Today's Communication / Plan
-
follow BMP
Assessment/Plan
-
84 y/o male past medical history of prior CVA, hypertension, hyperlipidemia, CKD IV, chronic anemia and insomnia who presents with right hip pain. Found to have a hip fracture
Impression:
JOSE ANGEL
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
Hip fracture s/p repair 4/2
Chronic congestive heart failure
COPD
History of CVA
Anemia
History of gout
Plan:
follow BMP
hold lasix still, not overloaded
pain management
-
-
Date of Service: January 11, 2025
CC / HPI / ROS
-
Chief Complaint:
Hip fracture
History of Present Illness:
Acute on chronic kidney disease
Hgb 8.9
JOSE ANGEL/Cr down to 2.8
BUN stable 109
BP stable
Review of Systems:.
No chest pain. Remains on nasal cannula.
weights stable
Labs
-
Labs:
WBC 7.2 10^3/uL (4.8-10.8) 01/11/25 06:22
RBC 3.08 10^6/uL (4.70-6.10) L 01/11/25 06:22
Hgb 8.9 g/dL (13.0-18.0) L 01/11/25 06:22
Hct 25.9 % (39.0-52.0) L 01/11/25 06:22
Plt Count 254 10^3/uL (130-400) 01/11/25 06:22
Sodium 136 mmol/L (135-145) 01/11/25 06:22
Potassium 4.8 mmol/L (3.5-5.1) 01/11/25 06:22
Chloride 99 mmol/L (98-107) 01/11/25 06:22
Carbon Dioxide 26 mmol/L (22-30) 01/11/25 06:22
BUN 109 mg/dl (9-20) H* 01/11/25 06:22
Creatinine 2.8 mg/dL (0.7-1.3) H 01/11/25 06:22
eGFR 21.44 01/11/25 06:22
Glucose 121 mg/dl (70-99) H 01/11/25 06:22
Calcium 9.4 mg/dl (8.4-10.2) 01/11/25 06:22
Albumin 3.5 g/dl (3.5-5.0) 01/04/25 18:28
Physical Exam
-
Vital Signs:
Vital Signs
Temp Pulse Resp BP Pulse Ox
97.7 F 91 18 142/70 92
01/11/25 07:36 01/11/25 07:36 01/11/25 07:36 01/11/25 07:36 01/11/25 07:36
Cardiovascular:: Regular rate and rhythm
Respiratory:: Bilateral: Coarse
Lung Excursion:: Normal
Abdomen:: Nontender and Soft
Bowel Sounds:: Normal
Extremity Edema:: None: Bilateral:
[2025-01-11] MEDS: DUONEB INH (11:50)
--- NOTE | 2025-01-11 11:59 | CM ---
Chart reviewed. Spoke with pts daughter Rina
Cont to follow labs/ JOSE ANGEL per physician
Noah at [facility] updated, updates sent in Care Port
Updated pts daughter Rina - aware of plan
Will need auth
Plan - transfer to [facility] when auth obtained and medically ready for d/c
--- NOTE | 2025-01-11 12:03 | CM ---
Pt for discharge today pend PT/OT eval
Updates sent in Care Port to [facility]
Jess and Noah at [facility] aware of plan - updates provided
Spoke with pt - eager to return to [place]
Plan - anticipate transfer to [facility] pending PT/OT evals
R - [phone]
- [phone]
--- NOTE | 2025-01-11 13:00 | W.PN.HOSP.TC ---
Today's Communication/Plan
-
prednisone
monitor Scr off diuretics
Assessment / Plan
Assessment / Plan
#Acute on chronic Anemia
#Postoperative blood loss anemia
-Received 1u withrobust response - suspect stabilization
-As of this morning hemoglobin 6.9; 1 unit PRBC ordered for transfusion
-Do not suspect he has any significant ongoing bleeding at this time
-Continue with full dose aspirin for now, consider stopping if blood counts continue to drop
-Monitor stools for signs of GI bleeding, monitor for other sources of bleeding
-Continue to trend CBC, hemoglobin goal >7
#JOSE ANGEL on CKD stage IV
-Question prerenal state versus obstructive uropathy postsurgically
-Creatinine baseline near 2.2;
-hold diuretics
-Monitor Scr
-avoid nephrotoxins such as NSAIDs and IV iodinated contrast
#Acute hypoxemic respiratory failure
#Chronic HFpEF
-Suspect his hypoxemia here is mostly related to deconditioning
-Following procedure has required up to 5 L oxygen; was on IV fluids and Lasix was held
-weaned off RA
-F/u possible chronic interstitial disease outpt
-Monitor Daily Weights, I's and O's
-Trend BMP
#Gout flare
-Presumed diagnosis with right great toe pain consistent with previous flares
-Due to his renal function cannot use NSAIDs or colchicine
-increased to 40mg pred - improved- will cont for now
#Abdominal distention
-constipation
-suppository
-Miralax
-F/u Obstructive series - improved
#Right Hip Fracture
-Orthopedics on board
-Status post right hip hemiarthroplasty on 01/05
-Currently weightbearing as tolerated, started on aspirin DVT prophylaxis
-Continue Dilaudid prn pain control, increased dose to 0.5 mg PRN
-Will need outpatient follow-up with orthopedist in 2 weeks
-Trend CBC
-posterior Hip precautions x6 weeks
#Venous insufficiency ulcers
-Has ulcers on lower extremities related to chronic edema from HFpEF and CVI
-Has significant pain in ulcers to LLE, no signs of superimposed infection
-Will resume Lasix 40 mg twice daily on 01/07
-Ordered topical lidocaine
-warm, pulses present
#Essential Hypertension
-Continue amlodipine with hold parameters
#Diffusely increased interstitial opacities with unchanged right apical pleural parenchymal thickening/scarring.
-f/u outpatient
#COPD
-no acute exacerbation
-Continue DuoNeb TID
#Insomnia
-Continue melatonin and trazodone
#Hx CVA with Residual Right-Sided Symptoms
-Continue aspirin; not on statin
#Hx Bladder Cancer s/p TURBT
-Mild diffuse thickening and trabeculation of the urinary bladder wall. Diagnostic possibilities are (1) chronic urinary bladder outlet obstruction or (2) cystitis.
-No urinary symptoms- favor obstruction in setting of TURBT; urinating well
DVT proph: SCDs, full dose aspirin
Diet: Regular
Code Status: DNR
Anticipated Discharge: 24 - 48 hours
Subjective/Interval History
-
Date of Service: January 11, 2025
No acute events, lower extremity tenderness much improved
Objective Data
-
Labs:
Laboratory Results
01/11/25
06:22
WBC 7.2
Hgb 8.9 L
Hct 25.9 L
Plt Count 254
Sodium 136
Potassium 4.8
Chloride 99
Carbon Dioxide 26
BUN 109 H*
Creatinine 2.8 H
Glucose 121 H
Calcium 9.4
Vital Signs:
Vital Signs
Temp Pulse Resp BP Pulse Ox
97.7 F 91 18 142/70 92
01/11/25 07:36 01/11/25 07:36 01/11/25 07:36 01/11/25 07:36 01/11/25 07:36
I&O
01/10/25 01/11/25 01/12/25
06:59 06:59 06:59
Intake Total 790 / 790 1120 / 1120 240 / 240
Output Total 675 / 675 500 / 500 200 / 200
Balance 115 / 115 620 / 620 40 / 40
Review of Systems
-
History Source: Patient
All other systems: Not reviewed unless documented
Physical Exam
-
General: Well Developed, No Apparent Distress, Comfortable and Other (Frail)
HEENT: Normocephalic, Atraumatic, Moist Mucous Membranes, Anicteric and Oxygen
Respiratory: Crackles and Non Labored Respirations; Negative Accessory Resp Muscle Use
Cardiac: Regular Rhythm and S1/S2; Negative Murmur, Rub, JVD or Gallop
GI: Soft, Nontender, Nondistended and Normal Bowel Sounds
Musculoskeletal: No Clubbing, No Cyanosis and No Edema
Skin: Warm, Dry and Normal Turgor; Negative Rash
Neuro: AO x 3 and Nonfocal/Grossly Intact; Negative Tremors
Psych: Calm
Data Reviewed
-
Ultrasound: Report Reviewed by me
Labs: Labs Reviewed by me and Discussed with Patient
--- NOTE | 2025-01-11 13:55 | PN.CDI ---
CDI
- -
CDI:
Physician Documentation Request
Admit Date: 01/04/25 21:05
Dear Doctor Filipe,
Please review the following and provide your response in the progress notes.
Clinical Indicators:
- 01/11 PN 'JOSE ANGEL on CKD stage IV'
- 01/11 Nephrology 'JOSE ANGEL...CKD 3b (2.2)'
Laboratory Tests
01/04/25 01/06/25 01/07/25
18:28 06:29 06:07
Creatinine 2.2 H 2.3 H 2.9 H
eGFR 28.63 27.15 20.55
01/08/25 01/10/25 01/11/25
06:58 06:30 06:22
Creatinine 3.4 H 3.1 H 2.8 H
eGFR 16.98 18.97 21.44
Please clarify which of the following accurately represents the patient's renal status:
JOSE ANGEL on CKD 3b
JOSE ANGEL on CKD IV
Other (please specify)
Stages of Chronic Kidney Disease*
Level Description GFR
G1 Normal or High >90
G2 Mildly decreased 60-89
G3a Mildly to moderately decreased 45-59
G3b Moderately to severely decreased 30-44
G4 Severely decreased 15-29
G5 Kidney failure <15
Use of terms such as suspected, likely, concern for, or probable (associated with a specific diagnosis that is being evaluated, monitored, or treated as if it exists) are acceptable and can be coded in the inpatient setting, when documented at the
time of discharge.
Thank you,
Vj Rivera RN
CDI Specialist
Please use your independent medical judgment in providing your response.
*Source: Kidney Disease: Improving Global Outcomes (KDIGO) 2012
--- NOTE | 2025-01-11 14:08 | PN.CDI ---
CDI
- -
CDI:
Physician Documentation Request
Admit Date: 01/04/25 21:05
Dear Doctor Filipe,
Please review the following and provide your response in the progress notes.
Clinical Indicators:
- 01/10 Wound note indicates Stage 1 bilateral ear pressure injuries
Physician documentation of the type and location of wounds is required for compliant documentation. Based on the above clinical findings and your assessment, please provide the following in your progress note:
1. Location of the ulcer/wound, including laterality.
2. Type (etiology) of ulcer/wound:
- Diabetic ulcer
- Traumatic wound
- Pressure (decubitus) ulcer
- Other
Use of terms such as suspected, likely, concern for, or probable (associated with a specific diagnosis that is being evaluated, monitored, or treated as if it exists) are acceptable and can be coded in the inpatient setting, when documented at the
time of discharge.
Thank you,
Vj Rivera RN
CDI Specialist
Please use your independent medical judgment in providing your response.
*Source: National Pressure Ulcer Advisory Panel (NPUAP)
[2025-01-11 15:40] VITALS: BP 125/67
[2025-01-11 15:57] VITALS: BP 125/65; PULSE 97
[2025-01-11] MEDS: DESYREL 50 MG PO (21:43)
[2025-01-11] MEDS: MELATONIN 10 MG PO (21:43)
[2025-01-11 22:33] LABS: Urine Albumin 1+ (Neg - Trace); Urine Bilirubin Negative (Negative); Urine Character Clear (Clear); Urine Color Yellow; Urine Glucose Negative (Negative); Urine Ketone Negative (Negative); Urine Leukocyte Negative (Negative); Urine Nitrite Negative (Negative); Urine Occult Blood Negative (Negative); Urine Specific Gravity 1.015 (<1.030); Urine Urobilinogen Negative (Neg - 1+)
[2025-01-11 23:03] LABS: Urine Bacteria Moderate (Negative); Urine Red Blood Cell 0-2 /HPF (0-2); Urine Squamous Cell 0-2 /LPF (Few)
[2025-01-11 23:05] VITALS: BP 135/69
[2025-01-12 06:00] VITALS: BMI 20.2
[2025-01-12 07:05] VITALS: BP 143/71
[2025-01-12] MEDS: DUONEB 3 ML INH ×3 (07:10→19:19)
[2025-01-12 07:38] LABS: Hematocrit 25.2 % (39.0-52.0); Hemoglobin 8.4 g/dL (13.0-18.0); Mean Corp Hgb Conc. 33.3 g/dL (33.0-37.0); Mean Corpuscular Hgb 29.1 pg (27.0-31.0); Mean Corpuscular Volume 87.2 fL (80.0-94.0); Mean Platelet Volume 10.3 fL (7.4-10.4); Platelet Count 263 10^3/uL (130-400); Red Blood Cell Count 2.89 10^6/uL (4.70-6.10); Red Cell Dist. Width 14.6 % (11.5-14.5)
[2025-01-12 07:45] LABS: Blood Urea Nitrogen 104 mg/dl (9-20); Calcium 9.5 mg/dl (8.4-10.2); Carbon Dioxide 27 mmol/L (22-30); Chloride 102 mmol/L (98-107); Estimated Creatinine Clearance 18 ml/min; Glucose 107 mg/dl (70-99); Potassium 5.1 mmol/L (3.5-5.1); Sodium 138 mmol/L (135-145); eGFR 23.43
[2025-01-12] MEDS: ROXICODONE 5 MG PO (08:01)
[2025-01-12] MEDS: ZYLOPRIM 100 MG PO (08:01)
[2025-01-12] MEDS: LIDOCAINE 4% PATCH 1 PATCH TOPICAL (08:01)
[2025-01-12] MEDS: DELTASONE 40 MG PO (08:01)
[2025-01-12] MEDS: MIRALAX 17 GRAMS PO (08:01)
[2025-01-12] MEDS: ASPIRIN 325 MG PO (08:01)
[2025-01-12] MEDS: SENOKOT-S 1 TABLET PO ×2 (08:01→22:00)
[2025-01-12 09:30] VITALS: BP 129/96; PULSE 89; O2SAT 91
[2025-01-12 10:23] VITALS: BP 129/96; PULSE 89; O2SAT 90
--- NOTE | 2025-01-12 12:10 | W.PN.HOSP.TC ---
Today's Communication/Plan
-
monitor renal function
Monitor Hgb
Suppository, enema if needed
Assessment / Plan
Assessment / Plan
#Acute on chronic Anemia
#Postoperative blood loss anemia
-Received 1u withrobust response - suspect stabilization
-As of this morning hemoglobin 6.9; 1 unit PRBC ordered for transfusion
-Do not suspect he has any significant ongoing bleeding at this time
-Continue with full dose aspirin for now, consider stopping if blood counts continue to drop
-Monitor stools for signs of GI bleeding, monitor for other sources of bleeding
-Continue to trend CBC, hemoglobin goal >7
#JOSE ANGEL on CKD stage IV
-Question prerenal state versus obstructive uropathy postsurgically
-Creatinine baseline near 2.2;
-hold diuretics
-Monitor Scr
-avoid nephrotoxins such as NSAIDs and IV iodinated contrast
#Acute hypoxemic respiratory failure
#Chronic HFpEF
-Suspect his hypoxemia here is mostly related to deconditioning
-Following procedure has required up to 5 L oxygen; was on IV fluids and Lasix was held
-weaned off RA
-F/u possible chronic interstitial disease outpt
-Monitor Daily Weights, I's and O's
-Trend BMP
#Gout flare
-Presumed diagnosis with right great toe pain consistent with previous flares
-Due to his renal function cannot use NSAIDs or colchicine
-increased to 40mg pred - improved- will cont for now (Day 12/06)
#Abdominal distention
-constipation
-suppository today, enema if no BM today
-Miralax
-F/u Obstructive series - improved
#Right Hip Fracture
-Orthopedics on board
-Status post right hip hemiarthroplasty on 01/05
-Currently weightbearing as tolerated, started on aspirin DVT prophylaxis
-Continue Dilaudid prn pain control, increased dose to 0.5 mg PRN
-Will need outpatient follow-up with orthopedist in 2 weeks
-Trend CBC
-posterior Hip precautions x6 weeks
#Venous insufficiency ulcers
-Has ulcers on lower extremities related to chronic edema from HFpEF and CVI
-Has significant pain in ulcers to LLE, no signs of superimposed infection
-Resumed Lasix 40 mg twice daily on 01/07
-Ordered topical lidocaine
-warm, pulses present
#Essential Hypertension
-Continue amlodipine with hold parameters
#Diffusely increased interstitial opacities with unchanged right apical pleural parenchymal thickening/scarring.
-f/u outpatient
#COPD
-no acute exacerbation
-Continue DuoNeb TID
#Insomnia
-Continue melatonin and trazodone
#Hx CVA with Residual Right-Sided Symptoms
-Continue aspirin; not on statin
#Hx Bladder Cancer s/p TURBT
-Mild diffuse thickening and trabeculation of the urinary bladder wall. Diagnostic possibilities are (1) chronic urinary bladder outlet obstruction or (2) cystitis.
-No urinary symptoms- favor obstruction in setting of TURBT; urinating well
DVT proph: SCDs, full dose aspirin
Diet: Regular
Code Status: DNR
Anticipated Discharge: Within 24 hours
Subjective/Interval History
-
Date of Service: January 12, 2025
sitting in chair, comfortable
Objective Data
-
Labs:
Laboratory Results
01/12/25
06:36
WBC 8.0
Hgb 8.4 L
Hct 25.2 L
Plt Count 263
Sodium 138
Potassium 5.1
Chloride 102
Carbon Dioxide 27
BUN 104 H*
Creatinine 2.6 H
Glucose 107 H
Calcium 9.5
Vital Signs:
Vital Signs
Temp Pulse Resp BP Pulse Ox
98.1 F 68 16 143/71 92
01/12/25 07:05 01/12/25 07:11 01/12/25 07:11 01/12/25 07:05 01/12/25 08:15
I&O
01/11/25 01/12/25 01/13/25
06:59 06:59 06:59
Intake Total 1120 / 1120 720 / 720 720 / 720
Output Total 500 / 500 400 / 400
Balance 620 / 620 320 / 320 720 / 720
Review of Systems
-
History Source: Patient
All other systems: Not reviewed unless documented
Data Reviewed
-
Ultrasound: Report Reviewed by me
Labs: Labs Reviewed by me and Discussed with Patient
--- NOTE | 2025-01-12 12:21 | CM ---
CM was updated that patient will possibly be ready for discharge tomorrow. CM updated [place] [facility].
[2025-01-12 15:01] VITALS: BP 134/72
--- NOTE | 2025-01-12 15:40 | CM ---
CM was update by Jess at [facility] that they will not have a bed available for patient until 01/14.
[facility]
Dr. Joe Centeno
[phone]
--- NOTE | 2025-01-12 15:47 | W.PN.NEPH.PH ---
Today's Communication / Plan
-
follow labs
Assessment/Plan
-
84 y/o male past medical history of prior CVA, hypertension, hyperlipidemia, CKD IV, chronic anemia and insomnia who presents with right hip pain. Found to have a hip fracture
Impression:
JOSE ANGEL
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
Hip fracture s/p repair 4/2
Chronic congestive heart failure
COPD
History of CVA
Anemia
History of gout
Plan:
cr improving to 2.6, azotemia slow to improve with steroids
follow BMP and h/h
hold lasix still, not overloaded
pain management
d/w pt
-
-
Date of Service: January 12, 2025
CC / HPI / ROS
-
Chief Complaint:
Hip fracture
History of Present Illness:
Acute on chronic kidney disease
Hgb down 8.4
JOSE ANGEL/Cr down to 2.6
BUN stable 104
BP stable
Review of Systems:.
No chest pain. on RA
weights stable
no n/v
sob better since admit
Labs
-
Labs:
WBC 8.0 10^3/uL (4.8-10.8) 01/12/25 06:36
RBC 2.89 10^6/uL (4.70-6.10) L 01/12/25 06:36
Hgb 8.4 g/dL (13.0-18.0) L 01/12/25 06:36
Hct 25.2 % (39.0-52.0) L 01/12/25 06:36
Plt Count 263 10^3/uL (130-400) 01/12/25 06:36
Sodium 138 mmol/L (135-145) 01/12/25 06:36
Potassium 5.1 mmol/L (3.5-5.1) 01/12/25 06:36
Chloride 102 mmol/L (98-107) 01/12/25 06:36
Carbon Dioxide 27 mmol/L (22-30) 01/12/25 06:36
BUN 104 mg/dl (9-20) H* 01/12/25 06:36
Creatinine 2.6 mg/dL (0.7-1.3) H 01/12/25 06:36
eGFR 23.43 01/12/25 06:36
Glucose 107 mg/dl (70-99) H 01/12/25 06:36
Calcium 9.5 mg/dl (8.4-10.2) 01/12/25 06:36
Albumin 3.5 g/dl (3.5-5.0) 01/04/25 18:28
Physical Exam
-
Vital Signs:
Vital Signs
Temp Pulse Resp BP Pulse Ox
97.9 F 87 16 134/72 96
01/12/25 15:01 01/12/25 15:01 01/12/25 15:01 01/12/25 15:01 01/12/25 15:01
Cardiovascular:: Regular rate and rhythm
Respiratory:: Bilateral: Rhonchi (mild)
Lung Excursion:: Normal
Abdomen:: Nontender and Soft
Extremity Edema:: +1: Bilateral:
Montes Catheter: No
Other Findings::
hands-peripheral cyanosis reports chronic for 30yrs from COPD
[2025-01-12] MEDS: DULCOLAX 10 MG RECTAL (16:16)
[2025-01-12] MEDS: MELATONIN 10 MG PO (21:35)
[2025-01-12] MEDS: DESYREL 50 MG PO (21:35)
[2025-01-12] MEDS: ROXICODONE 10 MG PO (21:35)
[2025-01-12 23:32] VITALS: BP 134/72
[2025-01-13] MEDS: ROXICODONE 10 MG PO (02:17)
--- NOTE | 2025-01-13 05:00 | PTCARENOTE ---
Pt turned and repositioned [id number],refusing to extend right leg,pt keeps right leg in flexed position and adducts his entire leg,pt has been educated on importance of keeping his leg extended thoughout the night,he argues and will not cooperate.Pt
has been medicated to relieve his pain so we can help him,but he still refuses.
--- NOTE | 2025-01-13 06:30 | PTCARENOTE ---
pt was educated regarding hip precautions, pt refuses to straighten his knees and not turn his right hip inward. Pt has pillow placed however he c/o wanting it pulled out. Pt has poor safety awareness and refusing to follow directions to maintain
hip precautions, second nurse in to educate to reinforce his nurses directions and had the same aggressive, refusal to comply with education/precautions.
[2025-01-13] MEDS: DUONEB 3 ML INH ×3 (07:13→19:34)
[2025-01-13 07:19] LABS: Hematocrit 25.9 % (39.0-52.0); Hemoglobin 8.2 g/dL (13.0-18.0); Mean Corp Hgb Conc. 31.7 g/dL (33.0-37.0); Mean Corpuscular Hgb 28.2 pg (27.0-31.0); Mean Platelet Volume 10.2 fL (7.4-10.4); Platelet Count 264 10^3/uL (130-400); Red Blood Cell Count 2.91 10^6/uL (4.70-6.10); Red Cell Dist. Width 14.6 % (11.5-14.5); White Blood Cell Count 8.7 10^3/uL (4.8-10.8)
[2025-01-13 07:49] LABS: Blood Urea Nitrogen 97 mg/dl (9-20); Calcium 9.3 mg/dl (8.4-10.2); Carbon Dioxide 30 mmol/L (22-30); Chloride 101 mmol/L (98-107); Estimated Creatinine Clearance 18 ml/min; Glucose 89 mg/dl (70-99); Potassium 4.9 mmol/L (3.5-5.1); Sodium 139 mmol/L (135-145); eGFR 24.56
[2025-01-13 07:55] VITALS: BP 127/60
[2025-01-13] MEDS: LIDOCAINE 4% PATCH 1 PATCH TOPICAL (08:15)
[2025-01-13] MEDS: MIRALAX 17 GRAMS PO (08:15)
[2025-01-13] MEDS: ASPIRIN 325 MG PO (08:15)
[2025-01-13] MEDS: ZYLOPRIM 100 MG PO (08:15)
[2025-01-13] MEDS: SENOKOT-S 1 TABLET PO ×2 (08:15→19:57)
[2025-01-13] MEDS: DILAUDID 0.5 MG IV ×2 (08:17→14:16)
--- NOTE | 2025-01-13 10:58 | CM ---
Addendum entered by Kellen Montanez 01/13/25 15:46:
Called [employer] to obtain auth; spoke with Gomez
Clinicals reviewed
Auth approved Skilled level care - 01/14- 01/18; NRD 01/18 - call [phone]
Auth # [id number]
Ambulance auth - [id number] - valid 01/14-01/15
Jess at [facility] updated and given auth info
Plan - anticipate transfer to [facility] tomorrow
Original Note:
Chart reviewed
[facility] can accept tomorrow if medically stable
Will need auth
[facility]
Dr. Joe Centeno
[phone]
Updated PT/OT requested
Plan - [facility] when medically ready and auth obtained
--- NOTE | 2025-01-13 12:55 | W.PN.HOSP.TC ---
Today's Communication/Plan
-
dc ready
holding lasix - defer to nephrology
Assessment / Plan
Assessment / Plan
#Acute on chronic Anemia
#Postoperative blood loss anemia
-Received 1u withrobust response - suspect stabilization
-As of this morning hemoglobin 6.9; 1 unit PRBC ordered for transfusion
-Do not suspect he has any significant ongoing bleeding at this time
-Continue with full dose aspirin for now, consider stopping if blood counts continue to drop
-Monitor stools for signs of GI bleeding, monitor for other sources of bleeding
-Continue to trend CBC, hemoglobin goal >7
#JOSE ANGEL on CKD stage IV
-Question prerenal state versus obstructive uropathy postsurgically
-Creatinine baseline near 2.2;
-hold diuretics
-Monitor Scr
-avoid nephrotoxins such as NSAIDs and IV iodinated contrast
#Acute hypoxemic respiratory failure
#Chronic HFpEF
-Suspect his hypoxemia here is mostly related to deconditioning
-Following procedure has required up to 5 L oxygen; was on IV fluids and Lasix was held
-weaned off RA
-F/u possible chronic interstitial disease outpt
-Monitor Daily Weights, I's and O's
-Trend BMP
#Gout flare
-Presumed diagnosis with right great toe pain consistent with previous flares
-Due to his renal function cannot use NSAIDs or colchicine
-increased to 40mg pred - improved- will completed now (Day 12/06)
#Abdominal distention
-constipation
-suppository today, enema if no BM today
-Miralax
-F/u Obstructive series - improved
#Right Hip Fracture
-Orthopedics on board
-Status post right hip hemiarthroplasty on 01/05
-Currently weightbearing as tolerated, started on aspirin DVT prophylaxis
-Continue Dilaudid prn pain control, increased dose to 0.5 mg PRN
-Will need outpatient follow-up with orthopedist in 2 weeks
-Trend CBC
-posterior Hip precautions x6 weeks
#Venous insufficiency ulcers
-Has ulcers on lower extremities related to chronic edema from HFpEF and CVI
-Has significant pain in ulcers to LLE, no signs of superimposed infection
-holding lasix
-Ordered topical lidocaine
-warm, pulses present
#Essential Hypertension
-Continue amlodipine with hold parameters
#Diffusely increased interstitial opacities with unchanged right apical pleural parenchymal thickening/scarring.
-f/u outpatient
#COPD
-no acute exacerbation
-Continue DuoNeb TID
#Insomnia
-Continue melatonin and trazodone
#Hx CVA with Residual Right-Sided Symptoms
-Continue aspirin; not on statin
#Hx Bladder Cancer s/p TURBT
-Mild diffuse thickening and trabeculation of the urinary bladder wall. Diagnostic possibilities are (1) chronic urinary bladder outlet obstruction or (2) cystitis.
-No urinary symptoms- favor obstruction in setting of TURBT; urinating well
DVT proph: SCDs, full dose aspirin
Diet: Regular
Code Status: DNR
Anticipated Discharge: Within 24 hours
Subjective/Interval History
-
Date of Service: January 13, 2025
No acute events overnight
Objective Data
-
Labs:
Laboratory Results
01/13/25
05:24
WBC 8.7
Hgb 8.2 L
Hct 25.9 L
Plt Count 264
Sodium 139
Potassium 4.9
Chloride 101
Carbon Dioxide 30
BUN 97 H
Creatinine 2.5 H
Glucose 89
Calcium 9.3
Vital Signs:
Vital Signs
Temp Pulse Resp BP Pulse Ox
97.7 F 85 16 127/60 100
01/13/25 07:55 01/13/25 07:55 01/13/25 07:55 01/13/25 07:55 01/13/25 07:55
I&O
01/12/25 01/13/25 01/14/25
06:59 06:59 06:59
Intake Total 720 / 720 1140 / 1140 240 / 240
Output Total 400 / 400 750 / 750
Balance 320 / 320 390 / 390 240 / 240
Review of Systems
-
History Source: Patient
All other systems: Not reviewed unless documented
Physical Exam
-
General: Well Developed, No Apparent Distress, Comfortable and Other (Frail)
HEENT: Normocephalic, Atraumatic, Moist Mucous Membranes, Anicteric and Oxygen
Respiratory: Crackles and Non Labored Respirations; Negative Accessory Resp Muscle Use
Cardiac: Regular Rhythm and S1/S2; Negative Murmur, Rub, JVD or Gallop
GI: Soft, Nontender, Nondistended and Normal Bowel Sounds
Musculoskeletal: No Clubbing, No Cyanosis and No Edema
Skin: Warm, Dry and Normal Turgor; Negative Rash
Neuro: AO x 3 and Nonfocal/Grossly Intact; Negative Tremors
Psych: Calm
Data Reviewed
-
Ultrasound: Report Reviewed by me
Labs: Labs Reviewed by me and Discussed with Patient
--- NOTE | 2025-01-13 13:33 | W.PN.NEPH.PH ---
Today's Communication / Plan
-
d/c plan
resume lasix in next few days
Assessment/Plan
-
84 y/o male past medical history of prior CVA, hypertension, hyperlipidemia, CKD IV, chronic anemia and insomnia who presents with right hip pain. Found to have a hip fracture
Impression:
JOSE ANGEL
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
Hip fracture s/p repair 01/05
Chronic congestive heart failure
COPD
History of CVA
Anemia
History of gout
Plan:
cr improving to 2.5 close to baseline 2.2,
azotemia slow to improve now off steroids
hold lasix still, likely resume in next 1-2days or based on wt
pain management
d/w pt
d/c plan to rehab
-
-
Date of Service: January 13, 2025
CC / HPI / ROS
-
Chief Complaint:
Hip fracture
History of Present Illness:
Acute on chronic kidney disease
Hgb down 8.2
JOSE ANGEL/Cr down to 2.5
BUN down to 97
BP stable
Review of Systems:.
No chest pain. on RA
weights stable
no n/v
c/o leg pain
Labs
-
Labs:
WBC 8.7 10^3/uL (4.8-10.8) 01/13/25 05:24
RBC 2.91 10^6/uL (4.70-6.10) L 01/13/25 05:24
Hgb 8.2 g/dL (13.0-18.0) L 01/13/25 05:24
Hct 25.9 % (39.0-52.0) L 01/13/25 05:24
Plt Count 264 10^3/uL (130-400) 01/13/25 05:24
Sodium 139 mmol/L (135-145) 01/13/25 05:24
Potassium 4.9 mmol/L (3.5-5.1) 01/13/25 05:24
Chloride 101 mmol/L (98-107) 01/13/25 05:24
Carbon Dioxide 30 mmol/L (22-30) 01/13/25 05:24
BUN 97 mg/dl (9-20) H 01/13/25 05:24
Creatinine 2.5 mg/dL (0.7-1.3) H 01/13/25 05:24
eGFR 24.56 01/13/25 05:24
Glucose 89 mg/dl (70-99) 01/13/25 05:24
Calcium 9.3 mg/dl (8.4-10.2) 01/13/25 05:24
Albumin 3.5 g/dl (3.5-5.0) 01/04/25 18:28
Physical Exam
-
Vital Signs:
Vital Signs
Temp Pulse Resp BP Pulse Ox
97.7 F 85 16 127/60 100
01/13/25 07:55 01/13/25 07:55 01/13/25 07:55 01/13/25 07:55 01/13/25 07:55
Cardiovascular:: Regular rate and rhythm
Lung Excursion:: Normal (decrased bs)
Abdomen:: Nontender and Soft
Extremity Edema:: None: Bilateral: (trace)
Montes Catheter: No
[2025-01-13 14:59] VITALS: BP 130/70; PULSE 95; O2SAT 93
[2025-01-13 15:17] VITALS: BP 130/70; PULSE 95; O2SAT 93
[2025-01-13 15:25] VITALS: BP 118/67
[2025-01-13] MEDS: ROXICODONE 5 MG PO (19:58)
[2025-01-13] MEDS: DESYREL 50 MG PO (22:19)
[2025-01-13] MEDS: MELATONIN 10 MG PO (22:19)
[2025-01-13 23:24] VITALS: BP 133/63
[2025-01-14] MEDS: ROXICODONE 10 MG PO ×2 (03:14→10:56)
[2025-01-14 06:00] VITALS: BMI 20.1
[2025-01-14 07:10] VITALS: BP 154/82
[2025-01-14 07:37] LABS: Hematocrit 24.6 % (39.0-52.0); Mean Corp Hgb Conc. 32.5 g/dL (33.0-37.0); Mean Corpuscular Volume 89.1 fL (80.0-94.0); Mean Platelet Volume 10.5 fL (7.4-10.4); Platelet Count 250 10^3/uL (130-400); Red Blood Cell Count 2.76 10^6/uL (4.70-6.10); Red Cell Dist. Width 14.8 % (11.5-14.5); White Blood Cell Count 7.7 10^3/uL (4.8-10.8)
[2025-01-14 08:01] LABS: Blood Urea Nitrogen 91 mg/dl (9-20); Calcium 8.7 mg/dl (8.4-10.2); Carbon Dioxide 29 mmol/L (22-30); Chloride 102 mmol/L (98-107); Estimated Creatinine Clearance 19 ml/min; Glucose 86 mg/dl (70-99); Sodium 137 mmol/L (135-145); eGFR 25.63
[2025-01-14] MEDS: ASPIRIN 325 MG PO (08:17)
[2025-01-14] MEDS: ZYLOPRIM 100 MG PO (08:17)
[2025-01-14] MEDS: SENOKOT-S 1 TABLET PO (08:17)
[2025-01-14] MEDS: MIRALAX 17 GRAMS PO (08:17)
[2025-01-14] MEDS: LIDOCAINE 4% PATCH 1 PATCH TOPICAL (08:18)
[2025-01-14] MEDS: DUONEB 3 ML INH (08:25)
--- NOTE | 2025-01-14 10:13 | CM ---
Addendum entered by Kellen Montanez 01/14/25 13:08:
Transport at 2:15PM
Daughter Rina made aware
Noah at [facility] notified
Original Note:
Pt for discharge today
Accepted at [facility]; auth obtained - Jess given auth info yesterday
LM on daughter Eun's VM - updated pt for d/c today
Transport forms on chart
Plan - transfer to [facility]
R - [phone]
F - [phone]
--- NOTE | 2025-01-14 10:44 | W.PN.NEPH.PH ---
Today's Communication / Plan
-
lasix
Assessment/Plan
-
84 y/o male past medical history of prior CVA, hypertension, hyperlipidemia, CKD IV, chronic anemia and insomnia who presents with right hip pain. Found to have a hip fracture
Impression:
JOSE ANGEL
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
Hip fracture s/p repair 4/
Chronic congestive heart failure
COPD
History of CVA
Anemia
History of gout
Plan:
follow BMP weekly
restart lasix 40mg po MWF at time of dc. none today
pain management
d/w pt
d/c plan to rehab
-
-
Date of Service: January 14, 2025
CC / HPI / ROS
-
Chief Complaint:
Hip fracture
History of Present Illness:
Acute on chronic kidney disease
Hgb down 8.0
JOSE ANGEL/Cr down to 2.4
BUN down to 91
BP stable
Review of Systems:.
No chest pain. on RA
weights stable
no n/v
c/o migratory pains
Labs
-
Labs:
WBC 7.7 10^3/uL (4.8-10.8) 01/14/25 05:28
RBC 2.76 10^6/uL (4.70-6.10) L 01/14/25 05:28
Hgb 8.0 g/dL (13.0-18.0) L 01/14/25 05:28
Hct 24.6 % (39.0-52.0) L 01/14/25 05:28
Plt Count 250 10^3/uL (130-400) 01/14/25 05:28
Sodium 137 mmol/L (135-145) 01/14/25 05:28
Potassium 5.0 mmol/L (3.5-5.1) 01/14/25 05:28
Chloride 102 mmol/L (98-107) 01/14/25 05:28
Carbon Dioxide 29 mmol/L (22-30) 01/14/25 05:28
BUN 91 mg/dl (9-20) H 01/14/25 05:28
Creatinine 2.4 mg/dL (0.7-1.3) H 01/14/25 05:28
eGFR 25.63 01/14/25 05:28
Glucose 86 mg/dl (70-99) 01/14/25 05:28
Calcium 8.7 mg/dl (8.4-10.2) 01/14/25 05:28
Albumin 3.5 g/dl (3.5-5.0) 01/04/25 18:28
Physical Exam
-
Vital Signs:
Vital Signs
Temp Pulse Resp BP Pulse Ox
98.1 F 88 16 154/82 94
01/14/25 07:10 01/14/25 07:10 01/14/25 07:10 01/14/25 07:10 01/14/25 07:10
Cardiovascular:: Regular rate and rhythm
Respiratory:: Bilateral: Coarse
Lung Excursion:: Normal
Abdomen:: Nontender and Soft
Bowel Sounds:: Normal
Extremity Edema:: None: Bilateral:
--- NOTE | 2025-01-14 11:48 | W.PN.HOSP.TC ---
Addendum entered and electronically signed by Brendon Dent MD 01/14/25 17:14:
[id number]
Addendum entered and electronically signed by Brendon Dent MD 01/14/25 16:01:
Stage 1 bilateral ear pressure injuries
JOSE ANGEL on CKD 3b
Original Note:
Today's Communication/Plan
-
stat lasix MWF next friday
asa 325mg
f/u cbc and bmp closely
f/u ortho in 1 week, pcpc within 1 week,nephro outpatient
trial gabapentin for suspected peripheral neuropathy
Assessment / Plan
Assessment / Plan
#Acute on chronic Anemia
#Postoperative blood loss anemia
-Received 1u withrobust response - suspect stabilization
-As of this morning hemoglobin 6.9; 1 unit PRBC ordered for transfusion
-Do not suspect he has any significant ongoing bleeding at this time
-Continue with full dose aspirin for now, consider stopping if blood counts continue to drop
-Monitor stools for signs of GI bleeding, monitor for other sources of bleeding
-Continue to trend CBC, hemoglobin goal >7
#JOSE ANGEL on CKD stage IV
-Question prerenal state versus obstructive uropathy postsurgically
-Creatinine baseline near 2.2;
-hold diuretics; Resume MWF starting Wednesday 01/17; none today
-Monitor Scr
-avoid nephrotoxins such as NSAIDs and IV iodinated contrast
#Acute hypoxemic respiratory failure
#Chronic HFpEF
-Suspect his hypoxemia here is mostly related to deconditioning
-Following procedure has required up to 5 L oxygen; was on IV fluids and Lasix was held
-weaned off RA
-F/u possible chronic interstitial disease outpt
-Monitor Daily Weights, I's and O's
-Trend BMP
#Possible Gout flare v Peripheral Neuropathy
-start gabapentin
-increased to 40mg pred - improved- will completed now (Day 12/06)
-may f/u with uric acid and possible allopurinol initiation outpt
#Abdominal distention
-constipation
-BM regimen
-resolved
#Right Hip Fracture
-Orthopedics on board
-Status post right hip hemiarthroplasty on 01/05
-Currently weightbearing as tolerated, started on aspirin DVT prophylaxis
-Continue Dilaudid prn pain control, increased dose to 0.5 mg PRN
-Will need outpatient follow-up with orthopedist in 2 weeks
-Trend CBC
-posterior Hip precautions x6 weeks
#Venous insufficiency ulcers
-Has ulcers on lower extremities related to chronic edema from HFpEF and CVI
-Has significant pain in ulcers to LLE, no signs of superimposed infection
-holding lasix - see plan above
-Ordered topical lidocaine
-warm, pulses present
#Essential Hypertension
-Continue amlodipine with hold parameters
#Diffusely increased interstitial opacities with unchanged right apical pleural parenchymal thickening/scarring.
-f/u outpatient
#COPD
-no acute exacerbation
-Continue DuoNeb TID
#Insomnia
-Continue melatonin and trazodone
#Hx CVA with Residual Right-Sided Symptoms
-Continue aspirin; not on statin
#Hx Bladder Cancer s/p TURBT
-Mild diffuse thickening and trabeculation of the urinary bladder wall. Diagnostic possibilities are (1) chronic urinary bladder outlet obstruction or (2) cystitis.
-No urinary symptoms- favor obstruction in setting of TURBT; urinating well
DVT proph: SCDs, full dose aspirin
Diet: Regular
Code Status: DNR
More than 30 minutes spent in discharge including
Final examination of the patient
Summarizing hospital stay
Instructions for continuing care to all relevant caregivers
Preparation of discharge records, prescriptions, and referral forms
Total time spent (in minutes): 37
Anticipated Discharge: Today
Subjective/Interval History
-
Date of Service: January 14, 2025
pain sensitivity present, suspect peripheral neuropathy. pulses palpable
Objective Data
-
Labs:
Laboratory Results
01/14/25
05:28
WBC 7.7
Hgb 8.0 L
Hct 24.6 L
Plt Count 250
Sodium 137
Potassium 5.0
Chloride 102
Carbon Dioxide 29
BUN 91 H
Creatinine 2.4 H
Glucose 86
Calcium 8.7
Vital Signs:
Vital Signs
Temp Pulse Resp BP Pulse Ox
98.1 F 88 16 154/82 94
01/14/25 07:10 01/14/25 07:10 01/14/25 07:10 01/14/25 07:10 01/14/25 07:10
I&O
01/13/25 01/14/25 01/15/25
06:59 06:59 06:59
Intake Total 1140 / 1140 960 / 960
Output Total 750 / 750 600 / 600 200 / 200
Balance 390 / 390 360 / 360 -200 / -200
Review of Systems
-
History Source: Patient
All other systems: Not reviewed unless documented
Physical Exam
-
General: Well Developed, No Apparent Distress, Comfortable and Other (Frail)
HEENT: Normocephalic, Atraumatic, Moist Mucous Membranes, Anicteric and Oxygen
Respiratory: Crackles and Non Labored Respirations; Negative Accessory Resp Muscle Use
Cardiac: Regular Rhythm and S1/S2; Negative Murmur, Rub, JVD or Gallop
GI: Soft, Nontender, Nondistended and Normal Bowel Sounds
Musculoskeletal: No Clubbing, No Cyanosis and No Edema
Skin: Warm, Dry and Normal Turgor; Negative Rash
Neuro: AO x 3 and Nonfocal/Grossly Intact; Negative Tremors
Psych: Calm
--- NOTE | 2025-01-14 11:55 | W.DS.TRANS ---
DC Summary - [employer]
-
Discharge Instructions:
Discharge Diagnosis/Procedures JOSE ANGEL on CKD stage IV
Acute hypoxemic respiratory failure
Chronic HFpEF
Gout flare
Right Hip Fracture - Status post right hip
hemiarthroplasty on 01/05
Diet Low Cholesterol,Low Fat
Activity With Walker,As tolerated
Additional Activity posterior hip precautions x6 weeks
Driving Restrictions No driving
Bathing Restrictions OK to Shower
Blood Work cbc and cmp within 5-7 days
Instructions:
Stand-Alone Forms:
Changes to Home Medications: Yes
Discharge Medications:
DC Medications w/original date entered in [employer]
ipratropium 0.5 mg-albuterol 3 mg (2.5 mg base)/3 mL nebulization soln 3 ml inhalation R TID Lung/Breathing Issues 10/28/18
aspirin 81 mg chewable tablet 81 mg PO DAILY #0 tabs 03/24/23
melatonin 10 mg tablet 10 mg PO HS Supplement 01/04/25
trazodone 50 mg tablet 50 mg PO HS Sleep 01/04/25
aspirin 325 mg tablet 325 mg PO DAILY #0 tabs 01/14/25
bisacodyl 10 mg rectal suppository 10 mg GA DAILYPRN PRN constipation #0 ea 01/14/25
furosemide 40 mg tablet 40 mg PO MoWeFr@0800 #0 tabs 01/14/25
gabapentin 100 mg capsule 100 mg PO TID #0 caps 01/14/25
polyethylene glycol 3350 17 gram oral powder packet 17 g PO DAILY #0 ea 01/14/25
sennosides 8.6 mg-docusate sodium 50 mg tablet 1 tab PO BID #0 tabs 01/14/25
Home Medication Changes
furosemide 40 mg tablet 40 mg PO MoWeFr@0800 #0 tabs 01/14/25
gabapentin 100 mg capsule 100 mg PO TID #0 caps 01/14/25
polyethylene glycol 3350 17 gram oral powder packet 17 g PO DAILY #0 ea 01/14/25
sennosides 8.6 mg-docusate sodium 50 mg tablet 1 tab PO BID #0 tabs 01/14/25
Pending Results: No
[2025-01-14] MEDS: DUONEB INH (12:30)
[2025-01-14] MEDS: NEURONTIN 100 MG PO (12:31)
[2025-01-14 12:50] VITALS: BP 134/70
== END 2025-01-14 14:34 | DRG 521 ==
LOC: 2 SOUTH 21:05
PROVIDERS: Internal Medicine; Nurse Practitioner; Nurse Practitioner Family; Physician Assistant Medical; Specialist; ADMITTING PHYSICIAN Internal Medicine; ATTENDING PHYSICIAN Internal Medicine; CONSULT PHYSICIAN Internal Medicine Nephrology; CONSULT PHYSICIAN Orthopaedic Surgery; EMERGENCY PHYSICIAN Emergency Medicine; FAMILY PHYSICIAN Physician Assistant Medical; OTHER PHYSICIAN Internal Medicine Cardiovascular Disease
PROC: 0SRR0JZ Replacement of Right Hip Joint, Femoral Surface with Synthetic Substitute, Open Approach (ICD-10-PCS; 2025-01-05)
PROC: 30233N1 Transfusion of Nonautologous Red Blood Cells into Peripheral Vein, Percutaneous Approach (ICD-10-PCS; 2025-01-09)
DX: S72.001A Fracture of unspecified part of neck of right femur, initial encounter for closed fracture (principal); J96.01 Acute respiratory failure with hypoxia; I50.32 Chronic diastolic (congestive) heart failure; N18.4 Chronic kidney disease, stage 4 (severe); I13.0 Hypertensive heart and chronic kidney disease with heart failure and stage 1 through stage 4 chronic kidney disease, or unspecified chronic kidney disease; I69.351 Hemiplegia and hemiparesis following cerebral infarction affecting right dominant side; L97.329 Non-pressure chronic ulcer of left ankle with unspecified severity; D62 Acute posthemorrhagic anemia; N17.9 Acute kidney failure, unspecified; R51.9 Headache, unspecified; D50.8 Other iron deficiency anemias; I73.9 Peripheral vascular disease, unspecified; J43.9 Emphysema, unspecified; M10.9 Gout, unspecified; D63.8 Anemia in other chronic diseases classified elsewhere; G47.00 Insomnia, unspecified; E78.00 Pure hypercholesterolemia, unspecified; L89.811 Pressure ulcer of head, stage 1; I35.0 Nonrheumatic aortic (valve) stenosis; R14.0 Abdominal distension (gaseous); K59.00 Constipation, unspecified; I87.2 Venous insufficiency (chronic) (peripheral); W01.10XA Fall on same level from slipping, tripping and stumbling with subsequent striking against unspecified object, initial encounter; Y93.9 Activity, unspecified; Y92.002 Bathroom of unspecified non-institutional (private) residence as the place of occurrence of the external cause; Z66 Do not resuscitate; Z87.01 Personal history of pneumonia (recurrent); Z87.891 Personal history of nicotine dependence; Z85.51 Personal history of malignant neoplasm of bladder; Z90.49 Acquired absence of other specified parts of digestive tract; Z79.82 Long term (current) use of aspirin
CPT/HCPCS: 70450; 71046; 72125; 72170; 73502; 74018; 74022; 76770; 80048; 80053; 81003; 81015; 82570; 82607; 82728; 82746; 83540; 83550; 84300; 85025; 85027; 86850; 86900; 86901; 86920; 93005; 94640; 96374; 97116; 97163; 97167; 97530; 97535; 99285; C1713; C1776; P9016

== ENCOUNTER → 2025-01-16 01:08 | Outpatient (REF) | payer OTHER, SELFPAY ==
[2025-01-16 01:22] LABS: % Basophils 0.1 % (0-2); % Eosinophils 1.1 % (0-6); % Immature Granulocytes 0.7 % (0-0.5); % Lymphocytes 4.9 % (20.5-51.1); % Monocytes 4.5 % (1.7-9.3); % Neutrophils 88.7 % (42.2-75.2); Absolute Eosinophils 0.1 10^3/uL (0-0.7); Absolute Immature Granulocytes 0.1 10^3/uL (0-0.05); Absolute Lymphocytes 0.6 10^3/uL (1.2-3.4); Absolute Monocytes 0.5 10^3/uL (0.1-0.6); Absolute Neutrophils 10.3 10^3/uL (1.4-6.5); Hematocrit 26.6 % (39.0-52.0); Hemoglobin 8.6 g/dL (13.0-18.0); Mean Corp Hgb Conc. 32.3 g/dL (33.0-37.0); Mean Corpuscular Hgb 29.1 pg (27.0-31.0); Mean Corpuscular Volume 89.9 fL (80.0-94.0); Mean Platelet Volume 10.3 fL (7.4-10.4); Nucleated Red Blood Cells % 0 % (-); Platelet Count 239 10^3/uL (130-400); Red Blood Cell Count 2.96 10^6/uL (4.70-6.10); White Blood Cell Count 11.6 10^3/uL (4.8-10.8)
[2025-01-16 07:38] LABS: Blood Urea Nitrogen 75 mg/dl (9-20); Calcium 8.4 mg/dl (8.4-10.2); Carbon Dioxide 29 mmol/L (22-30); Chloride 103 mmol/L (98-107); Glucose 92 mg/dl (70-99); Magnesium 2.2 mg/dl (1.6-2.3); Potassium 4.8 mmol/L (3.5-5.1); Sodium 138 mmol/L (135-145); eGFR 24.41
[2025-01-16 08:01] LABS: NT-proBNP 26400 pg/ml
== END ==
LOC: OLABN 01:08
PROVIDERS: ATTENDING PHYSICIAN Student in an Organized Health Care Education/Training Program
DX: N17.9 Acute kidney failure, unspecified (principal); I50.9 Heart failure, unspecified; I10 Essential (primary) hypertension
CPT/HCPCS: 80048; 83735; 83880; 85025

== ENCOUNTER → 2025-01-20 10:40 | Outpatient (REF) | payer OTHER, SELFPAY ==
[2025-01-20 11:21] LABS: % Basophils 0.4 % (0-2); % Eosinophils 2.9 % (0-6); % Immature Granulocytes 0.3 % (0-0.5); % Lymphocytes 6.8 % (20.5-51.1); % Monocytes 5.7 % (1.7-9.3); % Neutrophils 83.9 % (42.2-75.2); Absolute Eosinophils 0.3 10^3/uL (0-0.7); Absolute Lymphocytes 0.6 10^3/uL (1.2-3.4); Absolute Monocytes 0.5 10^3/uL (0.1-0.6); Absolute Neutrophils 7.7 10^3/uL (1.4-6.5); Hematocrit 25.6 % (39.0-52.0); Hemoglobin 7.9 g/dL (13.0-18.0); Mean Corp Hgb Conc. 30.9 g/dL (33.0-37.0); Mean Corpuscular Hgb 28.1 pg (27.0-31.0); Mean Corpuscular Volume 91.1 fL (80.0-94.0); Mean Platelet Volume 10.7 fL (7.4-10.4); Nucleated Red Blood Cells % 0 % (-); Platelet Count 191 10^3/uL (130-400); Red Blood Cell Count 2.81 10^6/uL (4.70-6.10); Red Cell Dist. Width 14.6 % (11.5-14.5); White Blood Cell Count 9.2 10^3/uL (4.8-10.8)
[2025-01-20 11:43] LABS: NT-proBNP 23100 pg/ml
[2025-01-20 11:53] LABS: ALT (SGPT) 12 U/L (0-50); AST (SGOT) 16 U/L (17-59); Albumin 2.9 g/dl (3.5-5.0); Alkaline Phosphatase 103 U/L (38-126); Blood Urea Nitrogen 64 mg/dl (9-20); Calcium 8.5 mg/dl (8.4-10.2); Carbon Dioxide 27 mmol/L (22-30); Chloride 99 mmol/L (98-107); Glucose 88 mg/dl (70-99); Potassium 4.5 mmol/L (3.5-5.1); Sodium 135 mmol/L (135-145); Total Bilirubin 0.7 mg/dl (0.2-1.3); Total Protein 5.4 g/dl (6.3-8.2); Uric Acid 9.3 mg/dl (3.5-8.5); eGFR 23.29
== END ==
LOC: OLABN 10:40
PROVIDERS: ATTENDING PHYSICIAN Student in an Organized Health Care Education/Training Program
DX: I50.9 Heart failure, unspecified (principal); N17.9 Acute kidney failure, unspecified; M10.9 Gout, unspecified; I50.32 Chronic diastolic (congestive) heart failure
CPT/HCPCS: 80053; 83735; 83880; 84550; 85025

== ENCOUNTER 2025-01-26 14:08 | Inpatient (IN) | payer OTHER, SELFPAY ==
[2025-01-26] VITALS (9 sets, daily range): BP systolic 113–138; BP diastolic 52–65; BMI 20.9
--- NOTE | 2025-01-26 11:24 | ED.GENMED ---
History of Present Illness
General
Chief Complaint: Breathing Problem
Source: patient and ambulance crew
Exam Limitations: none
Time Seen by Provider: 01/26/25 11:09
History of Present Illness
History of Present Illness:
85yoM with a history of COPD on 3L NC, CHF, hypertension, and recent right hip hemiarthoplasty on 01/05/25 presenting via EMS from [facility] for pneumonia. Patient apparently had an outpatient chest x-ray yesterday which showed pneumonia.
Nursing staff noted rhonchi and rales on lung exam today and his respiratory rate was reportedly 26 which prompted EMS call. Patient's only current complaint is bilateral foot pain which has been ongoing for several weeks. I spoke with nursing
home staff who confirmed that this is chronic for him. He was previously maintained on gabapentin but this was discontinued yesterday due to tremors. Allopurinol was added. His Lasix dose was also from 40 mg daily to 60 mg daily 2 days ago.
Past History
Past History
ED Past Medical History: COPD, HTN and Other (Iron deficiency anemia, peripheral vascular disease, gout, pneumonia)
Social History
Tobacco: Former smoker
Personal:
Living: with family
Employment: Retired
Phy Exam
General Physical Exam
General Presentation: no apparent distress
General Skin: warm and dry
General Habitus: elderly
General Mental: alert
ENT Exam
ENT Exam: normocephalic
Cardiovascular Exam
Cardiovascular Exam: no edema and systolic murmur
Pulmonary Exam
Pulmonary Exam: other (Bilateral rales noted with tachypnea)
Neurological Exam
Neurological Exam: alert
Musculoskeletal Exam
Musculoskeletal Exam: other (Bilateral lower extremities and feet appear normal. No foot wounds or signs of infection. DP doppler signal present bilaterally.)
Skin Exam
Skin Exam: normal color and warm/dry
Psychiatric Exam
Psychiatric Exam: normal mood/affect
Scores
Heart Failure Risk
Heart Failure Risk Score: Not Applicable
Course
Orders/Labs/Results
Orders:
Orders
01/26/25 11:22
Ankle, left 3 view CR [CR Ankle - Left Min 3 Views ] Urgent
Comment:
Reason For Exam: atraumatic pain
CR Foot - Left Min 3 Views Urgent
Comment:
Reason For Exam: pain
CR Foot - Right Min 3 Views Urgent
Comment:
Reason For Exam: pain
Calcaneus, Right 2 View [CR Heel/os Calcis - Right 2 Vw] Urgent
Comment:
Reason For Exam: atraumatic pain
01/26/25 11:31
CR Chest - 2 Views Urgent
Comment:
Reason For Exam: cough
01/26/25 12:13
COVID-19 Antigen Urgent
Source: Nasal Swab
Complete Blood Count/With Diff Urgent
Comprehensive Metabolic Panel Urgent
NT-proBNP Urgent
Influenza A+B Rapid Molecular Urgent
NICCI Source: Nasal Swab
Specimen Description:
01/26/25 13:20
Furosemide [Lasix] 40 mg IV NOW STA
01/26/25 13:24
Electrocardiogram (*1) Urgent
Reason for Study: Shortness of Breath
EKG- Treatment ONCE
01/26/25 13:34
Admit/Transfer Patient As Directed
Co-Sign Provider:
Level of Care: Inpatient admission
Assign to:: Telemetry
Physician / Group: kieran
Diagnosis: shortness of breath
Reason for Telemetry: Pulmonary Edema
Date to Stop Telemetry: 01/29/25
Time to Stop Telemetry: 11:00
Reason for Hospitalization: shortness of breath
Expected length of stay greater than two midnights?: Yes
ELOS- Estimated Length of Stay in days: 2
I certify the patient meets the requirements for IP care: Yes
01/26/25 13:35
Code Status As Directed
Resuscitation Status: Do not resuscitate
Reached after discussion with pt or family/Healthcare POA: Yes
DNR Bracelet Application ONCE
PRN Pain Medication Management As Directed
May give lesser potent ordered pain med per pt: Yes
preference::
Protocol:: Medication orders for pain may be administered in a
manner that supports deferring to patient preference
when the pt is:
- Requesting an ordered lesser potent pain medication.
Least to most potent pain medications are defined
as: acetaminophen < NSAID < tramadol < opioids
(morphine, oxycodone, hydromorphone).
- Requesting a lesser dose of the same medication IF
ORDERED.
- Requesting a less intrusive route of administration
if both routes are prescribed by the provider (PO <
IV).
01/29/25 11:00
DC Protocol for Telemetry ONCE
Abnormal Lab Results
01/26/25
12:13
RBC 2.64 L 10^6/uL
(4.70-6.10)
Hgb 7.6 L g/dL
(13.0-18.0)
Hct 23.3 L %
(39.0-52.0)
MCHC 32.6 L g/dL
(33.0-37.0)
RDW 14.7 H %
(11.5-14.5)
Absolute Lymphs (auto) 0.6 L 10^3/uL
(1.2-3.4)
Neutrophils % 78.6 H %
(42.2-75.2)
Lymphocytes % 9.5 L %
(20.5-51.1)
Chloride 96 L mmol/L
(98-107)
BUN 74 H mg/dl
(9-20)
Creatinine 2.8 H mg/dL
(0.7-1.3)
Glucose 131 H mg/dl
(70-99)
AST 14 L U/L
(17-59)
Total Protein 5.1 L g/dl
(6.3-8.2)
Albumin 2.7 L g/dl
(3.5-5.0)
01/26/25 12:13
01/26/25 12:13
Vital Signs
Initial and Last Documented VS:
Initial Vital Signs
Temp Pulse Resp BP Pulse Ox
98.5 F 86 20 116/64 92
01/26/25 11:12 01/26/25 11:12 01/26/25 11:12 01/26/25 11:12 01/26/25 11:12
Last Documented Vital Signs
Temp Pulse Resp BP Pulse Ox
98.5 F 79 22 122/61 95
01/26/25 11:12 01/26/25 16:15 01/26/25 16:15 01/26/25 16:00 01/26/25 14:30
MDM/Problems Addressed
Differential Diagnosis Includes:
85yoM here for pneumonia seen on outpatient CXR. snf reportedly concerned about tachypnea and abnormal breath sounds. Patient complaining of bilateral foot pain on initial exam which is reportedly chronic. VSS. Rales noted on lung exam and
mild tachypnea present. No edema in lower extremities. Differential diagnosis includes but is not limited to: COPD exacerbation, pneumonia, CHF exacerbation
Initial ED plan: Check CBC, CMP, BNP, COVID/flu swab, chest x-ray, and bilateral foot x-rays.
*EKG
Interpreted by ED Provider?: Yes
EKG Intrepretation Date: 01/26/25
Heart Rate: 75
Rate: normal
Rhythm: sinus
Dennis: normal axis
QRS Pattern: right bundle branch block
Ischemia: no ischemia
*Critical Care Note
Total Time (30-74mins, 75-104mins- exclusive of procedures): Not Applicable
Update Note
Update Note:
[place] [address] which appears similar to prior labs. Hemoglobin 7.6, relatively stable from 7.9 last week. Renal function at baseline. CXR shows mild to moderate CHF with bilateral pleural effusions. 40mg IV Lasix ordered and patient
admitted for further management.
ED Attending Note
-
Portions of this chart may have been created with voice recognition software.� Occasional wrong word or��sound alike� substitutions may have occurred due to the inherent limitations of voice recognition software.
Discharge Plan
Departure
Patient Disposition: Admit
Date of Disposition: 01/26/25
Time of Disposition: :23
Presentation/result/management discussed w/ accepting MD/DO: Hospitalist
Discharge Problem:
Acute exacerbation of CHF (congestive heart failure)
Interventions
Interventions:
*Risk Screen - Suicide Last Done: 01/26/25 11:12
*General Assessment Last Done: 01/26/25 11:12
*Neglect/Abuse Screening Last Done: 01/26/25 11:12
*ED- Fall Risk Assessment Last Done: 01/26/25 11:12
ED- Cardiac Assessment Last Done: 01/26/25 13:00
ED- Pulmonary Assessment Last Done: 01/26/25 13:00
[2025-01-26 12:31] LABS: % Basophils 0.6 % (0-2); % Immature Granulocytes 0.5 % (0-0.5); % Lymphocytes 9.5 % (20.5-51.1); % Monocytes 5.8 % (1.7-9.3); % Neutrophils 78.6 % (42.2-75.2); Absolute Eosinophils 0.3 10^3/uL (0-0.7); Absolute Lymphocytes 0.6 10^3/uL (1.2-3.4); Absolute Monocytes 0.4 10^3/uL (0.1-0.6); Absolute Neutrophils 5.2 10^3/uL (1.4-6.5); Hematocrit 23.3 % (39.0-52.0); Hemoglobin 7.6 g/dL (13.0-18.0); Mean Corp Hgb Conc. 32.6 g/dL (33.0-37.0); Mean Corpuscular Hgb 28.8 pg (27.0-31.0); Mean Corpuscular Volume 88.3 fL (80.0-94.0); Mean Platelet Volume 10.2 fL (7.4-10.4); Nucleated Red Blood Cells % 0 % (-); Platelet Count 174 10^3/uL (130-400); Red Blood Cell Count 2.64 10^6/uL (4.70-6.10); Red Cell Dist. Width 14.7 % (11.5-14.5); White Blood Cell Count 6.6 10^3/uL (4.8-10.8)
[2025-01-26 12:46] LABS: COVID-19 Antigen Negative (Negative)
[2025-01-26 12:52] LABS: NT-proBNP 23500 pg/ml
[2025-01-26 12:58] LABS: ALT (SGPT) < 10 U/L (0-50); AST (SGOT) 14 U/L (17-59); Albumin 2.7 g/dl (3.5-5.0); Alkaline Phosphatase 82 U/L (38-126); Blood Urea Nitrogen 74 mg/dl (9-20); Calcium 8.5 mg/dl (8.4-10.2); Carbon Dioxide 29 mmol/L (22-30); Chloride 96 mmol/L (98-107); Glucose 131 mg/dl (70-99); Potassium 4.5 mmol/L (3.5-5.1); Sodium 135 mmol/L (135-145); Total Bilirubin 0.6 mg/dl (0.2-1.3); Total Protein 5.1 g/dl (6.3-8.2); eGFR 21.31
[2025-01-26] MEDS: LASIX 40 MG IV (13:38)
--- NOTE | 2025-01-26 13:38 | EDRN ---
Patient rolled off of linen and removed wet brief, condom cath placed to help keep patient dry and to monitor output with him getting lasix
--- NOTE | 2025-01-26 13:39 | HPS.HSE ---
Family Physician
-
Family Physician: Joe Centeno DO
Chief Complaint
-
shortness of breath
History of Present Illness
85-year-old male past medical history of COPD, CKD 4, chronic HFpEF, gout, peripheral neuropathy, chronic anemia, hypertension, prior CVA with residual right-sided symptoms, bladder cancer status post TURBT, presenting from [facility] for
pneumonia. Patient outpatient chest x-ray which showed pneumonia. Nursing staff noted rhonchi and rales on lung exam today and respiratory rate was 26 which prompted EMS call. Patient's only complaint bilateral foot pain ongoing for several weeks
which is chronic as per halfway. Previously on gabapentin which was discontinued yesterday due to tremors. Allopurinol was added. Lasix was also increased on 40 mg to 60 mg daily 2 days ago.
Medical History
Past Medical History
Past Medical History: Reports Other (COPD, CKD 4, chronic HFpEF, gout, peripheral neuropathy, chronic anemia, hypertension, prior CVA with residual right-sided symptoms, bladder cancer status post TURBT)
Past Surgical History: Reports None
Social History
Tobacco: Non-smoker
Alcohol: None
Drug: None
Family History
Family History: Not pertinent
Allergies / Home Medications
Allergies reflects when Allergies were last updated in [facility].
Home Medications with original date entered in [facility]
Allergy/Medication List:
Allergies
Allergy/AdvReac Type Severity Reaction Status Date / Time
environmental allergies Allergy Unknown Unknown Uncoded 01/26/25 11:19
Home Medications
ipratropium 0.5 mg-albuterol 3 mg (2.5 mg base)/3 mL nebulization soln 3 ml inhalation R TID Lung/Breathing Issues 10/28/18
aspirin 81 mg chewable tablet 81 mg PO DAILY #0 tabs 03/24/23
melatonin 10 mg tablet 10 mg PO HS Supplement 01/04/25
trazodone 50 mg tablet 50 mg PO HS Sleep 01/04/25
aspirin 325 mg tablet 325 mg PO DAILY #0 tabs 01/14/25
bisacodyl 10 mg rectal suppository 10 mg [place] DAILYPRN PRN constipation #0 ea 01/14/25
furosemide 40 mg tablet 40 mg PO MoWeFr@0800 #0 tabs 01/14/25
gabapentin 100 mg capsule 100 mg PO TID #0 caps 01/14/25
oxycodone 5 mg tablet 5 mg PO Q4HPRN PRN moderate to severe pain #8 tabs 01/14/25
polyethylene glycol 3350 17 gram oral powder packet 17 g PO DAILY #0 ea 01/14/25
sennosides 8.6 mg-docusate sodium 50 mg tablet 1 tab PO BID #0 tabs 01/14/25
Review of Systems
-
History Source: Patient
A 12 point ROS was completed and negative except as noted: Yes
Constitutional: Reports No Symptoms
EENT: Reports No Symptoms
Respiratory: Reports See HPI
Cardiac: Reports No Symptoms
Abdomen/GI: Reports No Symptoms
: Reports No Symptoms
Musculoskeletal: Reports No Symptoms
Skin: Reports No Symptoms
Neurological: Reports No Symptoms
Endocrine: Reports No Symptoms
Hematologic/Lymphatic: Reports No Symptoms
Psych: Reports No Symptoms
Physical Exam
Vital Signs
Vital Signs
Temp Pulse Resp BP Pulse Ox
98.5 F 81 16 124/56 96
01/26/25 11:12 01/26/25 13:15 01/26/25 13:15 01/26/25 13:00 01/26/25 13:15
Physical Exam
General: Well Developed, Well Nourished and No Apparent Distress
HEENT: NormoCephalic, Moist mucous membranes and Atraumatic
Respiratory: Clear
Cardiac: S1/S2 and Regular Rhythm; No Murmur or Rub
GI: Soft, Non Tender, Non Distended and Normal Bowel Sounds; No Organomegaly
Rectal: Deferred by Provider
Musculoskeletal: No Clubbing, No Cyanosis and No Edema
Skin: No Rash
Neuro: Nonfocal/grossly intact
Laboratory Results
-
01/26/25 12:13
01/26/25 12:13
Laboratory Results
Total Bilirubin 0.6 mg/dl (0.2-1.3) 01/26/25 12:13
AST 14 U/L (17-59) L 01/26/25 12:13
ALT < 10 U/L (0-50) 01/26/25 12:13
Alkaline Phosphatase 82 U/L (38-126) 01/26/25 12:13
Data Reviewed
-
Lab Data: Labs Reviewed by me
Old Records: Reviewed
Impression/Plan
-
IMPRESSION:
PLAN:
# Acute HFpEF exacerbation
- Cardiac BNP of 23,000 from 26,000 earlier this month
- Chest x-ray shows chronic biapical scarring and superimposed mild to moderate CHF with small bilateral pleural effusions
-Check I's and O's, daily weights
- 40 IV Lasix daily
- Cardiology consulted
Essential hypertension
CKD4
- Renal function at baseline
COPD
- Continue DuoNebs
Gout
- Allopurinol started 2 days ago
Peripheral neuropathy
- Continue gabapentin, oxycodone
Chronic anemia
- Hemoglobin at baseline at 7.6
Prior CVA with residual right-sided symptoms
- Continue aspirin
Bladder cancer status post TURBT
Insomnia
Venous insufficiency ulcer
DNR/DNI
DVT prophylaxis-heparin
Cardiac diet
--- NOTE | 2025-01-26 14:50 | CON.CAR ---
Addendum entered and electronically signed by Tarik Hauser MD 01/26/25 16:40:
I saw and examined the patient.
The BIOCHEMIST's note was reviewed and I agree with the note.
Comment: 85 y/o male (patient of Dr. Eng) with hx CVA, hypertension, dyslipidemia, HFpEF, COPD, mild , CKD. He was recently here with hip fracture s/p right hip hemiarthroplasty. He developed JOSE ANGEL and diuretic was held, and decreased at d/c.
Overall, he does not appear grossly volume overloaded. He does have some abdominal distention for which an abdominal ultrasound will be obtained. However, his weight is up approximately 3 kg. We will attempt diuresis. Additionally, nephrology
should be consulted, as he follows with Dr Snyder.
- IV diuresis
Original Note:
Consultation
Consultation Request
Date/Time Consultation Requested: 01/26/25 1418
Date/Time Consultation Performed: 01/26/25 1450
Requesting Provider: Kortney Solano
Performing Provider: Hanh CASSIDY for Dr. Hauser
Reason for Consultation: CHF
Medical History
-
Chief Complaint: SOB
History of Present Illness:
85 y/o male (patient of Dr. Eng) with hx CVA, hypertension, dyslipidemia, HFpEF, COPD, mild , CKD. He was recently here with hip fracture s/p right hip hemiarthroplasty. He developed JOSE ANGEL and diuretic was held, and decreased at d/c. He is here
from nursing facility for suspected PNA. We are consulted for suspected CHF. Weight up 3 kg. He is on O2 by NE and is in no distress at the time of my assessment, but has mildly increased WOB and does report his breathing is not easy. Daughter at
bedside.
Past Medical History
Past Medical History: CHF, COPD, CVA, HTN, Hypercholesterolemia and Other (as above)
Social History
Tobacco: Non-Smoker
Family History
Family History: Reviewed & Not Pertinent
Allergies / Home Medications
Allergy/AdvReac Type Severity Reaction Status Date / Time
environmental allergies Allergy Unknown Unknown Uncoded 01/26/25 11:19
�Medication �Instructions �Recorded �Confirmed �Type
ipratropium 0.5 mg-albuterol 3 mg 3 ml inhalation R TID 10/28/18 01/26/25 History
(2.5 mg base)/3 mL nebulization Lung/Breathing Issues
soln
trazodone 50 mg tablet 50 mg PO HS Sleep 01/04/25 01/26/25 History
aspirin 325 mg tablet 325 mg PO DAILY #0 tabs 01/14/25 01/26/25 Rx
polyethylene glycol 3350 17 gram 17 g PO DAILY #0 ea 01/14/25 01/26/25 Rx
oral powder packet
acetaminophen 325 mg tablet 650 mg PO Q4HPRN PRN mild pain 01/26/25 01/26/25 History
(Tylenol)
allopurinol 100 mg tablet 50 mg PO QPM 01/26/25 01/26/25 History
bisacodyl 10 mg rectal suppository 10 mg [place] [id number] PRN if no bm aftr 01/26/25 01/26/25 History
mom
furosemide 40 mg tablet (Lasix) 60 mg PO MoWeFr@0800 01/26/25 01/26/25 History
ipratropium 0.5 mg-albuterol 3 mg 3 ml inhalation R Q4HPRN PRN sob 01/26/25 01/26/25 History
(2.5 mg base)/3 mL nebulization
soln
magnesium hydroxide 400 mg/5 mL 2,400 mg PO HSPRN PRN constipation 01/26/25 01/26/25 History
oral suspension (Milk of Magnesia)
oxycodone 5 mg tablet 5 mg PO Q6HPRN PRN moderate to 01/26/25 01/26/25 History
severe pain
sennosides 8.6 mg tablet (senna) 17.2 mg PO DAILY 01/26/25 01/26/25 History
tramadol 50 mg tablet 50 mg PO BIDPRN PRN moderate pain 01/26/25 01/26/25 History
Review of Systems
-
History Source: Patient and Other (and chart)
All other systems: Negative unless noted
Respiratory: Trouble Breathing
Physical Exam
Vital Signs
Temp Pulse Resp BP Pulse Ox
98.5 F 81 16 124/56 96
01/26/25 11:12 01/26/25 13:38 01/26/25 13:15 01/26/25 13:38 01/26/25 13:15
Lab Results
01/26/25 12:13
01/26/25 12:13
Azn-E-Oofnmqfbmhv Pept 73810 pg/ml 01/26/25 12:13
Physical Exam
General: Well Developed, Well Nourished and No Apparent Distress
HEENT: Normocephalic and Anicteric
Respiratory: Crackles and Other (on O2 by NC)
Cardiac: Regular Rhythm
Musculoskeletal: No Edema
Skin: Warm and Dry
Neuro: Awake and Alert
Psych: Calm
Impression / Plan
-
Gcliy-op-wapwfmt HFpEF:
-in setting of recent diuretic dose decrease for JOSE ANGEL
-agree with IV diuresis, which requires intensive monitoring
CKD:
-creatinine was 2.4 at recent d/c, now 2.8
-recommend considering nephrology consult
COPD:
-on inhaler therapy
Anemia:
-monitor closely
Data Reviewed
-
EKG: Tracing Personally Visualized and interpreted (EKG NSR with RBBB, no acute change from previous)
Radiology: Report Reviewed by me (Chronic biapical scarring and superimposed mild to moderate CHF with small bilateral pleural effusions.)
Medical Tests (Nuc Med, Echo etc): Report Reviewed by me (echo 08/13/24: Normal biventricular size and systolic function without regional wall motion abnormality. Estimated LVEF 55-60%. Mild aortic stenosis.)
Labs: Labs Reviewed by me
--- NOTE | 2025-01-26 18:12 | PTCARENOTE ---
Received pt from ED via stretcher. Pt pulled over to bed with assist x3. AAOx3. 2 L O2. Assessed and oriented to room. air sampling and monitoring placed. Call darden within close reach. Will cont to monitor.
[2025-01-26] MEDS: ZYLOPRIM 50 MG PO (18:28)
[2025-01-26] MEDS: DUONEB 3 ML INH (19:56)
[2025-01-26] MEDS: HEPARIN 5000 UNITS SC (20:16)
[2025-01-26] MEDS: DESYREL 50 MG PO (21:16)
--- NOTE | 2025-01-27 01:02 | PTCARENOTE ---
Patient yelling and moaning throughout night. Checked on patient several times. Patient reported he had pain in his legs. Patient refused any PRN pain medications stating 'nothing helps, the medicine just makes it worse.' Tried to reposition legs,
helped for a short period of time then patient would start yelling again. Pt. still refused medications. Plan of care ongoing.
[2025-01-27 03:58] VITALS: BP 139/65
--- NOTE | 2025-01-27 05:27 | DOWNTIME ---
There was a [employer] Downtime on 01/27/2025 from 0200 to 01/28/2024 at 0318 . Downtime documentation of patient's care, including medication administrations, has been reconciled in the electronic record per guidelines. Refer to the
patient's paper chart under the miscellaneous tab to see printed paper medication records and downtime forms.
[2025-01-27 06:00] VITALS: BMI 19.5
[2025-01-27 06:15] LABS: % Basophils 0.5 % (0-2); % Eosinophils 7.9 % (0-6); % Immature Granulocytes 0.3 % (0-0.5); % Lymphocytes 11.3 % (20.5-51.1); % Monocytes 6.5 % (1.7-9.3); % Neutrophils 73.5 % (42.2-75.2); Absolute Eosinophils 0.5 10^3/uL (0-0.7); Absolute Lymphocytes 0.7 10^3/uL (1.2-3.4); Absolute Monocytes 0.4 10^3/uL (0.1-0.6); Absolute Neutrophils 4.5 10^3/uL (1.4-6.5); Hematocrit 24.2 % (39.0-52.0); Hemoglobin 7.8 g/dL (13.0-18.0); Mean Corp Hgb Conc. 32.2 g/dL (33.0-37.0); Mean Corpuscular Hgb 28.8 pg (27.0-31.0); Mean Corpuscular Volume 89.3 fL (80.0-94.0); Mean Platelet Volume 10.3 fL (7.4-10.4); Nucleated Red Blood Cells % 0 % (-); Platelet Count 178 10^3/uL (130-400); Red Blood Cell Count 2.71 10^6/uL (4.70-6.10); Red Cell Dist. Width 14.9 % (11.5-14.5); White Blood Cell Count 6.2 10^3/uL (4.8-10.8)
[2025-01-27 06:36] LABS: ALT (SGPT) < 10 U/L (0-50); AST (SGOT) 16 U/L (17-59); Albumin 2.8 g/dl (3.5-5.0); Alkaline Phosphatase 88 U/L (38-126); Blood Urea Nitrogen 73 mg/dl (9-20); Calcium 8.4 mg/dl (8.4-10.2); Carbon Dioxide 31 mmol/L (22-30); Chloride 96 mmol/L (98-107); Estimated Creatinine Clearance 17 ml/min; Glucose 106 mg/dl (70-99); Potassium 4.4 mmol/L (3.5-5.1); Sodium 137 mmol/L (135-145); Total Bilirubin 0.7 mg/dl (0.2-1.3); Total Protein 5.5 g/dl (6.3-8.2); eGFR 21.31
[2025-01-27 07:10] VITALS: BP 137/62
[2025-01-27] MEDS: DUONEB 3 ML INH ×3 (07:29→19:46)
[2025-01-27] MEDS: ASPIRIN 325 MG PO (07:47)
[2025-01-27] MEDS: SENOKOT 17.2 MG PO (07:47)
[2025-01-27] MEDS: LASIX 40 MG IV (07:48)
[2025-01-27] MEDS: HEPARIN 5000 UNITS SC ×2 (07:48→21:01)
[2025-01-27] MEDS: MIRALAX 17 GRAMS PO (07:48)
--- NOTE | 2025-01-27 08:14 | W.PN.CD ---
Today's Communication / Plan
-
-Continue Lasix 40 mg IV daily; requires intensive monitoring.
-Recommend Nephrology consult.
Impression / Plan
-
Ncour-lb-rplfxdp HFpEF:
-In setting of recent diuretic dose decrease for JOSE ANGEL.
-Continue Lasix 40 mg IV daily; requires intensive monitoring.
CKD:
-creatinine was 2.4 at recent d/c, now 2.8
-Recommend Nephrology consult.
COPD:
-on inhaler therapy
-Management as per primary Hospitalist team.
Anemia:
- Management as per primary Hospitalist team.
Mild aortic stenosis:
- Continue to monitor as outpatient.
Physical Exam
Vital Signs/Labs
Vital Signs
Temp Pulse Resp BP Pulse Ox
97.5 F 80 20 137/62 98
01/27/25 07:10 01/27/25 07:48 01/27/25 07:32 01/27/25 07:48 01/27/25 07:32
01/26/25 01/27/25 01/28/25
06:59 06:59 06:59
Actual Weight 58.287 kg
01/27/25 05:09
01/27/25 05:09
01/26/25
12:13
Arb-K-Swkybcvevwv Pept 46989
Physical Exam
Constitutional: No acute distress and Comfortable
EENT: Anicteric
Cardiovascular: Rhythm & rate is regular, Pedal edema is absent, Systolic murmur present (2/6) and S1S2 is normal
Respiratory: Respiratory effort normal and Crackles Present
GI: Soft
Neuro/Psych: AO x 3
Other: Skin (Warm, dry, intact)
Data Reviewed
-
Date of Service: January 27, 2025
EKG: Tracing Personally Visualized and interpreted (Telemetry: Sinus rhythm)
Labs: Labs Reviewed by me
--- NOTE | 2025-01-27 08:34 | W.PN.HOSP.TC ---
Today's Communication/Plan
-
IV Lasix. Neurontin. Nephrology eval
Assessment / Plan
Assessment / Plan
Physical exam:
General: Acute on chronically ill
HEENT: Normocephalic, Atraumatic and Moist Mucous Membranes
Respiratory: Clear to Auscultation; Negative Wheezes, Rales or Rhonchi
Cardiac: Regular Rhythm and S1/S2, systolic murmur
GI: Soft, Nontender and Nondistended
Musculoskeletal: No Clubbing, No Cyanosis and No Edema
Neuro: Awake, Alert and Oriented, generalized weakness, no neurodeficit
Psych: Anxious
A/P:
# Acute HFpEF exacerbation
- Cardiac BNP of 23,000 from 26,000 earlier this month
- Chest x-ray shows chronic biapical scarring and superimposed mild to moderate CHF with small bilateral pleural effusions
-Check I's and O's, daily weights
- 40 IV Lasix daily
- Cardiology consult appreciated
- Cardio recommends nephrology eval-discussed with nephrology via [place] text today
- Discussed with daughter over the phone today
Essential hypertension
CKD4
- Renal function appears at baseline but cardio feels some worsening- see above.
COPD
- Continue DuoNebs
Gout
- Allopurinol started 2 days ago
Peripheral neuropathy
- Continue oxycodone
- Start gabapentin today, renally dose
- Wound care consult
Chronic anemia
- Hemoglobin at baseline at 7.6 upon admission and today 7.8
- Hold full dose of aspirin while on heparin since both are for DVT prophylaxis
Mild aortic stenosis
-Serial echocardiogram as outpatient
Recent right hip fracture:
- Hold full dose of aspirin while on heparin since both are for DVT prophylaxis
Prior CVA with residual right-sided symptoms
- Continue aspirin
Bladder cancer status post TURBT
Insomnia
Venous insufficiency ulcer
DNR/DNI
DVT prophylaxis-heparin
Total time spent on today's encounter was 52 minutes which included time spent in counseling the patient/family regarding diagnosis and treatment plan as listed above, goals of care, and symptom management. Case was discussed with nursing staff,
specialists, and care coordinators/case management. All labs and imaging personally reviewed by me. Remainder the time spent in detailed review of previous records, lab data, imaging, and other medical provider documentation.
Anticipated Discharge: > 48 hours
Subjective/Interval History
-
Date of Service: January 27, 2025
Patient on oxygen supplementation. Complains of pain in his legs and feet. No chest pain. Afebrile
Objective Data
-
Labs:
Laboratory Results
01/27/25
05:09
WBC 6.2
Hgb 7.8 L
Hct 24.2 L
Plt Count 178
Sodium 137
Potassium 4.4
Chloride 96 L
Carbon Dioxide 31 H
BUN 73 H
Creatinine 2.8 H
Glucose 106 H
Calcium 8.4
Total Bilirubin 0.7
AST 16 L
ALT < 10
Alkaline Phosphatase 88
Vital Signs:
Vital Signs
Temp Pulse Resp BP Pulse Ox
97.5 F 80 20 137/62 98
01/27/25 07:10 01/27/25 07:48 01/27/25 07:32 01/27/25 07:48 01/27/25 07:32
I&O
01/26/25 01/27/25 01/28/25
06:59 06:59 06:59
Intake Total 240 / 240
Output Total 400 / 400 100 / 100
Balance -160 / -160 -100 / -100
[2025-01-27] MEDS: NEURONTIN 100 MG PO ×2 (10:23→21:02)
[2025-01-27 11:27] VITALS: BP 114/54
--- NOTE | 2025-01-27 13:05 | W.CON.NEPH ---
Consultation
-
Date/Time Consultation Requested: January 27, 2025 at 9:30 AM
Date/Time Consultation Performed: 05/29/2025 at 1 PM
Requesting Provider: Dr. Vasquez
Performing Provider: Dr. Beltran
Reason for Consultation: Acute on chronic kidney disease
Medical History
-
Chief Complaint: Shortness of breath
History of Present Illness:
85-year-old male past medical history of COPD, CKD 4, chronic HFpEF, gout, peripheral neuropathy, chronic anemia, hypertension, prior CVA with residual right-sided symptoms, bladder cancer status post TURBT, presenting from [facility] for
pneumonia. Patient outpatient chest x-ray which showed pneumonia. Nursing staff noted rhonchi and rales on lung exam today and respiratory rate was 26 which prompted EMS call. Patient's only complaint bilateral foot pain ongoing for several weeks
which is chronic as per prison. Previously on gabapentin which was discontinued yesterday due to tremors. Allopurinol was added. Lasix was also increased on 40 mg to 60 mg daily 2 days ago.
Renal consult for acute on chronic kidney disease
Status post hip fracture early January he was discharged with a creatinine of about 2.5 it peaked at 3.1 during that admission
And current creatinine 2.8
Since admission 24 hours. Down 5 pounds. Question the accuracy
He is on chronic O2 nasal cannula since last admission
Past Medical History
Medical history of prior CVA, hypertension, hyperlipidemia, CKD IV, chronic anemia and insomnia COPD
Social History
Tobacco: Former Smoker
Alcohol: None
Family History
Family History: Not Pertinent
Allergies / Home Medications
Allergy/AdvReac Type Severity Reaction Status Date / Time
environmental allergies Allergy Unknown Uncoded 01/26/25 17:50
�Medication �Instructions �Recorded �Confirmed �Type
ipratropium 0.5 mg-albuterol 3 mg 3 ml inhalation R TID 10/28/18 01/26/25 History
(2.5 mg base)/3 mL nebulization Lung/Breathing Issues
soln
trazodone 50 mg tablet 50 mg PO HS Sleep 01/04/25 01/26/25 History
aspirin 325 mg tablet 325 mg PO DAILY #0 tabs 01/14/25 01/26/25 Rx
polyethylene glycol 3350 17 gram 17 g PO DAILY #0 ea 01/14/25 01/26/25 Rx
oral powder packet
acetaminophen 325 mg tablet 650 mg PO Q4HPRN PRN mild pain 01/26/25 01/26/25 History
(Tylenol)
allopurinol 100 mg tablet 50 mg PO QPM Gout 01/26/25 01/26/25 History
bisacodyl 10 mg rectal suppository 10 mg MA [id number] PRN if no bm aftr 01/26/25 01/26/25 History
mom
furosemide 40 mg tablet (Lasix) 60 mg PO [id number]@0800 Fluid 01/26/25 01/26/25 History
Retention/Swelling
ipratropium 0.5 mg-albuterol 3 mg 3 ml inhalation R Q4HPRN PRN sob 01/26/25 01/26/25 History
(2.5 mg base)/3 mL nebulization
soln
magnesium hydroxide 400 mg/5 mL 2,400 mg PO HSPRN PRN constipation 01/26/25 01/26/25 History
oral suspension (Milk of Magnesia)
oxycodone 5 mg tablet 5 mg PO Q6HPRN PRN moderate to 01/26/25 01/26/25 History
severe pain
sennosides 8.6 mg tablet (senna) 17.2 mg PO DAILY Constipation 01/26/25 01/26/25 History
tramadol 50 mg tablet 50 mg PO BIDPRN PRN moderate pain 01/26/25 01/26/25 History
Review of Systems
-
Bilateral foot pain
Physical Exam
Vital Signs
Vital Signs
Temp Pulse Resp BP Pulse Ox
97.6 F 83 17 114/54 96
01/27/25 11:27 01/27/25 11:27 01/27/25 11:27 01/27/25 11:27 01/27/25 11:27
Lab Results
WBC 6.2 10^3/uL (4.8-10.8) 01/27/25 05:09
RBC 2.71 10^6/uL (4.70-6.10) L 01/27/25 05:09
Hgb 7.8 g/dL (13.0-18.0) L 01/27/25 05:09
Hct 24.2 % (39.0-52.0) L 01/27/25 05:09
Plt Count 178 10^3/uL (130-400) 01/27/25 05:09
Sodium 137 mmol/L (135-145) 01/27/25 05:09
Potassium 4.4 mmol/L (3.5-5.1) 01/27/25 05:09
Chloride 96 mmol/L (98-107) L 01/27/25 05:09
Carbon Dioxide 31 mmol/L (22-30) H 01/27/25 05:09
BUN 73 mg/dl (9-20) H 01/27/25 05:09
Creatinine 2.8 mg/dL (0.7-1.3) H 01/27/25 05:09
eGFR 21.31 01/27/25 05:09
Glucose 106 mg/dl (70-99) H 01/27/25 05:09
Calcium 8.4 mg/dl (8.4-10.2) 01/27/25 05:09
Mbs-O-Ipgllbxszhe Pept 66499 pg/ml 01/26/25 12:13
Albumin 2.8 g/dl (3.5-5.0) L 01/27/25 05:09
Physical Exam
General no acute distress
HEENT no cephalic atraumatic extraocular muscle intact no scleral icterus no JVD neck supple
lungs bilateral rhonchi and wheezes with crackles
heart regular S1-S2 positive
abdomen soft nontender positive bowel sounds
extremities no edema pulses present bilateral
Neurologically nonfocal alert and oriented x 3
Skin no lesions no abrasions no petechiae
Psych normal affect no bizarre behavior
Data Reviewed
-
Radiology: Image Personally Visualized and interpreted
Labs: Labs Reviewed by me, Discussed with Patient and Discussed with Family
Assessment/Plan
-
85-year-old male past medical history of COPD, CKD 4, chronic HFpEF, gout, peripheral neuropathy, chronic anemia, hypertension, prior CVA with residual right-sided symptoms, bladder cancer status post TURBT, presenting from [facility] for
pneumonia. Patient outpatient chest x-ray which showed pneumonia. Nursing staff noted rhonchi and rales on lung exam today and respiratory rate was 26 which prompted EMS call. Patient's only complaint bilateral foot pain ongoing for several weeks
which is chronic as per prison. Previously on gabapentin which was discontinued yesterday due to tremors. Allopurinol was added. Lasix was also increased on 40 mg to 60 mg daily 2 days ago.
Renal consult for acute on chronic kidney disease
Status post hip fracture early January he was discharged with a creatinine of about 2.5 it peaked at 3.1 during that admission
And current creatinine 2.8
Since admission 24 hours. Down 5 pounds. Question the accuracy
He is on chronic O2 nasal cannula since last admission
Impression:
JOSE ANGEL
CKD 3b (2.5)= follows with nephrology in [place]
Hip fracture s/p repair 01/05
Chronic congestive heart failure
COPD
History of CVA
Anemia
History of gout
Plan:
Chest x-ray independently reviewed very similar to last admission chronic interstitial prominence
continuing Lasix 40 mg IV daily
Daily weights
Sodium restriction
d/w pt daughter who was present at bedside
Renal dose gabapentin for stage IV kidney disease
Despite his creatinine of 2.5 or 2.8 his GFR changes very little
I suspect most of his respiratory issues are from COPD/emphysema rather than volume although higher threshold for discontinuing diuretics with elevating creatinine if he improved symptomatically with treatment
Overall prognosis guarded
[2025-01-27 15:08] VITALS: BP 126/60
--- NOTE | 2025-01-27 15:21 | WOUNDNOTE ---
[facility] RN note: Patient admitted with SOB and pneumonia. Patient admitted from [facility]
See H&P for complete history.
PMH: Per Physician note, COPD, CKD 4, chronic HFpEF, gout, peripheral neuropathy, chronic anemia, hypertension, prior CVA with residual right-sided symptoms, bladder cancer status post TURBT
Wound Location and type/assessment: Patient admitted with DTI to bilateral heels. See worklist for description and measurements. Patient admitted with fiber filled boots but prefers not to wear at this time due to new neuropathy pain. Patient
states he does not get out of bed and no longer walks. Sacrum is blanchable and intact.
Appetite: Fair
Pressure redistribution devices in place: Static air overlay added to bed with RN's [place] and [place]. Heels off loaded with pillows under calves. Patient is on a turning schedule.
Plan: Continue off-loading of heels and apply adhesive foam Q 72 hours. Patient made aware that heel wounds are evolving and may worsen. Patient requires frequent incontinence care for urine (failed condom cath trail) and use of skin barrier
ointment. Patient has several comorbidities and wounds may worsen and new wounds may develop even with optimal care. Will confirm orders with hospitalist and update nurse. Updated care plan and will follow as needed.
Note to case management of equipment requested for discharge: Patient needs air surface at HI
Recommend follow up at wound care center upon discharge.
--- NOTE | 2025-01-27 17:14 | CM ---
Alert awake oriented patient who lives alone at home .Prior to admission he was in short term SNF at [facility].Spoke with dgt Rina he was assisted in activities of daily living.He has a bed hold [facility] and requested to return. His is
at [facility] custodial.
Pt [facility] SNF history
Pharmacy [facility]
PCP DR Duarte
PLAN Needs PT OT possible [facility]
[2025-01-27] MEDS: ZYLOPRIM 50 MG PO (17:49)
[2025-01-27 19:39] VITALS: BP 157/69
[2025-01-27] MEDS: DESYREL 50 MG PO (21:02)
[2025-01-27 23:33] VITALS: BP 136/70
[2025-01-28] VITALS (7 sets, daily range): BP systolic 127–144; BP diastolic 58–73; PULSE 90–91; O2SAT 97; BMI 19.8
[2025-01-28] MEDS: ROXICODONE 5 MG PO ×2 (04:32→13:09)
[2025-01-28] MEDS: DUONEB 3 ML INH ×3 (06:11→19:26)
[2025-01-28 06:24] LABS: Hematocrit 22.3 % (39.0-52.0); Hemoglobin 7.4 g/dL (13.0-18.0); Mean Corp Hgb Conc. 33.2 g/dL (33.0-37.0); Mean Corpuscular Hgb 29.1 pg (27.0-31.0); Mean Corpuscular Volume 87.8 fL (80.0-94.0); Mean Platelet Volume 10.5 fL (7.4-10.4); Platelet Count 200 10^3/uL (130-400); Red Blood Cell Count 2.54 10^6/uL (4.70-6.10); Red Cell Dist. Width 14.6 % (11.5-14.5); White Blood Cell Count 6.5 10^3/uL (4.8-10.8)
[2025-01-28 06:27] LABS: Blood Urea Nitrogen 64 mg/dl (9-20); Calcium 8.3 mg/dl (8.4-10.2); Carbon Dioxide 34 mmol/L (22-30); Chloride 97 mmol/L (98-107); Estimated Creatinine Clearance 18 ml/min; Glucose 105 mg/dl (70-99); Iron 37 ug/dl (49-181); Potassium 4.6 mmol/L (3.5-5.1); Sodium 138 mmol/L (135-145); eGFR 24.41
[2025-01-28 06:37] LABS: Percent Saturation 21 % (20-50); Total Iron Binding Capacity 175 ug/dl (261-462)
[2025-01-28 07:34] LABS: Folate 13.7 ng/ml (2.76-20)
[2025-01-28 07:35] LABS: Vitamin B12 412 pg/ml (239-931)
[2025-01-28] MEDS: HEPARIN 5000 UNITS SC ×2 (07:57→21:07)
[2025-01-28] MEDS: LASIX 40 MG IV (07:58)
[2025-01-28] MEDS: SENOKOT 17.2 MG PO (07:59)
[2025-01-28] MEDS: MIRALAX 17 GRAMS PO (07:59)
--- NOTE | 2025-01-28 08:45 | W.PN.HOSP.TC ---
Today's Communication/Plan
-
PT OT. Discharge planning
Assessment / Plan
Assessment / Plan
Physical exam:
General: Acute on chronically ill
HEENT: Normocephalic, Atraumatic and Moist Mucous Membranes
Respiratory: Clear to Auscultation; Negative Wheezes, Rales or Rhonchi
Cardiac: Regular Rhythm and S1/S2, systolic murmur
GI: Soft, Nontender and Nondistended
Musculoskeletal: No Clubbing, No Cyanosis and No Edema
Neuro: Awake, Alert and Oriented, generalized weakness, no neurodeficit
Psych: Anxious
A/P:
# Acute HFpEF exacerbation
- Cardiac BNP of 23,000 from 26,000 earlier this month
- Chest x-ray shows chronic biapical scarring and superimposed mild to moderate CHF with small bilateral pleural effusions
-Check I's and O's, daily weights
- 40 IV Lasix daily will switch to oral torsemide 40 mg Friday
- Cardiology consult appreciated
- Discussed with daughter over the phone prior
- Discussed with cardiology and he will be switched to oral diuretics now and cleared for discharge from cardiology perspective.
- Discussed with correctional case records supervisor and PT OT ordered and waiting for authorization and bed availability for discharge disposition.
Essential hypertension
CKD4
- Renal function appears at baseline
- Nephrology on board by cardiology request
COPD
- Continue DuoNebs
Gout
- Continue allopurinol
Peripheral neuropathy
- Continue oxycodone
- Continue low-dose gabapentin, renally dose
- Wound care consult appreciated
Chronic anemia
- Hemoglobin at baseline at 7.6 upon admission and today 7.4
- Hold full dose of aspirin while on heparin since both are for DVT prophylaxis
Mild aortic stenosis
-Serial echocardiogram as outpatient
Recent right hip fracture:
- Hold full dose of aspirin while on heparin since both are for DVT prophylaxis
Prior CVA with residual right-sided symptoms
- Continue aspirin
Bladder cancer status post TURBT
Insomnia
Venous insufficiency ulcer
DNR/DNI
DVT prophylaxis-heparin
Anticipated Discharge: 24 - 48 hours
Subjective/Interval History
-
Date of Service: January 28, 2025
Patient complains of burning pain in his feet. Less shortness of breath. On supplemental oxygen
Objective Data
-
Labs:
Laboratory Results
01/28/25
05:28
WBC 6.5
Hgb 7.4 L
Hct 22.3 L
Plt Count 200
Sodium 138
Potassium 4.6
Chloride 97 L
Carbon Dioxide 34 H
BUN 64 H
Creatinine 2.5 H
Glucose 105 H
Calcium 8.3 L
Vital Signs:
Vital Signs
Temp Pulse Resp BP Pulse Ox
97.9 F 102 16 127/65 94
01/28/25 07:36 01/28/25 07:58 01/28/25 07:36 01/28/25 07:58 01/28/25 07:36
I&O
01/27/25 01/28/25 01/29/25
06:59 06:59 06:59
Intake Total 240 / 240 500 / 500
Output Total 400 / 400 1950 / 1950
Balance -160 / -160 -1450 / -1450
--- NOTE | 2025-01-28 09:49 | W.PN.CD ---
Today's Communication / Plan
-
discussed with nephrology: will plan for d/c on torsemide 40mg M/W/F with BMP in one week
we will arrange for follow up with us
daughter updated by phone
please call us with additional questions
Impression / Plan
-
Tsqeh-cv-mgngtos HFpEF: improved s/p IV lasix
-EF 55-60% in 08/2024
-In setting of recent diuretic dose decrease for JOSE ANGEL.
-discussed with nephrology: will plan for d/c on torsemide 40mg M/W/F with BMP in one week
-we will arrange for follow up with us
CKD4:
-improved with diuresis
Mild aortic stenosis:
- Continue to monitor as outpatient.
Physical Exam
Vital Signs/Labs
Vital Signs
Temp Pulse Resp BP Pulse Ox
97.9 F 102 16 127/65 94
01/28/25 07:36 01/28/25 07:58 01/28/25 07:36 01/28/25 07:58 01/28/25 08:51
01/27/25 01/28/25 01/29/25
06:59 06:59 06:59
Actual Weight 58.287 kg 58.967 kg
01/28/25 05:28
01/28/25 05:28
01/26/25
12:13
Mdh-Y-Gxeuplkzxsv Pept 10675
Physical Exam
Constitutional: No acute distress and Comfortable
EENT: Moist mucous membranes
Cardiovascular: Rhythm & rate is regular, Pedal edema is absent, JVD pressure is normal and Systolic murmur present
Respiratory: Respiratory effort normal and Lungs clear to auscul.
Neuro/Psych: AO x 3
Data Reviewed
-
Date of Service: January 28, 2025
EKG: Other (Tele: SR 90s)
Labs: Labs Reviewed by me
[2025-01-28] MEDS: FERRLECIT 110 MG IV (13:08)
--- NOTE | 2025-01-28 15:14 | W.PN.NEPH.PH ---
Today's Communication / Plan
-
Torsemide Friday 40mg
for discharge
Assessment/Plan
-
85-year-old male past medical history of COPD, CKD 4, chronic HFpEF, gout, peripheral neuropathy, chronic anemia, hypertension, prior CVA with residual right-sided symptoms, bladder cancer status post TURBT, presenting from [facility] for
pneumonia. Patient outpatient chest x-ray which showed pneumonia. Nursing staff noted rhonchi and rales on lung exam today and respiratory rate was 26 which prompted EMS call. Patient's only complaint bilateral foot pain ongoing for several weeks
which is chronic as per [facility]dc. Previously on gabapentin which was discontinued yesterday due to tremors. Allopurinol was added. Lasix was also increased on 40 mg to 60 mg daily 2 days ago.
Renal consult for acute on chronic kidney disease
Status post hip fracture early January he was discharged with a creatinine of about 2.5 it peaked at 3.1 during that admission
And current creatinine 2.8
Since admission 24 hours. Down 5 pounds. Question the accuracy
He is on chronic O2 nasal cannula since last admission
Impression:
JOSE ANGEL
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
Hip fracture s/p repair 01/05
Chronic congestive heart failure
COPD
History of CVA
Anemia
History of gout
Plan:
Chest x-ray independently reviewed very similar to last admission chronic interstitial prominence
now converted to torsemide 40mg three times weekly to start
creatinine at baseline 2.5
Daily weights
Sodium restriction
d/w pt daughter who was present at bedside
Renal dose gabapentin for stage IV kidney disease
Despite his creatinine of 2.5 or 2.8 his GFR changes very little
I suspect most of his respiratory issues are from COPD/emphysema rather than volume although higher threshold for discontinuing diuretics with elevating creatinine if he improved symptomatically with treatment
Overall prognosis guarded
-
-
Date of Service: January 28, 2025
CC / HPI / ROS
-
Chief Complaint:
CKD 4
History of Present Illness:
hemodynamically stable
Creatinine stable at 2.5
Review of Systems:
Nonoliguric via Montes catheter
Complains of severe neuropathy pain in feet
Labs
-
Labs:
WBC 6.5 10^3/uL (4.8-10.8) 01/28/25 05:28
RBC 2.54 10^6/uL (4.70-6.10) L 01/28/25 05:28
Hgb 7.4 g/dL (13.0-18.0) L 01/28/25 05:28
Hct 22.3 % (39.0-52.0) L 01/28/25 05:28
Plt Count 200 10^3/uL (130-400) 01/28/25 05:28
Sodium 138 mmol/L (135-145) 01/28/25 05:28
Potassium 4.6 mmol/L (3.5-5.1) 01/28/25 05:28
Chloride 97 mmol/L (98-107) L 01/28/25 05:28
Carbon Dioxide 34 mmol/L (22-30) H 01/28/25 05:28
BUN 64 mg/dl (9-20) H 01/28/25 05:28
Creatinine 2.5 mg/dL (0.7-1.3) H 01/28/25 05:28
eGFR 24.41 01/28/25 05:28
Glucose 105 mg/dl (70-99) H 01/28/25 05:28
Calcium 8.3 mg/dl (8.4-10.2) L 01/28/25 05:28
Ejt-S-Jnfxscptesp Pept 15363 pg/ml 01/26/25 12:13
Albumin 2.8 g/dl (3.5-5.0) L 01/27/25 05:09
Physical Exam
-
Vital Signs:
Vital Signs
Temp Pulse Resp BP Pulse Ox
97.9 F 82 16 131/58 95
01/28/25 11:15 01/28/25 13:13 01/28/25 13:13 01/28/25 11:15 01/28/25 13:13
Cardiovascular:: Regular rate and rhythm
Respiratory:: Bilateral: Coarse
Lung Excursion:: Normal
Abdomen:: Nontender and Soft
Bowel Sounds:: Normal
Extremity Edema:: None: Bilateral:
--- NOTE | 2025-01-28 15:56 | CM ---
Addendum entered by Vannessa Galindo RN 01/28/25 16:35:
Called [phone] spoke with Linda at [facility] auth obtained form 5 days from 01/29/25 to 02/02/25 auth # [id number].
Jess at [facility] notified .
Pt for dc tomorrow to [facility]
Will need ambulance set up
on one liter of oxygen Pox 95%
[facility]
report [phone]
fax [phone]
PLAN To [facility]
Original Note:
PT OT indicate SNF.
Spoke with nelida Flynn reviewed PT OT and she and pt requested to return to [facility].
Spoke with Jess at [facility] she accepted pt back after auth. NPI obtained
[2025-01-28] MEDS: TYLENOL 650 MG PO (17:07)
[2025-01-28] MEDS: ZYLOPRIM 50 MG PO (17:07)
[2025-01-28] MEDS: DESYREL 50 MG PO (21:07)
[2025-01-28] MEDS: NEURONTIN 100 MG PO (21:07)
[2025-01-29 00:45] VITALS: BP 153/77
[2025-01-29 04:28] VITALS: BP 143/79
[2025-01-29 05:42] VITALS: BMI 20.4
[2025-01-29 05:48] LABS: Hematocrit 26.1 % (39.0-52.0); Hemoglobin 8.8 g/dL (13.0-18.0)
[2025-01-29] MEDS: TYLENOL 650 MG PO ×2 (06:10→14:08)
[2025-01-29 06:15] LABS: Blood Urea Nitrogen 61 mg/dl (9-20); Calcium 8.6 mg/dl (8.4-10.2); Carbon Dioxide 29 mmol/L (22-30); Chloride 97 mmol/L (98-107); Estimated Creatinine Clearance 21 ml/min; Glucose 94 mg/dl (70-99); Potassium 4.3 mmol/L (3.5-5.1); Sodium 136 mmol/L (135-145); eGFR 28.46
[2025-01-29] MEDS: DUONEB 3 ML INH ×2 (07:37→14:15)
[2025-01-29] MEDS: ULTRAM 50 MG PO (08:12)
[2025-01-29] MEDS: HEPARIN 5000 UNITS SC (08:12)
[2025-01-29] MEDS: SENOKOT 17.2 MG PO (08:12)
[2025-01-29] MEDS: MIRALAX 17 GRAMS PO (08:12)
[2025-01-29 08:30] VITALS: BP 149/70
--- NOTE | 2025-01-29 09:28 | W.PN.HOSP.TC ---
Today's Communication/Plan
-
Discharge planning today
Assessment / Plan
Assessment / Plan
Physical exam:
General: Chronically ill. No acute distress
HEENT: Normocephalic, Atraumatic and Moist Mucous Membranes
Respiratory: Clear to Auscultation; Negative Wheezes, Rales or Rhonchi
Cardiac: Regular Rhythm and S1/S2, systolic murmur
GI: Soft, Nontender and Nondistended
Musculoskeletal: No Clubbing, No Cyanosis and No Edema
Neuro: Awake, Alert and Oriented, generalized weakness, no neurodeficit
Psych: Anxious
A/P:
# Acute HFpEF exacerbation
- Cardiac BNP of 23,000 from 26,000 earlier this month
- Chest x-ray shows chronic biapical scarring and superimposed mild to moderate CHF with small bilateral pleural effusions
-Check I's and O's, daily weights
- 40 IV Lasix daily will switch to oral torsemide 40 mg Friday
- Cardiology consult appreciated
-Nephrology consult appreciated
- Discussed with daughter over the phone prior
- Discussed with cardiology and he will be switched to oral diuretics now and cleared for discharge from cardiology perspective.
- Discussed with rn case manager and PT OT ordered and waiting for authorization and bed availability for discharge disposition.
- Plan to discharge today
Essential hypertension
CKD4
- Renal function appears at baseline
- Nephrology on board by cardiology request
COPD
- Continue DuoNebs
Gout
- Continue allopurinol
Peripheral neuropathy
- Continue oxycodone
- Continue low-dose gabapentin, renally dose
- Wound care consult appreciated
Chronic anemia
- Hemoglobin at baseline at 7.6 upon admission and today 7.4
- Hold full dose of aspirin while on heparin since both are for DVT prophylaxis
Mild aortic stenosis
-Serial echocardiogram as outpatient
Recent right hip fracture:
- Hold full dose of aspirin while on heparin since both are for DVT prophylaxis
Prior CVA with residual right-sided symptoms
- Continue aspirin
Bladder cancer status post TURBT
Insomnia
Venous insufficiency ulcer
DNR/DNI
DVT prophylaxis-heparin
Anticipated Discharge: Today
Subjective/Interval History
-
Date of Service: January 29, 2025
No new complaints
Objective Data
-
Labs:
Laboratory Results
01/29/25
05:32
Hgb 8.8 L
Hct 26.1 L
Sodium 136
Potassium 4.3
Chloride 97 L
Carbon Dioxide 29
BUN 61 H
Creatinine 2.2 H
Glucose 94
Calcium 8.6
Vital Signs:
Vital Signs
Temp Pulse Resp BP Pulse Ox
98.1 F 95 18 149/70 92
01/29/25 08:30 01/29/25 08:30 01/29/25 08:30 01/29/25 08:30 01/29/25 08:30
I&O
01/28/25 01/29/25 01/30/25
06:59 06:59 06:59
Intake Total 500 / 500 600 / 600
Output Total 1950 / 1950 1450 / 1450
Balance -1450 / -1450 -850 / -850
--- NOTE | 2025-01-29 10:09 | W.PN.NEPH.PH ---
Today's Communication / Plan
-
Initiated torsemide 40 mg 3 times a week
Creatinine stable at 2.2
Follow BMP while patient is here
Assessment/Plan
-
85-year-old male past medical history of COPD, CKD 4, chronic HFpEF, gout, peripheral neuropathy, chronic anemia, hypertension, prior CVA with residual right-sided symptoms, bladder cancer status post TURBT, presenting from [facility] for
pneumonia. Patient outpatient chest x-ray which showed pneumonia. Nursing staff noted rhonchi and rales on lung exam today and respiratory rate was 26 which prompted EMS call. Patient's only complaint bilateral foot pain ongoing for several weeks
which is chronic as per alf. Previously on gabapentin which was discontinued yesterday due to tremors. Allopurinol was added. Lasix was also increased on 40 mg to 60 mg daily 2 days ago.
Renal consult for acute on chronic kidney disease
Status post hip fracture early January he was discharged with a creatinine of about 2.5 it peaked at 3.1 during that admission
And current creatinine 2.8
Since admission 24 hours. Down 5 pounds. Question the accuracy
He is on chronic O2 nasal cannula since last admission
Impression:
JOSE ANGEL
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
Hip fracture s/p repair 01/05
Chronic congestive heart failure
COPD
History of CVA
Anemia
History of gout
Plan:
Chest x-ray independently reviewed very similar to last admission chronic interstitial prominence
now converted to torsemide 40mg three times weekly to start
creatinine below baseline at 2.2
Daily weights
Sodium restriction
Renal dose gabapentin for stage IV kidney disease
Despite his creatinine of 2.5 or 2.8 his GFR changes very little
I suspect most of his respiratory issues are from COPD/emphysema rather than volume although higher threshold for discontinuing diuretics with elevating creatinine if he improved symptomatically with treatment
Overall prognosis guarded
-
-
Date of Service: January 29, 2025
CC / HPI / ROS
-
Chief Complaint:
CKD 4
History of Present Illness:
hemodynamically stable
Creatinine stable at 2.2
Review of Systems:
Nonoliguric via Montes catheter
Complains of severe neuropathy pain in feet
Labs
-
Labs:
WBC 6.5 10^3/uL (4.8-10.8) 01/28/25 05:28
RBC 2.54 10^6/uL (4.70-6.10) L 01/28/25 05:28
Hgb 8.8 g/dL (13.0-18.0) L 01/29/25 05:32
Hct 26.1 % (39.0-52.0) L 01/29/25 05:32
Plt Count 200 10^3/uL (130-400) 01/28/25 05:28
Sodium 136 mmol/L (135-145) 01/29/25 05:32
Potassium 4.3 mmol/L (3.5-5.1) 01/29/25 05:32
Chloride 97 mmol/L (98-107) L 01/29/25 05:32
Carbon Dioxide 29 mmol/L (22-30) 01/29/25 05:32
BUN 61 mg/dl (9-20) H 01/29/25 05:32
Creatinine 2.2 mg/dL (0.7-1.3) H 01/29/25 05:32
eGFR 28.46 01/29/25 05:32
Glucose 94 mg/dl (70-99) 01/29/25 05:32
Calcium 8.6 mg/dl (8.4-10.2) 01/29/25 05:32
Rxi-E-Kmxffzzjftm Pept 75365 pg/ml 01/26/25 12:13
Albumin 2.8 g/dl (3.5-5.0) L 01/27/25 05:09
Physical Exam
-
Vital Signs:
Vital Signs
Temp Pulse Resp BP Pulse Ox
98.1 F 95 18 149/70 92
01/29/25 08:30 01/29/25 08:30 01/29/25 08:30 01/29/25 08:30 01/29/25 08:30
Cardiovascular:: Regular rate and rhythm
Respiratory:: Bilateral: Coarse
Lung Excursion:: Normal
Abdomen:: Nontender and Soft
Bowel Sounds:: Normal
Extremity Edema:: None: Bilateral:
--- NOTE | 2025-01-29 11:51 | CM ---
Addendum entered by Ivania Tyson 01/29/25 12:19:
CM spoke with nursing supervisor [employer] [facility], her direct # [phone] and confirmed they can accept pt this afternoon.
Original Note:
Per CM handoff, auth obtained and [facility] admissions aware, plan for dc there today.
Per team, med stable for dc.
Daughter aware and in agreement. Reports pt is on a bed hold. Transport arranged for 230pm this afternoon.
[2025-01-29] MEDS: FERRLECIT 110 MG IV (13:39)
--- NOTE | 2025-01-29 13:48 | W.DCSUMMARY ---
Discharge Summary
Discharge Data
Date of Admission: 01/26/25
Date of Discharge: 01/29/25
-
Pending Results: No
Hospital Course
Patient 85-year-old male with history of COPD, CKD stage IV, CHF, gout, peripheral neuropathy, anemia, hypertension, CVA with right residual symptoms, bladder cancer status post TURBT, mild aortic stenosis, recent hip fracture status post right hip
hemiarthroplasty, presented to hospital with shortness of breath. Cardiology consulted. He was noted to have increased weight and he was started on IV diuresis. Cardiology recommended also nephrology consultation and they saw the patient while he
was hospitalized. Of note, Neurontin had been discontinued prior to admission the patient continued to have severe peripheral neuropathy discomfort and we started him back on very low-dose of Neurontin with his 100 mg daily renally dose and he
tolerated that well. His IV diuresis was switched to oral. Cardiology and nephrology cleared him for discharge. His diuretic regimen will be changed to oral torsemide as in the discharge medications list. His renal function has remained stable.
He also received some IV iron infusion for iron deficiency anemia but of note he also predominant element of anemia of chronic disease. His hemoglobin is stable. Otherwise, patient hemodynamically stable and he will be discharged back to his
facility today.
Discharge duration: 37 minutes
Discharge Plan
-
Patient Disposition: Detention/SNF
Discharge Diagnosis/Procedures: Acute on chronic diastolic congestive heart failure. Chronic kidney disease stage IV. Mild aortic stenosis. Peripheral neuropathy.
Diet: Low Cholesterol, Low Sodium and Restrict fluids to 48 oz
Activity: As tolerated
Blood Work: Please PCP to order CBC, BMP within 1 week
Specialty Instructions: Weigh Daily- Call MD for wt gain/loss 3 lbs overnight/5 lbs in 1 week
Activity Restrictions/Additional Instructions:
Wound Care Instructions Bilateral Heels- No sting barrier and adhesive foam. Change Q 72 hours and PRN if loose.
Air mattress
Turning repositioning
Keep heels off-loaded with pillow or air cushion under heels
Fiber filled boots as tolerated
Barrier ointment to groin and buttocks
Referrals:
Joe Centeno DO [Family Provider] - in less than 1 week
Hanh Jean CRNP [Specified Professional Personl] - 02/11/25 11:20 am
Yaya Beltran DO [Active] - in two to four weeks
Prescriptions:
New
torsemide 40 mg tablet
40 mg PO .MWF Qty: 30 0RF
gabapentin 100 mg Capsule
100 mg PO HS Qty: 20 0RF
Continued
ipratropium-albuterol 3 ML solution for nebulization
3 ml inhalation R TID
trazodone 50 mg Tablet
50 mg PO HS
aspirin 325 mg Tablet
325 mg PO DAILY Qty: 0 0RF
Rx Instructions:
decrease dose on 02/09/25 to 81mg daily
polyethylene glycol 3350 17 gram Powder In Packet
17 g PO DAILY Qty: 0 0RF
sennosides [senna] 8.6 mg Tablet
17.2 mg PO DAILY
acetaminophen [Tylenol] 325 mg Tablet
650 mg PO Q4HPRN PRN (Reason: mild pain)
ipratropium-albuterol 0.5 mg-3 mg(2.5 mg base)/3 mL Solution For Nebulization
3 ml INHALATION R Q4HPRN PRN (Reason: sob)
allopurinol 100 mg Tablet
50 mg PO QPM
magnesium hydroxide [Milk of Magnesia] 400 mg/5 mL Suspension
2,400 mg PO HSPRN PRN (Reason: constipation)
bisacodyl 10 mg suppository
10 mg IN [id number] PRN (Reason: if no bm aftr mom)
tramadol 50 mg Tablet
50 mg PO BIDPRN PRN (Reason: moderate pain) Qty: 2 0RF
Changed
oxycodone 5 mg tablet
5 mg PO Q6HPRN PRN (Reason: moderate to severe pain) Qty: 2 0RF
Discontinued
furosemide [Lasix] 40 mg tablet
60 mg PO MoWeFr@0800
Discharge Orders:
Discharge Patient (As Directed); Ordered 01/29/25
Ordered By: Juancarlos Vasquez
Discharge Date and Time
Discharge Date/Time: 01/29/25 16:02
Print Language: WELSH
[2025-01-29 14:45] VITALS: BP 140/70
[2025-01-29 15:08] VITALS: BP 128/60
== END 2025-01-29 16:02 | DRG 291 ==
LOC: 3 WEST ACU 14:08
PROVIDERS: Physician Assistant; ADMITTING PHYSICIAN Hospitalist; ATTENDING PHYSICIAN Hospitalist; CONSULT PHYSICIAN Internal Medicine Cardiovascular Disease; CONSULT PHYSICIAN Internal Medicine Nephrology; EMERGENCY PHYSICIAN Emergency Medicine; FAMILY PHYSICIAN Student in an Organized Health Care Education/Training Program
DX: I13.0 Hypertensive heart and chronic kidney disease with heart failure and stage 1 through stage 4 chronic kidney disease, or unspecified chronic kidney disease (principal); I50.33 Acute on chronic diastolic (congestive) heart failure; N18.4 Chronic kidney disease, stage 4 (severe); I69.351 Hemiplegia and hemiparesis following cerebral infarction affecting right dominant side; N17.9 Acute kidney failure, unspecified; M79.671 Pain in right foot; M79.672 Pain in left foot; J43.9 Emphysema, unspecified; D50.8 Other iron deficiency anemias; G62.9 Polyneuropathy, unspecified; G47.00 Insomnia, unspecified; I87.2 Venous insufficiency (chronic) (peripheral); M10.9 Gout, unspecified; R25.1 Tremor, unspecified; E78.00 Pure hypercholesterolemia, unspecified; D63.8 Anemia in other chronic diseases classified elsewhere; I73.9 Peripheral vascular disease, unspecified; I45.10 Unspecified right bundle-branch block; I35.0 Nonrheumatic aortic (valve) stenosis; Z96.641 Presence of right artificial hip joint; Z60.2 Problems related to living alone; Z66 Do not resuscitate; Z87.891 Personal history of nicotine dependence; Z85.51 Personal history of malignant neoplasm of bladder; Z79.82 Long term (current) use of aspirin; Z99.81 Dependence on supplemental oxygen; Z11.52 Encounter for screening for COVID-19
CPT/HCPCS: 71046; 73610; 73630; 73650; 80048; 80053; 82607; 82728; 82746; 83540; 83550; 83880; 85014; 85018; 85025; 85027; 85045; 87070; 87502; 87811; 93005; 93975; 94640; 96374; 97163; 97167; 99285; J2916

== ENCOUNTER → 2025-02-03 10:23 | Outpatient (REF) | payer OTHER, SELFPAY ==
[2025-02-03 11:10] LABS: Hematocrit 24.4 % (39.0-52.0); Hemoglobin 7.7 g/dL (13.0-18.0); Mean Corp Hgb Conc. 31.6 g/dL (33.0-37.0); Mean Corpuscular Hgb 28.6 pg (27.0-31.0); Mean Corpuscular Volume 90.7 fL (80.0-94.0); Platelet Count 320 10^3/uL (130-400); Red Blood Cell Count 2.69 10^6/uL (4.70-6.10); Red Cell Dist. Width 15.3 % (11.5-14.5); White Blood Cell Count 6.7 10^3/uL (4.8-10.8)
[2025-02-03 11:21] LABS: Blood Urea Nitrogen 50 mg/dl (9-20); Calcium 8.4 mg/dl (8.4-10.2); Carbon Dioxide 30 mmol/L (22-30); Chloride 101 mmol/L (98-107); Glucose 90 mg/dl (70-99); Potassium 4.4 mmol/L (3.5-5.1); Sodium 138 mmol/L (135-145); eGFR 25.63
== END ==
LOC: OLABN 10:23
PROVIDERS: ATTENDING PHYSICIAN Student in an Organized Health Care Education/Training Program
DX: N17.9 Acute kidney failure, unspecified (principal); I50.32 Chronic diastolic (congestive) heart failure
CPT/HCPCS: 36415; 80048; 85027

== ENCOUNTER → 2025-02-10 08:40 | Outpatient (REF) | payer OTHER, SELFPAY ==
[2025-02-10 11:30] LABS: Hematocrit 24.8 % (39.0-52.0); Hemoglobin 7.8 g/dL (13.0-18.0); Mean Corp Hgb Conc. 31.5 g/dL (33.0-37.0); Mean Corpuscular Hgb 28.9 pg (27.0-31.0); Mean Corpuscular Volume 91.9 fL (80.0-94.0); Mean Platelet Volume 10.7 fL (7.4-10.4); Platelet Count 231 10^3/uL (130-400); Red Cell Dist. Width 15.9 % (11.5-14.5)
[2025-02-10 12:03] LABS: Blood Urea Nitrogen 56 mg/dl (9-20); Calcium 8.7 mg/dl (8.4-10.2); Carbon Dioxide 30 mmol/L (22-30); Chloride 102 mmol/L (98-107); Glucose 96 mg/dl (70-99); Potassium 4.6 mmol/L (3.5-5.1); Sodium 139 mmol/L (135-145); eGFR 28.46
[2025-02-10 12:04] LABS: NT-proBNP 17500 pg/ml
== END ==
LOC: OLABN 08:40
PROVIDERS: ATTENDING PHYSICIAN Student in an Organized Health Care Education/Training Program
DX: I50.32 Chronic diastolic (congestive) heart failure (principal); N17.9 Acute kidney failure, unspecified; I50.9 Heart failure, unspecified
CPT/HCPCS: 36415; 80048; 83880; 85027

== ENCOUNTER → 2025-03-01 09:57 | Outpatient (REF) | payer OTHER, SELFPAY ==
[2025-03-01 11:46] LABS: Hematocrit 23.6 % (39.0-52.0); Hemoglobin 7.6 g/dL (13.0-18.0); Mean Corp Hgb Conc. 32.2 g/dL (33.0-37.0); Mean Corpuscular Hgb 29.5 pg (27.0-31.0); Mean Corpuscular Volume 91.5 fL (80.0-94.0); Mean Platelet Volume 11.1 fL (7.4-10.4); Platelet Count 227 10^3/uL (130-400); Red Blood Cell Count 2.58 10^6/uL (4.70-6.10); Red Cell Dist. Width 16.8 % (11.5-14.5); White Blood Cell Count 9.8 10^3/uL (4.8-10.8)
[2025-03-01 12:08] LABS: Blood Urea Nitrogen 108 mg/dl (9-20); Calcium 9.4 mg/dl (8.4-10.2); Carbon Dioxide 24 mmol/L (22-30); Chloride 103 mmol/L (98-107); Glucose 116 mg/dl (70-99); Magnesium 2.4 mg/dl (1.6-2.3); Potassium 5.7 mmol/L (3.5-5.1); Sodium 139 mmol/L (135-145); eGFR 24.41
[2025-03-01 12:18] LABS: NT-proBNP > 27000 pg/ml
== END ==
LOC: OLABN 09:57
PROVIDERS: ATTENDING PHYSICIAN Student in an Organized Health Care Education/Training Program
DX: R60.9 Edema, unspecified (principal); R63.5 Abnormal weight gain
CPT/HCPCS: 36415; 80048; 83735; 83880; 85027

== ENCOUNTER → 2025-03-02 09:46 | Outpatient (REF) | payer OTHER, SELFPAY ==
[2025-03-02 11:17] LABS: Blood Urea Nitrogen 114 mg/dl (9-20); Calcium 8.8 mg/dl (8.4-10.2); Carbon Dioxide 27 mmol/L (22-30); Chloride 103 mmol/L (98-107); Glucose 114 mg/dl (70-99); Potassium 4.7 mmol/L (3.5-5.1); Sodium 141 mmol/L (135-145); eGFR 23.29
== END ==
LOC: OLABN 09:46
PROVIDERS: ATTENDING PHYSICIAN Student in an Organized Health Care Education/Training Program
DX: R60.9 Edema, unspecified (principal)
CPT/HCPCS: 36415; 80048

== ENCOUNTER 2025-03-03 15:00 | Inpatient (IN) | payer OTHER, SELFPAY ==
[2025-03-03] VITALS (7 sets, daily range): BP systolic 127–155; BP diastolic 69–85; BMI 21.4
--- NOTE | 2025-03-03 11:51 | ED.GENMED ---
History of Present Illness
General
Chief Complaint: Breathing Problem
Time Seen by Provider: 03/03/25 11:22
History of Present Illness
History of Present Illness:
85-year-old male with history of CHF with preserved EF, CKD, anemia presenting to the emergency department with concern of worsening heart failure. Patient currently resides in [facility]. He had a follow-up appointment with cardiology today,
recent admission 1 month ago for CHF. Patient has been declining since last hospitalization, with increasing O2 requirements. He is on 3 L baseline, however notes that the nurses at the facility have been increasing it. He is also becoming
increasingly dyspneic with worsening lower extremity edema. Patient notes mild cough. Denies fever. Denies any associated chest pain. Does note compliance with his medications. Denies additional medical complaints
Past History
Past History
ED Past Medical History: COPD, HTN and Other (Iron deficiency anemia, peripheral vascular disease, gout, pneumonia)
Social History
Tobacco: Former smoker
Personal:
Living: with family
Employment: Retired
Phy Exam
Physical Exam
Physical Exam:
General: no clinical signs of dehydration, nontoxic and in no acute distress
HEENT: protecting airway
Neck: appears supple
CV: Tachycardic, regular rhythm, no evidence of cyanosis
Resp: Tachypneic with bilateral crackles
Abd: Soft and non-distended, no tenderness to palpation
Extremities: +3 pitting edema bilaterally with scattered areas of weeping and skin breakdown. No erythema or warmth
Neuro: alert, no focal neurologic deficit
: deferred
Rectal: deferred
Psych: Normal affect
Skin: Intact
Scores
Heart Failure Risk
Heart Failure Risk Score: Yes
History of Stroke or TIA: No
History of intubation for respiratory distress: No
Heart rate on ED arrival >/= 110: Yes
SaO2 <90% on arrival on room air: No
HR >/=110 during 3min walk test (or too ill to perform test): Yes
ECG has acute ischemic changes: No
Urea >/=12mmol/L (BUN 33.6mg/dL): No
Serum CO2>/=35mmol/L: No
Troponin I or T elevated to OK Level (0.4mg/dL): No
NT-proBNP >/=5,000ng/L (5,000pg/ml): Yes
HF Risk Score: 3
Admission Status: HIGH RISK 15.9% Consider SNF treatment or admission to hospital
Course
Orders/Labs/Results
Orders:
Orders
03/03/25 11:25
Electrocardiogram (*1) Urgent
Reason for Study: Shortness of Breath
03/03/25 11:26
EKG- Treatment ONCE
03/03/25 11:45
CR Chest - 2 Views Urgent
Comment:
Reason For Exam: SOB, CHF
03/03/25 11:46
Complete Blood Count/With Diff Urgent
Comprehensive Metabolic Panel Urgent
NT-proBNP Urgent
Troponin I Urgent
03/03/25 11:50
PTT Urgent
Prothrombin Time Urgent
03/03/25 14:13
Furosemide [Lasix] 40 mg IV NOW STA
03/03/25 14:45
Admit/Transfer Patient As Directed
Co-Sign Provider:
Level of Care: Inpatient admission
Assign to:: Telemetry
Physician / Group: Liliam De León
Diagnosis: acute heart failure exacerbation
Reason for Telemetry: Acute Heart Failure
Date to Stop Telemetry: 03/06/25
Time to Stop Telemetry: 11:00
Reason for Hospitalization: acute heart failure exacerbation
Expected length of stay greater than two midnights?: Yes
ELOS- Estimated Length of Stay in days: 3
I certify the patient meets the requirements for IP care: Yes
03/03/25 14:46
PRN Pain Medication Management As Directed
May give lesser potent ordered pain med per pt: Yes
preference::
Protocol:: Medication orders for pain may be administered in a
manner that supports deferring to patient preference
when the pt is:
- Requesting an ordered lesser potent pain medication.
Least to most potent pain medications are defined
as: acetaminophen < NSAID < tramadol < opioids
(morphine, oxycodone, hydromorphone).
- Requesting a lesser dose of the same medication IF
ORDERED.
- Requesting a less intrusive route of administration
if both routes are prescribed by the provider (PO <
IV).
03/03/25 14:49
Code Status As Directed
Resuscitation Status: Do not resuscitate
Reached after discussion with pt or family/Healthcare POA: Yes
Decision communicated with: patient
DNR Bracelet Application ONCE
03/06/25 11:00
DC Protocol for Telemetry ONCE
Abnormal Lab Results
03/03/25
11:46
RBC 2.67 L 10^6/uL
(4.70-6.10)
Hgb 8.1 L g/dL
(13.0-18.0)
Hct 24.7 L %
(39.0-52.0)
MCHC 32.8 L g/dL
(33.0-37.0)
RDW 17.1 H %
(11.5-14.5)
MPV 10.7 H fL
(7.4-10.4)
Abs Immat Gran (auto) 0.1 H 10^3/uL
(0-0.05)
Absolute Neuts (auto) 9.5 H 10^3/uL
(1.4-6.5)
Absolute Lymphs (auto) 0.3 L 10^3/uL
(1.2-3.4)
Immature Gran % 0.6 H %
(0-0.5)
Neutrophils % 92.2 H %
(42.2-75.2)
Lymphocytes % 3.2 L %
(20.5-51.1)
Carbon Dioxide 32 H mmol/L
(22-30)
BUN 118 H* mg/dl
(9-20)
Creatinine 2.6 H mg/dL
(0.7-1.3)
Glucose 126 H mg/dl
(70-99)
Troponin I 0.080 H* ng/ml
03/03/25 11:46
03/03/25 11:46
Vital Signs
Initial and Last Documented VS:
Initial Vital Signs
Temp Pulse Resp BP Pulse Ox
97.7 F 105 26 127/74 97
03/03/25 11:22 03/03/25 11:22 03/03/25 11:22 03/03/25 11:22 03/03/25 11:22
Last Documented Vital Signs
Temp Pulse Resp BP Pulse Ox
97.7 F 106 23 136/85 99
03/03/25 11:22 03/03/25 15:45 03/03/25 15:45 03/03/25 14:04 03/03/25 15:30
MDM/Problems Addressed
MDM/Problems Addressed:
85-year-old male with history of CHF with preserved EF, CKD, anemia presenting from cardiology office for increasing shortness of breath and lower extremity edema. Vital signs on arrival significant for tachycardia and tachypnea.
On exam, patient is in no acute distress, however does appear dyspneic. Saturations are normal on patient's baseline O2, 3 L, however does have crackles to bilateral lung davis, lower extremity edema with ultimate concern for acute on chronic CHF.
Patient sent in by cardiology, advising admission for diuresis. Patient with a known chronic renal disease and anemia. Patient denies any blood in the stool. Will send off laboratory analysis and obtain chest x-ray imaging with plan for diuresis.
13:35 - Labs show baseline anemia. BUN appears to be uptrending with concern for worsening renal disease. Nephrology made aware prior to patient's arrival, will require monitoring of his renal function with diuresis. Chest x-ray does show element
of pulmonary edema/pleural effusions. Again plan for admission for both cardiology and nephrology management of patient's underlying congestive heart failure.
*EKG
Interpreted by ED Provider?: Yes
EKG Intrepretation Date: 03/03/25
EKG Intrepretation Time: 12:13
Interpretation: abnormal
Comparison EKG: no changes (01/26/25)
Heart Rate: 103
Rate: tachycardiac
Rhythm: sinus
[place]: normal axis
QRS Pattern: right bundle branch block
Ischemia: non-specific ST changes
*Critical Care Note
Total Time (30-74mins, 75-104mins- exclusive of procedures): Not Applicable
ED Attending Note
-
Portions of this chart may have been created with voice recognition software.� Occasional wrong word or��sound alike� substitutions may have occurred due to the inherent limitations of voice recognition software.
Discharge Plan
Departure
Patient Disposition: Admit
Date of Disposition: 03/03/25
Time of Disposition: 13:42
Presentation/result/management discussed w/ accepting MD/DO: Hospitalist
Patient with high blood pressure during this ER visit?: No
Condition: Fair
Discharge Problem:
Congestive heart failure (CHF), Increasing shortness of breath
Interventions
Interventions:
*Risk Screen - Suicide Last Done: 03/03/25 11:28
*General Assessment Last Done: 03/03/25 11:27
*Neglect/Abuse Screening Last Done: 03/03/25 11:28
*ED- Fall Risk Assessment Last Done: 03/03/25 11:27
*ED COVID-19 Vaccine History Last Done: 03/03/25 11:27
ED- Cardiac Assessment Last Done: 03/03/25 11:29
ED- Pulmonary Assessment Last Done: 03/03/25 11:29
[2025-03-03 11:55] LABS: % Basophils 0.3 % (0-2); % Eosinophils 0.5 % (0-6); % Immature Granulocytes 0.6 % (0-0.5); % Lymphocytes 3.2 % (20.5-51.1); % Monocytes 3.2 % (1.7-9.3); % Neutrophils 92.2 % (42.2-75.2); Absolute Eosinophils 0.1 10^3/uL (0-0.7); Absolute Immature Granulocytes 0.1 10^3/uL (0-0.05); Absolute Lymphocytes 0.3 10^3/uL (1.2-3.4); Absolute Monocytes 0.3 10^3/uL (0.1-0.6); Absolute Neutrophils 9.5 10^3/uL (1.4-6.5); Hematocrit 24.7 % (39.0-52.0); Hemoglobin 8.1 g/dL (13.0-18.0); Mean Corp Hgb Conc. 32.8 g/dL (33.0-37.0); Mean Corpuscular Hgb 30.3 pg (27.0-31.0); Mean Corpuscular Volume 92.5 fL (80.0-94.0); Mean Platelet Volume 10.7 fL (7.4-10.4); Nucleated Red Blood Cells % 0 % (-); Platelet Count 212 10^3/uL (130-400); Red Blood Cell Count 2.67 10^6/uL (4.70-6.10); Red Cell Dist. Width 17.1 % (11.5-14.5); White Blood Cell Count 10.3 10^3/uL (4.8-10.8)
--- NOTE | 2025-03-03 11:55 | PHANOTE ---
med rec note- called patient [facility] at [phone] to get medication list faxed over
[2025-03-03 12:08] LABS: APTT 29.7 Sec (23.4-35.0); INR 1.06; PT 14.3 Sec (11.4-14.6)
[2025-03-03 12:21] LABS: ALT (SGPT) 17 U/L (0-50); AST (SGOT) 19 U/L (17-59); Albumin 4.1 g/dl (3.5-5.0); Alkaline Phosphatase 105 U/L (38-126); Carbon Dioxide 32 mmol/L (22-30); Chloride 101 mmol/L (98-107); Glucose 126 mg/dl (70-99); Potassium 5.1 mmol/L (3.5-5.1); Sodium 142 mmol/L (135-145); Total Bilirubin 0.8 mg/dl (0.2-1.3); Total Protein 7.3 g/dl (6.3-8.2); eGFR 23.29
[2025-03-03 12:39] LABS: NT-proBNP > 27000 pg/ml
[2025-03-03 13:33] LABS: Blood Urea Nitrogen 118 mg/dl (9-20)
--- NOTE | 2025-03-03 14:08 | HPS.HSE ---
Family Physician
-
Family Physician: Joe Centeno DO
Chief Complaint
-
shortness of breath and increased edema
History of Present Illness
Patient is a 85-year-old male with past medical history significant for COPD, CKD 4, chronic HFpEF, gout, peripheral neuropathy, chronic anemia, hypertension, prior CVA with residual right-sided symptoms and bladder cancer status post TURBT who
presented to [facility] ED for evaluation at request of intramural director Dr. Eng. Patient currently resides at [facility] and was at cardiology for follow up appointment with Dr. Eng today. Patient with recent hospitalization for Acute on Chronic
Heart Failure 01/26/2025-02/02/2025 and was discharged back to [place]. He reports his oxygen requirements have increased since discharge and nursing there has slowly titrated him up from his 3Liters baseline as needed. He also reports increased lower
extremity edema and increased work of breathing. Patient states he has had intermittent mild cough. Denies any fever, chills, chest pain, nausea, vomiting, constiaption, diarrhea or urinary symptoms.
Medical History
Past Medical History
Past Medical History: Reports Other
Additional Past Medical History:
COPD
CKD 4
chronic HFpEF
gout
peripheral neuropathy
chronic anemia
hypertension
prior CVA with residual right-sided symptoms
bladder cancer status post TURBT
Past Surgical History: Reports Other
Additional Past Surgical History:
TURBT
Social History
Tobacco: Former Smoker (quit in 2000)
Alcohol: Former (quit in 2000)
Drug: None
Living: Longterm ([facility] )
Family History
Family History: Not pertinent
Allergies / Home Medications
Allergies reflects when Allergies were last updated in hike.
Home Medications with original date entered in hike
Allergy/Medication List:
Allergies
Allergy/AdvReac Type Severity Reaction Status Date / Time
environmental allergies Allergy Unknown Uncoded 01/26/25 17:50
Home Medications
trazodone 50 mg tablet 50 mg PO HS Sleep 01/04/25
acetaminophen 325 mg tablet (Tylenol) 650 mg PO BID 01/26/25
allopurinol 100 mg tablet 50 mg PO QPM Gout 01/26/25
bisacodyl 10 mg rectal suppository 10 mg MA [id number] PRN if no bm aftr mom 01/26/25
ipratropium 0.5 mg-albuterol 3 mg (2.5 mg base)/3 mL nebulization soln 3 ml inhalation R Q4HPRN PRN sob 01/26/25
acetaminophen 325 mg tablet (Tylenol) 650 mg PO Q4HPRN PRN mild pain 03/03/25
aspirin 81 mg chewable tablet 81 mg PO DAILY 03/03/25
dextromethorphan 5 mg-benzocaine 6 mg-menthol 10 mg lozenges (Chloraseptic Total) 1 evelyne mucous membrane Q4HPRN PRN sore throat 03/03/25
lactulose 10 gram/15 mL oral solution 20 g PO HSPRN PRN constipation 03/03/25
torsemide 40 mg tablet 40 mg PO DAILY 03/03/25
Review of Systems
-
History Source: Patient
Respiratory: Reports No Symptoms, Cough, Trouble Breathing (increased work of breathing and shortness of breath ) and Other (increased oxygen requirements from 3 Liters )
Musculoskeletal: Reports Edema (increased bilateral lower extremity edema )
Physical Exam
Vital Signs
Vital Signs
Temp Pulse Resp BP Pulse Ox
97.7 F 106 24 136/85 100
03/03/25 11:22 03/03/25 14:04 03/03/25 14:04 03/03/25 14:04 03/03/25 14:04
Physical Exam
General: Well Developed and Appears Chronically Ill
HEENT: NormoCephalic, Atraumatic, Nose Appears Normal and Ears Appear Normal
Respiratory: Crackles (bilateral crackles ), Accessory Resp Muscle Use and Decreased Breath Sounds
Cardiac: S1/S2, Regular Rhythm and JVD
GI: Soft, Non Tender, Non Distended and Normal Bowel Sounds
Rectal: Deferred by Provider
Genito-urinary: Deferred by me
Musculoskeletal: No Clubbing, No Cyanosis, Edema, Left Lower Extremity (+2-3 pitting ) and Edema, Right Lower Extremity (+2-3 pitting)
Skin: IV/Catheter Site
Neuro: Awake, Alert and Nonfocal/grossly intact
Psych: Calm
Laboratory Results
-
03/03/25 11:46
03/03/25 11:46
Laboratory Results
PT 14.3 Sec (11.4-14.6) 03/03/25 11:50
INR 1.06 03/03/25 11:50
APTT 29.7 Sec (23.4-35.0) 03/03/25 11:50
Total Bilirubin 0.8 mg/dl (0.2-1.3) 03/03/25 11:46
AST 19 U/L (17-59) 03/03/25 11:46
ALT 17 U/L (0-50) 03/03/25 11:46
Alkaline Phosphatase 105 U/L (38-126) 03/03/25 11:46
Troponin I 0.080 ng/ml H* 03/03/25 11:46
Data Reviewed
-
Diagnostic Radiology: Report Reviewed by me (CXR: 1. Mild perivascular congestion. 2. Small bilateral pleural effusions, right greater than left.)
Medical Tests (Nuc Med, Echo, EKG etc): Report Reviewed by me (EKG: SINUS TACHYCARDIA WITH PREMATURE ATRIAL COMPLEXES WITH Aberrant conduction RIGHT BUNDLE BRANCH BLOCK T WAVE ABNORMALITY, CONSIDER INFERIOR ISCHEMIA)
Lab Data: Labs Reviewed by me (hgb 8.1, hct 24.7, BUN 118, Creat 2.6, eGFR 23.29, Trop 0.080, BNP >33014)
Impression/Plan
-
IMPRESSION/PLAN:
#acute on chronic HFpEF
Trop 0.080, BNP >51620
CXR: 1. Mild perivascular congestion.
2. Small bilateral pleural effusions, right greater than left.
EKG: SINUS TACHYCARDIA WITH PREMATURE ATRIAL COMPLEXES WITH Aberrant conduction
RIGHT BUNDLE BRANCH BLOCK
T WAVE ABNORMALITY, CONSIDER INFERIOR ISCHEMIA
- Admit to telemetry
- Consult Cardiology
- IV Lasix 40mg BID
- daily weights
- I & Os
#COPD
- continue oxygen as indicated
- continue DuoNebs
#CKD 4
BUN 118, Creat 2.6, eGFR 23.29
- Consult Nephrology
- monitor BMP
#gout
- continue Allopurinol
#chronic anemia
hgb 8.1, hct 24.7
appears to be baseline
- monitor H/H
#hypertension
- hold torsemide
- IV Lasix for CHF exacerbation
#chronic constipation
- continue lactulose
#peripheral neuropathy
#prior CVA with residual right-sided symptoms
#bladder cancer status post TURBT
Code status: DNR
DVT prophylaxis: heparin sq
[2025-03-03] MEDS: LASIX 40 MG IV (14:16)
--- NOTE | 2025-03-03 14:40 | W.PN.UPDATE ---
Update Note
Progress Note Update
This is an addendum to H&P written by Gita Stephen on 03/03/2025.� Patient seen and examined independently with ACCOUNTANT HELPER.�
85-year-old male past medical history of COPD, CKD 4, chronic HFpEF on 3 L baseline, gout, peripheral neuropathy, chronic anemia, hypertension, prior CVA with residual right-sided symptoms, bladder cancer status post TURBT, presenting for increasing
O2 requirements, increased lower extremity edema and shortness of breath, mild cough.
Chest x-ray shows mild perivascular congestion.� Small bilateral pleural effusions.� Troponin of 0.08 although higher previously.� Cardiac BNP greater than 27,000.� Renal function at baseline.� Hemoglobin 8.1 at baseline.
Patient with acute HFpEF exacerbation.
IV Lasix.� Cardiology, nephrology consulted.
--- NOTE | 2025-03-03 15:56 | W.CON.NEPH ---
Consultation
-
Date/Time Consultation Requested: 03/03/25 1338
Date/Time Consultation Performed: 03/03/25 1430
Requesting Provider: Liliam Boateng
Performing Provider: Beatriz Hernandez
Reason for Consultation: Azotemia and CKD with CHF
Medical History
-
Chief Complaint: Shortness of breath
History of Present Illness:
85-year-old male past medical history of COPD, CKD 4 cr mid 2 range, chronic HFpEF on Torsemide, gout on allupurinol, peripheral neuropathy, chronic anemia, hypertension, prior CVA with residual right-sided symptoms, bladder cancer status post
TURBT, presenting from Cardiology office for shortness of breath. Patient using accessory muscles and reports of gaining weight since the discharge in January for similar complaints-treated for CHF flare. Patient currently lives at [facility].
Also noted that his oxygen requirements have increased so is the edema in his lower extremities. He reports compliance with his diet and the medications he denies any fever or chills. No chest pain. Denies any dysuria or change in the urine
output. Denies any diarrhea or constipation. No abdominal pain. Chest x-ray shows mild perivascular congestion and small bilateral pleural effusions right greater than the left. His creatinine today 2.6 baseline however significant as ischemia at
BUN of 118. ProBNP more than 27,000, troponin 0.080. Hemoglobin is 8.1.
Nephrology consult to monitor his kidney function with requirement of diuresis for CHF.
Past Medical History
COPD
CKD 4
chronic HFpEF
gout
peripheral neuropathy
chronic anemia
hypertension
prior CVA with residual right-sided symptoms
bladder cancer status post TURBT
Past Surgical History: Other (TURBT, ORIF of hip)
Social History
Tobacco: Former Smoker (2000)
Alcohol: Former ( 2000)
Drug: None
Living: Residential
Family History
Family History: Not Pertinent
Allergies / Home Medications
Allergy/AdvReac Type Severity Reaction Status Date / Time
environmental allergies Allergy Unknown Uncoded 01/26/25 17:50
�Medication �Instructions �Recorded �Confirmed �Type
trazodone 50 mg tablet 50 mg PO HS Sleep 01/04/25 03/03/25 History
acetaminophen 325 mg tablet 650 mg PO BID 01/26/25 03/03/25 History
(Tylenol)
allopurinol 100 mg tablet 50 mg PO QPM Gout 01/26/25 03/03/25 History
bisacodyl 10 mg rectal suppository 10 mg DE [id number] PRN if no bm aftr 01/26/25 03/03/25 History
mom
ipratropium 0.5 mg-albuterol 3 mg 3 ml inhalation R Q4HPRN PRN sob 01/26/25 03/03/25 History
(2.5 mg base)/3 mL nebulization
soln
acetaminophen 325 mg tablet 650 mg PO Q4HPRN PRN mild pain 03/03/25 03/03/25 History
(Tylenol)
aspirin 81 mg chewable tablet 81 mg PO DAILY 03/03/25 03/03/25 History
dextromethorphan 5 mg-benzocaine 6 1 evelyne mucous membrane Q4HPRN PRN 03/03/25 03/03/25 History
mg-menthol 10 mg lozenges sore throat
(Chloraseptic Total)
lactulose 10 gram/15 mL oral 20 g PO HSPRN PRN constipation 03/03/25 03/03/25 History
solution
torsemide 40 mg tablet 40 mg PO DAILY 03/03/25 03/03/25 History
Review of Systems
-
All other systems: Negative unless noted
Physical Exam
Vital Signs
Vital Signs
Temp Pulse Resp BP Pulse Ox
97.7 F 106 23 136/85 99
03/03/25 11:22 03/03/25 15:45 03/03/25 15:45 03/03/25 14:04 03/03/25 15:30
Lab Results
WBC 10.3 10^3/uL (4.8-10.8) 03/03/25 11:46
RBC 2.67 10^6/uL (4.70-6.10) L 03/03/25 11:46
Hgb 8.1 g/dL (13.0-18.0) L 03/03/25 11:46
Hct 24.7 % (39.0-52.0) L 03/03/25 11:46
Plt Count 212 10^3/uL (130-400) 03/03/25 11:46
Sodium 142 mmol/L (135-145) 03/03/25 11:46
Potassium 5.1 mmol/L (3.5-5.1) 03/03/25 11:46
Chloride 101 mmol/L (98-107) 03/03/25 11:46
Carbon Dioxide 32 mmol/L (22-30) H 03/03/25 11:46
BUN 118 mg/dl (9-20) H* 03/03/25 11:46
Creatinine 2.6 mg/dL (0.7-1.3) H 03/03/25 11:46
eGFR 23.29 03/03/25 11:46
Glucose 126 mg/dl (70-99) H 03/03/25 11:46
Calcium 9.0 mg/dl (8.4-10.2) 03/03/25 11:46
Osf-E-Iaxsdbssinm Pept > 06789 pg/ml 03/03/25 11:46
Albumin 4.1 g/dl (3.5-5.0) 03/03/25 11:46
Physical Exam
General: Awake, Alert, Oriented, AOx3 and Other ( mild respiratory distress)
HEENT: EOMI, Anicteric and Facial Symmetry
Respiratory: Crackels and Other ( using accessory muscles)
Cardiac: S1/S2 and Regular Rate/Rhythm
Breast: Deferred by me
Abdomen: Soft, Nontender and Nondistended
Musculoskeletal: No Cyanosis and Edema (2+)
Skin: No Rash
Neuro: Nonfocal/Grossly Intact
Psych: Insight/judgement good and Appropriate
Assessment/Plan
-
Impression:
Acute on chr CHFpEF
CKD 3b (2.5) previously saw nephrology in [place]
Azotemia
COPD
chr anemia
chr constipation
Peripheral neuropathy
bladder ca s/p TURBT
History of CVA
Anemia
History of gout
Plan:
A/w SOB, CHF flare again, recent d/c month ago for same
Renal function seemed to be stable however with azotemia suspected from cardiorenal
Continue diuresis and responded well previously 40 mg of Lasix twice a day
increase the doses if needed
Monitor urine output and check daily weights
Reviewed with the patient in detail regarding risk of dialysis should his renal function worsens-he reports no dialysis which is reasonable at his age and clinical facility
Maintain fluid restriction and low-salt diet
Blood pressure stable
Overall prognosis poor
[2025-03-03] MEDS: DUONEB 3 ML INH (16:21)
--- NOTE | 2025-03-03 16:38 | W.PN.CD ---
Today's Communication / Plan
-
IV diuresis
Monitor response and kidney function
Will follow
Impression / Plan
-
See full consult note scanned in dated 03/03/2025
85-year-old male with CKD, heart failure with preserved EF on chronic oxygen and chronic anemia presents with acute on chronic heart failure exacerbation.
# heart failure with preserved ejection fraction: Most recent echo showed normal LVEF and mild aortic stenosis.
- Start IV diuresis with 80 mg of furosemide twice daily. This will require intensive monitoring given acute on chronic kidney failure.
- Typical home dosing is torsemide 40 mg daily
- Will update echo given recent decline
#Acute on chronic kidney disease
Monitor creatinine with diuresis
#Anemia: Chronic, care per medicine
# COPD on chronic oxygen therapy, care as per medicine
#Prior CVA: Atorvastatin no longer listed on medications we will need to clarify
Physical Exam
Vital Signs/Labs
Vital Signs
Temp Pulse Resp BP Pulse Ox
97.7 F 106 23 136/85 99
03/03/25 11:22 03/03/25 15:45 03/03/25 15:45 03/03/25 14:04 03/03/25 15:30
03/02/25 03/03/25 03/04/25
06:59 06:59 06:59
Actual Weight 215 lb 6.266 oz
03/03/25 11:46
03/03/25 11:46
PT 14.3 Sec (11.4-14.6) 03/03/25 11:50
INR 1.06 03/03/25 11:50
APTT 29.7 Sec (23.4-35.0) 03/03/25 11:50
03/03/25
11:46
Yba-K-Jolvnuewsdg Pept > 81573
LAB Results
03/03/25
11:46
Troponin I 0.080 H*
Physical Exam
Constitutional: Distress
Cardiovascular: Rhythm & rate is regular and Pedal edema present
Respiratory: Labored respirations and Crackles Present (Bibasilar)
Data Reviewed
-
Date of Service: March 03, 2025
--- NOTE | 2025-03-03 17:00 | PTCARENOTE ---
Received patient from ED via stretcher. AAOx3, pulled over from stretcher to bed. Very SOB/SARAH. Assessed and oriented to room. Call darden in close reach. Bed alarm in place for safety.
[2025-03-03] MEDS: ZYLOPRIM 50 MG PO (17:18)
[2025-03-03] MEDS: HEPARIN 5000 UNITS SC (17:18)
[2025-03-03] MEDS: DESYREL 50 MG PO (21:32)
[2025-03-03] MEDS: TYLENOL 650 MG PO (21:32)
[2025-03-04] VITALS (8 sets, daily range): BP systolic 93–140; BP diastolic 57–89; BMI 20.5
[2025-03-04] MEDS: HEPARIN 5000 UNITS SC ×4 (00:17→23:59)
[2025-03-04] MEDS: DUONEB 3 ML INH ×5 (00:51→23:56)
[2025-03-04 07:08] LABS: Hematocrit 24.2 % (39.0-52.0); Hemoglobin 7.7 g/dL (13.0-18.0); Mean Corp Hgb Conc. 31.8 g/dL (33.0-37.0); Mean Corpuscular Volume 94.2 fL (80.0-94.0); Mean Platelet Volume 10.8 fL (7.4-10.4); Platelet Count 212 10^3/uL (130-400); Red Blood Cell Count 2.57 10^6/uL (4.70-6.10); Red Cell Dist. Width 17.1 % (11.5-14.5); White Blood Cell Count 8.9 10^3/uL (4.8-10.8)
--- NOTE | 2025-03-04 07:23 | W.PN.HOSP.TC ---
Today's Communication/Plan
-
Continue IV Lasix
Echo pending
Assessment / Plan
Assessment / Plan
Impression:Patient is a 85-year-old male with past medical history significant for COPD, CKD 4, chronic HFpEF, gout, peripheral neuropathy, chronic anemia, hypertension, prior CVA with residual right-sided symptoms and bladder cancer status post
TURBT who presented to [facility] ED for evaluation at request of cook helper pastry for SOB.
Plan:
#Acute on chronic HFpEF
-Trop 0.080, BNP >28356 on adm
- CXR: Mild perivascular congestion. Small bilateral pleural effusions, right greater than left.
-Echo 08/2024: LVEF 55 to 60% mild aortic stenosis
- Consult Cardiology, appreciated
- Continue IV Lasix 40mg BID
- Baseline weight around 58 kg. Decreased around to 2kg in weight from yesterday
- follow daily weights, I & Os, Ordered scott
- Transfer to IMU, ABG ordered
- Wound consult for b/l lower extremity edema wounds
� Echo pending
#COPD
- continue chronic oxygen therapy
- Ordered DuoNebs
#CKD 4
- BUN 118, Creat 2.6, eGFR 23.29
- Baseline creatinine around 2.5
- Consult Nephrology
- Recheck BMP in afternoon.
#Gout
- continue Allopurinol
# Anemia of chronic kidney disease
- hgb 7.7
- appears to be baseline
- monitor H/H
- Transfuse if Hb being below 7
#Hypertension
- hold torsemide
- IV Lasix for CHF exacerbation
#Chronic constipation
- continue lactulose
- Added as needed bowel regimen and MiraLAX daily
#Peripheral neuropathy
#Prior CVA with residual right-sided symptoms
#Bladder cancer status post TURBT
Code status: DNR
DVT prophylaxis: heparin sq
Anticipated Discharge: 24 - 48 hours
Subjective/Interval History
-
Date of Service: March 04, 2025
Patient continues to be short of breath.
Objective Data
-
Labs:
Laboratory Results
03/04/25
06:43
WBC 8.9
Hgb 7.7 L
Hct 24.2 L
Plt Count 212
Sodium Pending
Potassium Pending
Chloride Pending
Carbon Dioxide Pending
BUN Pending
Creatinine Pending
Glucose Pending
Calcium Pending
Vital Signs:
Vital Signs
Temp Pulse Resp BP Pulse Ox
97.9 F 102 22 139/81 98
03/04/25 04:12 03/04/25 04:12 03/04/25 04:12 03/04/25 04:12 03/04/25 04:12
I&O
03/03/25 03/04/25 03/05/25
06:59 06:59 06:59
Intake Total 240 / 240
Output Total 800 / 800
Balance -560 / -560
Review of Systems
-
Respiratory: Reports Trouble Breathing
Cardiac: Denies Chest Pain
Physical Exam
-
General: Appears Chronically Ill
HEENT: Normocephalic and Atraumatic
Respiratory: Wheezes and Decreased Breath Sounds
Cardiac: Regular Rhythm and S1/S2
GI: Soft, Nontender and Nondistended
Musculoskeletal: No Clubbing, No Cyanosis, Edema, Right Lower Extrem and Edema, Left Lower Extrem
Skin: Warm and Dry
Neuro: Awake, Alert and Oriented
[2025-03-04] MEDS: TYLENOL 650 MG PO ×2 (07:52→20:25)
[2025-03-04] MEDS: LOW STRENGTH ASPIRIN 81 MG PO (07:53)
[2025-03-04] MEDS: LASIX 80 MG IV ×2 (07:55→17:01)
[2025-03-04 08:18] LABS: Carbon Dioxide 27 mmol/L (22-30); Chloride 102 mmol/L (98-107); Estimated Creatinine Clearance 15 ml/min; Glucose 109 mg/dl (70-99); HDL Cholesterol 64 mg/dl; LDL Cholesterol, Calculated 79 mg/dl; Potassium 4.7 mmol/L (3.5-5.1); Sodium 139 mmol/L (135-145); Total Cholesterol 159 mg/dl (50-199); Triglyceride 82 mg/dl (10-149); Very Low Density Lipoprotein 16 mg/dl (0-30); eGFR 20.43
[2025-03-04 08:41] LABS: Blood Urea Nitrogen 122 mg/dl (9-20)
--- NOTE | 2025-03-04 09:46 | W.PN.NEPH.PH ---
Today's Communication / Plan
-
Stat ABG
Continue diuretics
Possible thoracentesis
Assessment/Plan
-
Impression:
Acute on chr CHFpEF
CKD 3b (2.5) previously saw nephrology in [place]
Azotemia
COPD
chr anemia
chr constipation
Peripheral neuropathy
bladder ca s/p TURBT
History of CVA
Anemia
History of gout
Plan:
Worsening clinical status and mental status
80 mg IV Lasix given
Spoke with Dr. Abel yesterday about dialysis which he said he would not want to pursue although I am unable to get complete sentences today from him
ABG ordered stat
Discussed with both cardiology and primary team need for possible BiPAP and possible thoracentesis based on x-ray findings
Overall patient ultimately would need dialysis although 85 years old with significant COPD/emphysema making pulmonary status more complicated
Overall prognosis poor

31 minutes critical care time spent
-
-
Date of Service: March 04, 2025
CC / HPI / ROS
-
Patient with worsening shortness of breath decreased mental status
Labs
-
Labs:
WBC 8.9 10^3/uL (4.8-10.8) 03/04/25 06:43
RBC 2.57 10^6/uL (4.70-6.10) L 03/04/25 06:43
Hgb 7.7 g/dL (13.0-18.0) L 03/04/25 06:43
Hct 24.2 % (39.0-52.0) L 03/04/25 06:43
Plt Count 212 10^3/uL (130-400) 03/04/25 06:43
Sodium 139 mmol/L (135-145) 03/04/25 06:43
Potassium 4.7 mmol/L (3.5-5.1) 03/04/25 06:43
Chloride 102 mmol/L (98-107) 03/04/25 06:43
Carbon Dioxide 27 mmol/L (22-30) 03/04/25 06:43
BUN 122 mg/dl (9-20) H* 03/04/25 06:43
Creatinine 2.9 mg/dL (0.7-1.3) H 03/04/25 06:43
eGFR 20.43 03/04/25 06:43
Glucose 109 mg/dl (70-99) H 03/04/25 06:43
Calcium 9.0 mg/dl (8.4-10.2) 03/04/25 06:43
Tzs-M-Xxsdnqfegyn Pept > 48348 pg/ml 03/03/25 11:46
Albumin 4.1 g/dl (3.5-5.0) 03/03/25 11:46
Physical Exam
-
Vital Signs:
Vital Signs
Temp Pulse Resp BP Pulse Ox
98 F 108 20 140/84 94
03/04/25 07:55 03/04/25 07:55 03/04/25 07:55 03/04/25 07:55 03/04/25 07:55
Cardiovascular:: Regular rate and rhythm
Respiratory:: Bilateral: Coarse, Bilateral: Rales and Bilateral: Rhonchi
Lung Excursion:: Normal
Abdomen:: Nontender and Soft
Bowel Sounds:: Normal
Extremity Edema:: +1: Bilateral:
[2025-03-04 09:54] LABS: B.E. 8.8 mmol/L; HCO3 34.7 mmol/L (21-28); O2 Saturation % 99.8 % (94-98); PCO2 56 mmHg (35-48); PO2 87 mmHg (83-108); Potassium 4.6 mMOL/L (3.5-5.1); Sodium 136 mMOL/L (136-145)
--- NOTE | 2025-03-04 11:25 | PTCARENOTE ---
Received patient this am AAOx2. Pt forgetful. Pt complained of SOB. Respiratory called an patient given a treatment. O2 sat 94 % on 3 L 02 via nasal cannula. Pt medicated with Lasix 80 mg Iv as ordered. Pt urinated x1 in urinal. Pt then was
incontinent of urine and saturated covidin pad. Pt seen by medicine, nephrology an cardiology. ABG was drawn by respiratory. PH-7.40, PCo2- 56, Po2-87 HCO3-34.7 Bases excess 8.8, ABG O2 sat 99.8, Na 136, Potassium 4.6 on 02 at 3L. Report called to
IMU nurse and patient transferred.
--- NOTE | 2025-03-04 11:43 | PTCARENOTE ---
Rec'd pt on transfer from med surg floor. AAO x3, O2 sat stable on 3L. Pt is irritible but redirectable.
--- NOTE | 2025-03-04 12:18 | WOUNDNOTE ---
ANTERIOR VIEW OF BILATERAL LOWER LEGS
--- NOTE | 2025-03-04 12:18 | WOUNDNOTE ---
RIGHT HEEL 1940, [id number]
--- NOTE | 2025-03-04 12:19 | WOUNDNOTE ---
RIGHT MEDIAL FOOT
--- NOTE | 2025-03-04 12:20 | WOUNDNOTE ---
RIGHT MEDIAL FOOT 1940, [id number]
--- NOTE | 2025-03-04 12:22 | WOUNDNOTE ---
LEFT HEEL 1940, [id number]
--- NOTE | 2025-03-04 12:23 | WOUNDNOTE ---
LEFT POSTERIOR LEG 1940, [id number]
--- NOTE | 2025-03-04 12:24 | WOUNDNOTE ---
LEFT LOWER LEG
--- NOTE | 2025-03-04 12:52 | WOUNDNOTE ---
WOC RN note: Patient admitted with SOB and increased edema
See H&P for complete history.
PMH: COPD and emphysema, ex-smoker, ETOH, anemia, arthritis
Wound Location and type/assessment: Patient admitted with bilateral wounds to heels, legs and right medial foot. See worklist for details and measurements. Assessment completed with patient sitting on side of bed due to SOB. Chart reviewed, patient
had DTI to bilateral heels at last admission. Upon assessment the left heel has stable eschar and an open area that is dry and non-draining. The right heel has a stage 1 PI of non-blanchable pink skin. Right medial foot with stable eschar. Patient
reports that this wound was from an old bunion. Sacrum with stage 1 PI. Patient is on dialysis and voided in urinal during assessment. He said he transfers to commode at [place].
Appetite: Reports poor due to SOB
Pressure redistribution devices in place: Centrella Max Air, heels off-loaded with pillow under calves.
Plan: Local wound care provided as ordered. Patient would like to keep dressing off of right leg as wounds are closed. He prefers we do not use Betadine to dried eschar because it saeed. He declines use of fiber filled boots and compression so
heels were off-loaded with pillows under calves. Patient prefers to be on back and declined being positioned off of sacrum due to SOB. Patient has several comorbidities including COPD and poor appetite. Wounds may worsen and new wounds may develop
even with optimal care. Will confirm orders with hospitalist and update nurse.
Updated care plan and will follow as needed.
Note to case management of equipment requested for discharge:
Recommend follow up at wound care center upon discharge.
[2025-03-04] MEDS: MIRALAX PO (13:56)
--- NOTE | 2025-03-04 16:18 | CM ---
Patient seen at bedside with physicians. Patient was LTC at [facility]. Patient will need auth to be started for patient to return to SNF per admissions Liaison. Patient transferred to IMU from [address] [place] [address]. Patient grand son is contact for SNF. CM will
continue to follow for discharge planning needs.
Plan; return to SNF; [facility]; Auth request needs to be initiated prior to return per liaison.
[2025-03-04] MEDS: ZYLOPRIM 50 MG PO (17:03)
[2025-03-04] MEDS: DESYREL 50 MG PO (20:25)
--- NOTE | 2025-03-04 22:00 | PTCARENOTE ---
refused night time oral care.
[2025-03-05] VITALS (10 sets, daily range): BP systolic 108–142; BP diastolic 62–90; BMI 19.8
[2025-03-05] MEDS: MORPHINE SULFATE 1 MG IV ×3 (02:03→19:13)
[2025-03-05] MEDS: VENTOLIN NEBULES 2.5 MG INH (02:55)
[2025-03-05 05:55] LABS: Calcium 9.2 mg/dl (8.4-10.2); Carbon Dioxide 28 mmol/L (22-30); Chloride 99 mmol/L (98-107); Estimated Creatinine Clearance 14 ml/min; Glucose 143 mg/dl (70-99); Potassium 4.4 mmol/L (3.5-5.1); Sodium 141 mmol/L (135-145); eGFR 19.61
[2025-03-05 06:07] LABS: Blood Urea Nitrogen 130 mg/dl (9-20)
--- NOTE | 2025-03-05 06:13 | PTCARENOTE ---
Addendum entered by Paulette Silva RN 03/05/25 06:18:
Crackles throughout lungs overnight. 6LNC.
Original Note:
Cared for pt overnight.
pt had increased wob overnight, sats were in 90's but pt very tachypneic SARAH/SOB @ rest. ORTHODONTIC BAND MAKER at bedside, dose of morphine given. RT at bedside danitza neds ordered around the clock & albuterol prn. Neb & morphine did not help. Was going to initiate bipap
but adamantly refused. Pt still has increased wob but seems more comfortable now and was able to get some sleep.
all other vss. scott drained 650 overnight, labs still show increase in BUN & CR. PT aaox3 but seems forgetful/agitated at times. Removing clothes/ivs/etc. BA on. NSR/ST. Will monitor.
[2025-03-05] MEDS: DUONEB 3 ML INH ×2 (07:23→11:57)
[2025-03-05] MEDS: LASIX 80 MG IV (08:22)
[2025-03-05] MEDS: HEPARIN 5000 UNITS SC (08:22)
[2025-03-05] MEDS: LOW STRENGTH ASPIRIN 81 MG PO (08:22)
[2025-03-05] MEDS: MIRALAX 17 GRAMS PO (08:22)
[2025-03-05] MEDS: TYLENOL 650 MG PO (08:23)
--- NOTE | 2025-03-05 10:00 | W.PN.NEPH.PH ---
Today's Communication / Plan
-
Patient for hospice
Will sign off
Assessment/Plan
-
Impression:
Acute on chr CHFpEF
CKD 3b (2.5) previously saw nephrology in [place]
Azotemia
COPD
chr anemia
chr constipation
Peripheral neuropathy
bladder ca s/p TURBT
History of CVA
Anemia
History of gout
Plan:
Worsening clinical status and mental status
80 mg IV Lasix given
Spoke with Dr. Abel yesterday about dialysis which he said he would not want to pursue although I am unable to get complete sentences today from him
Primary hospitalist spoke with family who requested this patient hospice and no dialysis as patient will require dialysis otherwise.
Agree with family decision as this is appropriate
Will sign off

-
-
Date of Service: March 05, 2025
CC / HPI / ROS
-
Patient with worsening shortness of breath decreased mental status
Labs
-
Labs:
WBC 8.9 10^3/uL (4.8-10.8) 03/04/25 06:43
RBC 2.57 10^6/uL (4.70-6.10) L 03/04/25 06:43
Hgb 7.7 g/dL (13.0-18.0) L 03/04/25 06:43
Hct 24.2 % (39.0-52.0) L 03/04/25 06:43
Plt Count 212 10^3/uL (130-400) 03/04/25 06:43
Sodium 141 mmol/L (135-145) 03/05/25 05:09
Potassium 4.4 mmol/L (3.5-5.1) 03/05/25 05:09
Chloride 99 mmol/L (98-107) 03/05/25 05:09
Carbon Dioxide 28 mmol/L (22-30) 03/05/25 05:09
BUN 130 mg/dl (9-20) H* 03/05/25 05:09
Creatinine 3.0 mg/dL (0.7-1.3) H 03/05/25 05:09
eGFR 19.61 03/05/25 05:09
Glucose 143 mg/dl (70-99) H 03/05/25 05:09
Calcium 9.2 mg/dl (8.4-10.2) 03/05/25 05:09
Jzs-A-Pyfzoatqpaa Pept > 02541 pg/ml 03/03/25 11:46
Albumin 4.1 g/dl (3.5-5.0) 03/03/25 11:46
Physical Exam
-
Vital Signs:
Vital Signs
Temp Pulse Resp BP Pulse Ox
98.7 F 103 22 117/67 97
03/05/25 07:51 03/05/25 07:31 03/05/25 07:31 03/05/25 06:00 03/05/25 07:31
Cardiovascular:: Regular rate and rhythm
Respiratory:: Bilateral: Coarse, Bilateral: Rales and Bilateral: Rhonchi
Lung Excursion:: Normal
Abdomen:: Nontender and Soft
Bowel Sounds:: Normal
Extremity Edema:: +1: Bilateral:
--- NOTE | 2025-03-05 12:57 | W.PN.HOSP.TC ---
Today's Communication/Plan
-
see note
Assessment / Plan
Assessment / Plan
1. JOSE ANGEL on CKD stage IV -patient have worsening renal function with azotemia. Suspected cardiorenal syndrome. Patient being started on IV Lasix 80 mg twice daily, monitor urinary output. Montes catheter to be placed for monitoring.
- Patient renal function remains suppressed. No good diuresis with IV diuretics and patient oxygen requirement has increased overnight. Patient also developing uremic encephalopathy with asterixis on exam
- Discussed goal of care with patient daughter over the phone who is in agreement for patient to be transition to hospice care.
2. Acute on chronic diastolic congestive heart failure, small bilateral pleural effusion -patient having worsening hypoxia. Showing elevated BNP greater than 27K. Chest x-ray showing perivascular congestion and small bilateral effusion. Repeat
echocardiogram pending.
3. Acute hypoxic respiratory failure -suspected with pulmonary congestion. Patient short of breath and on exam have crackles/mild wheezing. ABG showing PO2 of 87 and pCO2 of 56 pH of 7.4. Patient to be monitored in IMU with potential need of
BiPAP if required.
4. Anemia of chronic renal disease -last iron studies reviewed and patient appropriate for discharge. Likely anemia of chronic renal disease setting in.
5. COPD -no signs of exacerbation, mild wheezing although likely due to bronchospasm from pulmonary congestion. Maintain on nebulizer therapy.
DNR
Total time spent 53 minutes
Patient a poor prognosis as patient having symptoms of uremia and encephalopathic from. IV diuretic has failed to improve patient condition. Patient daughter in agreement with patient to be initiated on hospice care.
Hospice consult has been placed and watch caser has been notified.
Transfer patient to [facility]
Anticipated Discharge: > 48 hours
Subjective/Interval History
-
Date of Service: March 05, 2025
Patient is more somnolent/drowsy today
Waking up on verbal and physical cue
Remains hypoxic with oxygen requirement increasing to 6 L overnight
No abdominal pain/nausea/vomiting
Objective Data
-
Labs:
Laboratory Results
03/05/25
05:09
Sodium 141
Potassium 4.4
Chloride 99
Carbon Dioxide 28
BUN 130 H*
Creatinine 3.0 H
Glucose 143 H
Calcium 9.2
Vital Signs:
Vital Signs
Temp Pulse Resp BP Pulse Ox
98.2 F 95 23 122/62 98
03/05/25 11:51 03/05/25 10:00 03/05/25 10:00 03/05/25 10:00 03/05/25 11:00
I&O
03/04/25 03/05/25 03/06/25
06:59 06:59 06:59
Intake Total 240 / 240
Output Total 800 / 800 1725 / 1725
Balance -560 / -560 -1725 / -1725
Review of Systems
-
Unable to obtain full review of systems at this time due to: Acuity
Physical Exam
-
General: Negative Appears in Distress or Pain
HEENT: Oxygen (6l NC)
Respiratory: Rhonchi
Cardiac: Regular Rhythm and S1/S2; Negative Murmur
GI: Soft, Nontender and Nondistended
Musculoskeletal: Edema, Right Lower Extrem and Edema, Left Lower Extrem
Neuro: Awake; Negative Alert or Oriented
--- NOTE | 2025-03-05 14:18 | CM ---
Received consult for hospice. Spoke with patient's daughter who is agreeable and stated that hospice would be her choice. Made referral to Brianna Tsang at hospice. Spoke with her to discuss. She stated that she would call the patient.
Plan: Case management will continue to follow and assist with discharge planning. Unclear right now if patient is stable enough to transfer out of acute care.
--- NOTE | 2025-03-05 14:32 | HOSPNOTE ---
Hospice referral received. Spoke to daughter who is in agreement with initiating comfort measures and then if patient is appropriate, to sign onto inpatient hospice tomorrow. Daughter would meet us to sign consents. Patient will be moving to [id number].
Attending and CM updated and in agreement. Emotional support provided.
--- NOTE | 2025-03-05 16:19 | PTCARENOTE ---
pt transitioned to comfort care. will be moving to [facility]. family at bedside and made aware of move. pt currently resting comfortablt
--- NOTE | 2025-03-05 18:05 | PTCARENOTE ---
recieved pt from IMU via bed, noted to be restless and trying to climb out of bed,agiated; Oxygen in use as pt seemed orthopneic, bed alarm in place,, contacted cross coverage for comfort order of Ativan IV also, medicated with PRN Morphine and
Haldol. report given to oncoming nurse.
--- NOTE | 2025-03-05 18:09 | PTCARENOTE ---
report given to Marcelle on and patient transferred. 1 mg morphine given for dyspnea.
[2025-03-05] MEDS: HALDOL 1 MG IV (18:14)
[2025-03-05] MEDS: ATIVAN 2 MG IV (19:26)
[2025-03-06] MEDS: MORPHINE SULFATE 1 MG IV ×2 (05:49→07:48)
[2025-03-06] MEDS: FLUSH (NSS) 2 FLUSH IV (05:51)
[2025-03-06] MEDS: ATIVAN 2 MG IV (05:59)
[2025-03-06] MEDS: NSS (PRESERVATIVE FREE) 1 ML IV (05:59)
[2025-03-06 07:00] VITALS: BP 115/67
[2025-03-06] MEDS: MORPHINE 100 IV (08:54)
--- NOTE | 2025-03-06 09:05 | PTCARENOTE ---
pt with RR of 24, HR 117-134; using accessory muscles to breath, IV Morphine PRN given, not effective, DR Avila contacted and pt started on gtt step 2, initiated.
--- NOTE | 2025-03-06 10:38 | W.PN.DEATH ---
Addendum entered and electronically signed by Brendan Avila MD 03/06/25 12:36:
E- certificate has been signed
Original Note:
Pronouncement of
-
Called to see patient to pronounce.
No spontaneous heart tones or respirations noted.
Patient not responsive to verbal stimuli.
Patient is pronounced .
Time of : 10:32
Date of : 03/06/25
Cause of : end stage renal disease, hypoxic respiratory failure
Family Notified: Yes
--- NOTE | 2025-03-06 10:55 | HOSPNOTE ---
Notified that patient passed on comfort measures. Condolence call placed to daughter. Reviewed we are available if she needs any support. Reviewed the next steps with contacting the for patient to go into their care.
--- NOTE | 2025-03-06 14:11 | PTCARENOTE ---
pt this morning, daughter came to visit a few hours later, noted that pt had 2 rings one on each ring fingers; brought it to daughters attention and we weren't able to remove them; left on the patient.
--- NOTE | 2025-03-06 16:10 | W.DCSUMMARY ---
Discharge Summary
Discharge Data
Date of Admission: 03/03/25
Date of Discharge: 03/06/25
-
Pending Results: No
Hospital Course
This is a summary on Mr. Obi wiggins who on 03/06/2025 at 1032
List of hospital diagnosis:
Anasarca
Acute kidney injury on chronic kidney disease stage IV
Acute on chronic diastolic congestive heart failure
Small bilateral pleural effusion
Acute hypoxic respiratory failure
Anemia of chronic renal disease
Chronic obstructive pulmonary disease
Peripheral neuropathy
History of bladder cancer status post transurethral resection of bladder tumor
History of stroke
Anemia
History of gout
Hospital course :
Patient is a 85-year-old male with no mentioned past medical history came to ER with new onset of shortness of breath and volume overload state. Patient was seen by cardiology in the office and there was concern of patient having new diastolic
heart exacerbation was sent to ER for further evaluation. Patient was requiring oxygen through nasal cannula. Chest x-ray in ER showing bilateral small effusion and some pulmonary congestion. Cardiology and nephrology was involved in care and
patient was started on IV diuretic therapy. Patient was noted to have worsening renal function which were elevated from already suppressed renal function with CKD. Unfortunately patient had suboptimal response to IV diuresis and required to be
upgraded to intermediate care unit where patient was attempted to given trial of BiPAP. Patient did not tolerate this and was maintained on mid flow. Patient had significant azotemia and developing uremic encephalopathy. Care plan was discussed
with nephrology who recommended patient to be initiated on hemodialysis in light of refractory edema/volume overload state. This was discussed with patient family who opted for patient to be transition to hospice as patient have poor quality of
life before coming to the hospital. Patient was transition to comfort care and started on morphine. Patient on comfort care on 03/06/2025 at 1032
Discharge Plan
-
Patient Disposition:
Date/Time
Date/Time: 03/06/25 10:32
Discharge Date and Time
Discharge Date/Time: 03/06/25 14:58
Print Language: PANAMANIAN
== END 2025-03-06 14:58 | disposition expired | DRG 291 ==
LOC: 2 NORTH 15:00
PROVIDERS: Internal Medicine Nephrology; Nurse Practitioner Family; ADMITTING PHYSICIAN Hospitalist; ATTENDING PHYSICIAN Hospitalist; EMERGENCY PHYSICIAN Student in an Organized Health Care Education/Training Program; FAMILY PHYSICIAN Student in an Organized Health Care Education/Training Program; OTHER PHYSICIAN Internal Medicine
DX: I13.2 Hypertensive heart and chronic kidney disease with heart failure and with stage 5 chronic kidney disease, or end stage renal disease (principal); I50.33 Acute on chronic diastolic (congestive) heart failure; J96.01 Acute respiratory failure with hypoxia; N18.6 End stage renal disease; I69.351 Hemiplegia and hemiparesis following cerebral infarction affecting right dominant side; G93.49 Other encephalopathy; N17.9 Acute kidney failure, unspecified; J44.9 Chronic obstructive pulmonary disease, unspecified; K59.09 Other constipation; I35.0 Nonrheumatic aortic (valve) stenosis; Z51.5 Encounter for palliative care; M10.9 Gout, unspecified; D63.1 Anemia in chronic kidney disease; I73.9 Peripheral vascular disease, unspecified; G62.9 Polyneuropathy, unspecified; I45.10 Unspecified right bundle-branch block; D50.8 Other iron deficiency anemias; Z66 Do not resuscitate; Z60.2 Problems related to living alone; Z87.891 Personal history of nicotine dependence; Z87.01 Personal history of pneumonia (recurrent); Z85.51 Personal history of malignant neoplasm of bladder; Z79.82 Long term (current) use of aspirin; Z99.81 Dependence on supplemental oxygen
CPT/HCPCS: 36600; 71046; 80048; 80053; 80061; 82805; 83880; 84132; 84302; 84484; 85025; 85027; 85610; 85730; 93005; 93306; 94640; 96374; 99285